=== PATIENT | female | born 1940 | race Caucasian/White ===

== ENCOUNTER 2016-09-02 16:22 | Inpatient (IN) | payer MEDICARE ==
[2016-09-02] MEDS ORDERED: HYDROmorphone 1 MG/ML 1 ML SYRINGE IVP STA (17:23)
[2016-09-02] MEDS ORDERED: SODIUM CHLORIDE 0.9% 500 ML IV STA (17:23)
[2016-09-02 17:32] LABS: Anisocytosis Slight; Basophils % (A) 0 %; CH 33.6; CHCM 33.5; Eosinophils # (A) 0.1 k/uL (0-0.7); Eosinophils % (A) 1 %; HCT 40.8 % (34.0-46.0); HDW 3.53; HGB 13.2 gm/dL (11.4-16.0); Luc # (Auto) 0.26; Luc % (Auto) 3; Lymphocytes # (A) 0.7 k/uL (1.0-4.8); Lymphocytes % (A) 8 %; MCH 32.6 pg (25.0-35.0); MCHC 32.4 g/dL (31.0-37.0); MCV 100.9 fL (80.0-100.0); Macrocytosis Moderate; Mean Platelet Volume 6.9; Monocytes # (A) 0.3 k/uL (0-1.0); Monocytes % (A) 3 %; Neutrophils # (A) 7.4 k/uL (1.3-7.7); Neutrophils % (A) 85 %; Poikilocytosis Slight; RBC 4.04 m/uL (3.80-5.40); RDW 18.8 % (11.5-15.5); WBC 8.7 k/uL (3.8-10.6); WBC (Perox) 9.08
[2016-09-02] MEDS ORDERED: METOPROLOL TARTRATE 50 MG TAB PO STA (17:46)
[2016-09-02 17:48] LABS: Anion Gap 14 mmol/L; Blood Urea Nitrogen 12 mg/dL (7-17); Calcium 9.1 mg/dL (8.4-10.2); Carbon Dioxide 28 mmol/L (22-30); Chloride 95 mmol/L (98-107); Glucose 140 mg/dL (74-99); Non-African American GFR(MDRD) >60 (>60 ml/min/1.73 sqM); Potassium 3.4 mmol/L (3.5-5.1); Sodium 137 mmol/L (137-145)
--- NOTE | 2016-09-02 18:11 | ED ---
General Adult HPI - General Chief complaint: Recheck/Abnormal Lab/Rx Stated complaint: referred by Visiting nurse Time Seen by Provider: 09/02/16 16:47 Source: patient Mode of arrival: wheelchair Limitations: physical limitation - History of Present Illness Initial comments: 76-year-old female with a past medical history of atrial fibrillation, heart failure, COPD, hyperlipidemia, hypertension, osteoarthritis, rheumatoid arthritis, sleep apnea, vascular disorder, taking Coumadin and Lopressor presented for evaluation of left flank and chest pain since Sunday. She states that at that time a rash broke out that goes from her midline back around her left flank into her lower chest. She was seen by her infectious disease specialist Dr. Marquis who prescribes her valacyclovir for shingles and she was sent home. She states she has been taking the valacyclovir without any improvement in her pain and the rash is now started to form vesicles along her chest wall. She states if she lays very still that the pain is minimalized but with any movement or palpation she has intense pain. She denies fevers, chills , worsening shortness of breath, nausea, or vomiting. Her daughter helps take care of her and states that she has also had worsening left lower extremity redness and swelling that the home care nurse states could possibly be cellulitis. After her interview the patient stated that she has somewhat going on that she believes she needs to be admitted to a long-term rehab center or a convalescent home. - Related Data Home Medications Medication Instructions Recorded Confirmed Calcium Carbonate/Vitamin D3 1 tab PO AC-SUPPER 09/07/14 09/02/16 [Calcium 600-Vit D3 400 Tablet] Cholecalciferol [Vitamin D3] 2,000 units PO QAM 09/07/14 09/02/16 Cyanocobalamin [Vitamin B-12] 1,000 mcg PO AC-SUPPER 05/21/15 09/02/16 Methotrexate Sodium [Methotrexate] 20 mg PO TU 09/06/15 09/02/16 predniSONE 5 mg PO QID 09/06/15 09/02/16 Warfarin [Coumadin] 2.5 mg PO TUWETHFR 01/15/16 09/02/16 Warfarin [Coumadin] 5 mg PO SUMOSA 01/15/16 09/02/16 Atorvastatin Calcium [Lipitor] 80 mg PO HS 01/19/16 09/02/16 Lidocaine 5% Patch [Lidoderm 5% 1 patch TOPICAL DAILY 04/27/16 09/02/16 Patch] metFORMIN HCL [Glucophage] 500 mg PO BID 04/27/16 09/02/16 Albuterol Nebulized [Ventolin 2.5 mg INHALATION RT-Q6H PRN 09/02/16 09/02/16 Nebulized] Aspirin 81 mg PO AC-SUPPER 09/02/16 09/02/16 DULoxetine HCL [Cymbalta] 60 mg PO DAILY 09/02/16 09/02/16 Famotidine [Pepcid] 20 mg PO DAILY 09/02/16 09/02/16 HYDROcodone/APAP 10-325MG [[place] 1 tab PO Q4HR PRN 09/02/16 09/02/16 10-325] Melatonin 5 mg PO HS 09/02/16 09/02/16 cefTRIAXone [Rocephin] 2,000 mg IVPB Q24HR 09/02/16 09/02/16 valACYclovir HCL [Valtrex] 1,000 mg PO Q8H 09/02/16 09/02/16 Previous Rx's Medication Instructions Recorded Nitroglycerin Sl Tabs [Nitrostat] 0.4 mg SUBLINGUAL Q5M PRN #0 tab 09/10/15 Metoprolol Tartrate [Lopressor] 50 mg PO BID #60 tab 10/03/15 ALPRAZolam [Xanax] 0.25 mg PO BID PRN #60 tab 05/01/16 Allopurinol [Zyloprim] 300 mg PO DAILY tab 05/01/16 Budesonide [Pulmicort] 0.5 mg INHALATION RT-BID nebu 05/01/16 Furosemide [Lasix] 40 mg PO DAILY #0 05/01/16 Isosorbide Mononitrate ER [Imdur] 15 mg PO DAILY dose 05/01/16 Sennosides/Docusate Sodium 1 tab PO DAILY #30 tab 05/01/16 [Eloisa-Colace Tablet] guaiFENesin [Mucinex] 600 mg PO Q12HR tablet.er 05/01/16 Allergies Allergy/AdvReac Type Severity Reaction Status Date / Time azathioprine [From Imuran] Allergy pancreatiti Verified 09/02/16 16:53 s azathioprine sodium Allergy pancreatiti Verified 09/02/16 16:53 [[facility] s Review of Systems ROS Statement: Those systems with pertinent positive or pertinent negative responses have been documented in the HPI. General: Patient denies fever, chills,nausea, or vomiting. HEENT: No visual changes. No eye pain. No nasal symptoms. No dysphagia.No odynophagia. No ENT pain. Cardiac: No chest pain. No palpitations. PIC line to right arm. Pulmonary; No dyspnea. Denies cough. GI: No abdominal pain. No diarrhea. No constipation. No bowel habit changes. No melena. No hematochezia. : No dysuria.No hematuria. No hesitancy. No urgency. No renal lithiasis history. Musculoskeletal: No musculoskeletal pain. Osteomyelitis to the right foot. Orthopedic: Denies fracture history. Integumentary: Positive rash to left back with radiation around to her left lower chest and a single stripe. There is also increased erythema and warmth to the left ankle. Neurologic: Denies any lateralizing weakness. Denies numbness. Denies tingling. No seizure activity. Denies TIA or CVA. Heme/Onc: Denies anemia. Denies cancer. Denies adenopathy. ROS Other: All systems not noted in ROS Statement are negative. Past Medical History Past Medical History: Atrial Fibrillation, Heart Failure, COPD, Hyperlipidemia, Hypertension, Musculoskeletal Disorder, Osteoarthritis (OA), Rheumatoid Arthritis (RA), Skin Disorder, Sleep Apnea/CPAP/BIPAP, Vascular Disorder Additional Past Medical History / Comment(s): Recent R ankle fracture and just got released from [facility] rehab. Other HX: Newly diagnosed diabetes and torn R rotator cuff diagnosed recently, psoriasis, PVD, past vascular wound lt foot since healed, uti(e coli), sleep apnea uses cpap machine -not sure of settings, migraines, hiatal hernia, fall in jul 2015 has had pain since rt buttock/leg, numbness tingling to bilateral hands and feet. History of Any Multi-Drug Resistant Organisms: None Reported Date of last positivie culture/infection: 09/07/2015 MDRO Source:: stool (pt was treated at that time) Past Surgical History: Appendectomy, Back Surgery, Cholecystectomy, Joint Replacement, Orthopedic Surgery, Tubal Ligation Additional Past Surgical History / Comment(s): bilateral cataracts removed,r t ankle fusion, left hip replacement x 2, left knee arthroscopy, arthritic nodule rt heel, right knee replacment, lt carpal tunnel release, colonoscopy was done more than 5 years ago. Past Anesthesia/Blood Transfusion Reactions: Postoperative Nausea & Vomiting ( PONV) Past Psychological History: Anxiety, Depression Additional Psychological History / Comment(s): Pt recently discharged from [facility] rehab after R ankle fracture. Pt has been more depressed since the dec fall and inabilty to move well and deal with the pain she's having. no suicidal ideations or thoughts of harming.at time she feels like a burden to others. currently pt is living in her own home and her daughteris staying with her temporarily. She is ambulating with a walker. She has a CPAP machine and a commode. She has home care thru [facility]. Her imtiaz gets her to appts. Smoking Status: Former smoker Past Alcohol Use History: None Reported Additional Past Alcohol Use History / Comment(s): smoked x 55 years 1.5 ppd, started in 1952 and quit 2007 Past Drug Use History: None Reported - Past Family History Sister(s) History Unknown: Yes Family Medical History: No Reported History Daughter(s) Family Medical History: No Reported History Son(s) Family Medical History: No Reported History Father Family Medical History: Cancer Mother Family Medical History: Coronary Artery Disease (CAD), Myocardial Infarction ([place] ), Rheumatoid Arthritis (RA) General Exam - General Exam Comments Initial Comments: General: The patient is awake and alert, in no distress, and does not appear acutely ill. Eye: Pupils are equal, round and reactive to light, extra-ocular movements are intact; there is normal conjunctiva bilaterally. No signs of icterus. Ears, nose, mouth and throat: There are moist mucous membranes and no oral lesions. Neck: The neck is supple, there is no tenderness or JVD. Cardiovascular: There is a regular rate and rhythm. No murmur, rub or gallop is appreciated. Respiratory: Lungs are clear to auscultation, respirations are non-labored, breath sounds are equal. No wheezes, stridor, rales, or rhonchi. Gastrointestinal: Soft, non-distended, non-tender abdomen without masses or organomegaly noted. There is no rebound or guarding present. No CVA tenderness. Bowel sounds are unremarkable. Back: There is no tenderness to palpation in the midline. There is no obvious deformity. Musculoskeletal: Normal ROM, There is no pedal edema. There is no calf tenderness or swelling. Sensation intact. Pulses equal bilaterally 2+. Healing osteomyelitis to right lower extremity. Neurological: CN II-XII intact, There are no obvious motor or sensory deficits. Coordination appears grossly intact. Speech is normal. Skin: Skin is warm and dry. Rash consistent with shingles to the left T11 through T12 dermatomes with occasional vesicle formation. Erythema to left ankle and warm to touch. Psychiatric: Cooperative, appropriate mood & affect, normal judgment. Limitations: physical limitation Course Vital Signs 09/02/16 09/02/16 09/02/16 16:25 17:21 18:34 Temperature 97.5 F L 98.2 F 98.0 F Pulse Rate 108 H 120 H 97 Respiratory 20 18 18 Rate Blood Pressure 136/83 157/72 148/72 O2 Sat by Pulse 98 96 96 Oximetry 09/02/16 19:12 Temperature 97.3 F L Pulse Rate 86 Respiratory 16 Rate Blood Pressure 130/57 O2 Sat by Pulse 96 Oximetry EKG Findings - EKG Comments: EKG Findings:: EKG shows atrial fibrillation with rapid ventricular response and a rate of 121 bpm, QRS duration 64, QT/QTC 300/426. Repeat EKG shows atrial fibrillation with a ventricular rate of 96, QRS 72, QT/QTC 354/444 Medical Decision Making - Medical Decision Making 76-year-old female with past medical history noted above presented for evaluation of left back flank and chest wall pain with associated rash that is consistent with shingles. She was evaluated by her infectious disease specialist Dr. Marquis who prescribed her a prescription for valacyclovir. Since then her pain is continued to worsen and the rash is now starting to form vesicles. She further states that she has left leg erythema and warmth to palpation. Patient has a history of rate controlled atrial fibrillation but presents with a rate of 121 bpm. She takes Lopressor in the evening and hasn't taken her dose yet which will be provided. We'll obtain labs, EKG, and provide pain control and start admission process. Patient reevaluated and had improvement in pain. Repeat EKG after her nightly Lopressor showed a rate down to [address] Aceves was updated on the status of the patient and accepted the admission with request to have the patient started on Cefzil and for the left ankle cellulitis, to continue the valacyclovir, and to put docusate on consult. Orders were placed including an add-on PT/INR to evaluate her Coumadin status. Admission order placed in bed request submitted. - Lab Data Result diagrams: 09/02/16 17:10 09/02/16 17:10 Lab Results 09/02/16 09/02/16 Range/Units 17:10 17:10 WBC 8.7 (3.8-10.6) k/uL RBC 4.04 (3.80-5.40) m/uL Hgb 13.2 (11.4-16.0) gm/dL Hct 40.8 (34.0-46.0) % MCV 100.9 H (80.0-100.0) fL MCH 32.6 (25.0-35.0) pg MCHC 32.4 (31.0-37.0) g/dL RDW 18.8 H (11.5-15.5) % Plt Count 256 (150-450) k/uL Neutrophils % 85 % Lymphocytes % 8 % Monocytes % 3 % Eosinophils % 1 % Basophils % 0 % Neutrophils # 7.4 (1.3-7.7) k/uL Lymphocytes # 0.7 L (1.0-4.8) k/uL Monocytes # 0.3 (0-1.0) k/uL Eosinophils # 0.1 (0-0.7) k/uL Basophils # 0.0 (0-0.2) k/uL Poikilocytosis Slight Anisocytosis Slight Macrocytosis Moderate Sodium 137 (137-145) mmol/L Potassium 3.4 L (3.5-5.1) mmol/L Chloride 95 L (98-107) mmol/L Carbon Dioxide 28 (22-30) mmol/L Anion Gap 14 mmol/L BUN 12 (7-17) mg/dL Creatinine 0.59 (0.52-1.04) mg/dL Est GFR (MDRD) Af Amer >60 (>60 ml/min/1.73 sqM) Est GFR (MDRD) Non-Af >60 (>60 ml/min/1.73 sqM) Glucose 140 H (74-99) mg/dL Calcium 9.1 (8.4-10.2) mg/dL Disposition Clinical Impression: Shingles, Lower extremity cellulitis Disposition: ADMITTED IP TO THIS [facility] Referrals: Naresh Arce MD [Primary Care Provider] - 1-2 days Decision to Admit Reason: Admit from EC Decision Date: 09/02/16 Decision Time: 19:14
[2016-09-02] MEDS ORDERED: ONDANSETRON 4 MG/2 ML VIAL IVP PRN (18:47)
[2016-09-02] MEDS ORDERED: ceFAZolin 1,000 MG in DEXTROSE/WATER 1 50ML.BAG IVPB STA (18:47)
[2016-09-02] MEDS ORDERED: NALOXONE 0.4 MG/ML 1 ML VIAL IV PRN (18:47)
[2016-09-02] MEDS: SODIUM CHLORIDE 0.9% 1,000 ML IV SCH (19:08)
[2016-09-02] MEDS: MORPHINE SULFATE 4 MG/ML SYRINGE IV PRN (19:15)
[2016-09-02] MEDS: BUDESONIDE 0.5 MG/2 ML NEBU INHALATION SCH (21:16)
[2016-09-02] MEDS: KETOROLAC 30 MG/ML 1 ML VIAL IVP PRN (21:23)
[2016-09-02] MEDS: metFORMIN 500 MG TAB PO SCH (21:23)
[2016-09-02] MEDS: ATORVASTATIN 80 MG TAB PO SCH (21:24)
[2016-09-02] MEDS: MELATONIN 5 MG TABLET PO SCH (21:24)
[2016-09-02] MEDS: WARFARIN 5 MG TAB PO SCH (21:24)
[2016-09-02] MEDS: ALPRAZolam 0.25 MG TAB PO PRN (21:28)
[2016-09-03] MEDS: MORPHINE SULFATE 4 MG/ML SYRINGE IV PRN ×4 (00:02→16:45)
[2016-09-03 06:22] LABS: Anisocytosis Slight; Basophils # (A) 0.1 k/uL (0-0.2); Basophils % (A) 1 %; CH 33.3; Eosinophils # (A) 0.1 k/uL (0-0.7); Eosinophils % (A) 2 %; HDW 3.52; HGB 11.9 gm/dL (11.4-16.0); Hypochromasia Slight; Luc # (Auto) 0.13; Luc % (Auto) 2; Lymphocytes % (A) 17 %; MCH 32.4 pg (25.0-35.0); MCV 101.3 fL (80.0-100.0); Macrocytosis Moderate; Mean Platelet Volume 7.8; Monocytes # (A) 0.2 k/uL (0-1.0); Monocytes % (A) 4 %; Neutrophils # (A) 4.6 k/uL (1.3-7.7); Neutrophils % (A) 75 %; Poikilocytosis Slight; RBC 3.66 m/uL (3.80-5.40); RDW 19.4 % (11.5-15.5); WBC 6.1 k/uL (3.8-10.6); WBC (Perox) 6.47
[2016-09-03 06:30] LABS: Anion Gap 11 mmol/L; Blood Urea Nitrogen 17 mg/dL (7-17); Calcium 8.6 mg/dL (8.4-10.2); Carbon Dioxide 31 mmol/L (22-30); Chloride 98 mmol/L (98-107); Glucose 90 mg/dL (74-99); Non-African American GFR(MDRD) >60 (>60 ml/min/1.73 sqM); Sodium 140 mmol/L (137-145)
[2016-09-03] MEDS: BUDESONIDE 0.5 MG/2 ML NEBU INHALATION SCH ×2 (07:16→19:44)
[2016-09-03 07:27] LABS: Glucose,Whole Blood 85 mg/dL (75-99)
[2016-09-03] MEDS ORDERED: cefTRIAXone 2,000 MG VIAL IVPB SCH (09:00)
[2016-09-03] MEDS: LIDOCAINE 5% PATCH TOPICAL SCH (09:07)
[2016-09-03] MEDS: cefTRIAXone 2,000 MG in SODIUM CHLORIDE 0.9% 100 ML IVPB SCH (09:07)
[2016-09-03] MEDS: ALLOPURINOL 300 MG TAB PO SCH (09:08)
[2016-09-03] MEDS: FAMOTIDINE 20 MG TAB PO SCH (09:08)
[2016-09-03] MEDS: CHOLECALCIFEROL 1,000 UNIT TAB PO SCH (09:08)
[2016-09-03] MEDS: valACYclovir HCL 1,000 MG TABLET PO SCH ×4 (09:08→23:44)
[2016-09-03] MEDS: DULoxetine HCL 60 MG CAPSULE.DR PO SCH (09:08)
[2016-09-03] MEDS: metFORMIN 500 MG TAB PO SCH ×2 (09:08→16:39)
[2016-09-03] MEDS: ISOSORBIDE MONONITRATE ER 15 MG TAB PO SCH (09:09)
[2016-09-03] MEDS: METOPROLOL TARTRATE 50 MG TAB PO SCH ×2 (09:09→22:00)
[2016-09-03] MEDS: FUROSEMIDE 40 MG TAB PO SCH (09:09)
[2016-09-03] MEDS ORDERED: SENNOSIDES-DOCUSATE SODIUM 1 EACH TAB PO PRN (09:21)
[2016-09-03] MEDS: ALPRAZolam 0.25 MG TAB PO PRN (11:03)
[2016-09-03 11:54] LABS: Glucose,Whole Blood 106 mg/dL (75-99)
[2016-09-03] MEDS: POTASSIUM CHLORIDE ER 20 MEQ TAB.ER PO SCH ×3 (12:39→16:39)
[2016-09-03] MEDS ORDERED: oxyCODONE-APAP 7.5-325MG 1 EACH TAB PO PRN (13:19)
--- NOTE | 2016-09-03 16:20 | P.CONS ---
History of Present Illness - Reason for Consult Consult date: 09/03/16 - Chief Complaint Rash left back and breast - History of Present Illness Pleasant 76 woman presents to Hospital for evaluation of increasing weakness as well as significant rash to the back and left side of her breast. She was seen in the outpatient setting with Dr. Marquis and was thought to have evidence of shingles. She was started on oral Valtrex. The back may be a bit better but continues to have the blistering to the inferior aspect of the pendulous left breast. It is somewhat painful. Doing better with the current pain medications. She did had a low-grade temperature but no high-grade fever chill or rigor. She has a known history of osteomyelitis to her right foot appears to be the fifth metatarsal interceding outpatient intravenous antibiotic therapy with ceftriaxone. Apparently this has been showing some ongoing improvement. She however is feeling in her current home setting and likely will need rehab to complete her course of therapy. Review of Systems 76 woman who is having difficulties with pain fatigue and malaise and rash to the left back radiating to the lower breast area HEENT:Denies headache or acute visual change. Denies sinus or mouth discomforts. Denies neck stiffness or pain. Denies significant oral cavity pain. Denies difficulty on swallowing. Lungs: Chronic shortness of breath without cough or sputum production or hemoptysis Cardiovascular: Denies significant chest pain, chest wall pain, orthopnea, syncope is having some shortness of breath above baseline and does have dyspnea on exertion Gastrointestinal:Denies nausea, vomiting, diarrhea, constipation, hematemesis, melena, hematochezia. No no significant change of bowel habit noticed. Musculoskeletal: Has chronic rheumatoid arthritis and is on multiple medications with chronic joint pain and discomfort. Skin: Severe new rash to the back into the left chest area Neuro: Denies headache or visual change. Is having difficulty with ambulation. She's having some difficulties increasing weakness. Concern to falls. Psychiatric:Denies anxiety or depression. Endocrine:As fatigue and has had weight gain over time Past Medical History Past Medical History: Atrial Fibrillation, Heart Failure, COPD, Diabetes Mellitus, Hyperlipidemia, Hypertension, Musculoskeletal Disorder, Osteoarthritis (OA), Rheumatoid Arthritis (RA), Skin Disorder, Sleep Apnea/CPAP/ BIPAP, Vascular Disorder Additional Past Medical History / Comment(s): Recent R ankle fracture and just got released from [facility] rehab. Other HX: Newly diagnosed diabetes and torn R rotator cuff diagnosed recently, psoriasis, PVD, past vascular wound lt foot since healed, uti(e coli), sleep apnea uses cpap machine -not sure of settings, migraines, hiatal hernia, fall in jul 2015 has had pain since rt buttock/leg, numbness tingling to bilateral hands and feet. History of Any Multi-Drug Resistant Organisms: None Reported Year Discovered:: 09/07/2015 MDRO Source:: stool (pt was treated at that time) Past Surgical History: Appendectomy, Back Surgery, Cholecystectomy, Joint Replacement, Orthopedic Surgery, Tubal Ligation Additional Past Surgical History / Comment(s): bilateral cataracts removed,r t ankle fusion, left hip replacement x 2, left knee arthroscopy, arthritic nodule rt heel, right knee replacment, lt carpal tunnel release, colonoscopy was done more than 5 years ago. Past Anesthesia/Blood Transfusion Reactions: Postoperative Nausea & Vomiting ( PONV) Past Psychological History: Anxiety, Depression Additional Psychological History / Comment(s): Pt recently discharged from [facility] rehab after R ankle fracture. Pt has been more depressed since the jul fall and inabilty to move well and deal with the pain she's having. no suicidal ideations or thoughts of harming.at time she feels like a burden to others. currently pt is living in her own home and her daughteris staying with her temporarily. She is ambulating with a walker. She has a CPAP machine and a commode. She has home care thru [facility]. No animal exposures. No current tobacco use. No international travel. The experience. Daughter's extremely helpful and does help her in the home and transports her to appointments Smoking Status: Never smoker Past Alcohol Use History: None Reported Additional Past Alcohol Use History / Comment(s): smoked x 55 years 1.5 ppd, started in 1952 and quit 2007 Past Drug Use History: None Reported - Past Family History Sister(s) History Unknown: Yes Family Medical History: No Reported History Daughter(s) Family Medical History: No Reported History Son(s) Family Medical History: No Reported History Father Family Medical History: Cancer Mother Family Medical History: Coronary Artery Disease (CAD), Myocardial Infarction (MA ), Rheumatoid Arthritis (RA) Medications and Allergies Home Medications and Allergies Comment(s): Current Medications Acetaminophen (Tylenol Tab) 650 mg PO Q6HR PRN PRN Reason: Mild Pain or Fever > 100.5 Albuterol Sulfate (Ventolin Nebulized) 2.5 mg INHALATION RT-Q6H PRN PRN Reason: Shortness Of Breath Or Wheezing Allopurinol (Zyloprim) 300 mg PO DAILY [facility] Last Admin: 09/03/16 09:08 Dose: 300 mg Alprazolam (Xanax) 0.25 mg PO BID PRN PRN Reason: Anxiety Last Admin: 09/03/16 11:03 Dose: 0.25 mg Aspirin (Aspirin) 81 mg PO AC-SUPPER [facility] Atorvastatin Calcium (Lipitor) 80 mg PO HS [facility] Last Admin: 09/02/16 21:24 Dose: 80 mg Budesonide (Pulmicort) 0.5 mg INHALATION RT-BID [facility] Last Admin: 09/03/16 07:16 Dose: 0.5 mg Calcium Carbonate (Oscal 500+D) 1 each PO AC-SUPPER [facility] Cholecalciferol (Vitamin D3) 2,000 unit PO QAM [facility] Last Admin: 09/03/16 09:08 Dose: 2,000 unit Cyanocobalamin (Vitamin B-12) 1,000 mcg PO AC-SUPPER [facility] Duloxetine HCl (Cymbalta) 60 mg PO DAILY [facility] Last Admin: 09/03/16 09:08 Dose: 60 mg Famotidine (Pepcid) 20 mg PO DAILY [facility] Last Admin: 09/03/16 09:08 Dose: 20 mg Furosemide (Lasix) 40 mg PO DAILY [facility] Last Admin: 09/03/16 09:09 Dose: 40 mg Gabapentin (Neurontin) 100 mg PO TID [facility] Sodium Chloride (Saline 0.9%) 1,000 mls @ 20 mls/hr IV .Q24H [facility] Last Admin: 09/02/16 19:08 Dose: 20 mls/hr Ceftriaxone Sodium 2,000 mg/ (Sodium Chloride) 100 mls @ 100 mls/hr IVPB Q24HR [facility] Last Admin: 09/03/16 09:07 Dose: 100 mls/hr Isosorbide Mononitrate (Imdur) 15 mg PO DAILY [facility] Last Admin: 09/03/16 09:09 Dose: 15 mg Ketorolac Tromethamine (Toradol) 30 mg IVP Q6HR PRN PRN Reason: Moderate Pain Stop: 09/07/16 18:48 Last Admin: 09/02/16 21:23 Dose: 30 mg Lidocaine (Lidoderm) 1 patch TOPICAL DAILY [facility] Last Admin: 09/03/16 09:07 Dose: 1 patch Melatonin (Melatonin) 5 mg PO HS [facility] Last Admin: 09/02/16 21:24 Dose: 5 mg Metformin HCl (Glucophage) 500 mg PO AC-BID [facility] Last Admin: 09/03/16 09:08 Dose: 500 mg Metoprolol Tartrate (Lopressor) 50 mg PO BID [facility] Last Admin: 09/03/16 09:09 Dose: 50 mg Morphine Sulfate (Morphine Sulfate (Inj)) 4 mg IV Q4HR PRN PRN Reason: Severe Pain Last Admin: 09/03/16 11:11 Dose: 4 mg Naloxone HCl (Narcan) 0.2 mg IV Q2M PRN PRN Reason: Opioid Reversal Ondansetron HCl (Zofran) 4 mg IVP Q8HR PRN PRN Reason: Nausea And Vomiting Oxycodone/Acetaminophen (Percocet 7.5-325) 1 each PO Q4HR PRN PRN Reason: Pain Senna/Docusate Sodium (Senokot-S) 1 each PO DAILY [facility] Valacyclovir HCl (Valtrex) 1,000 mg PO Q8HR [facility] Last Admin: 09/03/16 15:55 Dose: 1,000 mg Warfarin Sodium (Coumadin) 5 mg PO [id number]@1800 [facility] Last Admin: 09/02/16 21:24 Dose: 5 mg Warfarin Sodium (Coumadin) 2.5 mg PO [facility] Home Medications Medication Instructions Recorded Confirmed Type Calcium Carbonate/Vitamin D3 1 tab PO AC-SUPPER 09/07/14 09/02/16 History [Calcium 600-Vit D3 400 Tablet] Cholecalciferol [Vitamin D3] 2,000 units PO QAM 09/07/14 09/02/16 History Cyanocobalamin [Vitamin B-12] 1,000 mcg PO AC-SUPPER 05/21/15 09/02/16 History Methotrexate Sodium [Methotrexate] 20 mg PO TU 09/06/15 09/02/16 History predniSONE 5 mg PO QID 09/06/15 09/02/16 History Warfarin [Coumadin] 2.5 mg PO TUWETHFR 01/15/16 09/02/16 History Warfarin [Coumadin] 5 mg PO SUMOSA 01/15/16 09/02/16 History Atorvastatin Calcium [Lipitor] 80 mg PO HS 01/19/16 09/02/16 History Lidocaine 5% Patch [Lidoderm 5% 1 patch TOPICAL DAILY 04/27/16 09/02/16 History Patch] metFORMIN HCL [Glucophage] 500 mg PO BID 04/27/16 09/02/16 History Albuterol Nebulized [Ventolin 2.5 mg INHALATION RT-Q6H PRN 09/02/16 09/02/16 History Nebulized] Aspirin 81 mg PO AC-SUPPER 09/02/16 09/02/16 History DULoxetine HCL [Cymbalta] 60 mg PO DAILY 09/02/16 09/02/16 History Famotidine [Pepcid] 20 mg PO DAILY 09/02/16 09/02/16 History HYDROcodone/APAP 10-325MG [Chualar 1 tab PO Q4HR PRN 09/02/16 09/02/16 History 10-325] Melatonin 5 mg PO HS 09/02/16 09/02/16 History cefTRIAXone [Rocephin] 2,000 mg IVPB Q24HR 09/02/16 09/02/16 History valACYclovir HCL [Valtrex] 1,000 mg PO Q8H 09/02/16 09/02/16 History Allergies Allergy/AdvReac Type Severity Reaction Status Date / Time azathioprine [From Imuran] Allergy pancreatiti Verified 09/02/16 16:53 s azathioprine sodium Allergy pancreatiti Verified 09/02/16 16:53 [From Imuran] s Physical Exam Vitals: Vital Signs Temp Pulse Pulse Resp BP BP Pulse Ox 09/03/16 15:00 97.8 F 96 18 120/45 96 09/03/16 08:00 18 09/03/16 07:28 86 09/03/16 07:16 86 09/03/16 07:00 97.0 F L 86 18 116/58 100 09/02/16 22:36 97.1 F L 90 18 139/69 95 09/02/16 21:25 88 09/02/16 21:17 88 09/02/16 19:12 97.3 F L 86 16 130/57 96 Intake and Output 09/03/16 09/03/1617 06:59 14:59 22:59 Other: Voiding Method Toilet Toilet # Voids 1 1 Pleasant 72 for a woman who has superobesity and significant cushingoid facies HEENT: Anicteric conjunctiva are pink and moist nasal mucosa grossly intact without significant lesions, there is no thrush. Poor dentition Neck: The neck is supple without significant lymphadenopathy or thyromegaly. Lungs: There is symmetrical air entry with crackles in the bilateral bases. Scattered wheezes are heard no bronchial sounds no changes of tactile fremitus or egophony Heart: Irregular with an audible S1 and S2 no S3 positive S4 2/6 systolic murmur that radiates to the left sternal border no click or rub Abdomen: Obese, Positive bowel sounds soft and nontender without palpable masses or organomegaly. There was no guarding or rebound. Extremities: Chimneys evidence of some generalized edema. Is evidence of the marked deformity from her arthritis. Is evidence of very discolored skin she is on both Coumadin as well as prednisone. She is evidence of significant discomfort upon attempting to ambulate. There is evidence of the ulceration which is on the right foot lateral fifth metatarsal area measuring 1.2 x 1.2 x 0.2 at this point in time. No purulence. She does have the purple discoloration to her hands and feet that she relates is chronic and without acute change. No other ulcers are seen. Skin: Evidence of the significant rash is present from the mid aspect of her back on the left side radiates to the inferior aspect of her left breast. On the back there appears to be improvement if there was some vesicles that were there but there is distinct vesicles that are seen especially on the dependent region of the pendulous left breast. Along his lateral border. Missy still seen. It is tender with erythema. Neuro: Awake alert oriented to person place and time. There are no acute new gross focal sensory motor deficits. Results CBC & Chem 7: 09/03/16 06:00 09/03/16 06:00 Labs: Abnormal Lab Results - Last 24 Hours (Table) 09/03/16 09/03/16 09/03/16 Range/Units 06:00 06:00 11:47 RBC 3.66 L (3.80-5.40) m/uL MCV 101.3 H (80.0-100.0) fL RDW 19.4 H (11.5-15.5) % Potassium 3.0 L* (3.5-5.1) mmol/L Carbon Dioxide 31 H (22-30) mmol/L POC Glucose (mg/dL) 106 H (75-99) mg/dL Laboratory Results WBC 6.1 k/uL (3.8-10.6) 09/03/16 06:00 RBC 3.66 m/uL (3.80-5.40) L 09/03/16 06:00 Hgb 11.9 gm/dL (11.4-16.0) 09/03/16 06:00 Hct 37.0 % (34.0-46.0) 09/03/16 06:00 MCV 101.3 fL (80.0-100.0) H 09/03/16 06:00 MCH 32.4 pg (25.0-35.0) 09/03/16 06:00 MCHC 32.0 g/dL (31.0-37.0) 09/03/16 06:00 RDW 19.4 % (11.5-15.5) H 09/03/16 06:00 Plt Count 247 k/uL (150-450) 09/03/16 06:00 Neutrophils % 75 % 09/03/16 06:00 Lymphocytes % 17 % 09/03/16 06:00 Monocytes % 4 % 09/03/16 06:00 Eosinophils % 2 % 09/03/16 06:00 Basophils % 1 % 09/03/16 06:00 Neutrophils # 4.6 k/uL (1.3-7.7) 09/03/16 06:00 Lymphocytes # 1.0 k/uL (1.0-4.8) 09/03/16 06:00 Monocytes # 0.2 k/uL (0-1.0) 09/03/16 06:00 Eosinophils # 0.1 k/uL (0-0.7) 09/03/16 06:00 Basophils # 0.1 k/uL (0-0.2) 09/03/16 06:00 Hypochromasia Slight 09/03/16 06:00 Poikilocytosis Slight 09/03/16 06:00 Anisocytosis Slight 09/03/16 06:00 Macrocytosis Moderate 09/03/16 06:00 PT 19.0 sec (9.0-12.0) H 09/02/16 17:10 INR 2.0 (<1.1) 09/02/16 17:10 APTT 25.0 sec (22.0-30.0) 09/02/16 17:10 Sodium 140 mmol/L (137-145) 09/03/16 06:00 Potassium 3.0 mmol/L (3.5-5.1) L* 09/03/16 06:00 Chloride 98 mmol/L (98-107) 09/03/16 06:00 Carbon Dioxide 31 mmol/L (22-30) H 09/03/16 06:00 Anion Gap 11 mmol/L 09/03/16 06:00 BUN 17 mg/dL (7-17) 09/03/16 06:00 Creatinine 0.68 mg/dL (0.52-1.04) 09/03/16 06:00 Est GFR (MDRD) Af Amer >60 (>60 ml/min/1.73 sqM) 09/03/16 06:00 Est GFR (MDRD) Non-Af >60 (>60 ml/min/1.73 sqM) 09/03/16 06:00 Glucose 90 mg/dL (74-99) 09/03/16 06:00 POC Glucose (mg/dL) 106 mg/dL (75-99) H 09/03/16 11:47 POC Glu Boiler Reliner ID Loren Angel 09/03/16 11:47 Calcium 8.6 mg/dL (8.4-10.2) 09/03/16 06:00 Assessment and Plan (1) Shingles Narrative/Plan: Pleasant 76-year-old female presents to Hospital for evaluation of increasing pain related to the rash on the back and left side of her chest to below the left breast. Is then seen by Dr. Marquis in the outpatient setting and there is evidence of shingles in this area. Is quite painful and she is doing relatively well with initiation of morphine for pain control. Continue Valtrex 1 g every 8 hours as well as her current oral steroid therapy that is without acute change. If there is worsening of the site may need to have further cultures performed although she does not have a known history of MRSA. 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 Some silver dressing will be applied to the ulceration of the foot. Unclear if she has a specialty shoe to help her with her walking. She's having some failure to thrive and difficulties with her overall situation and likely will go well to go to rehab to receive some further therapy to increase her strength and independence in the home setting. We'll check her protein status and make sure that adequate and supplement as needed. Multivitamin is added. Status: Acute (2) Osteomyelitis of right foot Status: Acute (3) Left-sided chest wall pain Status: Acute (4) Generalized weakness Status: Acute (5) Rheumatoid arthritis Status: Acute
[2016-09-03] MEDS: CYANOCOBALAMIN 500 MCG TAB PO SCH (16:39)
[2016-09-03] MEDS: GABAPENTIN 100 MG CAP PO SCH ×2 (16:39→22:00)
[2016-09-03] MEDS: ASPIRIN 81 MG CHEW PO SCH (16:40)
[2016-09-03] MEDS: CALCIUM CARB-VIT D 500MG-200UN 1 EACH TAB PO SCH (16:40)
[2016-09-03] MEDS: WARFARIN 5 MG TAB PO SCH (16:40)
[2016-09-03 17:15] LABS: C Reactive Protein 24.3 mg/L (<10.0)
[2016-09-03 17:21] LABS: Glucose,Whole Blood 93 mg/dL (75-99)
[2016-09-03 19:54] LABS: Glucose,Whole Blood 106 mg/dL (75-99)
--- NOTE | 2016-09-03 20:33 | P.HPIM ---
History of Present Illness H&P Date: 09/03/16 Chief Complaint: Left thoracic pain uncontrolled, left ankle redness, known hx r ankle osteo This is a pleasant 76-year-old lady patient of Dr. Marquis and Dr. Arce. She has underlying history off from at the COPD hyperlipidemia vascular disorder and obstructive sleep apnea neuralgia atrial fibrillation, chronic COPD diabetes mellitus type 2, chronic immunosuppression CHF admitted through the emergency room secondary to left thoracic pain. She was diagnosed recently to have T6 dermatome herpes zoster this past Sunday 3 days prior to admission for which valacyclovir was given by Dr. Marquis. Patient had left flank pain was subsequently seen in the emergency room secondary to the pain. Patient denies any fever however she has some chills. Patient has hydrocodone which doesn't seem to take care of the pain she was seen in emergency room with evaluation to include noticeable left vesicular eruption involving the T6 area, redness in the left leg, known history off chronic venous stasis dermatitis. Known also on the right metatarsal region lateral region from a previous biopsy for osteotomyelitis by Dr. Kim. She is currently on IV Rocephin prior to her admission as recommended by Dr. Marquis. Review of Systems Constitutional: Reports as per HPI, Reports chills, Reports chronic pain, Reports night sweats, Reports weakness, Denies anorexia, Denies chronic headaches, Denies daytime sleepiness, Denies fatigue, Denies fever, Denies lethargy, Denies malaise, Denies poor appetite, Denies sweats, Denies weight gain, Denies weight loss Ears, nose, mouth and throat: Reports as per HPI, Denies ant. neck pain, Denies bleeding gums, Denies dental pain, Denies dysphagia, Denies epistaxis, Denies headache, Denies hoarseness, Denies mouth pain, Denies nasal congestion, Denies nasal discharge, Denies neck fullness/pressure, Denies neck lump, Denies nose pain, Denies odynophagia, Denies post-nasal drip, Denies sinus pain, Denies sinus pressure, Denies swelling in mouth, Denies swelling in throat, Denies sore throat, Denies vertigo, Denies voice changes Cardiovascular: Reports as per HPI, Reports decreased exercise tolerance, Reports leg edema, Reports phlebitis Respiratory: Reports as per HPI, Reports pain on inspiration Gastrointestinal: Reports as per HPI, Denies abdominal pain, Denies belching, Denies bloating, Denies BRBPR, Denies change in bowel habits, Denies coffee ground emesis, Denies constipation, Denies diarrhea, Denies dyspepsia, Denies early satiety, Denies excessive gas, Denies heartburn, Denies hematemesis, Denies hematochezia, Denies indigestion, Denies jaundice, Denies lactose intolerance, Denies loss of appetite, Denies melena, Denies nausea, Denies vomiting Genitourinary: Reports as per HPI, Denies abnormal vaginal bleeding, Denies decreased libido, Denies difficulty conceiving, Denies difficulty voiding, Denies dysmenorrhea, Denies dyspareunia, Denies dysuria, Denies flank pain, Denies genital sores, Denies hematuria, Denies hot flashes, Denies incomplete emptying, Denies kidney stones, Denies menorrhagia, Denies mixed incontinence, Denies nocturia, Denies pelvic pain, Denies post void dribbling, Denies , Denies prolapse symptoms, Denies stress incontinence, Denies urge incontinence , Denies urgency, Denies urinary frequency, Denies vaginal discharge, Denies vaginal dryness, Denies vaginal itching, Denies vaginal odor Menstruation: Reports as per HPI, Denies amenorrhea, Denies amenorrhea on BC, Denies currently menstrual, Denies cycle < 21 days, Denies cycle > 35 days, Denies cycle variable, Denies menses 1-7 days, Denies menses 8 or > days, Denies menses variable, Denies period heavy, Denies period light, Denies period normal, Denies period spotting, Denies post hysterectomy, Denies postmenopausal , Denies premenarcheal Musculoskeletal: Reports as per HPI, Denies arm numbness/tingling, Denies atrophy, Denies fractures, Denies frequent falls, Denies gait dysfunction, Denies hot joints, Denies leg numbness/tingling, Denies limitation of motion, Denies loss of height, Denies low back pain, Denies morning stiffness, Denies muscle cramps, Denies muscle weakness, Denies myalgias, Denies neck pain, Denies neck stiffness, Denies prior amputations, Denies redness of joints, Denies shooting arm pain, Denies shooting leg pain Integumentary: Reports as per HPI, Denies acne, Denies boils, Denies brittle nails, Denies change in hair/nails, Denies color changes, Denies darkening of skin, Denies depigmentation, Denies dryness, Denies foot/leg ulcers, Denies growths, Denies hirsutism, Denies lesions, Denies onychomycosis, Denies pruritus , Denies rash, Denies sores, Denies striae, Denies unusual bruising, Denies wounds Neurological: Reports as per HPI, Denies aphasia, Denies ataxia, Denies balance difficulties, Denies burning pain, Denies change in mentation, Denies change in smell/taste, Denies change in speech, Denies confusion, Denies convulsions, Denies double vision, Denies gait dysfunction, Denies head injury, Denies headaches, Denies hearing difficulties, Denies lack of coordination, Denies loss of vision, Denies memory loss, Denies migraines, Denies motor disturbance, Denies numbness, Denies paralysis, Denies paresthesias, Denies seizures, Denies sensory deficit, Denies spasticity, Denies syncope, Denies tic, Denies tingling , Denies transient paralysis, Denies tremors, Denies vertigo, Denies weakness, Denies visual changes Psychiatric: Reports as per HPI, Reports irritability, Denies anhedonia, Denies anxiety, Denies anxiety attacks, Denies change in appetite, Denies change in libido, Denies change in sleep habits, Denies confusion, Denies depression, Denies difficulty concentrating, Denies disorientation, Denies hallucinations, Denies hopelessness, Denies hypersomnia, Denies insomnia, Denies memory loss, Denies mood swings, Denies paranoia, Denies sadness/tearfulness, Denies sleep disturbances, Denies suicidal ideation Endocrine: Reports as per HPI, Reports high blood sugars, Denies cold intolerance, Denies deepening of the voice, Denies excessive sweating, Denies excessive thirst, Denies fatigue, Denies flushing, Denies heat intolerance, Denies increase in ring/shoe/hat size, Denies low blood sugars, Denies nocturia , Denies palpitations, Denies polydipsia, Denies polyphagia, Denies polyuria, Denies proptosis, Denies thyroid mass, Denies weight change Hematologic/Lymphatic: Reports as per HPI, Denies easy bleeding, Denies easy bruising, Denies lymphadenopathy, Denies lymphedema, Denies thrombophilia Allergic/Immunologic: Reports as per HPI, Reports persistent infections Past Medical History Past Medical History: Atrial Fibrillation, Heart Failure, COPD, Diabetes Mellitus, Hyperlipidemia, Hypertension, Musculoskeletal Disorder, Osteoarthritis (OA), Rheumatoid Arthritis (RA), Skin Disorder, Sleep Apnea/CPAP/ BIPAP, Vascular Disorder Additional Past Medical History / Comment(s): Recent R ankle fracture and just got released from [facility] rehab. Other HX: Newly diagnosed diabetes and torn R rotator cuff diagnosed recently, psoriasis, PVD, past vascular wound lt foot since healed, uti(e coli), sleep apnea uses cpap machine -not sure of settings, migraines, hiatal hernia, fall in jul 2015 has had pain since rt buttock/leg, numbness tingling to bilateral hands and feet. History of Any Multi-Drug Resistant Organisms: None Reported Date of last positivie culture/infection: 09/07/2015 MDRO Source:: stool (pt was treated at that time) Past Surgical History: Appendectomy, Back Surgery, Cholecystectomy, Joint Replacement, Orthopedic Surgery, Tubal Ligation Additional Past Surgical History / Comment(s): bilateral cataracts removed,r t ankle fusion, left hip replacement x 2, left knee arthroscopy, arthritic nodule rt heel, right knee replacment, lt carpal tunnel release, colonoscopy was done more than 5 years ago. Past Anesthesia/Blood Transfusion Reactions: Postoperative Nausea & Vomiting ( PONV) Past Psychological History: Anxiety, Depression Additional Psychological History / Comment(s): Pt recently discharged from [facility] rehab after R ankle fracture. Pt has been more depressed since the jul fall and inabilty to move well and deal with the pain she's having. no suicidal ideations or thoughts of harming.at time she feels like a burden to others. currently pt is living in her own home and her daughteris staying with her temporarily. She is ambulating with a walker. She has a CPAP machine and a commode. She has home care thru [facility]. Her imtiaz gets her to app. Smoking Status: Never smoker Past Alcohol Use History: None Reported Additional Past Alcohol Use History / Comment(s): smoked x 55 years 1.5 ppd, started in 1952 and quit 2007 Past Drug Use History: None Reported - Past Family History Sister(s) History Unknown: Yes Family Medical History: No Reported History Daughter(s) Family Medical History: No Reported History Son(s) Family Medical History: No Reported History Father Family Medical History: Cancer Mother Family Medical History: Coronary Artery Disease (CAD), Myocardial Infarction ([place] ), Rheumatoid Arthritis (RA) Medications and Allergies Home Medications Medication Instructions Recorded Confirmed Type Calcium Carbonate/Vitamin D3 1 tab PO AC-SUPPER 09/07/14 09/02/16 History [Calcium 600-Vit D3 400 Tablet] Cholecalciferol [Vitamin D3] 2,000 units PO QA 09/07/14 09/02/16 History Cyanocobalamin [Vitamin B-12] 1,000 mcg PO AC-SUPPER 05/21/15 09/02/16 History Methotrexate Sodium [Methotrexate] 20 mg PO TU 09/06/15 09/02/16 History predniSONE 5 mg PO QID 09/06/15 09/02/16 History Warfarin [Coumadin] 2.5 mg PO WETHFR 01/15/16 09/02/16 History Warfarin [Coumadin] 5 mg PO [facility] 01/15/16 09/02/16 History Atorvastatin Calcium [Lipitor] 80 mg PO 01/19/16 09/02/16 History Lidocaine 5% Patch [Lidoderm 5% 1 patch TOPICAL DAILY 04/27/16 09/02/16 History Patch] metFORMIN HCL [Glucophage] 500 mg PO BID 04/27/16 09/02/16 History Albuterol Nebulized [Ventolin 2.5 mg INHALATION RT-Q6H PRN 09/02/16 09/02/16 History Nebulized] Aspirin 81 mg PO AC-SUPPER 09/02/16 09/02/16 History DULoxetine HCL [Cymbalta] 60 mg PO DAILY 09/02/16 09/02/16 History Famotidine [Pepcid] 20 mg PO DAILY 09/02/16 09/02/16 History HYDROcodone/APAP 10-325MG [[employer] 1 tab PO Q4HR PRN 09/02/16 09/02/16 History 10-325] Melatonin 5 mg PO HS 09/02/16 09/02/16 History cefTRIAXone [Rocephin] 2,000 mg IVPB Q24HR 09/02/16 09/02/16 History valACYclovir HCL [Valtrex] 1,000 mg PO Q8H 09/02/16 09/02/16 History Allergies Allergy/AdvReac Type Severity Reaction Status Date / Time azathioprine [From Imuran] Allergy pancreatiti Verified 09/02/16 16:53 s azathioprine sodium Allergy pancreatiti Verified 09/02/16 16:53 [From Imuran] s Physical Exam Vitals: Vital Signs Temp Pulse Pulse Resp BP BP Pulse Ox 09/03/16 08:00 18 09/03/16 07:28 86 09/03/16 07:16 86 09/03/16 07:00 97.0 F L 86 18 116/58 100 09/02/16 22:36 97.1 F L 90 18 139/69 95 09/02/16 21:25 88 09/02/16 21:17 88 09/02/16 19:12 97.3 F L 86 16 130/57 96 Intake and Output 09/02/16 09/03/16 09/03/16 22:59 06:59 14:59 Intake Total 200 Balance 200 Intake: IV 200 cefTRIAXone 2,000 mg In 200 Sodium Chloride 0.9% 100 ml @ 100 mls/hr IVPB Q24HR [facility] Rx#:[id number] Other: Voiding Method Toilet Toilet # Voids 1 1 1 - Constitutional General appearance: cooperative, no acute distress - EENT Eyes: anicteric sclerae, EOMI, PERRLA, dentition normal, normal appearance ENT: NA/AT, normal oropharynx - Neck Neck: no lymphadenopathy, normal ROM, no other, no rigidity, no stridor, no thyromegaly - Respiratory Respiratory: bilateral: CTA, negative: diminished, dullness, rales, rhonchi - Cardiovascular Rhythm: regular Heart sounds: normal: S1, S2 Abnormal Heart Sounds: no systolic murmur, no diastolic murmur, no rub, no S3 Gallop, no S4 Gallop, no click, no other - Gastrointestinal General gastrointestinal: normal bowel sounds, soft - Integumentary Integumentary: rash (left t 6 dermatome), ulcer (right lateral metatarsal 2 cm x2 cm x1 cm approx) - Musculoskeletal Musculoskeletal: generalized weakness, strength equal bilaterally Results CBC & Chem 7: 09/03/16 06:00 09/03/16 06:00 Labs: Abnormal Lab Results - Last 24 Hours (Table) 09/03/16 09/03/16 09/03/16 Range/Units 06:00 06:00 11:47 RBC 3.66 L (3.80-5.40) m/uL MCV 101.3 H (80.0-100.0) fL RDW 19.4 H (11.5-15.5) % Potassium 3.0 L* (3.5-5.1) mmol/L Carbon Dioxide 31 H (22-30) mmol/L POC Glucose (mg/dL) 106 H (75-99) mg/dL Procedures APPLICATION LOWER LEG SPLINT (01/15/16) EMERGENCY DEPT VISIT (04/27/16) EMERGENCY DEPT VISIT (01/15/16) EMERGENCY DEPT VISIT (09/04/15) EMERGENCY DEPT VISIT (01/16/15) HYDRATE IV INFUSION ADD-ON (09/04/15) THER/PROPH/DIAG INJ IV PUSH (04/27/16) THER/PROPH/DIAG INJ SC/IM (01/16/15) TX/PRO/DX INJ SAME DRUG MANAGER MANAGED CARE (09/04/15) Laboratory Results WBC 6.1 k/uL (3.8-10.6) 09/03/16 06:00 RBC 3.66 m/uL (3.80-5.40) L 09/03/16 06:00 Hgb 11.9 gm/dL (11.4-16.0) 09/03/16 06:00 Hct 37.0 % (34.0-46.0) 09/03/16 06:00 MCV 101.3 fL (80.0-100.0) H 09/03/16 06:00 MCH 32.4 pg (25.0-35.0) 09/03/16 06:00 MCHC 32.0 g/dL (31.0-37.0) 09/03/16 06:00 RDW 19.4 % (11.5-15.5) H 09/03/16 06:00 Plt Count 247 k/uL (150-450) 09/03/16 06:00 Neutrophils % 75 % 09/03/16 06:00 Lymphocytes % 17 % 09/03/16 06:00 Monocytes % 4 % 09/03/16 06:00 Eosinophils % 2 % 09/03/16 06:00 Basophils % 1 % 09/03/16 06:00 Neutrophils # 4.6 k/uL (1.3-7.7) 09/03/16 06:00 Lymphocytes # 1.0 k/uL (1.0-4.8) 09/03/16 06:00 Monocytes # 0.2 k/uL (0-1.0) 09/03/16 06:00 Eosinophils # 0.1 k/uL (0-0.7) 09/03/16 06:00 Basophils # 0.1 k/uL (0-0.2) 09/03/16 06:00 Hypochromasia Slight 09/03/16 06:00 Poikilocytosis Slight 09/03/16 06:00 Anisocytosis Slight 09/03/16 06:00 Macrocytosis Moderate 09/03/16 06:00 ESR 2 mm/hr (0-20) 09/03/16 06:00 PT 19.0 sec (9.0-12.0) H 09/02/16 17:10 INR 2.0 (<1.1) 09/02/16 17:10 APTT 25.0 sec (22.0-30.0) 09/02/16 17:10 Sodium 140 mmol/L (137-145) 09/03/16 06:00 Potassium 3.0 mmol/L (3.5-5.1) L* 09/03/16 06:00 Chloride 98 mmol/L (98-107) 09/03/16 06:00 Carbon Dioxide 31 mmol/L (22-30) H 09/03/16 06:00 Anion Gap 11 mmol/L 09/03/16 06:00 BUN 17 mg/dL (7-17) 09/03/16 06:00 Creatinine 0.68 mg/dL (0.52-1.04) 09/03/16 06:00 Est GFR (MDRD) Af Amer >60 (>60 ml/min/1.73 sqM) 09/03/16 06:00 Est GFR (MDRD) Non-Af >60 (>60 ml/min/1.73 sqM) 09/03/16 06:00 Glucose 90 mg/dL (74-99) 09/03/16 06:00 POC Glucose (mg/dL) 93 mg/dL (75-99) 09/03/16 17:18 POC Glu [employer] Project Manager ID Farhad Pablo 09/03/16 17:18 Calcium 8.6 mg/dL (8.4-10.2) 09/03/16 06:00 C-Reactive Protein 24.3 mg/L (<10.0) H 09/03/16 06:00 Prealbumin 24 mg/dL (18-36) 09/03/16 06:00 Thrombosis Risk Factor Assmnt - DVT/VTE Prophylaxis DVT/VTE Prophylaxis: Pharmacologic Prophylaxis ordered, Contraindicated - See note - Choose All That Apply Each Factor Represents 1 point: Abnormal pulmonary function (COPD), Obesity ( BMI >25) Each Risk Factor Represents 2 Points: Age 61-74 years Thrombosis Risk Factor Assessment Total Risk Factor Score: 4 Thrombosis Risk Factor Assessment Level: Moderate Risk Assessment and Plan Plan: 1. Left thoracic T5-T6 herpes zoster vesicular eruptions currently on Valtrex uncontrolled pain requiring IV morphine at this time. We are discontinuing her hydrocodone in favor off Percocet to relieve her pain. She has developed fissuring area besides the vesicular eruption in the inframammary region, no cultures were obtained from this area, gabapentin 100 mg 3 times a day was started for pain control. Lidocaine ointment if available to be applied on the herpes zoster area 2. Known history off subacute osteomyelitis over her right fifth metatarsal region receiving outpatient IV Rocephin followed by Dr. Kim and Dr. Marquis currently improving 3. Chronic venous stasis dermatitis bilateral lower extremity, there is no significant worsening of the left ankle as mentioned by the emergency room physician, patient continued to have her IV Rocephin. No diuretics are needed at this time From a typhlitis ongoing chronic kidney suppression using methotrexate which would be held. Should there be any flareup of her RA, this will be replaced by Plaquenil until her wounds would heal 5. Chronic atrial fibrillation on chronic anticoagulation with Coumadin, therapeutic levels will be maintained, metoprolol 50 mg twice a day, continue on Lasix 40 mg daily, 6. CAD currently asymptomatic, on Imdur maintenance 50 mg daily metoprolol 50 mg twice a day, aspirin 81 mg daily Lipitor 80 mg daily 7. COPD on maintenance Pulmicort 8. Hyperlipidemia on Lipitor 80 9. Hyperuricemia without any exacerbation of gout, on Zyloprim 300 mg daily 10. Diabetes mellitus type 2 on metformin 500 mg twice a day hemoglobin A1c will be obtained on NovoLog correctional scale coverage 11. DVT prophylaxis on maintenance Coumadin 12. GI prophylaxis Pepcid 20 13. Impaired balance and increasing debility splinting of thoracic area during ambulation which puts her at risk for further falls, physical therapy and the Initial therapy would be seeing her with the anticipated evaluation for skilled ECF 11. Expected length of stay 3 nights Time with Patient: Greater than 30
[2016-09-03] MEDS: ATORVASTATIN 80 MG TAB PO SCH (22:00)
[2016-09-03] MEDS: MELATONIN 5 MG TABLET PO SCH (22:00)
[2016-09-03] MEDS: SODIUM CHLORIDE 0.9% 1,000 ML IV SCH (22:01)
[2016-09-04] MEDS: MORPHINE SULFATE 4 MG/ML SYRINGE IV PRN ×3 (05:08→16:34)
[2016-09-04 05:38] LABS: Anisocytosis Moderate; Basophils # (A) 0.1 k/uL (0-0.2); Basophils % (A) 1 %; CH 33.5; CHCM 32.7; Eosinophils # (A) 0.2 k/uL (0-0.7); Eosinophils % (A) 2 %; HCT 39.8 % (34.0-46.0); HDW 3.47; HGB 12.4 gm/dL (11.4-16.0); Hypochromasia Slight; Luc # (Auto) 0.23; Luc % (Auto) 3; Lymphocytes # (A) 1.9 k/uL (1.0-4.8); Lymphocytes % (A) 24 %; MCH 32.2 pg (25.0-35.0); MCHC 31.3 g/dL (31.0-37.0); MCV 103.1 fL (80.0-100.0); Macrocytosis Moderate; Mean Platelet Volume 7.9; Monocytes # (A) 0.4 k/uL (0-1.0); Monocytes % (A) 5 %; Neutrophils # (A) 5.3 k/uL (1.3-7.7); Neutrophils % (A) 65 %; Poikilocytosis Slight; RBC 3.85 m/uL (3.80-5.40); WBC 8.1 k/uL (3.8-10.6); WBC (Perox) 8.49
[2016-09-04 05:52] LABS: ALT 35 U/L (9-52); AST 50 U/L (14-36); Alkaline Phosphatase 59 U/L (38-126); Anion Gap 12 mmol/L; Blood Urea Nitrogen 20 mg/dL (7-17); C Reactive Protein 27.2 mg/L (<10.0); Calcium 9.7 mg/dL (8.4-10.2); Carbon Dioxide 28 mmol/L (22-30); Chloride 101 mmol/L (98-107); Glucose 109 mg/dL (74-99); INR 3.4 (<1.1); Non-African American GFR(MDRD) >60 (>60 ml/min/1.73 sqM); Potassium 4.3 mmol/L (3.5-5.1); Prothrombin Time 33.1 sec (9.0-12.0); Sodium 141 mmol/L (137-145); Total Bilirubin 0.6 mg/dL (0.2-1.3); Total Protein 5.6 g/dL (6.3-8.2)
[2016-09-04 06:24] LABS: Erythrocyte Sedimentation Rate 24 mm/hr (0-20)
[2016-09-04] MEDS: ALPRAZolam 0.25 MG TAB PO PRN ×2 (07:23→21:32)
[2016-09-04] MEDS: valACYclovir HCL 1,000 MG TABLET PO SCH ×3 (07:24→23:15)
[2016-09-04] MEDS: metFORMIN 500 MG TAB PO SCH ×2 (07:24→18:39)
[2016-09-04] MEDS: ALLOPURINOL 300 MG TAB PO SCH (07:25)
[2016-09-04] MEDS: CHOLECALCIFEROL 1,000 UNIT TAB PO SCH (07:25)
[2016-09-04] MEDS: FAMOTIDINE 20 MG TAB PO SCH (07:26)
[2016-09-04] MEDS: DULoxetine HCL 60 MG CAPSULE.DR PO SCH (07:26)
[2016-09-04] MEDS: FUROSEMIDE 40 MG TAB PO SCH (07:27)
[2016-09-04] MEDS: GABAPENTIN 100 MG CAP PO SCH ×2 (07:27→16:51)
[2016-09-04] MEDS: LIDOCAINE 5% PATCH TOPICAL SCH (07:28)
[2016-09-04] MEDS: ISOSORBIDE MONONITRATE ER 15 MG TAB PO SCH (07:28)
[2016-09-04] MEDS: METOPROLOL TARTRATE 50 MG TAB PO SCH ×2 (07:29→21:32)
[2016-09-04] MEDS: cefTRIAXone 2,000 MG in SODIUM CHLORIDE 0.9% 100 ML IVPB SCH (07:39)
[2016-09-04 08:03] LABS: Glucose,Whole Blood 101 mg/dL (75-99)
[2016-09-04 08:57] LABS: Hemoglobin A1C 6.7 % (4.2-6.1)
[2016-09-04] MEDS: BUDESONIDE 0.5 MG/2 ML NEBU INHALATION SCH ×2 (11:01→21:00)
[2016-09-04] MEDS: ALBUTEROL NEBULIZED 2.5 MG/3 ML INHALATION PRN (11:02)
[2016-09-04 11:41] LABS: Glucose,Whole Blood 138 mg/dL (75-99)
[2016-09-04] MEDS: SENNOSIDES-DOCUSATE SODIUM 1 EACH TAB PO SCH (11:48)
[2016-09-04] MEDS: MULTIVITAMINS, THERA 1 EACH TAB PO SCH (12:12)
--- NOTE | 2016-09-04 14:26 | P.PN ---
Subjective This is a pleasant 76-year-old lady patient of Dr. Marquis and Dr. Arce. She has underlying history off from at the COPD hyperlipidemia vascular disorder and obstructive sleep apnea neuralgia atrial fibrillation, chronic COPD diabetes mellitus type 2, chronic immunosuppression CHF admitted through the emergency room secondary to left thoracic pain. She was diagnosed recently to have T6 dermatome herpes zoster this past Sunday 3 days prior to admission for which valacyclovir was given by Dr. Marquis. Patient had left flank pain was subsequently seen in the emergency room secondary to the pain. Patient denies any fever however she has some chills. Patient has hydrocodone which doesn't seem to take care of the pain she was seen in emergency room with evaluation to include noticeable left vesicular eruption involving the T6 area, redness in the left leg, known history off chronic venous stasis dermatitis. Known also on the right metatarsal region lateral region from a previous biopsy for osteotomyelitis by Dr. Kim. She is currently on IV Rocephin prior to her admission as recommended by Dr. Marquis. 09/04: Patient has been seen in consultation by Dr. Rojo from infectious disease covering for Dr. Marquis. He has recommended continuing Rocephin, silver dressing for the ulceration of the foot, check protein status and supplement, multivitamin added. Sed rate 24, C-reactive protein 27.2, hemoglobin A1c 6.7 TSH 2.570. Albumin is 3.3. INR 3.4. Chest x-ray is pending a Chin is requesting something for her nasal congestion and Flonase added. She continues to have issues with pain for which Percocet is scheduled plus as needed. Objective - Vital Signs Vital signs: Vital Signs Temp 98.9 F 09/04/16 07:00 Pulse 109 H 09/04/16 07:00 Resp 18 09/04/16 07:00 BP 111/53 09/04/16 07:00 Pulse Ox 90 L 09/04/16 07:00 Intake & Output 09/03/16 09/04/16 09/04/16 18:59 06:59 18:59 Intake Total 900 820 Balance 900 820 Intake: IV 100 cefTRIAXone 2,000 mg In 100 Sodium Chloride 0.9% 100 ml @ 100 mls/hr IVPB Q24HR [facility] Rx#:[id number] Intake, IV Titration 80 Amount Sodium Chloride 0.9% 1, 80 000 ml @ 20 mls/hr IV . Q24H [facility] Rx#:[id number] Oral 800 740 Other: Voiding Method Toilet Toilet # Voids 4 1 - Exam General appearance: cooperative, no acute distress - EENT Eyes: anicteric sclerae, EOMI, PERRLA, dentition normal, normal appearance ENT: NA/AT, normal oropharynx - Neck Neck: no lymphadenopathy, normal ROM, no other, no rigidity, no stridor, no thyromegaly - Respiratory Respiratory: bilateral: CTA, negative: diminished, dullness, rales, rhonchi - Cardiovascular Rhythm: regular Heart sounds: normal: S1, S2 Abnormal Heart Sounds: no systolic murmur, no diastolic murmur, no rub, no S3 Gallop, no S4 Gallop, no click, no other - Gastrointestinal General gastrointestinal: normal bowel sounds, soft - Integumentary Integumentary: rash (left t 6 dermatome), ulcer (right lateral metatarsal 2 cm x2 cm x1 cm approx) - Musculoskeletal Musculoskeletal: generalized weakness, strength equal bilaterally - Labs CBC & Chem 7: 09/04/16 05:15 09/04/16 05:15 Labs: Abnormal Lab Results - Last 24 Hours (Table) 09/03/16 09/03/16 09/03/16 Range/Units 06:00 11:47 19:53 MCV (80.0-100.0) fL RDW (11.5-15.5) % ESR (0-20) mm/hr PT (9.0-12.0) sec BUN (7-17) mg/dL Glucose (74-99) mg/dL POC Glucose (mg/dL) 106 H 106 H (75-99) mg/dL Hemoglobin A1c (4.2-6.1) % AST (14-36) U/L C-Reactive Protein 24.3 H (<10.0) mg/L Total Protein (6.3-8.2) g/dL Albumin (3.5-5.0) g/dL 09/04/16 09/04/16 09/04/16 Range/Units 05:15 05:15 05:15 MCV 103.1 H (80.0-100.0) fL RDW 20.0 H (11.5-15.5) % ESR 24 H (0-20) mm/hr PT 33.1 H (9.0-12.0) sec BUN 20 H (7-17) mg/dL Glucose 109 H (74-99) mg/dL POC Glucose (mg/dL) (75-99) mg/dL Hemoglobin A1c (4.2-6.1) % AST 50 H (14-36) U/L C-Reactive Protein 27.2 H (<10.0) mg/L Total Protein 5.6 L (6.3-8.2) g/dL Albumin 3.3 L (3.5-5.0) g/dL 09/04/16 09/04/16 Range/Units 05:15 07:32 MCV (80.0-100.0) fL RDW (11.5-15.5) % ESR (0-20) mm/hr PT (9.0-12.0) sec BUN (7-17) mg/dL Glucose (74-99) mg/dL POC Glucose (mg/dL) 101 H (75-99) mg/dL Hemoglobin A1c 6.7 H (4.2-6.1) % AST (14-36) U/L C-Reactive Protein (<10.0) mg/L Total Protein (6.3-8.2) g/dL Albumin (3.5-5.0) g/dL Assessment and Plan Plan: 1. Left thoracic T5-T6 herpes zoster vesicular eruptions currently on Valtrex uncontrolled pain requiring IV morphine at this time. We are discontinuing her hydrocodone in favor off Percocet to relieve her pain. She has developed fissuring area besides the vesicular eruption in the inframammary region, no cultures were obtained from this area, gabapentin 100 mg 3 times a day was started for pain control. Lidocaine ointment if available to be applied on the herpes zoster area. Percocet 7.5 mg 3 times daily scheduled and every 3 hours as needed. 2. 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 Kim and Dr. Marquis currently improving 3. Chronic venous stasis dermatitis bilateral lower extremity, there is no significant worsening of the left ankle as mentioned by the emergency room physician, patient continued to have her IV Rocephin. No diuretics are needed at this time 4. Ongoing immunosuppression using methotrexate which would be held. Should there be any flareup of her RA, this will be replaced by Plaquenil until her wounds would heal 5. Chronic atrial fibrillation on chronic anticoagulation with Coumadin, therapeutic levels will be maintained, metoprolol 50 mg twice a day, continue on Lasix 40 mg daily, 6. CAD currently asymptomatic, on Imdur maintenance 50 mg daily metoprolol 50 mg twice a day, aspirin 81 mg daily Lipitor 80 mg daily 7. COPD on maintenance Pulmicort 8. Hyperlipidemia on Lipitor 80 9. Hyperuricemia without any exacerbation of gout, on Zyloprim 300 mg daily 10. Diabetes mellitus type 2 on metformin 500 mg twice a day hemoglobin A1c will be obtained on NovoLog correctional scale coverage 11. DVT prophylaxis on maintenance Coumadin 12. GI prophylaxis Pepcid 20 13. Impaired balance and increasing debility splinting of thoracic area during ambulation which puts her at risk for further falls, physical therapy and the Initial therapy would be seeing her with the anticipated evaluation for skilled ECF Discharge plan: Subacute rehab at [facility] Impression and plan of care have been directed as dictated by the signing physician. Susi Raymundo nurse practitioner acting as scribe for signing physician. Time with Patient: Greater than 30
[2016-09-04] MEDS: FLUTICASONE 50MCG/SPRAY NASAL 16GM EA NOSTRIL SCH (14:39)
[2016-09-04] MEDS: oxyCODONE-APAP 7.5-325MG 1 EACH TAB PO SCH ×2 (14:40→21:32)
[2016-09-04 17:25] LABS: Glucose,Whole Blood 114 mg/dL (75-99)
--- NOTE | 2016-09-04 18:22 | XR ---
EXAMINATION TYPE: XR chest 2V DATE OF EXAM: 09/04/2016 6:14 PM COMPARISON: 04/28/2016 HISTORY: Short of breath TECHNIQUE: Frontal and lateral views of the chest are obtained. FINDINGS: Heart is enlarged. There is no heart failure. Lungs are clear of consolidation. There is n o pleural effusion. There are no hilar masses. There is a right central venous catheter that is not w ell-visualized. This is probably in the superior vena cava. IMPRESSION: Moderate cardiomegaly. No active cardiopulmonary disease. No change.
[2016-09-04] MEDS: CALCIUM CARB-VIT D 500MG-200UN 1 EACH TAB PO SCH (18:39)
[2016-09-04] MEDS: CYANOCOBALAMIN 500 MCG TAB PO SCH (18:39)
[2016-09-04] MEDS: ASPIRIN 81 MG CHEW PO SCH (18:40)
[2016-09-04 20:02] LABS: Glucose,Whole Blood 157 mg/dL (75-99)
[2016-09-04] MEDS: ATORVASTATIN 80 MG TAB PO SCH (21:32)
[2016-09-04] MEDS: MELATONIN 5 MG TABLET PO SCH (21:32)
[2016-09-04] MEDS: PREGABALIN 75 MG CAP PO SCH (21:33)
[2016-09-04] MEDS: SODIUM CHLORIDE 0.9% 1,000 ML IV SCH (21:34)
[2016-09-05] MEDS: ALBUTEROL NEBULIZED 2.5 MG/3 ML INHALATION PRN (06:59)
[2016-09-05] MEDS: BUDESONIDE 0.5 MG/2 ML NEBU INHALATION SCH ×2 (06:59→19:20)
--- NOTE | 2016-09-05 07:12 | PN ---
DATE OF SERVICE: 09/04/2016 REASON FOR FOLLOWUP: 1. Right foot fifth toe osteomyelitis secondary to Proteus and Streptococcus. 2. Left T6 dermatome zoster. INTERVAL HISTORY: The patient is afebrile. She currently got pain in her left lower chest area. The patient denies having any fever. She denies having any chest pain or cough. No abdominal pain. Denies any worsening pain in her right foot area with no drainage from it. REVIEW OF SYSTEMS: Positive for weakness and pain. Rest of the systems negative. Past medical and surgical history reviewed, no change. Medications reviewed. On examination, blood pressure is 134/72 with a pulse of 101, temperature 97.7. She is 90% on room air. General description is an elderly female lying in bed in no distress. RESPIRATORY SYSTEM: Unlabored breathing. Some decreased breath sounds at the bases. HEART: S1, S2, regular rate and rhythm. ABDOMEN: Soft, no tenderness. EXAMINATION OF SKIN: She did have was vesicular rash on the T6 dermatome with some fluid, which is mostly on the left side, but no significant redness. ABDOMEN: Soft, no tenderness. EXTREMITIES: No edema of feet. Right foot lateral border wound at the base of the fifth toe, is clean with no significant redness or drainage. NEUROLOGICAL: The patient is awake, alert, oriented x3. Mood and affect normal. LABS: Hemoglobin is 12.4, white count 8.1 with a BUN of 20, creatinine 0.60. DIAGNOSTIC IMPRESSION AND PLAN: 1. Patient with left T6 dermatome zoster for which the patient will continue on the Valtrex. Will add Lyrica for postherpetic neuralgia. No evidence of any secondary cellulitis. 2. Right fifth toe osteomyelitis with Proteus and Streptococcus where the patient will be continued on the ceftriaxone 2 gram IV piggyback daily. MTDD
[2016-09-05] MEDS: oxyCODONE-APAP 7.5-325MG 1 EACH TAB PO SCH ×3 (07:36→22:35)
[2016-09-05] MEDS: metFORMIN 500 MG TAB PO SCH ×2 (07:38→18:32)
[2016-09-05] MEDS: valACYclovir HCL 1,000 MG TABLET PO SCH ×3 (07:39→23:33)
[2016-09-05] MEDS: ALLOPURINOL 300 MG TAB PO SCH (07:40)
[2016-09-05] MEDS: cefTRIAXone 2,000 MG in SODIUM CHLORIDE 0.9% 100 ML IVPB SCH (07:40)
[2016-09-05] MEDS: CHOLECALCIFEROL 1,000 UNIT TAB PO SCH (07:41)
[2016-09-05] MEDS: DULoxetine HCL 60 MG CAPSULE.DR PO SCH (07:41)
[2016-09-05] MEDS: FUROSEMIDE 40 MG TAB PO SCH (07:42)
[2016-09-05] MEDS: LIDOCAINE 5% PATCH TOPICAL SCH (07:42)
[2016-09-05] MEDS: ISOSORBIDE MONONITRATE ER 15 MG TAB PO SCH (07:42)
[2016-09-05] MEDS: FAMOTIDINE 20 MG TAB PO SCH (07:42)
[2016-09-05] MEDS: FLUTICASONE 50MCG/SPRAY NASAL 16GM EA NOSTRIL SCH ×2 (07:42→22:35)
[2016-09-05] MEDS: METOPROLOL TARTRATE 50 MG TAB PO SCH ×2 (07:43→22:36)
[2016-09-05] MEDS: PREGABALIN 75 MG CAP PO SCH ×2 (07:43→22:35)
[2016-09-05] MEDS: SENNOSIDES-DOCUSATE SODIUM 1 EACH TAB PO SCH (07:46)
[2016-09-05 07:54] LABS: Glucose,Whole Blood 130 mg/dL (75-99)
[2016-09-05] MEDS ORDERED: METHOTREXATE SODIUM 2.5 MG TAB PO SCH (09:00)
[2016-09-05] MEDS: CEFTAROLINE FOSAMIL 600 MG in SODIUM CHLORIDE 0.9% 250 ML IVPB SCH ×2 (11:40→22:36)
[2016-09-05] MEDS: MULTIVITAMINS, THERA 1 EACH TAB PO SCH (11:40)
[2016-09-05 12:05] LABS: Glucose,Whole Blood 116 mg/dL (75-99)
[2016-09-05 12:59] LABS: Anisocytosis Moderate; Aty Lym Flag Slight; CH 33.2; HCT 38.3 % (34.0-46.0); HDW 3.54; Hypochromasia Slight; MCH 32.6 pg (25.0-35.0); MCHC 31.2 g/dL (31.0-37.0); MCV 104.4 fL (80.0-100.0); Macrocytosis Marked; Mean Platelet Volume 7.2; Poikilocytosis Slight; RBC 3.67 m/uL (3.80-5.40); WBC (Perox) 9.56
[2016-09-05 13:03] LABS: INR 2.9 (<1.1); Prothrombin Time 27.8 sec (9.0-12.0)
[2016-09-05 13:13] LABS: ALT 33 U/L (9-52); AST 36 U/L (14-36); Alkaline Phosphatase 53 U/L (38-126); Anion Gap 10 mmol/L; Blood Urea Nitrogen 15 mg/dL (7-17); Calcium 9.4 mg/dL (8.4-10.2); Carbon Dioxide 29 mmol/L (22-30); Chloride 99 mmol/L (98-107); Glucose 111 mg/dL (74-99); Non-African American GFR(MDRD) >60 (>60 ml/min/1.73 sqM); Potassium 3.6 mmol/L (3.5-5.1); Sodium 138 mmol/L (137-145); Total Bilirubin 0.6 mg/dL (0.2-1.3); Total Protein 5.3 g/dL (6.3-8.2)
[2016-09-05 13:48] LABS: Add Differential Manual Differential
[2016-09-05 14:03] LABS: Band Neutrophils % 1.5 %; Manual Review Performed; Metamyelocytes % 1.5 %; Nucleated Red Blood Cells 1 /100 WBC (0-0); Total Cells Counted 200; WBC 9.1 k/uL (3.8-10.6)
[2016-09-05 14:04] LABS: Polychromasia Present
--- NOTE | 2016-09-05 14:50 | P.PN ---
Subjective This is a pleasant 76-year-old lady patient of Dr. Marquis and Dr. Arce. She has underlying history off from at the COPD hyperlipidemia vascular disorder and obstructive sleep apnea neuralgia atrial fibrillation, chronic COPD diabetes mellitus type 2, chronic immunosuppression CHF admitted through the emergency room secondary to left thoracic pain. She was diagnosed recently to have T6 dermatome herpes zoster this past Sunday 3 days prior to admission for which valacyclovir was given by Dr. Marquis. Patient had left flank pain was subsequently seen in the emergency room secondary to the pain. Patient denies any fever however she has some chills. Patient has hydrocodone which doesn't seem to take care of the pain she was seen in emergency room with evaluation to include noticeable left vesicular eruption involving the T6 area, redness in the left leg, known history off chronic venous stasis dermatitis. Known also on the right metatarsal region lateral region from a previous biopsy for osteotomyelitis by Dr. Kim. She is currently on IV Rocephin prior to her admission as recommended by Dr. Marquis. 09/04: Patient has been seen in consultation by Dr. Rojo from infectious disease covering for Dr. Marquis. He has recommended continuing Rocephin, silver dressing for the ulceration of the foot, check protein status and supplement, multivitamin added. Sed rate 24, C-reactive protein 27.2, hemoglobin A1c 6.7 TSH 2.570. Albumin is 3.3. INR 3.4. Chest x-ray is pending a Chin is requesting something for her nasal congestion and Flonase added. She continues to have issues with pain for which Percocet is scheduled plus as needed. 09/05: Patient continues to be very fatigued. She is on CPAP from home. Vesicles are drying up. Dr. Marquis has changed her antibiotics to Ceftaroline. Anticipate possible discharge to [facility] tomorrow. INR is 2.9. Patient will be resumed back on Coumadin home dosing. Objective - Vital Signs Vital signs: Vital Signs Temp 99.1 F 09/05/16 11:59 Pulse 81 09/05/16 11:59 Resp 18 09/05/16 11:59 BP 145/97 09/05/16 11:59 Pulse Ox 92 L 09/04/16 21:20 Intake & Output 09/04/16 09/05/16 09/05/16 18:59 06:59 18:59 Intake Total 600 Balance 600 Intake: Intake, IV Titration 180 Amount Sodium Chloride 0.9% 1, 180 000 ml @ 20 mls/hr IV . Q24H [facility] Rx#:[id number] Oral 420 Other: Voiding Method Toilet Toilet Toilet Bedside Commode Bedside Commode Incontinent # Voids 1 - Exam General appearance: cooperative, no acute distress - EENT Eyes: anicteric sclerae, EOMI, PERRLA, dentition normal, normal appearance ENT: NA/AT, normal oropharynx - Neck Neck: no lymphadenopathy, normal ROM, no other, no rigidity, no stridor, no thyromegaly - Respiratory Respiratory: bilateral: CTA, negative: diminished, dullness, rales, rhonchi - Cardiovascular Rhythm: regular Heart sounds: normal: S1, S2 Abnormal Heart Sounds: no systolic murmur, no diastolic murmur, no rub, no S3 Gallop, no S4 Gallop, no click, no other - Gastrointestinal General gastrointestinal: normal bowel sounds, soft - Integumentary Integumentary: rash (left t 6 dermatome), ulcer (right lateral metatarsal 2 cm x2 cm x1 cm approx) - Musculoskeletal Musculoskeletal: generalized weakness, strength equal bilaterally - Labs CBC & Chem 7: 09/05/16 12:44 09/05/16 12:44 Labs: Abnormal Lab Results - Last 24 Hours (Table) 09/04/16 09/04/16 09/05/16 Range/Units 17:11 20:00 07:51 RBC (3.80-5.40) m/uL MCV (80.0-100.0) fL RDW (11.5-15.5) % Nucleated RBCs (0-0) /100 WBC PT (9.0-12.0) sec Glucose (74-99) mg/dL POC Glucose (mg/dL) 114 H 157 H 130 H (75-99) mg/dL Total Protein (6.3-8.2) g/dL Albumin (3.5-5.0) g/dL 09/05/16 09/05/16 09/05/16 Range/Units 12:03 12:44 12:44 RBC 3.67 L (3.80-5.40) m/uL MCV 104.4 H (80.0-100.0) fL RDW 20.0 H (11.5-15.5) % Nucleated RBCs 1 H (0-0) /100 WBC PT 27.8 H (9.0-12.0) sec Glucose (74-99) mg/dL POC Glucose (mg/dL) 116 H (75-99) mg/dL Total Protein (6.3-8.2) g/dL Albumin (3.5-5.0) g/dL 09/05/16 Range/Units 12:44 RBC (3.80-5.40) m/uL MCV (80.0-100.0) fL RDW (11.5-15.5) % Nucleated RBCs (0-0) /100 WBC PT (9.0-12.0) sec Glucose 111 H (74-99) mg/dL POC Glucose (mg/dL) (75-99) mg/dL Total Protein 5.3 L (6.3-8.2) g/dL Albumin 3.0 L (3.5-5.0) g/dL Assessment and Plan Plan: 1. Left thoracic T5-T6 herpes zoster vesicular eruptions currently on Valtrex uncontrolled pain requiring IV morphine at this time. We are discontinuing her hydrocodone in favor off Percocet to relieve her pain. She has developed fissuring area besides the vesicular eruption in the inframammary region, no cultures were obtained from this area, gabapentin 100 mg 3 times a day was started for pain control. Lidocaine ointment if available to be applied on the herpes zoster area. Percocet 7.5 mg 3 times daily scheduled and every 3 hours as needed. 2. 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 Kim and Dr. Marquis currently improving. On Ceftaroline 3. Chronic venous stasis dermatitis bilateral lower extremity, there is no significant worsening of the left ankle as mentioned by the emergency room physician, patient continued to have her IV Rocephin. No diuretics are needed at this time 4. Ongoing immunosuppression using methotrexate which would be held. Should there be any flareup of her RA, this will be replaced by Plaquenil until her wounds would heal 5. Chronic atrial fibrillation on chronic anticoagulation with Coumadin, therapeutic levels will be maintained, metoprolol 50 mg twice a day, continue on Lasix 40 mg daily, 6. CAD currently asymptomatic, on Imdur maintenance 50 mg daily metoprolol 50 mg twice a day, aspirin 81 mg daily Lipitor 80 mg daily 7. COPD on maintenance Pulmicort 8. Hyperlipidemia on Lipitor 80 9. Hyperuricemia without any exacerbation of gout, on Zyloprim 300 mg daily 10. Diabetes mellitus type 2 on metformin 500 mg twice a day hemoglobin A1c will be obtained on NovoLog correctional scale coverage 11. DVT prophylaxis on maintenance Coumadin 12. GI prophylaxis Pepcid 20 13. Impaired balance and increasing debility splinting of thoracic area during ambulation which puts her at risk for further falls, physical therapy and the Initial therapy would be seeing her with the anticipated evaluation for skilled ECF Discharge plan: Subacute rehab at [facility] tomorrow Impression and plan of care have been directed as dictated by the signing physician. Susi Raymundo nurse practitioner acting as scribe for signing physician. Time with Patient: Greater than 30
[2016-09-05] MEDS: KETOROLAC 30 MG/ML 1 ML VIAL IVP PRN (14:55)
[2016-09-05] MEDS: ASPIRIN 81 MG CHEW PO SCH (14:55)
[2016-09-05 17:52] LABS: Glucose,Whole Blood 117 mg/dL (75-99)
[2016-09-05] MEDS: CYANOCOBALAMIN 500 MCG TAB PO SCH (18:32)
[2016-09-05] MEDS: CALCIUM CARB-VIT D 500MG-200UN 1 EACH TAB PO SCH (18:32)
[2016-09-05] MEDS: WARFARIN 2.5 MG TAB PO SCH (18:33)
--- NOTE | 2016-09-05 20:27 | PN ---
DATE OF SERVICE: 09/05/2016 REASON FOR FOLLOWUP: 1. T6 dermatomal zoster with question of secondary bacterial cellulitis. 2. Right foot wound and osteomyelitis. INTERVAL HISTORY: The patient seems to be slightly lethargic. Daughter did mention that she had more drainage from the wound under the breast area. No nausea or vomiting has been noticed or any diarrhea. On examination, blood pressure 105/65 with a pulse of 91, temperature 98.5. She is 94% on room air. General description is an elderly female lying in bed in no distress. RESPIRATORY SYSTEM: Unlabored breathing. Clear to auscultation. HEART: S1, S2 regular. ABDOMEN: Soft. No tenderness. Right foot lateral wound has tenderness, no obvious drainage. The wound below the breast has slight yellow drainage and some erythema. LABS: Hemoglobin is 12, white count 9.1 with a BUN of 15, creatinine 0.55. Blood culture has been negative. DIAGNOSTIC IMPRESSION AND PLAN: 1. Patient with left T6 dermatomal zoster with a question of secondary bacterial cellulitis. At this time, antibiotic will be adjusted her to Teflaro. Continue with the Valtrex and Lyrica. 2. Right foot lateral wound with osteomyelitis. Will be covered with Teflaro currently.local wound care with Aquacel Silver. MTDD
[2016-09-05 20:40] LABS: Glucose,Whole Blood 135 mg/dL (75-99)
[2016-09-05 21:23] LABS: Glucose,Whole Blood 130 mg/dL (75-99)
[2016-09-05] MEDS: ATORVASTATIN 80 MG TAB PO SCH (22:35)
[2016-09-05] MEDS: MELATONIN 5 MG TABLET PO SCH (22:35)
[2016-09-06] MEDS: SODIUM CHLORIDE 0.9% 1,000 ML IV SCH ×2 (07:32→15:56)
[2016-09-06] MEDS: CEFTAROLINE FOSAMIL 600 MG in SODIUM CHLORIDE 0.9% 250 ML IVPB SCH ×2 (07:58→22:13)
[2016-09-06] MEDS: metFORMIN 500 MG TAB PO SCH ×2 (08:04→17:59)
[2016-09-06] MEDS: valACYclovir HCL 1,000 MG TABLET PO SCH ×3 (08:04→21:38)
[2016-09-06] MEDS: ALLOPURINOL 300 MG TAB PO SCH (08:05)
[2016-09-06] MEDS: CYANOCOBALAMIN 500 MCG TAB PO SCH (08:05)
[2016-09-06] MEDS: DULoxetine HCL 60 MG CAPSULE.DR PO SCH (08:05)
[2016-09-06] MEDS: CHOLECALCIFEROL 1,000 UNIT TAB PO SCH (08:05)
[2016-09-06] MEDS: FAMOTIDINE 20 MG TAB PO SCH (08:06)
[2016-09-06] MEDS: LIDOCAINE 5% PATCH TOPICAL SCH (08:06)
[2016-09-06] MEDS: ISOSORBIDE MONONITRATE ER 15 MG TAB PO SCH (08:06)
[2016-09-06] MEDS: FLUTICASONE 50MCG/SPRAY NASAL 16GM EA NOSTRIL SCH ×2 (08:06→21:37)
[2016-09-06] MEDS: FUROSEMIDE 40 MG TAB PO SCH (08:06)
[2016-09-06] MEDS: CALCIUM CARB-VIT D 500MG-200UN 1 EACH TAB PO SCH (08:07)
[2016-09-06] MEDS: PREGABALIN 75 MG CAP PO SCH ×2 (08:07→21:38)
[2016-09-06] MEDS: METOPROLOL TARTRATE 50 MG TAB PO SCH ×2 (08:07→21:38)
[2016-09-06] MEDS: MULTIVITAMINS, THERA 1 EACH TAB PO SCH (08:07)
[2016-09-06] MEDS: SENNOSIDES-DOCUSATE SODIUM 1 EACH TAB PO SCH (08:16)
[2016-09-06] MEDS: oxyCODONE-APAP 7.5-325MG 1 EACH TAB PO SCH (08:16)
[2016-09-06 08:28] LABS: Glucose,Whole Blood 112 mg/dL (75-99)
[2016-09-06] MEDS ORDERED: HYDROmorphone 1 MG/ML 1 ML SYRINGE IVP STA (10:27)
[2016-09-06 12:07] LABS: Glucose,Whole Blood 108 mg/dL (75-99)
[2016-09-06] MEDS: BUDESONIDE 0.5 MG/2 ML NEBU INHALATION SCH ×2 (13:27→18:54)
--- NOTE | 2016-09-06 14:22 | P.PN ---
Subjective This is a pleasant 76-year-old lady patient of Dr. Marquis and Dr. Arce. She has underlying history off from at the COPD hyperlipidemia vascular disorder and obstructive sleep apnea neuralgia atrial fibrillation, chronic COPD diabetes mellitus type 2, chronic immunosuppression CHF admitted through the emergency room secondary to left thoracic pain. She was diagnosed recently to have T6 dermatome herpes zoster this past Sunday 3 days prior to admission for which valacyclovir was given by Dr. Marquis. Patient had left flank pain was subsequently seen in the emergency room secondary to the pain. Patient denies any fever however she has some chills. Patient has hydrocodone which doesn't seem to take care of the pain she was seen in emergency room with evaluation to include noticeable left vesicular eruption involving the T6 area, redness in the left leg, known history off chronic venous stasis dermatitis. Known also on the right metatarsal region lateral region from a previous biopsy for osteotomyelitis by Dr. Kim. She is currently on IV Rocephin prior to her admission as recommended by Dr. Marquis. 09/04: Patient has been seen in consultation by Dr. Rojo from infectious disease covering for Dr. Marquis. He has recommended continuing Rocephin, silver dressing for the ulceration of the foot, check protein status and supplement, multivitamin added. Sed rate 24, C-reactive protein 27.2, hemoglobin A1c 6.7 TSH 2.570. Albumin is 3.3. INR 3.4. Chest x-ray is pending a Chin is requesting something for her nasal congestion and Flonase added. She continues to have issues with pain for which Percocet is scheduled plus as needed. 09/05: Patient continues to be very fatigued. She is on CPAP from home. Vesicles are drying up. Dr. Marquis has changed her antibiotics to Ceftaroline. Anticipate possible discharge to [facility] tomorrow. INR is 2.9. Patient will be resumed back on Coumadin home dosing. 09/06: Pain control continues to be an issue the patient is more groggy today. Percocet changed to fentanyl patch. Anticipate possible discharge to [facility] tomorrow. Objective - Vital Signs Vital signs: Vital Signs Temp 97.4 F L 09/05/16 20:00 Pulse 99 09/05/16 21:02 Resp 16 09/06/16 08:00 BP 99/60 09/05/16 21:02 Pulse Ox 94 L 09/05/16 15:00 Intake & Output 09/05/16 09/06/16 09/06/16 18:59 06:59 18:59 Intake Total 250 Balance 250 Intake: Intake, IV Titration 250 Amount Ceftaroline Fosamil 600 250 mg In Sodium Chloride 0.9 % 250 ml @ 250 mls/hr IVPB Q12HR [facility] Rx#: [id number] Other: Voiding Method Toilet Toilet Bedside Commode Bedside Commode Incontinent Incontinent # Voids 1 1 - Exam General appearance: cooperative, no acute distress - EENT Eyes: anicteric sclerae, EOMI, PERRLA, dentition normal, normal appearance ENT: NA/AT, normal oropharynx - Neck Neck: no lymphadenopathy, normal ROM, no other, no rigidity, no stridor, no thyromegaly - Respiratory Respiratory: bilateral: CTA, negative: diminished, dullness, rales, rhonchi - Cardiovascular Rhythm: regular Heart sounds: normal: S1, S2 Abnormal Heart Sounds: no systolic murmur, no diastolic murmur, no rub, no S3 Gallop, no S4 Gallop, no click, no other - Gastrointestinal General gastrointestinal: normal bowel sounds, soft - Integumentary Integumentary: rash (left t 6 dermatome), ulcer (right lateral metatarsal 2 cm x2 cm x1 cm approx) - Musculoskeletal Musculoskeletal: generalized weakness, strength equal bilaterally - Labs CBC & Chem 7: 09/05/16 12:44 09/05/16 12:44 Labs: Abnormal Lab Results - Last 24 Hours (Table) 09/05/16 09/05/16 09/05/16 Range/Units 12:03 12:44 12:44 RBC 3.67 L (3.80-5.40) m/uL MCV 104.4 H (80.0-100.0) fL RDW 20.0 H (11.5-15.5) % Nucleated RBCs 1 H (0-0) /100 WBC PT 27.8 H (9.0-12.0) sec Glucose (74-99) mg/dL POC Glucose (mg/dL) 116 H (75-99) mg/dL Total Protein (6.3-8.2) g/dL Albumin (3.5-5.0) g/dL 09/05/16 09/05/16 09/05/16 Range/Units 12:44 17:23 20:38 RBC (3.80-5.40) m/uL MCV (80.0-100.0) fL RDW (11.5-15.5) % Nucleated RBCs (0-0) /100 WBC PT (9.0-12.0) sec Glucose 111 H (74-99) mg/dL POC Glucose (mg/dL) 117 H 135 H (75-99) mg/dL Total Protein 5.3 L (6.3-8.2) g/dL Albumin 3.0 L (3.5-5.0) g/dL 09/05/16 09/06/16 Range/Units 21:22 08:04 RBC (3.80-5.40) m/uL MCV (80.0-100.0) fL RDW (11.5-15.5) % Nucleated RBCs (0-0) /100 WBC PT (9.0-12.0) sec Glucose (74-99) mg/dL POC Glucose (mg/dL) 130 H 112 H (75-99) mg/dL Total Protein (6.3-8.2) g/dL Albumin (3.5-5.0) g/dL Assessment and Plan Plan: 1. Left thoracic T5-T6 herpes zoster vesicular eruptions with possible secondary bacterial infection currently on Valtrex uncontrolled pain. No patch with Percocet as needed for pain control. Ceftaroline, Valtrex, Lyrica. 2. 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 Kim and Dr. Marquis currently improving. On Ceftaroline 3. Chronic venous stasis dermatitis bilateral lower extremity, there is no significant worsening of the left ankle as mentioned by the emergency room physician, patient continued to have her IV Rocephin. No diuretics are needed at this time 4. Ongoing immunosuppression using methotrexate which would be held. Should there be any flareup of her RA, this will be replaced by Plaquenil until her wounds would heal 5. Chronic atrial fibrillation on chronic anticoagulation with Coumadin, therapeutic levels will be maintained, metoprolol 50 mg twice a day, continue on Lasix 40 mg daily, 6. CAD currently asymptomatic, on Imdur maintenance 50 mg daily metoprolol 50 mg twice a day, aspirin 81 mg daily Lipitor 80 mg daily 7. COPD on maintenance Pulmicort 8. Hyperlipidemia on Lipitor 80 9. Hyperuricemia without any exacerbation of gout, on Zyloprim 300 mg daily 10. Diabetes mellitus type 2 on metformin 500 mg twice a day hemoglobin A1c will be obtained on NovoLog correctional scale coverage 11. DVT prophylaxis on maintenance Coumadin 12. GI prophylaxis Pepcid 20 13. Impaired balance and increasing debility splinting of thoracic area during ambulation which puts her at risk for further falls, physical therapy and the Initial therapy would be seeing her with the anticipated evaluation for skilled ECF Discharge plan: Subacute rehab at [facility] tomorrow Impression and plan of care have been directed as dictated by the signing physician. Susi Raymundo nurse practitioner acting as scribe for signing physician. Time with Patient: Greater than 30
[2016-09-06] MEDS: NYSTATIN 100,000 UNIT/GM POWD 15 GM TOPICAL SCH ×3 (15:49→23:51)
[2016-09-06 16:14] LABS: Anisocytosis Slight; Aty Lym Flag Slight; CH 32.9; CHCM 30.8; HCT 38.1 % (34.0-46.0); HDW 3.48; HGB 11.7 gm/dL (11.4-16.0); Hypochromasia Marked; MCH 33.1 pg (25.0-35.0); MCHC 30.8 g/dL (31.0-37.0); MCV 107.6 fL (80.0-100.0); Macrocytosis Marked; Mean Platelet Volume 7.5; Poikilocytosis Slight; RBC 3.54 m/uL (3.80-5.40); RDW 19.7 % (11.5-15.5); WBC (Perox) 13.11
[2016-09-06 16:38] LABS: Add Differential Manual Differential
[2016-09-06 16:40] LABS: Nucleated Red Blood Cells 1 /100 WBC (0-0); Polychromasia Present; Total Cells Counted 100; WBC 12.2 k/uL (3.8-10.6)
[2016-09-06 16:52] LABS: INR 3.4 (<1.1); Prothrombin Time 32.9 sec (9.0-12.0)
[2016-09-06 17:28] LABS: Glucose,Whole Blood 147 mg/dL (75-99)
[2016-09-06] MEDS: ASPIRIN 81 MG CHEW PO SCH (17:59)
[2016-09-06] MEDS: WARFARIN 2.5 MG TAB PO SCH (17:59)
[2016-09-06] MEDS ORDERED: SODIUM CHLORIDE 0.9% 500 ML IV ONE (18:29)
[2016-09-06] MEDS: ALBUTEROL NEBULIZED 2.5 MG/3 ML INHALATION PRN (18:54)
--- NOTE | 2016-09-06 20:41 | PN ---
DATE OF SERVICE: 09/06/2016 REASON FOR FOLLOWUP: 1. Left T6 dermatomal zoster with a question of secondary cellulitis. 2. Right foot osteomyelitis. INTERVAL HISTORY: The patient is afebrile. However, she remains lethargic. She did receive a dose of Dilaudid by the RN. No nausea or vomiting has been noticed or any diarrhea. She is complaining of some pain in the left side of the chest in the distribution of the rash. On examination, blood pressure is 118/54 with a pulse of 115, temperature 97. She is 93% on room air. General description is an elderly female lying in bed in no distress. RESPIRATORY SYSTEM: Unlabored breathing with decreased breath sounds at the bases. HEART: S1, S2. Regular rate and rhythm. ABDOMEN: Soft. No tenderness. Examination of the left lower chest wall, especially below the breast, shows she does have some maceration of the wound. Overall redness is slightly decreased. LABS: No new labs have been obtained today. Blood culture has been negative. DIAGNOSTIC IMPRESSION AND PLAN: 1. Patient with left T6 dermatome zoster with a question of secondary cellulitis; some improvement in the redness with the addition of Teflaro. That will be continued. Will apply nystatin powder. Continue the Valtrex and the Lyrica for the post-herpetic neuralgia. 2. Right foot osteomyelitis at the base of the fifth toe, currently covered with Teflaro. Local wound care with Aquacel Silver.
[2016-09-06] MEDS: ATORVASTATIN 80 MG TAB PO SCH (21:38)
[2016-09-06] MEDS: MELATONIN 5 MG TABLET PO SCH (21:39)
[2016-09-06 22:29] LABS: Glucose,Whole Blood 111 mg/dL (75-99)
[2016-09-07 06:06] LABS: Anisocytosis Slight; Aty Lym Flag Slight; CH 33.5; CHCM 33.1; HDW 3.61; HGB 11.7 gm/dL (11.4-16.0); Hypochromasia Slight; MCH 33.9 pg (25.0-35.0); MCHC 33.3 g/dL (31.0-37.0); Macrocytosis Moderate; Poikilocytosis Slight; RBC 3.44 m/uL (3.80-5.40); WBC (Perox) 12.54
[2016-09-07 06:15] LABS: INR 3.5 (<1.1); MCV 101.8 fL (80.0-100.0); Prothrombin Time 34.2 sec (9.0-12.0)
[2016-09-07 06:22] LABS: Glucose,Whole Blood 92 mg/dL (75-99)
[2016-09-07 06:35] LABS: Add Differential Manual Differential
[2016-09-07 06:43] LABS: Manual Review Performed; Nucleated Red Blood Cells 2 /100 WBC (0-0); Total Cells Counted 200; WBC 12.5 k/uL (3.8-10.6)
[2016-09-07 06:45] LABS: Polychromasia Present
[2016-09-07] MEDS: BUDESONIDE 0.5 MG/2 ML NEBU INHALATION SCH ×2 (08:21→19:26)
[2016-09-07] MEDS: ALBUTEROL NEBULIZED 2.5 MG/3 ML INHALATION PRN ×2 (08:22→19:26)
[2016-09-07 08:46] LABS: Anion Gap 10 mmol/L; Blood Urea Nitrogen 24 mg/dL (7-17); Calcium 9.6 mg/dL (8.4-10.2); Carbon Dioxide 25 mmol/L (22-30); Chloride 102 mmol/L (98-107); Glucose 96 mg/dL (74-99); Non-African American GFR(MDRD) >60 (>60 ml/min/1.73 sqM); Potassium 3.5 mmol/L (3.5-5.1); Sodium 137 mmol/L (137-145)
[2016-09-07] MEDS: metFORMIN 500 MG TAB PO SCH ×2 (08:56→16:55)
[2016-09-07] MEDS: ISOSORBIDE MONONITRATE ER 15 MG TAB PO SCH (08:56)
[2016-09-07] MEDS: DULoxetine HCL 60 MG CAPSULE.DR PO SCH (08:56)
[2016-09-07] MEDS: FAMOTIDINE 20 MG TAB PO SCH (08:56)
[2016-09-07] MEDS: METOPROLOL TARTRATE 50 MG TAB PO SCH ×2 (08:56→22:04)
[2016-09-07] MEDS: PREGABALIN 75 MG CAP PO SCH ×2 (08:56→22:04)
[2016-09-07] MEDS: FUROSEMIDE 40 MG TAB PO SCH (08:56)
[2016-09-07] MEDS: ALLOPURINOL 300 MG TAB PO SCH (08:57)
[2016-09-07] MEDS: LIDOCAINE 5% PATCH TOPICAL SCH (08:57)
[2016-09-07] MEDS: CHOLECALCIFEROL 1,000 UNIT TAB PO SCH (08:57)
[2016-09-07] MEDS: valACYclovir HCL 1,000 MG TABLET PO SCH ×3 (08:57→22:04)
[2016-09-07] MEDS: FLUTICASONE 50MCG/SPRAY NASAL 16GM EA NOSTRIL SCH ×2 (09:00→22:06)
[2016-09-07] MEDS: CEFTAROLINE FOSAMIL 600 MG in SODIUM CHLORIDE 0.9% 250 ML IVPB SCH ×2 (09:01→22:03)
[2016-09-07] MEDS: SENNOSIDES-DOCUSATE SODIUM 1 EACH TAB PO SCH (09:01)
[2016-09-07 11:50] LABS: Glucose,Whole Blood 106 mg/dL (75-99)
[2016-09-07 11:56] LABS: Appearance,Urine Clear (Clear); Bilirubin,Urine Negative (Negative); Glucose,Urine (UA) Negative (Negative); Ketones,Urine Trace (Negative); Leukocyte Esterase,Urine Negative (Negative); Nitrite,Urine Negative (Negative); PH, Urine 5.5 (5.0-8.0); Protein,Urine Trace (Negative); Specific Gravity,Urine 1.014 (1.001-1.035); UA Billing (MACRO vs. MICRO) CHEM; Urobilinogen,Urine <2.0 mg/dL (<2.0)
[2016-09-07] MEDS: NYSTATIN 100,000 UNIT/GM POWD 15 GM TOPICAL SCH ×3 (12:25→22:15)
--- NOTE | 2016-09-07 14:34 | P.PN ---
Subjective This is a pleasant 76-year-old lady patient of Dr. Marquis and Dr. Arce. She has underlying history off from at the COPD hyperlipidemia vascular disorder and obstructive sleep apnea neuralgia atrial fibrillation, chronic COPD diabetes mellitus type 2, chronic immunosuppression CHF admitted through the emergency room secondary to left thoracic pain. She was diagnosed recently to have T6 dermatome herpes zoster this past Sunday 3 days prior to admission for which valacyclovir was given by Dr. Marquis. Patient had left flank pain was subsequently seen in the emergency room secondary to the pain. Patient denies any fever however she has some chills. Patient has hydrocodone which doesn't seem to take care of the pain she was seen in emergency room with evaluation to include noticeable left vesicular eruption involving the T6 area, redness in the left leg, known history off chronic venous stasis dermatitis. Known also on the right metatarsal region lateral region from a previous biopsy for osteotomyelitis by Dr. Kim. She is currently on IV Rocephin prior to her admission as recommended by Dr. Marquis. 09/04: Patient has been seen in consultation by Dr. Rojo from infectious disease covering for Dr. Marquis. He has recommended continuing Rocephin, silver dressing for the ulceration of the foot, check protein status and supplement, multivitamin added. Sed rate 24, C-reactive protein 27.2, hemoglobin A1c 6.7 TSH 2.570. Albumin is 3.3. INR 3.4. Chest x-ray is pending a Chin is requesting something for her nasal congestion and Flonase added. She continues to have issues with pain for which Percocet is scheduled plus as needed. 09/05: Patient continues to be very fatigued. She is on CPAP from home. Vesicles are drying up. Dr. Marquis has changed her antibiotics to Ceftaroline. Anticipate possible discharge to [facility] tomorrow. INR is 2.9. Patient will be resumed back on Coumadin home dosing. 09/06: Pain control continues to be an issue the patient is more groggy today. Percocet changed to fentanyl patch. Anticipate possible discharge to [facility] tomorrow. 09/07: Patient became hypotensive with temperature of 100.4 last evening had lactic acid 3.5 and patient was transferred to [facility] care and placed on CPAP. She received fluid bolus of 500 mL. She was also tachycardic and pulse ox running 91-95%. Blood culture obtained. Urine and urine culture ordered. White count is 12, INR 3.5. Repeat lactic acid is 1.5. Patient is not ready for discharge today. Fentanyl patch was removed last evening. Patient does not seem to complain and pain while resting. Objective - Vital Signs Vital signs: Vital Signs Temp 99.0 F 09/07/16 03:30 Pulse 106 H 09/07/16 03:30 Resp 18 09/07/16 03:30 BP 104/72 09/07/16 03:30 Pulse Ox 95 09/07/16 03:30 Intake & Output 09/06/16 09/07/16 09/07/16 18:59 06:59 18:59 Intake Total 1030 Balance 1030 Weight 117 kg Intake: Intake, IV Titration 430 Amount Ceftaroline Fosamil 600 250 mg In Sodium Chloride 0.9 % 250 ml @ 250 mls/hr IVPB Q12HR LUIS Rx#: [id number] Sodium Chloride 0.9% 1, 180 000 ml @ 20 mls/hr IV . Q24H [facility]IS Rx#:[id number] Oral 600 Other: Voiding Method Toilet Bedside Commode Incontinent # Voids 2 1 - Exam General appearance: cooperative, no acute distress - EENT Eyes: anicteric sclerae, EOMI, PERRLA, dentition normal, normal appearance ENT: NA/AT, normal oropharynx - Neck Neck: no lymphadenopathy, normal ROM, no other, no rigidity, no stridor, no thyromegaly - Respiratory Respiratory: bilateral: CTA, negative: diminished, dullness, rales, rhonchi - Cardiovascular Rhythm: regular Heart sounds: normal: S1, S2 Abnormal Heart Sounds: no systolic murmur, no diastolic murmur, no rub, no S3 Gallop, no S4 Gallop, no click, no other - Gastrointestinal General gastrointestinal: normal bowel sounds, soft - Integumentary Integumentary: rash (left t 6 dermatome), ulcer (right lateral metatarsal 2 cm x2 cm x1 cm approx) - Musculoskeletal Musculoskeletal: generalized weakness, strength equal bilaterally - Labs CBC & Chem 7: 09/07/16 05:55 09/07/16 06:51 Labs: Abnormal Lab Results - Last 24 Hours (Table) 09/06/16 09/06/16 09/06/16 Range/Units 08:04 11:51 15:40 WBC 12.2 H (3.8-10.6) k/uL RBC 3.54 L (3.80-5.40) m/uL MCV 107.6 H (80.0-100.0) fL MCHC 30.8 L (31.0-37.0) g/dL RDW 19.7 H (11.5-15.5) % Neutrophils # (Manual) 8.2 H (1.3-7.7) k/uL Nucleated RBCs 1 H (0-0) /100 WBC PT (9.0-12.0) sec POC Glucose (mg/dL) 112 H 108 H (75-99) mg/dL Plasma Lactic Acid Liam (0.7-2.0) mmol/L 09/06/16 09/06/16 09/06/16 Range/Units 16:25 17:09 17:40 WBC (3.8-10.6) k/uL RBC (3.80-5.40) m/uL MCV (80.0-100.0) fL MCHC (31.0-37.0) g/dL RDW (11.5-15.5) % Neutrophils # (Manual) (1.3-7.7) k/uL Nucleated RBCs (0-0) /100 WBC PT 32.9 H (9.0-12.0) sec POC Glucose (mg/dL) 147 H (75-99) mg/dL Plasma Lactic Acid Liam 3.5 H* (0.7-2.0) mmol/L 09/06/16 09/07/16 09/07/16 Range/Units 22:18 05:55 05:55 WBC 12.5 H (3.8-10.6) k/uL RBC 3.44 L (3.80-5.40) m/uL MCV 101.8 H D (80.0-100.0) fL MCHC (31.0-37.0) g/dL RDW 20.0 H (11.5-15.5) % Neutrophils # (Manual) (1.3-7.7) k/uL Nucleated RBCs 2 H (0-0) /100 WBC PT 34.2 H (9.0-12.0) sec POC Glucose (mg/dL) 111 H (75-99) mg/dL Plasma Lactic Acid Liam (0.7-2.0) mmol/L Assessment and Plan Plan: 1. Left thoracic T5-T6 herpes zoster vesicular eruptions with possible secondary bacterial infection currently on Valtrex uncontrolled pain. No patch with Percocet as needed for pain control. Ceftaroline, Valtrex, Lyrica. 2. Sepsis with fever, tachycardia and elevated lactic acid and coagulopathy. Patient transferred to selective care unit. Dr. Marquis is on consult. Monitor I &O. Coumadin placed on hold. Fentanyl patch was removed. 3. 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 Kim and Dr. Marquis currently improving. On Ceftaroline 4. Chronic venous stasis dermatitis bilateral lower extremity, there is no significant worsening of the left ankle as mentioned by the emergency room physician, patient continued to have her IV Rocephin. No diuretics are needed at this time 5. Ongoing immunosuppression using methotrexate which would be held. Should there be any flareup of her RA, this will be replaced by Plaquenil until her wounds would heal 6. Chronic atrial fibrillation on chronic anticoagulation with Coumadin, therapeutic levels will be maintained, metoprolol 50 mg twice a day, continue on Lasix 40 mg daily, 7. CAD currently asymptomatic, on Imdur maintenance 50 mg daily metoprolol 50 mg twice a day, aspirin 81 mg daily Lipitor 80 mg daily 8. COPD on maintenance Pulmicort 9. Hyperlipidemia on Lipitor 80 10. Hyperuricemia without any exacerbation of gout, on Zyloprim 300 mg daily 11. Diabetes mellitus type 2 on metformin 500 mg twice a day hemoglobin A1c will be obtained on [facility] correctional scale coverage 12. DVT prophylaxis on maintenance Coumadin 13. GI prophylaxis Pepcid 20 14. Impaired balance and increasing debility splinting of thoracic area during ambulation which puts her at risk for further falls, physical therapy and the Initial therapy would be seeing her with the anticipated evaluation for skilled ECF Discharge plan: Subacute rehab at [facility] Impression and plan of care have been directed as dictated by the signing physician. Susi Raymundo nurse practitioner acting as scribe for signing physician. Time with Patient: Greater than 30
[2016-09-07] MEDS: MULTIVITAMINS, THERA 1 EACH TAB PO SCH (16:55)
[2016-09-07] MEDS: ASPIRIN 81 MG CHEW PO SCH (16:55)
[2016-09-07] MEDS: CALCIUM CARB-VIT D 500MG-200UN 1 EACH TAB PO SCH (16:55)
[2016-09-07] MEDS: CYANOCOBALAMIN 500 MCG TAB PO SCH (16:55)
[2016-09-07 16:56] LABS: Glucose,Whole Blood 91 mg/dL (75-99)
--- NOTE | 2016-09-07 19:41 | PN ---
DATE OF SERVICE: 09/07/2016 REASON FOR FOLLOW-UP: 1. Left T6 dermatome zoster with question of secondary cellulitis. 2. Right foot fifth toe base of wound with osteomyelitis. INTERVAL HISTORY: The patient is afebrile. She seemed to be slightly more awake and alert today, breathing comfortably. Pain to the left chest wall is slightly improved. No drainage. Denies any abdominal pain and no diarrhea. On examination, blood pressure is 102/51 with pulse of 91, temperature is 97.6, T-max 100.4. She is 93% on room air. General description is an elderly female lying in bed in no distress. RESPIRATORY SYSTEM: Unlabored breathing. Clear to auscultation. HEART: S1, S2 regular rate and rhythm. ABDOMEN: Soft. No tenderness. Right foot wound is currently dressed. No obvious drainage. The wound below the breast area blisters with no slough tissue. Surrounding redness has improved. LABS: Hemoglobin 11.7, white count 12.5, BUN of 24, creatinine 0.92. UA has been negative. Blood cultures negative. DIAGNOSTIC IMPRESSION AND PLAN: 1. Patient with left T6 dermatomal zoster with secondary cellulitis. At this time will change the local wound care to the Aquacel Silver. Continue the patient on Teflaro, Valtrex and Lyrica for postherpetic neuralgia. 2. Patient with right foot osteomyelitis at the base of the fifth metatarsal head. She will continue with her Teflaro. Continue supportive care. [facility] [place]
[2016-09-07 20:36] LABS: Glucose,Whole Blood 86 mg/dL (75-99)
[2016-09-07] MEDS: ATORVASTATIN 80 MG TAB PO SCH (22:04)
[2016-09-07] MEDS: MELATONIN 5 MG TABLET PO SCH (22:04)
[2016-09-07] MEDS: SODIUM CHLORIDE 0.9% 1,000 ML IV SCH (22:05)
[2016-09-08 06:06] LABS: Anisocytosis Slight; Basophils # (A) 0.1 k/uL (0-0.2); Basophils % (A) 1 %; CH 33.3; CHCM 32.8; Eosinophils # (A) 0.2 k/uL (0-0.7); Eosinophils % (A) 2 %; HCT 35.4 % (34.0-46.0); HDW 3.63; HGB 11.3 gm/dL (11.4-16.0); Hypochromasia Slight; Luc # (Auto) 0.41; Luc % (Auto) 4; Lymphocytes # (A) 2.5 k/uL (1.0-4.8); Lymphocytes % (A) 26 %; MCH 32.5 pg (25.0-35.0); MCHC 31.8 g/dL (31.0-37.0); MCV 102.5 fL (80.0-100.0); Macrocytosis Moderate; Monocytes # (A) 0.5 k/uL (0-1.0); Monocytes % (A) 5 %; Neutrophils # (A) 5.9 k/uL (1.3-7.7); Neutrophils % (A) 62 %; Poikilocytosis Slight; RBC 3.46 m/uL (3.80-5.40); RDW 19.8 % (11.5-15.5); WBC 9.6 k/uL (3.8-10.6); WBC (Perox) 10.24
[2016-09-08 06:14] LABS: INR 3.2 (<1.1); Prothrombin Time 31.3 sec (9.0-12.0)
[2016-09-08 06:15] LABS: Anion Gap 11 mmol/L; Blood Urea Nitrogen 20 mg/dL (7-17); Calcium 9.5 mg/dL (8.4-10.2); Carbon Dioxide 24 mmol/L (22-30); Chloride 101 mmol/L (98-107); Glucose 90 mg/dL (74-99); Non-African American GFR(MDRD) >60 (>60 ml/min/1.73 sqM); Potassium 3.3 mmol/L (3.5-5.1); Sodium 136 mmol/L (137-145)
[2016-09-08 06:15] LABS: Glucose,Whole Blood 96 mg/dL (75-99)
[2016-09-08] MEDS: metFORMIN 500 MG TAB PO SCH ×2 (07:16→21:40)
[2016-09-08] MEDS ORDERED: POTASSIUM CHLORIDE ER 20 MEQ TAB.ER PO STA (09:28)
[2016-09-08] MEDS: BUDESONIDE 0.5 MG/2 ML NEBU INHALATION SCH ×2 (09:38→21:05)
[2016-09-08] MEDS: SENNOSIDES-DOCUSATE SODIUM 1 EACH TAB PO SCH (09:38)
[2016-09-08] MEDS: valACYclovir HCL 1,000 MG TABLET PO SCH ×2 (09:39→09:46)
[2016-09-08] MEDS: LIDOCAINE 5% PATCH TOPICAL SCH (09:39)
[2016-09-08] MEDS: METOPROLOL TARTRATE 50 MG TAB PO SCH ×2 (09:43→21:42)
[2016-09-08] MEDS: CHOLECALCIFEROL 1,000 UNIT TAB PO SCH (09:44)
[2016-09-08] MEDS: ISOSORBIDE MONONITRATE ER 15 MG TAB PO SCH (09:44)
[2016-09-08] MEDS: FUROSEMIDE 40 MG TAB PO SCH (09:44)
[2016-09-08] MEDS: FLUTICASONE 50MCG/SPRAY NASAL 16GM EA NOSTRIL SCH ×2 (09:44→21:41)
[2016-09-08] MEDS: NYSTATIN 100,000 UNIT/GM POWD 15 GM TOPICAL SCH ×2 (09:44→15:28)
[2016-09-08] MEDS: PREGABALIN 75 MG CAP PO SCH ×2 (09:45→21:42)
[2016-09-08] MEDS: MULTIVITAMINS, THERA 1 EACH TAB PO SCH (09:45)
[2016-09-08] MEDS: DULoxetine HCL 60 MG CAPSULE.DR PO SCH (09:45)
[2016-09-08] MEDS: CALCIUM CARB-VIT D 500MG-200UN 1 EACH TAB PO SCH (09:45)
[2016-09-08] MEDS: ASPIRIN 81 MG CHEW PO SCH (09:45)
[2016-09-08] MEDS: FAMOTIDINE 20 MG TAB PO SCH (09:46)
[2016-09-08] MEDS: ALLOPURINOL 300 MG TAB PO SCH (09:46)
[2016-09-08] MEDS: CYANOCOBALAMIN 500 MCG TAB PO SCH (09:47)
[2016-09-08] MEDS: CEFTAROLINE FOSAMIL 600 MG in SODIUM CHLORIDE 0.9% 250 ML IVPB SCH ×2 (09:50→21:49)
[2016-09-08 12:07] LABS: Glucose,Whole Blood 82 mg/dL (75-99)
--- NOTE | 2016-09-08 14:25 | XR ---
EXAMINATION TYPE: XR chest 2V DATE OF EXAM: 09/08/2016 2:03 PM COMPARISON: 09/04/2016 HISTORY: Shortness of breath TECHNIQUE: Frontal and lateral views of the chest are obtained. FINDINGS: Scattered senescent parenchymal changes noted. Hyperinflation compatible with COPD. Persistent right lower lobe density which may reflect atelectasis and/or infiltrate. Heart size is stable. Mediastinal structures are stable and grossly unremarkable. No evidence for hilar prominence. Degenerative changes dorsal spine. IMPRESSION: 1. Persistent right lower lobe density which may reflect atelectasis and/or infiltrate.
--- NOTE | 2016-09-08 14:49 | P.PN ---
Subjective This is a pleasant 76-year-old lady patient of Dr. Marquis and Dr. Arce. She has underlying history off from at the COPD hyperlipidemia vascular disorder and obstructive sleep apnea neuralgia atrial fibrillation, chronic COPD diabetes mellitus type 2, chronic immunosuppression CHF admitted through the emergency room secondary to left thoracic pain. She was diagnosed recently to have T6 dermatome herpes zoster this past Sunday 3 days prior to admission for which valacyclovir was given by Dr. Marquis. Patient had left flank pain was subsequently seen in the emergency room secondary to the pain. Patient denies any fever however she has some chills. Patient has hydrocodone which doesn't seem to take care of the pain she was seen in emergency room with evaluation to include noticeable left vesicular eruption involving the T6 area, redness in the left leg, known history off chronic venous stasis dermatitis. Known also on the right metatarsal region lateral region from a previous biopsy for osteotomyelitis by Dr. Kim. She is currently on IV Rocephin prior to her admission as recommended by Dr. Marquis. 09/04: Patient has been seen in consultation by Dr. Rojo from infectious disease covering for Dr. Marquis. He has recommended continuing Rocephin, silver dressing for the ulceration of the foot, check protein status and supplement, multivitamin added. Sed rate 24, C-reactive protein 27.2, hemoglobin A1c 6.7 TSH 2.570. Albumin is 3.3. INR 3.4. Chest x-ray is pending a Chin is requesting something for her nasal congestion and Flonase added. She continues to have issues with pain for which Percocet is scheduled plus as needed. 09/05: Patient continues to be very fatigued. She is on CPAP from home. Vesicles are drying up. Dr. Marquis has changed her antibiotics to Ceftaroline. Anticipate possible discharge to [facility] tomorrow. INR is 2.9. Patient will be resumed back on Coumadin home dosing. 09/06: Pain control continues to be an issue the patient is more groggy today. Percocet changed to fentanyl patch. Anticipate possible discharge to [facility] tomorrow. 09/07: Patient became hypotensive with temperature of 100.4 last evening had lactic acid 3.5 and patient was transferred to [facility] care and placed on CPAP. She received fluid bolus of 500 mL. She was also tachycardic and pulse ox running 91-95%. Blood culture obtained. Urine and urine culture ordered. White count is 12, INR 3.5. Repeat lactic acid is 1.5. Patient is not ready for discharge today. Fentanyl patch was removed last evening. Patient does not seem to complain and pain while resting. 09/08: De La Paz catheter was placed yesterday his family was concerned that she had no urine output. Urine output has been 40 mL for the past 12 hours. Temperature max 100.0. Dr. Marquis has recommended continuing Ceftaroline. WBC is 9.6. Potassium 3.3 will be replaced. INR is 3.2. Coumadin remains on hold. Repeat chest x-ray shows persistent right lower lobe density which may reflect atelectasis or infiltrate. Objective - Vital Signs Vital signs: Vital Signs Temp 98.4 F 09/08/16 03:50 Pulse 96 09/08/16 03:50 Resp 18 09/08/16 03:50 BP 97/47 09/08/16 03:50 Pulse Ox 92 L 09/08/16 03:50 Intake & Output 09/07/16 09/08/16 09/08/16 18:59 06:59 18:59 Intake Total 650 100 Output Total 450 Balance 200 100 Weight 116.5 kg Intake: IV 100 cefTRIAXone 2,000 mg In 100 Sodium Chloride 0.9% 100 ml @ 100 mls/hr IVPB Q24HR [facility] Rx#:[id number] Intake, IV Titration 410 Amount Ceftaroline Fosamil 600 250 mg In Sodium Chloride 0.9 % 250 ml @ 250 mls/hr IVPB Q12HR [facility] Rx#: [id number] Sodium Chloride 0.9% 1, 160 000 ml @ 20 mls/hr IV . Q24H [facility] Rx#:[id number] Oral 240 Output: Urine 450 Other: Voiding Method Indwelling Catheter Indwelling Catheter # Bowel Movements 0 - Exam General appearance: cooperative, no acute distress - EENT Eyes: anicteric sclerae, EOMI, PERRLA, dentition normal, normal appearance ENT: NA/AT, normal oropharynx - Neck Neck: no lymphadenopathy, normal ROM, no other, no rigidity, no stridor, no thyromegaly - Respiratory Respiratory: bilateral: CTA, negative: diminished, dullness, rales, rhonchi - Cardiovascular Rhythm: regular Heart sounds: normal: S1, S2 Abnormal Heart Sounds: no systolic murmur, no diastolic murmur, no rub, no S3 Gallop, no S4 Gallop, no click, no other - Gastrointestinal General gastrointestinal: normal bowel sounds, soft - Integumentary Integumentary: rash (left t 6 dermatome), ulcer (right lateral metatarsal 2 cm x2 cm x1 cm approx) - Musculoskeletal Musculoskeletal: generalized weakness, strength equal bilaterally - Labs CBC & Chem 7: 09/08/16 05:36 09/08/16 05:36 Labs: Abnormal Lab Results - Last 24 Hours (Table) 09/07/16 09/07/16 09/08/16 Range/Units 11:06 11:34 05:36 RBC (3.80-5.40) m/uL Hgb (11.4-16.0) gm/dL MCV (80.0-100.0) fL RDW (11.5-15.5) % PT 31.3 H (9.0-12.0) sec Sodium (137-145) mmol/L Potassium (3.5-5.1) mmol/L BUN (7-17) mg/dL POC Glucose (mg/dL) 106 H (75-99) mg/dL Urine Protein Trace H (Negative) Urine Ketones Trace H (Negative) 09/08/16 09/08/16 Range/Units 05:36 05:36 RBC 3.46 L (3.80-5.40) m/uL Hgb 11.3 L (11.4-16.0) gm/dL MCV 102.5 H (80.0-100.0) fL RDW 19.8 H (11.5-15.5) % PT (9.0-12.0) sec Sodium 136 L (137-145) mmol/L Potassium 3.3 L (3.5-5.1) mmol/L BUN 20 H (7-17) mg/dL POC Glucose (mg/dL) (75-99) mg/dL Urine Protein (Negative) Urine Ketones (Negative) Microbiology - Last 24 Hours (Table) 09/06/16 19:15 Blood Culture - Preliminary Blood No Growth after 24 hours 09/07/16 11:06 Urine Culture - Preliminary Urine,Catheterized Assessment and Plan Plan: 1. Left thoracic T5-T6 herpes zoster vesicular eruptions with possible secondary bacterial infection currently on Valtrex uncontrolled pain. No patch with Percocet as needed for pain control. Ceftaroline, Valtrex, Lyrica. 2. Sepsis with fever, tachycardia and elevated lactic acid and coagulopathy possible right lower lobe pneumonia or atelectasis. Patient transferred to selective care unit. Dr. Marquis is on consult. Monitor I&O. Coumadin placed on hold. Fentanyl patch was removed. 3. 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 Kim and Dr. Marquis currently improving. On Ceftaroline 4. Chronic venous stasis dermatitis bilateral lower extremity, there is no significant worsening of the left ankle as mentioned by the emergency room physician, patient continued to have her IV Rocephin. No diuretics are needed at this time 5. Ongoing immunosuppression using methotrexate which would be held. Should there be any flareup of her RA, this will be replaced by Plaquenil until her wounds would heal 6. Chronic atrial fibrillation on chronic anticoagulation with Coumadin, therapeutic levels will be maintained, metoprolol 50 mg twice a day, continue on Lasix 40 mg daily, 7. CAD currently asymptomatic, on Imdur maintenance 50 mg daily metoprolol 50 mg twice a day, aspirin 81 mg daily Lipitor 80 mg daily 8. COPD on maintenance Pulmicort 9. Hyperlipidemia on Lipitor 80 10. Hyperuricemia without any exacerbation of gout, on Zyloprim 300 mg daily 11. Diabetes mellitus type 2 on metformin 500 mg twice a day hemoglobin A1c will be obtained on [employer] correctional scale coverage 12. DVT prophylaxis on maintenance Coumadin 13. GI prophylaxis Pepcid 20 14. Impaired balance and increasing debility splinting of thoracic area during ambulation which puts her at risk for further falls, physical therapy and the Initial therapy would be seeing her with the anticipated evaluation for skilled ECF Discharge plan: Subacute rehab at [facility] Impression and plan of care have been directed as dictated by the signing physician. Susi Raymundo nurse practitioner acting as scribe for signing physician. Time with Patient: Greater than 30
[2016-09-08] MEDS: ACETAMINOPHEN TAB 325 MG TAB PO PRN (15:45)
[2016-09-08 16:52] LABS: Glucose,Whole Blood 92 mg/dL (75-99)
[2016-09-08] MEDS: SODIUM CHLORIDE 0.9% 1,000 ML IV SCH (17:10)
[2016-09-08] MEDS: ALBUTEROL NEBULIZED 2.5 MG/3 ML INHALATION PRN (21:05)
[2016-09-08 21:40] LABS: Glucose,Whole Blood 94 mg/dL (75-99)
[2016-09-08] MEDS: NYSTATIN 100,000 UNIT/ML SUSP 500,000 UNIT/5 ML CUP PO SCH (21:40)
[2016-09-08] MEDS: ATORVASTATIN 80 MG TAB PO SCH (21:41)
[2016-09-08] MEDS: MELATONIN 5 MG TABLET PO SCH (21:41)
[2016-09-09] MEDS: NYSTATIN 100,000 UNIT/GM POWD 15 GM TOPICAL SCH ×4 (00:19→21:27)
[2016-09-09] MEDS: NYSTATIN 100,000 UNIT/ML SUSP 500,000 UNIT/5 ML CUP PO SCH ×5 (00:20→21:26)
[2016-09-09 05:55] LABS: Anisocytosis Slight; CH 33.1; CHCM 32.1; HCT 37.6 % (34.0-46.0); HDW 3.61; HGB 11.9 gm/dL (11.4-16.0); Hypochromasia Slight; MCH 32.9 pg (25.0-35.0); MCHC 31.7 g/dL (31.0-37.0); MCV 103.8 fL (80.0-100.0); Macrocytosis Marked; Mean Platelet Volume 7.4; Poikilocytosis Slight; RBC 3.62 m/uL (3.80-5.40); RDW 19.7 % (11.5-15.5); WBC 10.8 k/uL (3.8-10.6)
[2016-09-09 06:05] LABS: INR 3.2 (<1.1); Prothrombin Time 30.6 sec (9.0-12.0)
[2016-09-09 06:09] LABS: Anion Gap 10 mmol/L; Blood Urea Nitrogen 17 mg/dL (7-17); Calcium 9.5 mg/dL (8.4-10.2); Carbon Dioxide 25 mmol/L (22-30); Chloride 102 mmol/L (98-107); Glucose 93 mg/dL (74-99); Non-African American GFR(MDRD) >60 (>60 ml/min/1.73 sqM); Potassium 3.7 mmol/L (3.5-5.1); Sodium 137 mmol/L (137-145)
[2016-09-09] MEDS: metFORMIN 500 MG TAB PO SCH ×2 (06:31→17:32)
[2016-09-09 06:44] LABS: Glucose,Whole Blood 87 mg/dL (75-99)
--- NOTE | 2016-09-09 07:09 | PN ---
DATE OF SERVICE: 09/08/2016 REASON FOR FOLLOW-UP: 1. Left T6 dermatome zoster with secondary cellulitis. 2. Right osteomyelitis. INTERVAL HISTORY: The patient did have a low-grade fever this morning of 100; however, the patient is more awake and alert. The patient denies having any headache. The patient denies having any chest pain, shortness of breath. Occasional cough. The left lower chest pain, the site of the rash, overall pain has improved. Patient denies any abdominal pain and no diarrhea. On examination, blood pressure 152/63 with a pulse of 94, temperature 98.8, T-max of 100. She is 92% on room air. General description is an elderly female lying in bed in no distress. RESPIRATORY SYSTEM: Unlabored breathing. Some decrease breath sounds at the base. No wheeze. HEART: S1, S2. Regular rate and rhythm. ABDOMEN: Soft, no tenderness. EXTREMITIES: No edema feet. Right foot wound is dressed. No obvious drainage. The left lower chest wound overall wound is dried out. LABS: Hemoglobin 11.1, white count 9.6 with a BUN of 20, creatinine 0.60. Urine done yesterday is negative. Blood cultures from the th have been negative. The patient did have a chest x-ray with a right lower lobe density, which may reflect atelectasis or infiltrate. DIAGNOSTIC IMPRESSION AND PLAN: 1. Patient presented to the hospital predominantly with a rash to the left lower chest area with worsening. The patient was diagnosed as an outpatient with herpes zoster with a question of possible secondary bacterial cellulitis. The patient seems to show clinical improvement in the same. She will continue with the Teflaro. She has received 7 days of Valtrex. That will be discontinued. That sometimes is associated with some mental status changes, which seems to be an issue in this patient at this point. Clinically doubt significant pneumonia. The patient has no significant respiratory symptoms. More likely atelectasis and incentive spirometry will be encouraged. 2. Patient with right foot osteomyelitis. Currently being covered with Teflaro. Local wound care with Aquacel Silver. MTDD
[2016-09-09] MEDS: BUDESONIDE 0.5 MG/2 ML NEBU INHALATION SCH ×2 (08:49→20:25)
[2016-09-09] MEDS: FLUTICASONE 50MCG/SPRAY NASAL 16GM EA NOSTRIL SCH ×2 (10:15→21:25)
[2016-09-09] MEDS: METOPROLOL TARTRATE 50 MG TAB PO SCH ×2 (10:16→21:28)
[2016-09-09] MEDS: ASPIRIN 81 MG CHEW PO SCH (10:17)
[2016-09-09] MEDS: CALCIUM CARB-VIT D 500MG-200UN 1 EACH TAB PO SCH (10:17)
[2016-09-09] MEDS: PREGABALIN 75 MG CAP PO SCH ×2 (10:17→21:27)
[2016-09-09] MEDS: MULTIVITAMINS, THERA 1 EACH TAB PO SCH (10:17)
[2016-09-09] MEDS: CYANOCOBALAMIN 500 MCG TAB PO SCH (10:18)
[2016-09-09] MEDS: ISOSORBIDE MONONITRATE ER 15 MG TAB PO SCH (10:18)
[2016-09-09] MEDS: CHOLECALCIFEROL 1,000 UNIT TAB PO SCH (10:18)
[2016-09-09] MEDS: DULoxetine HCL 60 MG CAPSULE.DR PO SCH (10:19)
[2016-09-09] MEDS: FAMOTIDINE 20 MG TAB PO SCH (10:19)
[2016-09-09] MEDS: ALLOPURINOL 300 MG TAB PO SCH (10:19)
[2016-09-09] MEDS: FUROSEMIDE 40 MG TAB PO SCH (10:20)
[2016-09-09] MEDS: LIDOCAINE 5% PATCH TOPICAL SCH (10:20)
[2016-09-09] MEDS: SENNOSIDES-DOCUSATE SODIUM 1 EACH TAB PO SCH (10:22)
[2016-09-09 11:52] LABS: Glucose,Whole Blood 102 mg/dL (75-99)
[2016-09-09] MEDS: CEFTAROLINE FOSAMIL 600 MG in SODIUM CHLORIDE 0.9% 250 ML IVPB SCH ×2 (11:56→21:25)
[2016-09-09] MEDS: ACETAMINOPHEN TAB 325 MG TAB PO PRN (14:18)
[2016-09-09 16:59] LABS: Glucose,Whole Blood 105 mg/dL (75-99)
[2016-09-09] MEDS: SODIUM CHLORIDE 0.9% 1,000 ML IV SCH (17:30)
--- NOTE | 2016-09-09 20:56 | PN ---
DATE OF SERVICE: 09/09/2016 Reason for follow-up: Left T6 Dermatome zoster with secondary cellulitis and right foot ulcer. INTERVAL HISTORY: The patient is afebrile. He is getting more awake, alert. He is breathing comfortably. Denies having chest pain. No abdominal pain. No diarrhea. On examination, blood pressure is 111/67, pulse of 94, temperature 99.3. She is 96% on room air. General description is an elderly female lying in bed in no distress. RESPIRATORY SYSTEM: Unlabored breathing, with decreased breath sounds at the base. HEART: S1, S2. Regular rate and rhythm. ABDOMEN: Soft, no tenderness. Left below the breast area the wound with surrounding tenderness with some slough tissue and right foot wound is currently dressed up. No obvious drainage. LABS: Hemoglobin is 11.9, white count 10.8 with a BUN of 17, creatinine 0.60. Stool for C. difficile has been negative. Blood culture negative. DIAGNOSTIC IMPRESSION AND PLAN: 1. Patient admitted to the hospital with left T6 Dermatome zoster with a question of secondary bacterial cellulitis. The patient seemed to slowly clinically improving. She has finished her anti viral therapy. Valtrex has been discontinued. Currently on Lyrica that can be cut back especially in the patient had a problem with mentation as for local wound care, switched over to the Santyl followed by moist dressing. 2. Right wound at the base of the fifth metatarsal head with underlying osteomyelitis. Continue Aquacel Silver and is being covered with Teflaro. MTDD
[2016-09-09] MEDS: ATORVASTATIN 80 MG TAB PO SCH (21:27)
[2016-09-09] MEDS: MELATONIN 5 MG TABLET PO SCH (21:27)
[2016-09-09 21:47] LABS: Glucose,Whole Blood 143 mg/dL (75-99)
[2016-09-10 06:50] LABS: INR 3.1 (<1.1); Prothrombin Time 30.2 sec (9.0-12.0)
[2016-09-10 06:51] LABS: Anisocytosis Slight; CHCM 32.3; HCT 36.1 % (34.0-46.0); HDW 3.66; HGB 11.5 gm/dL (11.4-16.0); Hypochromasia Slight; MCH 32.7 pg (25.0-35.0); MCHC 31.8 g/dL (31.0-37.0); MCV 102.7 fL (80.0-100.0); Macrocytosis Moderate; Poikilocytosis Slight; RBC 3.52 m/uL (3.80-5.40); RDW 19.8 % (11.5-15.5); WBC (Perox) 9.82
[2016-09-10 06:55] LABS: Anion Gap 10 mmol/L; Blood Urea Nitrogen 18 mg/dL (7-17); Calcium 9.2 mg/dL (8.4-10.2); Carbon Dioxide 25 mmol/L (22-30); Chloride 103 mmol/L (98-107); Glucose 97 mg/dL (74-99); Non-African American GFR(MDRD) >60 (>60 ml/min/1.73 sqM); Potassium 3.8 mmol/L (3.5-5.1); Sodium 138 mmol/L (137-145)
[2016-09-10 07:09] LABS: Add Differential Manual Differential
[2016-09-10 07:13] LABS: Nucleated Red Blood Cells 1 /100 WBC (0-0); Total Cells Counted 100
[2016-09-10 07:14] LABS: Manual Review Performed; Polychromasia Present; WBC 10.1 k/uL (3.8-10.6)
[2016-09-10 08:32] LABS: Glucose,Whole Blood 106 mg/dL (75-99)
[2016-09-10] MEDS: CEFTAROLINE FOSAMIL 600 MG in SODIUM CHLORIDE 0.9% 250 ML IVPB SCH ×2 (08:51→20:50)
[2016-09-10] MEDS: PREGABALIN 75 MG CAP PO SCH ×2 (08:52→21:51)
[2016-09-10] MEDS: ALLOPURINOL 300 MG TAB PO SCH (08:52)
[2016-09-10] MEDS: METOPROLOL TARTRATE 50 MG TAB PO SCH ×2 (08:52→21:51)
[2016-09-10] MEDS: FUROSEMIDE 40 MG TAB PO SCH (08:52)
[2016-09-10] MEDS: NYSTATIN 100,000 UNIT/ML SUSP 500,000 UNIT/5 ML CUP PO SCH ×4 (08:52→21:55)
[2016-09-10] MEDS: metFORMIN 500 MG TAB PO SCH ×2 (08:52→17:32)
[2016-09-10] MEDS: LIDOCAINE 5% PATCH TOPICAL SCH (08:52)
[2016-09-10] MEDS: FAMOTIDINE 20 MG TAB PO SCH (08:52)
[2016-09-10] MEDS: CHOLECALCIFEROL 1,000 UNIT TAB PO SCH (08:53)
[2016-09-10] MEDS: DULoxetine HCL 60 MG CAPSULE.DR PO SCH (08:54)
[2016-09-10] MEDS: SENNOSIDES-DOCUSATE SODIUM 1 EACH TAB PO SCH (08:54)
[2016-09-10] MEDS: FLUTICASONE 50MCG/SPRAY NASAL 16GM EA NOSTRIL SCH ×2 (08:54→21:51)
[2016-09-10] MEDS: ISOSORBIDE MONONITRATE ER 15 MG TAB PO SCH (08:55)
[2016-09-10] MEDS: MULTIVITAMINS, THERA 1 EACH TAB PO SCH (08:55)
[2016-09-10] MEDS: NYSTATIN 100,000 UNIT/GM POWD 15 GM TOPICAL SCH ×3 (08:55→21:55)
[2016-09-10] MEDS: BUDESONIDE 0.5 MG/2 ML NEBU INHALATION SCH ×2 (09:31→19:08)
[2016-09-10] MEDS: oxyCODONE-APAP 7.5-325MG 1 EACH TAB PO PRN ×2 (10:47→16:10)
[2016-09-10 12:27] LABS: Glucose,Whole Blood 113 mg/dL (75-99)
[2016-09-10] MEDS: COLLAGENASE 250 UNIT/GM OINTMENT 30 GM TUBE TOPICAL SCH (16:10)
[2016-09-10 17:15] LABS: Glucose,Whole Blood 123 mg/dL (75-99)
[2016-09-10] MEDS: CALCIUM CARB-VIT D 500MG-200UN 1 EACH TAB PO SCH (17:32)
[2016-09-10] MEDS: CYANOCOBALAMIN 500 MCG TAB PO SCH (17:32)
[2016-09-10] MEDS: ASPIRIN 81 MG CHEW PO SCH (17:32)
[2016-09-10] MEDS: SODIUM CHLORIDE 0.9% 1,000 ML IV SCH (17:33)
[2016-09-10] MEDS: ALBUTEROL NEBULIZED 2.5 MG/3 ML INHALATION PRN (19:08)
[2016-09-10 20:20] LABS: Glucose,Whole Blood 126 mg/dL (75-99)
[2016-09-10] MEDS: MELATONIN 5 MG TABLET PO SCH (21:50)
[2016-09-10] MEDS: ATORVASTATIN 80 MG TAB PO SCH (21:50)
--- NOTE | 2016-09-10 22:28 | PN ---
INTERVAL HISTORY: Patient continues to be hemodynamically stable. Currently is awake, oriented following commands. Daughter at the bedside indicated that her mother is much better than prior days. No major events reported by nursing staff. Patient is denying any chest pain, shortness of breath, nausea, vomiting, abdominal pain, dizziness, ( ) or blurry vision. Tolerating her diet without difficulty. PHYSICAL EXAMINATION: VITAL SIGNS: Temperature 97.4, Oxygen saturation between 92 and 96, respiratory rate 17 to 20, blood pressure 105/80 and saturation is 94% on room air. LUNGS: Diminished bilaterally. CARDIAC : Heart S1, S2. ABDOMEN: Soft, nontender. Positive bowel sounds in all 4 quadrants. LOWER EXTREMITIES: Stable from prior examination. PSYCHIATRY: Alert and oriented times three. NEURO: No focal deficits. Imaging and Labs: CBC revealed stability with normal findings. PT and INR were therapeutic at 3.1. Chem-7 revealed stable findings, between 105 and 143. Blood cultures are still pending, negative. ASSESSMENT AND PLAN: 1. Osteomyelitis of the right foot fifth metatarsal head. 2. Herpes zoster on admission, complete a course of Acyclovir. 3. Recent systemic inflammatory response syndrome criteria which has resolved completely at this point. 4. Chronic venous stasis dermatitis bilateral lower extremity. 5. Rheumatoid arthritis with immunosuppression state. 6. Chronic atrial fibrillation. 7. Coronary artery disease. 8. Chronic obstructive pulmonary disease. 9. Hyperlipidemia. 10. Diabetes type 2. PLAN: 1. I would like to continue with current antibiotics. 2. I would like to continue with wound care. 3. I would like to have PT, OT evaluate the patient and follow up with their recommendation regarding discharge planning. The patient's family requested rehab facility after hospitalization. 4. I would like her to follow-up with infectious disease recommendation regarding ( ) antibiotics. 5. I would like to discontinue De La Paz catheter and do voiding trials and bladder scan every 6 hours with straight cath if indicated. Discussed with the nursing staff. 6. Discharge planning based on clinical progress.
[2016-09-11] MEDS: MORPHINE SULFATE 4 MG/ML SYRINGE IV PRN (04:43)
[2016-09-11 06:35] LABS: INR 2.8 (<1.1)
[2016-09-11 06:42] LABS: Anion Gap 12 mmol/L; Blood Urea Nitrogen 20 mg/dL (7-17); Calcium 8.8 mg/dL (8.4-10.2); Carbon Dioxide 23 mmol/L (22-30); Chloride 104 mmol/L (98-107); Glucose 105 mg/dL (74-99); Non-African American GFR(MDRD) >60 (>60 ml/min/1.73 sqM); Potassium 3.9 mmol/L (3.5-5.1); Sodium 139 mmol/L (137-145)
[2016-09-11 07:30] LABS: Anisocytosis Slight; CH 32.8; CHCM 31.6; HCT 38.3 % (34.0-46.0); HDW 3.54; Hypochromasia Moderate; MCH 32.6 pg (25.0-35.0); MCHC 31.2 g/dL (31.0-37.0); MCV 104.6 fL (80.0-100.0); Macrocytosis Marked; Mean Platelet Volume 7.8; Poikilocytosis Slight; RBC 3.66 m/uL (3.80-5.40); RDW 19.4 % (11.5-15.5); WBC (Perox) 13.28
[2016-09-11] MEDS: ALBUTEROL NEBULIZED 2.5 MG/3 ML INHALATION PRN ×2 (07:56→19:18)
[2016-09-11] MEDS: BUDESONIDE 0.5 MG/2 ML NEBU INHALATION SCH ×2 (07:56→19:18)
[2016-09-11] MEDS: DULoxetine HCL 60 MG CAPSULE.DR PO SCH ×2 (08:14→13:43)
[2016-09-11] MEDS: PREGABALIN 75 MG CAP PO SCH ×3 (08:14→21:56)
[2016-09-11] MEDS: LIDOCAINE 5% PATCH TOPICAL SCH (08:14)
[2016-09-11] MEDS: METOPROLOL TARTRATE 50 MG TAB PO SCH ×3 (08:15→21:35)
[2016-09-11] MEDS: NYSTATIN 100,000 UNIT/ML SUSP 500,000 UNIT/5 ML CUP PO SCH ×4 (08:15→21:57)
[2016-09-11] MEDS: ISOSORBIDE MONONITRATE ER 15 MG TAB PO SCH ×2 (08:15→08:57)
[2016-09-11] MEDS: metFORMIN 500 MG TAB PO SCH ×3 (08:16→18:44)
[2016-09-11] MEDS: ALLOPURINOL 300 MG TAB PO SCH ×2 (08:16→13:43)
[2016-09-11] MEDS: FUROSEMIDE 40 MG TAB PO SCH ×2 (08:17→08:57)
[2016-09-11] MEDS: FAMOTIDINE 20 MG TAB PO SCH ×2 (08:17→13:43)
[2016-09-11] MEDS: FLUTICASONE 50MCG/SPRAY NASAL 16GM EA NOSTRIL SCH ×2 (08:18→21:57)
[2016-09-11] MEDS ORDERED: ACETAMINOPHEN IV (For NPO) 1,000 MG in EMPTY BAG 1 BAG IVPB PRN (08:31)
[2016-09-11 08:44] LABS: Glucose,Whole Blood 113 mg/dL (75-99)
[2016-09-11 10:36] LABS: Add Differential Manual Differential
[2016-09-11] MEDS: SENNOSIDES-DOCUSATE SODIUM 1 EACH TAB PO SCH (10:41)
[2016-09-11] MEDS: CHOLECALCIFEROL 1,000 UNIT TAB PO SCH (10:41)
[2016-09-11 10:42] LABS: Band Neutrophils % 0.5 %; Nucleated Red Blood Cells 1 /100 WBC (0-0); Total Cells Counted 200
[2016-09-11 10:43] LABS: Polychromasia Present
[2016-09-11] MEDS ORDERED: HYDROCORTISONE SUCCINATE 100 MG/2 ML VIAL IV SCH (10:45)
--- NOTE | 2016-09-11 10:45 | XR ---
EXAMINATION TYPE: XR chest 1V portable DATE OF EXAM: 09/11/2016 10:39 AM COMPARISON: 09/08/2016 INDICATION: Fever and weakness TECHNIQUE: Single frontal view of the chest is obtained. FINDINGS: The heart size is enlarged. The pulmonary vasculature is normal. There is silhouetting of the left diaphragm. A left pleural effusion and/or left lower lobe infiltrat e is present. IMPRESSION: 1. Left lower lobe infiltrate and/or left pleural effusion. Follow-up is recommended.
[2016-09-11] MEDS ORDERED: IV VANCOMYCIN PER PHARMACY 1 EACH MISC MISCELLANE PRN (11:25)
[2016-09-11] MEDS ORDERED: VANCOMYCIN 1,750 MG in SODIUM CHLORIDE 0.9% 250 ML IVPB ONE (12:00)
--- NOTE | 2016-09-11 12:09 | PN ---
DATE OF SERVICE: 09/10/2016 Reason for followup is: 1. Left T6 dermatome zoster with secondary cellulitis. 2. Right foot osteomyelitis. INTERVAL HISTORY: The patient is afebrile. She is getting more awake and alert, breathing comfortably. Denies significant chest pain. No significant pain in the left lower chest area. No abdominal pain or any diarrhea. On examination, blood pressure is 133/56 with a pulse of 95, temperature of 97.9, she is 92% on room air. General description is an elderly female, up in the bed in no distress. RESPIRATORY SYSTEM: Unlabored breathing. Clear to auscultation. HEART: S1, S2 regular rate and rhythm. ABDOMEN: Soft, no tenderness. EXTREMITIES: No edema of the feet. Examination of left breast, below the breast fold showing some slough tissue, the surrounding redness has improved. LABS: Hemoglobin is 11.5, white count of 10.1 with a BUN of 18, creatinine 0.60. Blood culture is negative, urine is negative. DIAGNOSTIC IMPRESSION AND PLAN: Patient with left T6 dermatome zoster with secondary cellulitis. Wound now showing slough tissue, local wound care adjusted to the Santyl. Antibiotics in the Teflaro that should also cover the right foot osteomyelitis. She should be able to go to rehab tomorrow from an Infectious Disease standpoint with patient followup. Continue with supportive care. Discharge antibiotics will be switched to Rocephin 2 gm daily to continue for another 4 weeks along with the Santyl for the chest wall wound. Continue supportive care. [facility]
[2016-09-11] MEDS: NYSTATIN 100,000 UNIT/GM POWD 15 GM TOPICAL SCH ×2 (12:42→19:12)
[2016-09-11] MEDS: COLLAGENASE 250 UNIT/GM OINTMENT 30 GM TUBE TOPICAL SCH (12:42)
[2016-09-11] MEDS: CEFTAROLINE FOSAMIL 600 MG in SODIUM CHLORIDE 0.9% 250 ML IVPB SCH (12:54)
[2016-09-11 13:43] LABS: ABG Base Excess -5.1 mmol/L; ABG HCO3 19 mmol/L (21-25); ABG PCO2 34 mmHg (35-45); ABG PH 7.37 (7.35-7.45); ABG PO2 98 mmHg (83-108); ABG TCO2 20 mmol/L (19-24)
[2016-09-11] MEDS ORDERED: NOREPINEPHRINE 16 MG in SODIUM CHLORIDE 0.9% 250 ML IV SCH (13:45)
--- NOTE | 2016-09-11 13:57 | P.CNPUL ---
History of Present Illness Consult date: 09/11/16 Reason for consult: other Chief complaint: Hypotension, sonorous respirations, tachycardia, sepsis History of present illness: This is a 76-year-old female that we are asked to see acutely for mental status changes hypotension tachycardia and fever. The patient was ready in the in process of being transferred to the ICU. She apparently was on prednisone chronically and apparently was not really resumed when she came to the hospital also Dr. Morelos was our earlier thought that she might have adrenal insufficiency. The plan is to check her to [facility]. Anyway she is a 76-year-old female who has a history of COPD hyperlipidemia sleep apnea syndrome atrial fibrillation diabetes and heart failure. She apparently developed shingles and apparently was admitted secondary to pain. She also some fever and chills and they're concerned about possible infection. I anyway the patient had been admitted way back on September 02. We had not seen her prior to seeing her today. When I went to go see her on the floor, she was lethargic and somnolent. His sonorous respirations. The patient had hypotension with a systolic blood pressure only 80 she was quite tachycardic at 150. Look like atrial fibrillation. She is also febrile. Anyway the patient was in good be transferred up to the floor. She received 100 mg of hydrocortisone. I'll follow up in the ICU, was able to get a blood gas. She'll do very mild metabolic acidosis. In addition, her heart rate was about 1:30 and her blood pressure was better at 112. We are giving her some IV fluids. Still somewhat lethargic. Review of Systems ROS unobtainable: due to mental status Past Medical History Past Medical History: Atrial Fibrillation, Heart Failure, COPD, Diabetes Mellitus, Hyperlipidemia, Hypertension, Musculoskeletal Disorder, Osteoarthritis (OA), Rheumatoid Arthritis (RA), Skin Disorder, Sleep Apnea/CPAP/ BIPAP, Vascular Disorder Additional Past Medical History / Comment(s): Recent R ankle fracture and just got released from [facility] rehab. Other HX: Newly diagnosed diabetes and torn R rotator cuff diagnosed recently, psoriasis, PVD, past vascular wound lt foot since healed, uti(e coli), sleep apnea uses cpap machine -not sure of settings, migraines, hiatal hernia, fall in jul 2015 has had pain since rt buttock/leg, numbness tingling to bilateral hands and feet. History of Any Multi-Drug Resistant Organisms: None Reported Date of last positivie culture/infection: None MDRO Source:: None Past Surgical History: Appendectomy, Back Surgery, Cholecystectomy, Joint Replacement, Orthopedic Surgery, Tubal Ligation Additional Past Surgical History / Comment(s): bilateral cataracts removed,r t ankle fusion, left hip replacement x 2, left knee arthroscopy, arthritic nodule rt heel, right knee replacment, lt carpal tunnel release, colonoscopy was done more than 5 years ago. Past Anesthesia/Blood Transfusion Reactions: Postoperative Nausea & Vomiting ( PONV) Past Psychological History: Anxiety, Depression Additional Psychological History / Comment(s): Pt recently discharged from [facility] rehab after R ankle fracture. Pt has been more depressed since the dec fall and inabilty to move well and deal with the pain she's having. no suicidal ideations or thoughts of harming.at time she feels like a burden to others. currently pt is living in her own home and her daughteris staying with her temporarily. She is ambulating with a walker. She has a CPAP machine and a commode. She has home care thru [facility]. Her imtiaz gets her to app. Smoking Status: Never smoker Past Alcohol Use History: None Reported Additional Past Alcohol Use History / Comment(s): smoked x 55 years 1.5 ppd, started in 1952 and quit 2007 Past Drug Use History: None Reported - Past Family History Sister(s) History Unknown: Yes Family Medical History: No Reported History Daughter(s) Family Medical History: No Reported History Son(s) Family Medical History: No Reported History Father Family Medical History: Cancer Mother Family Medical History: Coronary Artery Disease (CAD), Myocardial Infarction (RI ), Rheumatoid Arthritis (RA) Medications and Allergies Home Medications Medication Instructions Recorded Confirmed Type Calcium Carbonate/Vitamin D3 1 tab PO AC-SUPPER 09/07/14 09/02/16 History [Calcium 600-Vit D3 400 Tablet] Cholecalciferol [Vitamin D3] 2,000 units PO QAM 09/07/14 09/02/16 History Cyanocobalamin [Vitamin B-12] 1,000 mcg PO AC-SUPPER 05/21/15 09/02/16 History Methotrexate Sodium [Methotrexate] 20 mg PO TU 09/06/15 09/02/16 History predniSONE 5 mg PO QID 09/06/15 09/02/16 History Warfarin [Coumadin] 2.5 mg PO TUWETHFR 01/15/16 09/02/16 History Warfarin [Coumadin] 5 mg PO SUMOSA 01/15/16 09/02/16 History Atorvastatin Calcium [Lipitor] 80 mg PO HS 01/19/16 09/02/16 History Lidocaine 5% Patch [Lidoderm 5% 1 patch TOPICAL DAILY 04/27/16 09/02/16 History Patch] metFORMIN HCL [Glucophage] 500 mg PO BID 04/27/16 09/02/16 History Albuterol Nebulized [Ventolin 2.5 mg INHALATION RT-Q6H PRN 09/02/16 09/02/16 History Nebulized] Aspirin 81 mg PO AC-SUPPER 09/02/16 09/02/16 History DULoxetine HCL [Cymbalta] 60 mg PO DAILY 09/02/16 09/02/16 History Famotidine [Pepcid] 20 mg PO DAILY 09/02/16 09/02/16 History HYDROcodone/APAP 10-325MG [[place] 1 tab PO Q4HR PRN 09/02/16 09/02/16 History 10-325] Melatonin 5 mg PO HS 09/02/16 09/02/16 History cefTRIAXone [Rocephin] 2,000 mg IVPB Q24HR 09/02/16 09/02/16 History Allergies Allergy/AdvReac Type Severity Reaction Status Date / Time azathioprine [From Imuran] Allergy pancreatiti Verified 09/02/16 16:53 s azathioprine sodium Allergy pancreatiti Verified 09/02/16 16:53 [From Imuran] s Physical Exam Osteopathic Statement: *. No significant issues noted on an osteopathic structural exam other than those noted in the History and Physical/Consult. Vitals: Vital Signs Temp Pulse Pulse Resp BP Pulse Ox 09/11/16 12:41 139 H 82/54 09/11/16 11:19 99.1 F 136 H 85/36 09/11/16 10:34 99.9 F H 18 99/58 96 09/11/16 10:00 101 F H 09/11/16 09:35 103 F H 09/11/16 08:12 149 H 09/11/16 08:00 101.6 F H 144 H 20 88/55 92 L 09/11/16 07:56 145 H 09/10/16 20:15 98.7 F 105 H 16 101/68 92 L 09/10/16 19:38 95 09/10/16 19:11 95 09/10/16 14:52 97.9 F 102 H 20 103/56 92 L Intake and Output 09/10/16 09/11/16 09/11/16 22:59 06:59 14:59 Output Total 200 650 Balance -200 -650 Output: Urine 200 650 Uretheral ([place]) 200 400 The patient not very alert. She doesn't really arouse. She has sonorous respirations. HEENT examination reveals gates face. Skin is flushed. Doesn't open her eyes. She just moaning. Neck supple. Full range of motion. Cardiovascular examination reveals tachycardia. His regular periods but 140 bpm. Lungs reveal some coarse rhonchi. Breath sounds diminished. Doesn't really take deep breaths. Abdomen is obese. Extremities are intact. There is some edema. Results - Laboratory Findings CBC and BMP: 09/11/16 06:00 09/11/16 06:00 PT/INR, D-dimer PT 27.0 sec (9.0-12.0) H 09/11/16 06:00 INR 2.8 (<1.1) 09/11/16 06:00 Abnormal lab findings: Abnormal Labs 09/03/16 09/03/16 09/03/16 06:00 06:00 06:00 WBC RBC 3.66 L Hgb MCV 101.3 H MCHC RDW 19.4 H Neutrophils # (Manual) Nucleated RBCs ESR PT Sodium Potassium 3.0 L* Carbon Dioxide 31 H BUN Glucose POC Glucose (mg/dL) Hemoglobin A1c Plasma Lactic Acid Liam AST C-Reactive Protein 24.3 H Total Protein Albumin Urine Protein Urine Ketones 09/03/16 09/03/16 09/04/16 11:47 19:53 05:15 WBC RBC Hgb MCV 103.1 H MCHC RDW 20.0 H Neutrophils # (Manual) Nucleated RBCs ESR 24 H PT Sodium Potassium Carbon Dioxide BUN Glucose POC Glucose (mg/dL) 106 H 106 H Hemoglobin A1c Plasma Lactic Acid Liam AST C-Reactive Protein Total Protein Albumin Urine Protein Urine Ketones 09/04/16 09/04/16 09/04/16 05:15 05:15 05:15 WBC RBC Hgb MCV MCHC RDW Neutrophils # (Manual) Nucleated RBCs ESR PT 33.1 H Sodium Potassium Carbon Dioxide BUN 20 H Glucose 109 H POC Glucose (mg/dL) Hemoglobin A1c 6.7 H Plasma Lactic Acid Liam AST 50 H C-Reactive Protein 27.2 H Total Protein 5.6 L Albumin 3.3 L Urine Protein Urine Ketones 09/04/16 09/04/16 09/04/16 07:32 11:28 17:11 WBC RBC Hgb MCV MCHC RDW Neutrophils # (Manual) Nucleated RBCs ESR PT Sodium Potassium Carbon Dioxide BUN Glucose POC Glucose (mg/dL) 101 H 138 H 114 H Hemoglobin A1c Plasma Lactic Acid Liam AST C-Reactive Protein Total Protein Albumin Urine Protein Urine Ketones 09/04/16 09/05/16 09/05/16 20:00 07:51 12:03 WBC RBC Hgb MCV MCHC RDW Neutrophils # (Manual) Nucleated RBCs ESR PT Sodium Potassium Carbon Dioxide BUN Glucose POC Glucose (mg/dL) 157 H 130 H 116 H Hemoglobin A1c Plasma Lactic Acid Liam AST C-Reactive Protein Total Protein Albumin Urine Protein Urine Ketones 09/05/16 09/05/16 09/05/16 12:44 12:44 12:44 WBC RBC 3.67 L Hgb MCV 104.4 H MCHC RDW 20.0 H Neutrophils # (Manual) Nucleated RBCs 1 H ESR PT 27.8 H Sodium Potassium Carbon Dioxide BUN Glucose 111 H POC Glucose (mg/dL) Hemoglobin A1c Plasma Lactic Acid Liam AST C-Reactive Protein Total Protein 5.3 L Albumin 3.0 L Urine Protein Urine Ketones 09/05/16 09/05/16 09/05/16 17:23 20:38 21:22 WBC RBC Hgb MCV MCHC RDW Neutrophils # (Manual) Nucleated RBCs ESR PT Sodium Potassium Carbon Dioxide BUN Glucose POC Glucose (mg/dL) 117 H 135 H 130 H Hemoglobin A1c Plasma Lactic Acid Liam AST C-Reactive Protein Total Protein Albumin Urine Protein Urine Ketones 09/06/16 09/06/16 09/06/16 08:04 11:51 15:40 WBC 12.2 H RBC 3.54 L Hgb MCV 107.6 H MCHC 30.8 L RDW 19.7 H Neutrophils # (Manual) 8.2 H Nucleated RBCs 1 H ESR PT Sodium Potassium Carbon Dioxide BUN Glucose POC Glucose (mg/dL) 112 H 108 H Hemoglobin A1c Plasma Lactic Acid Liam AST C-Reactive Protein Total Protein Albumin Urine Protein Urine Ketones 09/06/16 09/06/16 09/06/16 16:25 17:09 17:40 WBC RBC Hgb MCV MCHC RDW Neutrophils # (Manual) Nucleated RBCs ESR PT 32.9 H Sodium Potassium Carbon Dioxide BUN Glucose POC Glucose (mg/dL) 147 H Hemoglobin A1c Plasma Lactic Acid Liam 3.5 H* AST C-Reactive Protein Total Protein Albumin Urine Protein Urine Ketones 09/06/16 09/07/16 09/07/16 22:18 05:55 05:55 WBC 12.5 H RBC 3.44 L Hgb MCV 101.8 H D MCHC RDW 20.0 H Neutrophils # (Manual) Nucleated RBCs 2 H ESR PT 34.2 H Sodium Potassium Carbon Dioxide BUN Glucose POC Glucose (mg/dL) 111 H Hemoglobin A1c Plasma Lactic Acid Liam AST C-Reactive Protein Total Protein Albumin Urine Protein Urine Ketones 09/07/16 09/07/16 09/07/16 06:51 11:06 11:34 WBC RBC Hgb MCV MCHC RDW Neutrophils # (Manual) Nucleated RBCs ESR PT Sodium Potassium Carbon Dioxide BUN 24 H Glucose POC Glucose (mg/dL) 106 H Hemoglobin A1c Plasma Lactic Acid Liam AST C-Reactive Protein Total Protein Albumin Urine Protein Trace H Urine Ketones Trace H 09/08/16 09/08/16 09/08/16 05:36 05:36 05:36 WBC RBC 3.46 L Hgb 11.3 L MCV 102.5 H MCHC RDW 19.8 H Neutrophils # (Manual) Nucleated RBCs ESR PT 31.3 H Sodium 136 L Potassium 3.3 L Carbon Dioxide BUN 20 H Glucose POC Glucose (mg/dL) Hemoglobin A1c Plasma Lactic Acid Liam AST C-Reactive Protein Total Protein Albumin Urine Protein Urine Ketones 09/09/16 09/09/16 09/09/16 05:17 05:17 11:32 WBC 10.8 H RBC 3.62 L Hgb MCV 103.8 H MCHC RDW 19.7 H Neutrophils # (Manual) Nucleated RBCs ESR PT 30.6 H Sodium Potassium Carbon Dioxide BUN Glucose POC Glucose (mg/dL) 102 H Hemoglobin A1c Plasma Lactic Acid Liam AST C-Reactive Protein Total Protein Albumin Urine Protein Urine Ketones 09/09/16 09/09/16 09/10/16 16:46 21:45 06:15 WBC RBC Hgb MCV MCHC RDW Neutrophils # (Manual) Nucleated RBCs ESR PT 30.2 H Sodium Potassium Carbon Dioxide BUN Glucose POC Glucose (mg/dL) 105 H 143 H Hemoglobin A1c Plasma Lactic Acid Liam AST C-Reactive Protein Total Protein Albumin Urine Protein Urine Ketones 09/10/16 09/10/16 09/10/16 06:15 06:15 08:23 WBC RBC 3.52 L Hgb MCV 102.7 H MCHC RDW 19.8 H Neutrophils # (Manual) Nucleated RBCs 1 H ESR PT Sodium Potassium Carbon Dioxide BUN 18 H Glucose POC Glucose (mg/dL) 106 H Hemoglobin A1c Plasma Lactic Acid Liam AST C-Reactive Protein Total Protein Albumin Urine Protein Urine Ketones 09/10/16 09/10/16 09/10/16 12:24 17:11 20:15 WBC RBC Hgb MCV MCHC RDW Neutrophils # (Manual) Nucleated RBCs ESR PT Sodium Potassium Carbon Dioxide BUN Glucose POC Glucose (mg/dL) 113 H 123 H 126 H Hemoglobin A1c Plasma Lactic Acid Liam AST C-Reactive Protein Total Protein Albumin Urine Protein Urine Ketones 09/11/16 09/11/16 09/11/16 06:00 06:00 06:00 WBC 13.0 H RBC 3.66 L Hgb MCV 104.6 H MCHC RDW 19.4 H Neutrophils # (Manual) 11.0 H Nucleated RBCs 1 H ESR PT 27.0 H Sodium Potassium Carbon Dioxide BUN 20 H Glucose 105 H POC Glucose (mg/dL) Hemoglobin A1c Plasma Lactic Acid Liam AST C-Reactive Protein Total Protein Albumin Urine Protein Urine Ketones 09/11/16 09/11/16 09/11/16 08:23 08:44 12:17 WBC RBC Hgb MCV MCHC RDW Neutrophils # (Manual) Nucleated RBCs ESR PT Sodium Potassium Carbon Dioxide BUN Glucose POC Glucose (mg/dL) 113 H Hemoglobin A1c Plasma Lactic Acid Liam 2.8 H* 3.6 H* AST C-Reactive Protein Total Protein Albumin Urine Protein Urine Ketones - Diagnostic Findings Chest x-ray: image reviewed Assessment and Plan (1) Adrenal insufficiency Status: Acute (2) Shingles Status: Acute (3) Rheumatoid arthritis Status: Acute (4) Atrial fibrillation Status: Acute (5) Sepsis Status: Acute Plan: Plan The patient gets hydrocortisone 100 mg IV push. We started drip at 15 mg an hour. We'll give the patient additional IV fluids. The blood gas was reasonable. The patient is now my opinion stable for transfer. Patient be transferred out to the ICU [facility]. Time with Patient: Greater than 30
[2016-09-11] MEDS: SODIUM CHLORIDE 0.9% 1,000 ML IV SCH ×3 (14:30→19:57)
[2016-09-11] MEDS: SODIUM CHLORIDE 0.9% 250 ML with HYDROCORTISONE SUCCINATE 250 MG IV SCH ×2 (14:39)
[2016-09-11] MEDS: MULTIVITAMINS, THERA 1 EACH TAB PO SCH (14:42)
[2016-09-11] MEDS: PIPERACILLIN-TAZOBACTAM 3.375 GM in DEXTROSE/WATER 1 50ML.BAG IVPB SCH ×2 (15:06→19:56)
--- NOTE | 2016-09-11 15:49 | P.PN ---
Subjective This is a pleasant 76-year-old lady patient of Dr. Marquis and Dr. Arce. She has underlying history off from at the COPD hyperlipidemia vascular disorder and obstructive sleep apnea neuralgia atrial fibrillation, chronic COPD diabetes mellitus type 2, chronic immunosuppression CHF admitted through the emergency room secondary to left thoracic pain. She was diagnosed recently to have T6 dermatome herpes zoster this past Sunday 3 days prior to admission for which valacyclovir was given by Dr. Marquis. Patient had left flank pain was subsequently seen in the emergency room secondary to the pain. Patient denies any fever however she has some chills. Patient has hydrocodone which doesn't seem to take care of the pain she was seen in emergency room with evaluation to include noticeable left vesicular eruption involving the T6 area, redness in the left leg, known history off chronic venous stasis dermatitis. Known also on the right metatarsal region lateral region from a previous biopsy for osteotomyelitis by Dr. Kim. She is currently on IV Rocephin prior to her admission as recommended by Dr. Marquis. 09/04: Patient has been seen in consultation by Dr. Rojo from infectious disease covering for Dr. Marquis. He has recommended continuing Rocephin, silver dressing for the ulceration of the foot, check protein status and supplement, multivitamin added. Sed rate 24, C-reactive protein 27.2, hemoglobin A1c 6.7 TSH 2.570. Albumin is 3.3. INR 3.4. Chest x-ray is pending a Chin is requesting something for her nasal congestion and Flonase added. She continues to have issues with pain for which Percocet is scheduled plus as needed. 09/05: Patient continues to be very fatigued. She is on CPAP from home. Vesicles are drying up. Dr. Marquis has changed her antibiotics to Ceftaroline. Anticipate possible discharge to [facility] tomorrow. INR is 2.9. Patient will be resumed back on Coumadin home dosing. 09/06: Pain control continues to be an issue the patient is more groggy today. Percocet changed to fentanyl patch. Anticipate possible discharge to [facility] tomorrow. 09/07: Patient became hypotensive with temperature of 100.4 last evening had lactic acid 3.5 and patient was transferred to [facility] and placed on CPAP. She received fluid bolus of 500 mL. She was also tachycardic and pulse ox running 91-95%. Blood culture obtained. Urine and urine culture ordered. White count is 12, INR 3.5. Repeat lactic acid is 1.5. Patient is not ready for discharge today. Fentanyl patch was removed last evening. Patient does not seem to complain and pain while resting. 09/08: De La Paz catheter was placed yesterday his family was concerned that she had no urine output. Urine output has been 40 mL for the past 12 hours. Temperature max 100.0. Dr. Marquis has recommended continuing Ceftaroline. WBC is 9.6. Potassium 3.3 will be replaced. INR is 3.2. Coumadin remains on hold. Repeat chest x-ray shows persistent right lower lobe density which may reflect atelectasis or infiltrate. 09/11: Patient's blood pressure was low and tachycardic with fever this morning. Noted the patient has not been resumed on her chronic prednisone and Solu- Cortef has been ordered. Patient transferred to ICU. Patient's family is contemplating transferring the patient to other facility but at this time, patient remains in intensive care unit as she seems to be improving. She has been seen by Dr. Burnham. She is status post IV Tylenol, IV fluid bolus with improvement. IV hydrocortisone drip started. IV antibiotics changed to Zosyn and vancomycin by Dr. Marquis. Objective - Vital Signs Vital signs: Vital Signs Temp 98.9 F 09/11/16 13:42 Pulse 120 H 09/11/16 15:33 Resp 22 09/11/16 15:00 BP 102/74 09/11/16 15:00 Pulse Ox 96 09/11/16 15:32 Intake & Output 09/10/16 09/11/16 09/11/16 18:59 06:59 18:59 Intake Total 490 1262.5 Output Total 900 650 35 Balance -410 -650 1227.5 Intake: Intake, IV Titration 1262.5 Amount Piperacillin-Tazobactam 3 12.5 .375 gm In Dextrose/Water 1 50ml.bag @ 12.5 mls/hr IVPB Q8H [facility] Rx#: [id number] Sodium Chloride 0.9% 1, 1000 000 ml @ 999 mls/hr IV . Q1H1M [facility] Rx#:[id number] Vancomycin 1,750 mg In 250 Sodium Chloride 0.9% 250 ml @ 125 mls/hr IVPB Q16H [facility] Rx#:[id number] Oral 490 Output: Urine 900 650 35 Uretheral (De La Paz) 600 400 - Exam General appearance: cooperative, no acute distress, lethargic - EENT Eyes: anicteric sclerae, EOMI, PERRLA, dentition normal, normal appearance ENT: NA/AT, normal oropharynx - Neck Neck: no lymphadenopathy, normal ROM, no other, no rigidity, no stridor, no thyromegaly - Respiratory Respiratory: bilateral: CTA, negative: diminished, dullness, rales, rhonchi - Cardiovascular Rhythm: regular Heart sounds: normal: S1, S2 Abnormal Heart Sounds: no systolic murmur, no diastolic murmur, no rub, no S3 Gallop, no S4 Gallop, no click, no other - Gastrointestinal General gastrointestinal: normal bowel sounds, soft - Integumentary Integumentary: rash (left t 6 dermatome), ulcer (right lateral metatarsal 2 cm x2 cm x1 cm approx) - Musculoskeletal Musculoskeletal: generalized weakness, strength equal bilaterally - Labs CBC & Chem 7: 09/11/16 06:00 09/11/16 06:00 Labs: Abnormal Lab Results - Last 24 Hours (Table) 09/10/16 09/10/16 09/11/16 Range/Units 17:11 20:15 06:00 WBC 13.0 H (3.8-10.6) k/uL RBC 3.66 L (3.80-5.40) m/uL MCV 104.6 H (80.0-100.0) fL RDW 19.4 H (11.5-15.5) % Neutrophils # (Manual) 11.0 H (1.3-7.7) k/uL Nucleated RBCs 1 H (0-0) /100 WBC PT (9.0-12.0) sec ABG pCO2 (35-45) mmHg ABG HCO3 (21-25) mmol/L ABG O2 Saturation (94-97) % BUN (7-17) mg/dL Glucose (74-99) mg/dL POC Glucose (mg/dL) 123 H 126 H (75-99) mg/dL Plasma Lactic Acid Liam (0.7-2.0) mmol/L 09/11/16 09/11/16 09/11/16 Range/Units 06:00 06:00 08:23 WBC (3.8-10.6) k/uL RBC (3.80-5.40) m/uL MCV (80.0-100.0) fL RDW (11.5-15.5) % Neutrophils # (Manual) (1.3-7.7) k/uL Nucleated RBCs (0-0) /100 WBC PT 27.0 H (9.0-12.0) sec ABG pCO2 (35-45) mmHg ABG HCO3 (21-25) mmol/L ABG O2 Saturation (94-97) % BUN 20 H (7-17) mg/dL Glucose 105 H (74-99) mg/dL POC Glucose (mg/dL) 113 H (75-99) mg/dL Plasma Lactic Acid Liam (0.7-2.0) mmol/L 09/11/16 09/11/16 09/11/16 Range/Units 08:44 12:17 13:30 WBC (3.8-10.6) k/uL RBC (3.80-5.40) m/uL MCV (80.0-100.0) fL RDW (11.5-15.5) % Neutrophils # (Manual) (1.3-7.7) k/uL Nucleated RBCs (0-0) /100 WBC PT (9.0-12.0) sec ABG pCO2 34 L (35-45) mmHg ABG HCO3 19 L (21-25) mmol/L ABG O2 Saturation 98.0 H (94-97) % BUN (7-17) mg/dL Glucose (74-99) mg/dL POC Glucose (mg/dL) (75-99) mg/dL Plasma Lactic Acid Liam 2.8 H* 3.6 H* (0.7-2.0) mmol/L Microbiology - Last 24 Hours (Table) 09/06/16 19:15 Blood Culture - Preliminary Blood No Growth after 96 hours Assessment and Plan Plan: 1. Left thoracic T5-T6 herpes zoster vesicular eruptions with possible secondary bacterial infection currently on Valtrex uncontrolled pain. No patch with Percocet as needed for pain control. Ceftaroline, Valtrex, Lyrica. 2. Sepsis with fever, tachycardia and elevated lactic acid and coagulopathy possible right lower lobe pneumonia or atelectasis. Patient transferred to selective care unit. Dr. Marquis is on consult. Monitor I&O. Coumadin placed on hold. Fentanyl patch was removed. 3. 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 Kim and Dr. Marquis currently improving. On Ceftaroline 4. Adrenal insufficiency. Patient is status post IV hydrocortisone 100 mg followed by IV piggyback. Patient transferred to the intensive care unit. Consult with Dr. Burnham is appreciated. Patient is status post IV fluid boluses as well. Not currently on vasopressors. 5. Chronic venous stasis dermatitis bilateral lower extremity, there is no significant worsening of the left ankle as mentioned by the emergency room physician, patient continued to have her IV Rocephin. No diuretics are needed at this time 6. Ongoing immunosuppression using methotrexate which would be held. Should there be any flareup of her RA, this will be replaced by Plaquenil until her wounds would heal 7. Chronic atrial fibrillation on chronic anticoagulation with Coumadin, therapeutic levels will be maintained, metoprolol 50 mg twice a day, continue on Lasix 40 mg daily, 8. CAD currently asymptomatic, on Imdur maintenance 50 mg daily metoprolol 50 mg twice a day, aspirin 81 mg daily Lipitor 80 mg daily 9. COPD on maintenance Pulmicort 10. Hyperlipidemia on Lipitor 80 11. Hyperuricemia without any exacerbation of gout, on Zyloprim 300 mg daily 12. Diabetes mellitus type 2 on metformin 500 mg twice a day hemoglobin A1c will be obtained on NovoLog correctional scale coverage 13. DVT prophylaxis on maintenance Coumadin 14. GI prophylaxis Pepcid 20 15. Impaired balance and increasing debility splinting of thoracic area during ambulation which puts her at risk for further falls, physical therapy and the Initial therapy would be seeing her with the anticipated evaluation for skilled ECF Discharge plan: Subacute rehab at [facility] Impression and plan of care have been directed as dictated by the signing physician. Susi Raymundo nurse practitioner acting as scribe for signing physician. Time with Patient: Greater than 30
[2016-09-11 16:33] LABS: Phosphorous 3.8 mg/dL (2.5-4.5)
[2016-09-11 17:06] LABS: Appearance,Urine Turbid (Clear); Bilirubin,Urine Negative (Negative); Glucose,Urine (UA) Negative (Negative); Ketones,Urine Negative (Negative); Leukocyte Esterase,Urine Moderate (Negative); Mucus,Urine Occasional /hpf; Nitrite,Urine Negative (Negative); Particle Count 21753; Protein,Urine 1+ (Negative); RBC,Urine >182 /hpf (0-5); Squamous Epithelial Cell,Urine 6 /hpf (0-4); UA Billing (MACRO vs. MICRO) MICRO; Urobilinogen,Urine <2.0 mg/dL (<2.0); WBC,Urine 71 /hpf (0-5)
[2016-09-11] MEDS ORDERED: Magnesium Replacement Protocol 1 EACH MISC MISCELLANE PRN (17:09)
[2016-09-11] MEDS: MAGNESIUM SULFATE-D5W PMX 1 GM in DEXTROSE/WATER 1 100ML.BAG IVPB SCH ×3 (17:35→20:00)
[2016-09-11] MEDS: CYANOCOBALAMIN 500 MCG TAB PO SCH (18:44)
[2016-09-11] MEDS: ASPIRIN 81 MG CHEW PO SCH (18:44)
[2016-09-11] MEDS: CALCIUM CARB-VIT D 500MG-200UN 1 EACH TAB PO SCH (18:44)
[2016-09-11 18:51] LABS: Glucose,Whole Blood 150 mg/dL (75-99)
[2016-09-11 21:21] LABS: Glucose,Whole Blood 200 mg/dL (75-99)
[2016-09-11] MEDS: MELATONIN 5 MG TABLET PO SCH (21:29)
[2016-09-11] MEDS: ATORVASTATIN 80 MG TAB PO SCH (21:56)
[2016-09-11] MEDS: INSULIN LISPRO (humaLOG) 300 UNIT/3 ML VIAL SQ SCH (22:00)
[2016-09-12] MEDS ORDERED: VANCOMYCIN 1,750 MG in SODIUM CHLORIDE 0.9% 250 ML IVPB SCH ×2
[2016-09-12] MEDS: NYSTATIN 100,000 UNIT/GM POWD 15 GM TOPICAL SCH ×4 (00:26→21:52)
[2016-09-12] MEDS: INSULIN LISPRO (humaLOG) 300 UNIT/3 ML VIAL SQ SCH ×6 (00:44→21:53)
[2016-09-12 00:45] LABS: Glucose,Whole Blood 175 mg/dL (75-99)
[2016-09-12] MEDS: PIPERACILLIN-TAZOBACTAM 3.375 GM in DEXTROSE/WATER 1 50ML.BAG IVPB SCH ×3 (04:54→21:56)
[2016-09-12 04:55] LABS: Glucose,Whole Blood 173 mg/dL (75-99)
[2016-09-12 05:01] LABS: Anisocytosis Slight; Basophils # (A) 0.1 k/uL (0-0.2); Basophils % (A) 0 %; CH 32.7; CHCM 31.4; Eosinophils # (A) 0.1 k/uL (0-0.7); Eosinophils % (A) 0 %; HDW 3.55; HGB 11.7 gm/dL (11.4-16.0); Hypochromasia Moderate; Luc # (Auto) 0.18; Luc % (Auto) 1; Lymphocytes # (A) 1.1 k/uL (1.0-4.8); Lymphocytes % (A) 7 %; MCH 32.2 pg (25.0-35.0); MCHC 30.7 g/dL (31.0-37.0); Macrocytosis Marked; Mean Platelet Volume 7.9; Monocytes # (A) 0.7 k/uL (0-1.0); Monocytes % (A) 4 %; Neutrophils # (A) 14.6 k/uL (1.3-7.7); Neutrophils % (A) 87 %; Poikilocytosis Slight; RBC 3.62 m/uL (3.80-5.40); RDW 19.6 % (11.5-15.5); WBC 16.8 k/uL (3.8-10.6); WBC (Perox) 16.51
[2016-09-12 05:18] LABS: Calcium 7.6 mg/dL (8.4-10.2); Magnesium 1.8 mg/dL (1.6-2.3); Phosphorous 3.8 mg/dL (2.5-4.5); Potassium 4.3 mmol/L (3.5-5.1)
[2016-09-12] MEDS ORDERED: Magnesium Replacement Protocol 1 EACH MISC MISCELLANE PRN (05:27)
[2016-09-12 05:39] LABS: Manual Review Performed; Polychromasia Present
[2016-09-12] MEDS: MAGNESIUM SULFATE-D5W PMX 1 GM in DEXTROSE/WATER 1 100ML.BAG IVPB SCH ×2 (06:01→09:19)
[2016-09-12] MEDS: SODIUM CHLORIDE 0.9% 250 ML with HYDROCORTISONE SUCCINATE 250 MG IV SCH ×4 (06:42→10:56)
[2016-09-12] MEDS: ALBUTEROL NEBULIZED 2.5 MG/3 ML INHALATION PRN (07:28)
[2016-09-12] MEDS: BUDESONIDE 0.5 MG/2 ML NEBU INHALATION SCH (07:28)
[2016-09-12 08:01] LABS: Glucose,Whole Blood 138 mg/dL (75-99)
[2016-09-12] MEDS ORDERED: FUROSEMIDE 10 MG/ML 2 ML VIAL IV ONE (08:30)
--- NOTE | 2016-09-12 08:32 | P.PN ---
Subjective Progress note dated 09/12/2016 This is a 76-year-old female that we saw yesterday in consultation. He was transferred from the fifth floor up to the ICU. 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 The patient was previously on corticosteroids and apparently they were not resumed when the patient was admitted to the hospital. Anyway the patient came up with mental status changes tachycardia and hypotension. She responded very nicely to IV hydrocortisone. I currently have on her drip at 12 mg an hour. He was at 15 but I just trended down. She is currently awake and alert. Her daughters in the room with her. She's getting O2 at 3 L. She getting appointment 9 IV. His can be turned up to 75 mL an hour. We'll give her Lasix 20 mg IV push. She's about 4 L ahead yesterday and fluids. Other than that she's awake and alert doing much better. Feeling better. We will order a swallow evaluation before we switch her to oral medications. Objective - Vital Signs Vital signs: Vital Signs Temp 98.3 F 09/12/16 04:00 Pulse 117 H 09/12/16 07:49 Resp 22 09/12/16 07:00 BP 93/65 09/12/16 07:00 Pulse Ox 94 L 09/12/16 07:00 Intake & Output 09/11/16 09/12/16 09/12/16 18:59 06:59 18:59 Intake Total 2510.0 1675.8 147.8 Output Total 80 226 23 Balance 2430.0 1449.8 124.8 Weight 122.4 kg Intake: IV 675.8 147.8 Magnesium Sulfate-D5w Pmx 200 100 1 gm In Dextrose/Water 1 100ml.bag @ 100 mls/hr IVPB Q1H [facility] Rx#: [id number] Piperacillin-Tazobactam 3 87.5 12.5 .375 gm In Dextrose/Water 1 50ml.bag @ 12.5 mls/hr IVPB Q8H [facility] Rx#: [id number] Sodium Chloride 0.9% 1, 220 20 000 ml @ 20 mls/hr IV . Q24H [facility] Rx#:[id number] Sodium Chloride 0.9% 250 168.3 15.3 ml @ 15 MG/HR 15.3 mls/hr IV .[id number] [facility] with Hydrocortisone Succinate 250 mg Rx#:[id number] Intake, IV Titration 2510.0 1000 Amount Magnesium Sulfate-D5w Pmx 200 1 gm In Dextrose/Water 1 100ml.bag @ 100 mls/hr IVPB Q1H [facility] Rx#: [id number] Piperacillin-Tazobactam 3 25.0 .375 gm In Dextrose/Water 1 50ml.bag @ 12.5 mls/hr IVPB Q8H [facility] Rx#: [id number] Sodium Chloride 0.9% 1, 20 000 ml @ 20 mls/hr IV . Q24H [facility] Rx#:[id number] Sodium Chloride 0.9% 1, 2000 1000 000 ml @ 999 mls/hr IV . Q1H1M [facility] Rx#:[id number] Sodium Chloride 0.9% 250 15 ml @ 15 MG/HR 15.3 mls/hr IV .[id number] [facility] with Hydrocortisone Succinate 250 mg Rx#:[id number] Vancomycin 1,750 mg In 250 Sodium Chloride 0.9% 250 ml @ 125 mls/hr IVPB Q16H [facility] Rx#:[id number] Output: Urine 80 223 23 Stool 3 Other: Voiding Method Indwelling Catheter Indwelling Catheter # Voids 1 - Exam No acute distress, oriented 3. HEENT examination is grossly unremarkable. Some dried saliva in the mouth. She 's had a gates face. Her skin is flushed. Neck supple. Full range of motion. No adenopathy. Cardiovascular examination reveals regular rhythm rate. She is mildly tachycardic at 10 3 bpm. Is mostly regular. Lungs are mostly clear. A few scattered mild wheezes. Breath sounds equal. Abdomen is obese. Bowel sounds are heard. Extremities reveal reveal some mild edema. - Labs CBC & Chem 7: 09/12/16 04:45 09/12/16 04:45 Labs: Abnormal Lab Results - Last 24 Hours (Table) 09/11/16 09/11/16 09/11/16 Range/Units 06:00 06:00 08:23 WBC 13.0 H (3.8-10.6) k/uL RBC 3.66 L (3.80-5.40) m/uL MCV 104.6 H (80.0-100.0) fL MCHC (31.0-37.0) g/dL RDW 19.4 H (11.5-15.5) % Plt Count (150-450) k/uL Neutrophils # (1.3-7.7) k/uL Neutrophils # (Manual) 11.0 H (1.3-7.7) k/uL Nucleated RBCs 1 H (0-0) /100 WBC ABG pCO2 (35-45) mmHg ABG HCO3 (21-25) mmol/L ABG O2 Saturation (94-97) % Carbon Dioxide (22-30) mmol/L BUN (7-17) mg/dL Creatinine (0.52-1.04) mg/dL Glucose (74-99) mg/dL POC Glucose (mg/dL) 113 H (75-99) mg/dL Plasma Lactic Acid Liam (0.7-2.0) mmol/L Calcium (8.4-10.2) mg/dL Magnesium 1.0 L* (1.6-2.3) mg/dL Urine Appearance (Clear) Urine Protein (Negative) Urine Blood (Negative) Ur Leukocyte Esterase (Negative) Urine RBC (0-5) /hpf Urine WBC (0-5) /hpf Ur Squamous Epith Cells (0-4) /hpf Hyaline Casts (0-2) /lpf Urine Mucus (None) /hpf 09/11/16 09/11/16 09/11/16 Range/Units 08:44 12:17 13:30 WBC (3.8-10.6) k/uL RBC (3.80-5.40) m/uL MCV (80.0-100.0) fL MCHC (31.0-37.0) g/dL RDW (11.5-15.5) % Plt Count (150-450) k/uL Neutrophils # (1.3-7.7) k/uL Neutrophils # (Manual) (1.3-7.7) k/uL Nucleated RBCs (0-0) /100 WBC ABG pCO2 34 L (35-45) mmHg ABG HCO3 19 L (21-25) mmol/L ABG O2 Saturation 98.0 H (94-97) % Carbon Dioxide (22-30) mmol/L BUN (7-17) mg/dL Creatinine (0.52-1.04) mg/dL Glucose (74-99) mg/dL POC Glucose (mg/dL) (75-99) mg/dL Plasma Lactic Acid Liam 2.8 H* 3.6 H* (0.7-2.0) mmol/L Calcium (8.4-10.2) mg/dL Magnesium (1.6-2.3) mg/dL Urine Appearance (Clear) Urine Protein (Negative) Urine Blood (Negative) Ur Leukocyte Esterase (Negative) Urine RBC (0-5) /hpf Urine WBC (0-5) /hpf Ur Squamous Epith Cells (0-4) /hpf Hyaline Casts (0-2) /lpf Urine Mucus (None) /hpf 09/11/16 09/11/16 09/11/16 Range/Units 16:50 18:48 19:35 WBC (3.8-10.6) k/uL RBC (3.80-5.40) m/uL MCV (80.0-100.0) fL MCHC (31.0-37.0) g/dL RDW (11.5-15.5) % Plt Count (150-450) k/uL Neutrophils # (1.3-7.7) k/uL Neutrophils # (Manual) (1.3-7.7) k/uL Nucleated RBCs (0-0) /100 WBC ABG pCO2 (35-45) mmHg ABG HCO3 (21-25) mmol/L ABG O2 Saturation (94-97) % Carbon Dioxide (22-30) mmol/L BUN (7-17) mg/dL Creatinine (0.52-1.04) mg/dL Glucose (74-99) mg/dL POC Glucose (mg/dL) 150 H (75-99) mg/dL Plasma Lactic Acid Liam 2.6 H* (0.7-2.0) mmol/L Calcium (8.4-10.2) mg/dL Magnesium (1.6-2.3) mg/dL Urine Appearance Turbid H (Clear) Urine Protein 1+ H (Negative) Urine Blood Large H (Negative) Ur Leukocyte Esterase Moderate H (Negative) Urine RBC >182 H (0-5) /hpf Urine WBC 71 H (0-5) /hpf Ur Squamous Epith Cells 6 H (0-4) /hpf Hyaline Casts 40 H (0-2) /lpf Urine Mucus Occasional H (None) /hpf 09/11/16 09/12/16 09/12/16 Range/Units 21:19 00:42 04:45 WBC 16.8 H (3.8-10.6) k/uL RBC 3.62 L (3.80-5.40) m/uL MCV 105.0 H (80.0-100.0) fL MCHC 30.7 L (31.0-37.0) g/dL RDW 19.6 H (11.5-15.5) % Plt Count 454 H (150-450) k/uL Neutrophils # 14.6 H (1.3-7.7) k/uL Neutrophils # (Manual) (1.3-7.7) k/uL Nucleated RBCs (0-0) /100 WBC ABG pCO2 (35-45) mmHg ABG HCO3 (21-25) mmol/L ABG O2 Saturation (94-97) % Carbon Dioxide (22-30) mmol/L BUN (7-17) mg/dL Creatinine (0.52-1.04) mg/dL Glucose (74-99) mg/dL POC Glucose (mg/dL) 200 H 175 H (75-99) mg/dL Plasma Lactic Acid Liam (0.7-2.0) mmol/L Calcium (8.4-10.2) mg/dL Magnesium (1.6-2.3) mg/dL Urine Appearance (Clear) Urine Protein (Negative) Urine Blood (Negative) Ur Leukocyte Esterase (Negative) Urine RBC (0-5) /hpf Urine WBC (0-5) /hpf Ur Squamous Epith Cells (0-4) /hpf Hyaline Casts (0-2) /lpf Urine Mucus (None) /hpf 09/12/16 09/12/16 09/12/16 Range/Units 04:45 04:45 04:52 WBC (3.8-10.6) k/uL RBC (3.80-5.40) m/uL MCV (80.0-100.0) fL MCHC (31.0-37.0) g/dL RDW (11.5-15.5) % Plt Count (150-450) k/uL Neutrophils # (1.3-7.7) k/uL Neutrophils # (Manual) (1.3-7.7) k/uL Nucleated RBCs (0-0) /100 WBC ABG pCO2 (35-45) mmHg ABG HCO3 (21-25) mmol/L ABG O2 Saturation (94-97) % Carbon Dioxide 21 L (22-30) mmol/L BUN 29 H (7-17) mg/dL Creatinine 1.21 H (0.52-1.04) mg/dL Glucose 150 H (74-99) mg/dL POC Glucose (mg/dL) 173 H (75-99) mg/dL Plasma Lactic Acid Liam 2.3 H* (0.7-2.0) mmol/L Calcium 7.6 L (8.4-10.2) mg/dL Magnesium (1.6-2.3) mg/dL Urine Appearance (Clear) Urine Protein (Negative) Urine Blood (Negative) Ur Leukocyte Esterase (Negative) Urine RBC (0-5) /hpf Urine WBC (0-5) /hpf Ur Squamous Epith Cells (0-4) /hpf Hyaline Casts (0-2) /lpf Urine Mucus (None) /hpf 09/12/16 Range/Units 07:38 WBC (3.8-10.6) k/uL RBC (3.80-5.40) m/uL MCV (80.0-100.0) fL MCHC (31.0-37.0) g/dL RDW (11.5-15.5) % Plt Count (150-450) k/uL Neutrophils # (1.3-7.7) k/uL Neutrophils # (Manual) (1.3-7.7) k/uL Nucleated RBCs (0-0) /100 WBC ABG pCO2 (35-45) mmHg ABG HCO3 (21-25) mmol/L ABG O2 Saturation (94-97) % Carbon Dioxide (22-30) mmol/L BUN (7-17) mg/dL Creatinine (0.52-1.04) mg/dL Glucose (74-99) mg/dL POC Glucose (mg/dL) 138 H (75-99) mg/dL Plasma Lactic Acid Liam (0.7-2.0) mmol/L Calcium (8.4-10.2) mg/dL Magnesium (1.6-2.3) mg/dL Urine Appearance (Clear) Urine Protein (Negative) Urine Blood (Negative) Ur Leukocyte Esterase (Negative) Urine RBC (0-5) /hpf Urine WBC (0-5) /hpf Ur Squamous Epith Cells (0-4) /hpf Hyaline Casts (0-2) /lpf Urine Mucus (None) /hpf Microbiology - Last 24 Hours (Table) 09/11/16 16:50 Urine Culture - Preliminary Urine,Catheterized 09/06/16 19:15 Blood Culture - Preliminary Blood No Growth after 120 hours Assessment and Plan (1) Adrenal insufficiency Status: Acute (2) Shingles Status: Acute (3) Rheumatoid arthritis Status: Acute (4) Atrial fibrillation Status: Acute (5) Sepsis Status: Acute Plan: Plan The patient gets hydrocortisone 100 mg IV push. We started drip at 15 mg an hour. We'll give the patient additional IV fluids. The blood gas was reasonable. The patient is now my opinion stable for transfer. Patient be transferred out to the ICU [facility]. Plan dated 09/12/2016 The patient's doing much better. Reviewed and drop her hydrocortisone drip 15- 12 mg an hour. We'll get a swallow evaluation. Her IV will be turned 75 mL an hour because of poor urine output. Given 20 of Lasix IV push. We'll keep her here in the ICU. Head of bed elevated. Moving his swallow evaluation. Additional recommendations suggestions are forthcoming. Medications are reviewed. Time with Patient: Less than 30
[2016-09-12] MEDS: SODIUM CHLORIDE 0.9% 1,000 ML IV SCH ×5 (09:00→21:58)
[2016-09-12] MEDS: FAMOTIDINE 20 MG TAB PO SCH (09:17)
[2016-09-12] MEDS: CHOLECALCIFEROL 1,000 UNIT TAB PO SCH (09:17)
[2016-09-12] MEDS: ALLOPURINOL 300 MG TAB PO SCH (09:17)
[2016-09-12] MEDS: metFORMIN 500 MG TAB PO SCH ×2 (09:18→17:37)
[2016-09-12] MEDS: METOPROLOL TARTRATE 50 MG TAB PO SCH ×2 (09:18→23:09)
[2016-09-12] MEDS: FUROSEMIDE 40 MG TAB PO SCH (09:18)
[2016-09-12] MEDS: DULoxetine HCL 60 MG CAPSULE.DR PO SCH (09:18)
[2016-09-12] MEDS: FLUTICASONE 50MCG/SPRAY NASAL 16GM EA NOSTRIL SCH ×2 (09:18→21:53)
[2016-09-12] MEDS: LIDOCAINE 5% PATCH TOPICAL SCH (09:18)
[2016-09-12] MEDS: PREGABALIN 75 MG CAP PO SCH ×2 (09:18→21:53)
[2016-09-12] MEDS: ISOSORBIDE MONONITRATE ER 15 MG TAB PO SCH (09:25)
[2016-09-12] MEDS: NYSTATIN 100,000 UNIT/ML SUSP 500,000 UNIT/5 ML CUP PO SCH ×4 (09:26→21:53)
[2016-09-12] MEDS: SENNOSIDES-DOCUSATE SODIUM 1 EACH TAB PO SCH (09:58)
--- NOTE | 2016-09-12 10:10 | PN ---
DATE OF SERVICE: 09/11/2016 REASON FOR FOLLOWUP: 1. Left T6 dermatome zoster with secondary cellulitis. 2. Right foot osteomyelitis. 3. New fever and sepsis. INTERVAL HISTORY: The patient this morning did spike a fever of 101.6 degrees Fahrenheit. The patient was also noticed to be tachycardiac. Slight decreased level of responsiveness and elevated lactic acid. The patient did received fluid bolus. Repeat culture has been ordered including a chest x-ray. She did have De La Paz catheter that was discontinued yesterday. The patient was not a good historian. Though did respond to her name. Denies any chest pain or nausea. No diarrhea has been noticed. REVIEW OF SYSTEMS: Positive as been mentioned above. PAST MEDICAL SURGICAL HISTORY: Reviewed, no change. MEDICATION: Reviewed. On examination, blood pressure is 104/61 with a pulse of 113, temperature 99. T-max is 103. She is 97% on 4 L nasal cannula. General description is an elderly female lying in bed in no distress. HEENT examination pallor. Oral mucous membrane dry. LUNGS: Unlabored breathing with decreased breath sounds at the bases. HEART: S1, S2 regular rate and rhythm. ABDOMEN: Soft, no tenderness. EXTREMITIES: No edema of the feet. SKIN EXAMINATION: Right foot wound is dressed, no obvious drainage. Examination of the chest wall wound with some slough tissue. Surrounding redness has improved. LABS: Hemoglobin 12 and white count 13,000. BUN of 20, creatinine 0.7. Electrolyte count has been normal. Urine is positive. Chest x-ray revealed left lower lobe infiltrate. DIAGNOSTIC IMPRESSION AND PLAN: 1. Patient with sepsis, change in her clinical condition now with a fever, elevated white count with evidence of left lower lobe infiltrate and significantly positive UA and question of possible nosocomial pneumonia versus a catheter-associated urinary tract infection. At this time, blood culture has been requested as well as urine cultures. Antibiotics will be adjusted to vancomycin and Zosyn. Adjust antibiotic further depending on the culture report. 2. Patient with left T6 dermatome zoster with secondary cellulitis and right foot osteomyelitis. Continue local wound care Santyl and Aquacel Silver to the foot and is being covered with antibiotic patient is on. MTDD
[2016-09-12] MEDS: COLLAGENASE 250 UNIT/GM OINTMENT 30 GM TUBE TOPICAL SCH (10:24)
[2016-09-12] MEDS ORDERED: FLUDROCORTISONE 0.1 MG TAB PO SCH (11:00)
[2016-09-12] MEDS: FLUDROCORTISONE 0.1 MG TAB PO SCH ×2 (11:24→21:53)
[2016-09-12 12:35] LABS: Glucose,Whole Blood 190 mg/dL (75-99)
[2016-09-12] MEDS: MULTIVITAMINS, THERA 1 EACH TAB PO SCH (13:26)
--- NOTE | 2016-09-12 15:35 | P.PN ---
Subjective This is a pleasant 76-year-old lady patient of Dr. Marquis and Dr. Arce. She has underlying history off from at the COPD hyperlipidemia vascular disorder and obstructive sleep apnea neuralgia atrial fibrillation, chronic COPD diabetes mellitus type 2, chronic immunosuppression CHF admitted through the emergency room secondary to left thoracic pain. She was diagnosed recently to have T6 dermatome herpes zoster this past Sunday 3 days prior to admission for which valacyclovir was given by Dr. Marquis. Patient had left flank pain was subsequently seen in the emergency room secondary to the pain. Patient denies any fever however she has some chills. Patient has hydrocodone which doesn't seem to take care of the pain she was seen in emergency room with evaluation to include noticeable left vesicular eruption involving the T6 area, redness in the left leg, known history off chronic venous stasis dermatitis. Known also on the right metatarsal region lateral region from a previous biopsy for osteotomyelitis by Dr. Kim. She is currently on IV Rocephin prior to her admission as recommended by Dr. Marquis. 09/04: Patient has been seen in consultation by Dr. Rojo from infectious disease covering for Dr. Marquis. He has recommended continuing Rocephin, silver dressing for the ulceration of the foot, check protein status and supplement, multivitamin added. Sed rate 24, C-reactive protein 27.2, hemoglobin A1c 6.7 TSH 2.570. Albumin is 3.3. INR 3.4. Chest x-ray is pending a Chin is requesting something for her nasal congestion and Flonase added. She continues to have issues with pain for which Percocet is scheduled plus as needed. 09/05: Patient continues to be very fatigued. She is on CPAP from home. Vesicles are drying up. Dr. Marquis has changed her antibiotics to Ceftaroline. Anticipate possible discharge to [facility] tomorrow. INR is 2.9. Patient will be resumed back on Coumadin home dosing. 09/06: Pain control continues to be an issue the patient is more groggy today. Percocet changed to fentanyl patch. Anticipate possible discharge to [facility] tomorrow. 09/07: Patient became hypotensive with temperature of 100.4 last evening had lactic acid 3.5 and patient was transferred to [facility] care and placed on CPAP. She received fluid bolus of 500 mL. She was also tachycardic and pulse ox running 91-95%. Blood culture obtained. Urine and urine culture ordered. White count is 12, INR 3.5. Repeat lactic acid is 1.5. Patient is not ready for discharge today. Fentanyl patch was removed last evening. Patient does not seem to complain and pain while resting. 09/08: De La Paz catheter was placed yesterday his family was concerned that she had no urine output. Urine output has been 40 mL for the past 12 hours. Temperature max 100.0. Dr. Marquis has recommended continuing Ceftaroline. WBC is 9.6. Potassium 3.3 will be replaced. INR is 3.2. Coumadin remains on hold. Repeat chest x-ray shows persistent right lower lobe density which may reflect atelectasis or infiltrate. 09/11: Patient's blood pressure was low and tachycardic with fever this morning. Noted the patient has not been resumed on her chronic prednisone and Solu- Cortef has been ordered. Patient transferred to ICU. Patient's family is contemplating transferring the patient to other facility but at this time, patient remains in intensive care unit as she seems to be improving. She has been seen by Dr. Burnham. She is status post IV Tylenol, IV fluid bolus with improvement. IV hydrocortisone drip started. IV antibiotics changed to Zosyn and vancomycin by Dr. Marquis. 09/12: Patient is much more awake and alert today. She remains in the intensive care unit. Hydrocortisone drip and IV Lasix ordered. Family continue to contemplate [facility] but at this point have decided to keep the patient and Meggan Martino per patient's wishes. Objective - Vital Signs Vital signs: Vital Signs Temp 98.9 F 09/12/16 08:00 Pulse 118 H 09/12/16 09:00 Resp 20 09/12/16 09:00 BP 106/66 09/12/16 09:00 Pulse Ox 96 09/12/16 09:00 Intake & Output 09/11/16 09/12/16 09/12/16 18:59 06:59 18:59 Intake Total 2510.0 1675.8 325.1 Output Total 80 226 69 Balance 2430.0 1449.8 256.1 Weight 122.4 kg 122.4 kg Intake: IV 675.8 325.1 Magnesium Sulfate-D5w Pmx 200 100 1 gm In Dextrose/Water 1 100ml.bag @ 100 mls/hr IVPB Q1H [facility] Rx#: [id number] Piperacillin-Tazobactam 3 87.5 12.5 .375 gm In Dextrose/Water 1 50ml.bag @ 12.5 mls/hr IVPB Q8H [facility] Rx#: [id number] Sodium Chloride 0.9% 1, 220 170 000 ml @ 20 mls/hr IV . Q24H [facility] Rx#:[id number] Sodium Chloride 0.9% 250 168.3 42.6 ml @ 12 MG/HR 12.24 mls/ hr IV .[id number] LUIS with Hydrocortisone Succinate 250 mg Rx#:[id number] Intake, IV Titration 2510.0 1000 Amount Magnesium Sulfate-D5w Pmx 200 1 gm In Dextrose/Water 1 100ml.bag @ 100 mls/hr IVPB Q1H [facility] Rx#: [id number] Piperacillin-Tazobactam 3 25.0 .375 gm In Dextrose/Water 1 50ml.bag @ 12.5 mls/hr IVPB Q8H [facility] Rx#: [id number] Sodium Chloride 0.9% 1, 20 000 ml @ 20 mls/hr IV . Q24H [facility] Rx#:[id number] Sodium Chloride 0.9% 1, 2000 1000 000 ml @ 999 mls/hr IV . Q1H1M [facility] Rx#:[id number] Sodium Chloride 0.9% 250 15 ml @ 12 MG/HR 12.24 mls/ hr IV .[id number] LUIS with Hydrocortisone Succinate 250 mg Rx#:[id number] Vancomycin 1,750 mg In 250 Sodium Chloride 0.9% 250 ml @ 125 mls/hr IVPB Q16H [facility] Rx#:[id number] Output: Urine 80 223 68 Stool 3 1 Other: Voiding Method Indwelling Catheter Indwelling Catheter Indwelling Catheter # Voids 1 1 - Exam General appearance: cooperative, no acute distress, lethargic - EENT Eyes: anicteric sclerae, EOMI, PERRLA, dentition normal, normal appearance ENT: NA/AT, normal oropharynx - Neck Neck: no lymphadenopathy, normal ROM, no other, no rigidity, no stridor, no thyromegaly - Respiratory Respiratory: bilateral: CTA, negative: diminished, dullness, rales, rhonchi - Cardiovascular Rhythm: regular Heart sounds: normal: S1, S2 Abnormal Heart Sounds: no systolic murmur, no diastolic murmur, no rub, no S3 Gallop, no S4 Gallop, no click, no other - Gastrointestinal General gastrointestinal: normal bowel sounds, soft - Integumentary Integumentary: rash (left t 6 dermatome), ulcer (right lateral metatarsal 2 cm x2 cm x1 cm approx) - Musculoskeletal Musculoskeletal: generalized weakness, strength equal bilaterally - Labs CBC & Chem 7: 09/12/16 04:45 09/12/16 04:45 Labs: Abnormal Lab Results - Last 24 Hours (Table) 09/11/16 09/11/16 09/11/16 Range/Units 06:00 06:00 12:17 WBC 13.0 H (3.8-10.6) k/uL RBC 3.66 L (3.80-5.40) m/uL MCV 104.6 H (80.0-100.0) fL MCHC (31.0-37.0) g/dL RDW 19.4 H (11.5-15.5) % Plt Count (150-450) k/uL Neutrophils # (1.3-7.7) k/uL Neutrophils # (Manual) 11.0 H (1.3-7.7) k/uL Nucleated RBCs 1 H (0-0) /100 WBC ABG pCO2 (35-45) mmHg ABG HCO3 (21-25) mmol/L ABG O2 Saturation (94-97) % Carbon Dioxide (22-30) mmol/L BUN (7-17) mg/dL Creatinine (0.52-1.04) mg/dL Glucose (74-99) mg/dL POC Glucose (mg/dL) (75-99) mg/dL Plasma Lactic Acid Liam 3.6 H* (0.7-2.0) mmol/L Calcium (8.4-10.2) mg/dL Magnesium 1.0 L* (1.6-2.3) mg/dL Urine Appearance (Clear) Urine Protein (Negative) Urine Blood (Negative) Ur Leukocyte Esterase (Negative) Urine RBC (0-5) /hpf Urine WBC (0-5) /hpf Ur Squamous Epith Cells (0-4) /hpf Hyaline Casts (0-2) /lpf Urine Mucus (None) /hpf 09/11/16 09/11/16 09/11/16 Range/Units 13:30 16:50 18:48 WBC (3.8-10.6) k/uL RBC (3.80-5.40) m/uL MCV (80.0-100.0) fL MCHC (31.0-37.0) g/dL RDW (11.5-15.5) % Plt Count (150-450) k/uL Neutrophils # (1.3-7.7) k/uL Neutrophils # (Manual) (1.3-7.7) k/uL Nucleated RBCs (0-0) /100 WBC ABG pCO2 34 L (35-45) mmHg ABG HCO3 19 L (21-25) mmol/L ABG O2 Saturation 98.0 H (94-97) % Carbon Dioxide (22-30) mmol/L BUN (7-17) mg/dL Creatinine (0.52-1.04) mg/dL Glucose (74-99) mg/dL POC Glucose (mg/dL) 150 H (75-99) mg/dL Plasma Lactic Acid Liam (0.7-2.0) mmol/L Calcium (8.4-10.2) mg/dL Magnesium (1.6-2.3) mg/dL Urine Appearance Turbid H (Clear) Urine Protein 1+ H (Negative) Urine Blood Large H (Negative) Ur Leukocyte Esterase Moderate H (Negative) Urine RBC >182 H (0-5) /hpf Urine WBC 71 H (0-5) /hpf Ur Squamous Epith Cells 6 H (0-4) /hpf Hyaline Casts 40 H (0-2) /lpf Urine Mucus Occasional H (None) /hpf 09/11/16 09/11/16 09/12/16 Range/Units 19:35 21:19 00:42 WBC (3.8-10.6) k/uL RBC (3.80-5.40) m/uL MCV (80.0-100.0) fL MCHC (31.0-37.0) g/dL RDW (11.5-15.5) % Plt Count (150-450) k/uL Neutrophils # (1.3-7.7) k/uL Neutrophils # (Manual) (1.3-7.7) k/uL Nucleated RBCs (0-0) /100 WBC ABG pCO2 (35-45) mmHg ABG HCO3 (21-25) mmol/L ABG O2 Saturation (94-97) % Carbon Dioxide (22-30) mmol/L BUN (7-17) mg/dL Creatinine (0.52-1.04) mg/dL Glucose (74-99) mg/dL POC Glucose (mg/dL) 200 H 175 H (75-99) mg/dL Plasma Lactic Acid Liam 2.6 H* (0.7-2.0) mmol/L Calcium (8.4-10.2) mg/dL Magnesium (1.6-2.3) mg/dL Urine Appearance (Clear) Urine Protein (Negative) Urine Blood (Negative) Ur Leukocyte Esterase (Negative) Urine RBC (0-5) /hpf Urine WBC (0-5) /hpf Ur Squamous Epith Cells (0-4) /hpf Hyaline Casts (0-2) /lpf Urine Mucus (None) /hpf 09/12/16 09/12/16 09/12/16 Range/Units 04:45 04:45 04:45 WBC 16.8 H (3.8-10.6) k/uL RBC 3.62 L (3.80-5.40) m/uL MCV 105.0 H (80.0-100.0) fL MCHC 30.7 L (31.0-37.0) g/dL RDW 19.6 H (11.5-15.5) % Plt Count 454 H (150-450) k/uL Neutrophils # 14.6 H (1.3-7.7) k/uL Neutrophils # (Manual) (1.3-7.7) k/uL Nucleated RBCs (0-0) /100 WBC ABG pCO2 (35-45) mmHg ABG HCO3 (21-25) mmol/L ABG O2 Saturation (94-97) % Carbon Dioxide 21 L (22-30) mmol/L BUN 29 H (7-17) mg/dL Creatinine 1.21 H (0.52-1.04) mg/dL Glucose 150 H (74-99) mg/dL POC Glucose (mg/dL) (75-99) mg/dL Plasma Lactic Acid Liam 2.3 H* (0.7-2.0) mmol/L Calcium 7.6 L (8.4-10.2) mg/dL Magnesium (1.6-2.3) mg/dL Urine Appearance (Clear) Urine Protein (Negative) Urine Blood (Negative) Ur Leukocyte Esterase (Negative) Urine RBC (0-5) /hpf Urine WBC (0-5) /hpf Ur Squamous Epith Cells (0-4) /hpf Hyaline Casts (0-2) /lpf Urine Mucus (None) /hpf 09/12/16 09/12/16 Range/Units 04:52 07:38 WBC (3.8-10.6) k/uL RBC (3.80-5.40) m/uL MCV (80.0-100.0) fL MCHC (31.0-37.0) g/dL RDW (11.5-15.5) % Plt Count (150-450) k/uL Neutrophils # (1.3-7.7) k/uL Neutrophils # (Manual) (1.3-7.7) k/uL Nucleated RBCs (0-0) /100 WBC ABG pCO2 (35-45) mmHg ABG HCO3 (21-25) mmol/L ABG O2 Saturation (94-97) % Carbon Dioxide (22-30) mmol/L BUN (7-17) mg/dL Creatinine (0.52-1.04) mg/dL Glucose (74-99) mg/dL POC Glucose (mg/dL) 173 H 138 H (75-99) mg/dL Plasma Lactic Acid Liam (0.7-2.0) mmol/L Calcium (8.4-10.2) mg/dL Magnesium (1.6-2.3) mg/dL Urine Appearance (Clear) Urine Protein (Negative) Urine Blood (Negative) Ur Leukocyte Esterase (Negative) Urine RBC (0-5) /hpf Urine WBC (0-5) /hpf Ur Squamous Epith Cells (0-4) /hpf Hyaline Casts (0-2) /lpf Urine Mucus (None) /hpf Microbiology - Last 24 Hours (Table) 09/11/16 16:50 Urine Culture - Preliminary Urine,Catheterized 09/06/16 19:15 Blood Culture - Preliminary Blood No Growth after 120 hours Assessment and Plan Plan: 1. Left thoracic T5-T6 herpes zoster vesicular eruptions with possible secondary bacterial infection currently on Valtrex uncontrolled pain. No patch with Percocet as needed for pain control. Ceftaroline, Valtrex, Lyrica. 2. Sepsis with fever, tachycardia and elevated lactic acid and coagulopathy possible lower lobe pneumonia or atelectasis. Patient transferred to selective care unit. Dr. Marquis is on consult. Monitor I&O. Coumadin placed on hold. Fentanyl patch was removed. 3. 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 Kim and Dr. Marquis currently improving. On Ceftaroline 4. Adrenal insufficiency. Patient is status post IV hydrocortisone 100 mg followed by IV piggyback. Patient transferred to the intensive care unit. Consult with Dr. Burnham is appreciated. Patient is status post IV fluid boluses as well. Not currently on vasopressors. 5. Chronic venous stasis dermatitis bilateral lower extremity, there is no significant worsening of the left ankle as mentioned by the emergency room physician, patient continued to have her IV Rocephin. No diuretics are needed at this time 6. Ongoing immunosuppression using methotrexate which would be held. Should there be any flareup of her RA, this will be replaced by Plaquenil until her wounds would heal 7. Chronic atrial fibrillation on chronic anticoagulation with Coumadin, therapeutic levels will be maintained, metoprolol 50 mg twice a day, continue on Lasix 40 mg daily, 8. CAD currently asymptomatic, on Imdur maintenance 50 mg daily metoprolol 50 mg twice a day, aspirin 81 mg daily Lipitor 80 mg daily 9. COPD on maintenance Pulmicort 10. Hyperlipidemia on Lipitor 80 11. Hyperuricemia without any exacerbation of gout, on Zyloprim 300 mg daily 12. Diabetes mellitus type 2 on metformin 500 mg twice a day hemoglobin A1c will be [facility] 13. DVT prophylaxis on maintenance Coumadin 14. GI prophylaxis Pepcid 20 15. Impaired balance and increasing debility splinting of thoracic area during ambulation which puts her at risk for further falls, physical therapy and the Initial therapy would be seeing her with the anticipated evaluation for skilled ECF Discharge plan: Subacute rehab at [facility] Impression and plan of care have been directed as dictated by the signing physician. Susi Raymundo nurse practitioner acting as scribe for signing physician. Time with Patient: Greater than 30
[2016-09-12 16:47] LABS: Glucose,Whole Blood 153 mg/dL (75-99)
[2016-09-12] MEDS: CALCIUM CARB-VIT D 500MG-200UN 1 EACH TAB PO SCH (17:36)
[2016-09-12] MEDS: ASPIRIN 81 MG CHEW PO SCH (17:37)
[2016-09-12] MEDS: CYANOCOBALAMIN 500 MCG TAB PO SCH (17:37)
[2016-09-12 21:42] LABS: Glucose,Whole Blood 137 mg/dL (75-99)
[2016-09-12] MEDS: ATORVASTATIN 80 MG TAB PO SCH (21:53)
[2016-09-12] MEDS: MELATONIN 5 MG TABLET PO SCH (21:53)
[2016-09-13 05:09] LABS: Calcium 7.7 mg/dL (8.4-10.2); Magnesium 2.2 mg/dL (1.6-2.3); Phosphorous 3.1 mg/dL (2.5-4.5); Potassium 4.3 mmol/L (3.5-5.1)
[2016-09-13] MEDS: PIPERACILLIN-TAZOBACTAM 3.375 GM in DEXTROSE/WATER 1 50ML.BAG IVPB SCH ×3 (05:13→20:02)
[2016-09-13] MEDS: VANCOMYCIN 2,000 MG in SODIUM CHLORIDE 0.9% 500 ML IVPB SCH (05:20)
[2016-09-13 06:20] LABS: Anisocytosis Slight; Basophils % (A) 0 %; CH 32.5; CHCM 30.9; Eosinophils % (A) 0 %; HDW 3.47; HGB 10.9 gm/dL (11.4-16.0); Hypochromasia Moderate; Luc # (Auto) 0.13; Luc % (Auto) 1; Lymphocytes # (A) 1.1 k/uL (1.0-4.8); Lymphocytes % (A) 7 %; MCH 32.2 pg (25.0-35.0); MCHC 30.4 g/dL (31.0-37.0); MCV 105.8 fL (80.0-100.0); Macrocytosis Marked; Mean Platelet Volume 8.2; Monocytes # (A) 0.8 k/uL (0-1.0); Monocytes % (A) 5 %; Neutrophils # (A) 13.8 k/uL (1.3-7.7); Neutrophils % (A) 87 %; Poikilocytosis Slight; RDW 19.4 % (11.5-15.5); WBC (Perox) 16.25
--- NOTE | 2016-09-13 07:26 | XR ---
EXAMINATION TYPE: XR chest 1V portable DATE OF EXAM: 09/13/2016 6:55 AM HISTORY: Shortness of breath. COMPARISON: 09/11/2016 TECHNIQUE: Single view of the chest is submitted. FINDINGS: Right-sided PICC line is appropriately placed. Demonstrated are scattered senescent parenchymal change. Patchy basilar opacities right greater than left and small right-sided effusion. The heart is enlarged with mild pulmonary venous congestion. No evidence for overt failure. Hilar and mediastinal structures are within normal limits. Degenerative changes are seen of the dorsal spine. IMPRESSION: 1. Increasing basilar infiltrates and small right-sided effusion.
--- NOTE | 2016-09-13 07:50 | PN ---
DATE OF SERVICE: 09/12/2016 Reason for followup is: 1. Left T6 dermatome zoster with cellulitis. 2. Right foot osteomyelitis. 3. Possible left lower lobe pneumonia. INTERVAL HISTORY: The patient overall feels better and has improved. She is afebrile. She was more awake, alert. When examined this morning, she continued to have a cough, bringing up some bloody sputum but no hemoptysis. Left lower chest pain has improved. No abdominal pain or any diarrhea. On examination, blood pressure is 97/56 with a pulse of 105, temperature 98. She is 96% on 3 L nasal cannula. General description is an elderly female, lying in bed in no distress. RESPIRATORY SYSTEM: Unlabored breathing. Some coarse breath sounds at the base. No wheeze. HEART: S1, S2 regular rate and rhythm. ABDOMEN: Soft, no tenderness. EXTREMITIES: No edema of the feet. Examination of the left lower chest below the breast area warm with some slough tissue, the surrounding area has improved. LABS: Hemoglobin is 11.7, white count 16.8 with a BUN of 29, creatinine is 1.21, lactic acid is 2.3. Repeat urine is positive. Cultures currently pending. DIAGNOSTIC IMPRESSION AND PLAN: 1. Patient with left T6 dermatome zoster for which the patient has finished her therapy. However, the wound continue with the Santyl. 2. Right foot osteomyelitis is currently covered with antibiotics of vanco and Zosyn. 3. Patient with a new fever and sepsis was more likely left lower lobe pneumonia. Patient did respond to Zosyn and vanco. Sputum will be requested so we can order antibiotics. Her daughter was present at beside. Their questions were answered. JOSE LUIS
[2016-09-13 08:02] LABS: Glucose,Whole Blood 126 mg/dL (75-99)
[2016-09-13] MEDS: DULoxetine HCL 60 MG CAPSULE.DR PO SCH (08:21)
[2016-09-13] MEDS: ALLOPURINOL 300 MG TAB PO SCH (08:21)
[2016-09-13] MEDS: metFORMIN 500 MG TAB PO SCH ×2 (08:21→17:29)
[2016-09-13] MEDS: METOPROLOL TARTRATE 50 MG TAB PO SCH ×2 (08:22→20:03)
[2016-09-13] MEDS: PREGABALIN 75 MG CAP PO SCH ×2 (08:22→20:03)
[2016-09-13] MEDS: ISOSORBIDE MONONITRATE ER 15 MG TAB PO SCH (08:22)
[2016-09-13] MEDS: FAMOTIDINE 20 MG TAB PO SCH (08:22)
[2016-09-13] MEDS: CHOLECALCIFEROL 1,000 UNIT TAB PO SCH (08:22)
[2016-09-13] MEDS: FLUDROCORTISONE 0.1 MG TAB PO SCH ×2 (08:22→08:39)
[2016-09-13 08:23] LABS: Crenated RBC Present; Manual Review Performed; Polychromasia Present
[2016-09-13] MEDS: INSULIN LISPRO (humaLOG) 300 UNIT/3 ML VIAL SQ SCH ×4 (08:28→21:30)
[2016-09-13] MEDS ORDERED: FUROSEMIDE 10 MG/ML 4 ML VIAL IV STA (08:40)
[2016-09-13] MEDS: HYDROCORTISONE 20 MG TAB PO SCH (09:26)
[2016-09-13] MEDS: FLUTICASONE 50MCG/SPRAY NASAL 16GM EA NOSTRIL SCH ×2 (09:27→20:03)
[2016-09-13] MEDS: NYSTATIN 100,000 UNIT/ML SUSP 500,000 UNIT/5 ML CUP PO SCH ×4 (09:28→21:31)
[2016-09-13] MEDS: COLLAGENASE 250 UNIT/GM OINTMENT 30 GM TUBE TOPICAL SCH (09:28)
--- NOTE | 2016-09-13 10:08 | P.PN ---
Subjective Progress note dated 09/12/2016 This is a 76-year-old female that we saw yesterday in consultation. He was transferred from the fifth floor up to the ICU. 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 The patient was previously on corticosteroids and apparently they were not resumed when the patient was admitted to the hospital. Anyway the patient came up with mental status changes tachycardia and hypotension. She responded very nicely to IV hydrocortisone. I currently have on her drip at 12 mg an hour. He was at 15 but I just trended down. She is currently awake and alert. Her daughters in the room with her. She's getting O2 at 3 L. She getting appointment 9 IV. His can be turned up to 75 mL an hour. We'll give her Lasix 20 mg IV push. She's about 4 L ahead yesterday and fluids. Other than that she's awake and alert doing much better. Feeling better. We will order a swallow evaluation before we switch her to oral medications. Progress note dated 09/13/2016 This 76-year-old female who was suspected to have secondary adrenal insufficiency, is doing much better. Still not completely back to baseline. Has lots of edema and anasarca. Chest x-rays consistent with some fluid overload. The patient is on IV hydrocortisone 12 mg an hour. That's continue until after her first dose of oral Cortef. She'll be placed on Cortef 20 mg every morning 10 g every afternoon. An hour after her morning dose, the IV hydrocortisone can be discontinued. She is on O2 at 3 L. 7.9 at 75 which I asked the nurses to turn on the KVO. She also will get her Lasix dose is morning IV 40 mg. Other than that things are doing pretty well. Her mental status is still not back to baseline. I did have a talk with the family today. He understands is going on. Objective - Vital Signs Vital signs: Vital Signs Temp 97.6 F 09/13/16 04:00 Pulse 108 H 09/13/16 07:00 Resp 22 09/13/16 07:00 BP 100/68 09/13/16 07:00 Pulse Ox 94 L 09/13/16 08:33 Intake & Output 09/12/16 09/13/16 09/13/16 18:59 06:59 18:59 Intake Total 1158.1 1486.5 539.5 Output Total 358 405 155 Balance 800.1 1081.5 384.5 Weight 122.4 kg 124.2 kg Intake: IV 1158.1 1119.5 206.5 Magnesium Sulfate-D5w Pmx 100 1 gm In Dextrose/Water 1 100ml.bag @ 100 mls/hr IVPB Q1H [facility] Rx#: [id number] Piperacillin-Tazobactam 3 62.5 87.5 12.5 .375 gm In Dextrose/Water 1 50ml.bag @ 12.5 mls/hr IVPB Q8H [facility] Rx#: [id number] Sodium Chloride 0.9% 1, 845 900 170 000 ml @ 20 mls/hr IV . Q24H [facility] Rx#:[id number] Sodium Chloride 0.9% 250 150.6 132 24 ml @ 12 MG/HR 12.24 mls/ hr IV .[id number] LUIS with Hydrocortisone Succinate 250 mg Rx#:[id number] Intake, IV Titration 167 333 Amount Vancomycin 1,750 mg In 167 167 Sodium Chloride 0.9% 250 ml @ 125 mls/hr IVPB Q16H [facility] Rx#:[id number] Vancomycin 2,000 mg In 166 Sodium Chloride 0.9% 500 ml @ 166.667 mls/hr IVPB Q24HR@0600 [facility] Rx#: [id number] Oral 200 0 Output: Urine 358 405 155 Other: Voiding Method Indwelling Catheter Indwelling Catheter Indwelling Catheter # Voids 1 # Bowel Movements 0 - Exam No acute distress, oriented 3. HEENT examination is grossly unremarkable. Some dried saliva in the mouth. She 's had a gates face. Her skin is flushed. Neck supple. Full range of motion. No adenopathy. Cardiovascular examination reveals regular rhythm rate. She is mildly tachycardic at 10 3 bpm. Is mostly regular. Lungs are mostly clear. A few scattered mild wheezes. Breath sounds equal. Abdomen is obese. Bowel sounds are heard. Extremities reveal reveal some mild edema. - Labs CBC & Chem 7: 09/13/16 04:45 09/13/16 04:45 Labs: Abnormal Lab Results - Last 24 Hours (Table) 09/12/16 09/12/16 09/12/16 Range/Units 12:31 16:44 21:38 WBC (3.8-10.6) k/uL RBC (3.80-5.40) m/uL Hgb (11.4-16.0) gm/dL MCV (80.0-100.0) fL MCHC (31.0-37.0) g/dL RDW (11.5-15.5) % Plt Count (150-450) k/uL Neutrophils # (1.3-7.7) k/uL Chloride (98-107) mmol/L Carbon Dioxide (22-30) mmol/L BUN (7-17) mg/dL Creatinine (0.52-1.04) mg/dL Glucose (74-99) mg/dL POC Glucose (mg/dL) 190 H 153 H 137 H (75-99) mg/dL Calcium (8.4-10.2) mg/dL 09/13/16 09/13/16 09/13/16 Range/Units 04:45 04:45 07:58 WBC 16.0 H (3.8-10.6) k/uL RBC 3.40 L (3.80-5.40) m/uL Hgb 10.9 L (11.4-16.0) gm/dL MCV 105.8 H (80.0-100.0) fL MCHC 30.4 L (31.0-37.0) g/dL RDW 19.4 H (11.5-15.5) % Plt Count 451 H (150-450) k/uL Neutrophils # 13.8 H (1.3-7.7) k/uL Chloride 108 H (98-107) mmol/L Carbon Dioxide 21 L (22-30) mmol/L BUN 35 H (7-17) mg/dL Creatinine 1.10 H (0.52-1.04) mg/dL Glucose 131 H (74-99) mg/dL POC Glucose (mg/dL) 126 H (75-99) mg/dL Calcium 7.7 L (8.4-10.2) mg/dL Microbiology - Last 24 Hours (Table) 09/06/16 19:15 Blood Culture - Final Blood No Growth after 144 hours 09/11/16 16:50 Urine Culture - Final Urine,Catheterized 09/11/16 11:09 Blood Culture - Preliminary Blood No Growth after 24 hours 09/11/16 10:37 Blood Culture - Preliminary Blood No Growth after 24 hours Assessment and Plan (1) Adrenal insufficiency Status: Acute (2) Shingles Status: Acute (3) Rheumatoid arthritis Status: Acute (4) Atrial fibrillation Status: Acute (5) Sepsis Status: Acute Plan: Plan The patient gets hydrocortisone 100 mg IV push. We started drip at 15 mg an hour. We'll give the patient additional IV fluids. The blood gas was reasonable. The patient is now my opinion stable for transfer. Patient be transferred out to the ICU [facility]. Plan dated 09/12/2016 The patient's doing much better. Reviewed and drop her hydrocortisone drip 15- 12 mg an hour. We'll get a swallow evaluation. Her IV will be turned 75 mL an hour because of poor urine output. Given 20 of Lasix IV push. We'll keep her here in the ICU. Head of bed elevated. Moving his swallow evaluation. Additional recommendations suggestions are forthcoming. Medications are reviewed. Ex Plan dated 09/13/2016 The patient is doing better. We'll stop her IV hydrocortisone in favor of oral Cortef 20 mg every morning 10 mg every afternoon. I think the mineralocorticoid is the wrong thing to give her at this time. We will only serve to increase her and worsen her edema. Anyway I'm going to give her IV Lasix today. We are going to keep her head unit for 1 more day. We'll return her IV fluids down to KVO. Labs and x-rays in the morning. Chest x-rays evaluated. Time with Patient: Less than 30
[2016-09-13] MEDS: LIDOCAINE 5% PATCH TOPICAL SCH (10:12)
[2016-09-13] MEDS: SENNOSIDES-DOCUSATE SODIUM 1 EACH TAB PO SCH (10:13)
[2016-09-13] MEDS: NYSTATIN 100,000 UNIT/GM POWD 15 GM TOPICAL SCH ×3 (10:13→21:31)
[2016-09-13] MEDS: ALBUTEROL NEBULIZED 2.5 MG/3 ML INHALATION PRN (10:14)
[2016-09-13 12:32] LABS: INR 2.3 (<1.1); Prothrombin Time 22.5 sec (9.0-12.0)
[2016-09-13 12:36] LABS: Glucose,Whole Blood 142 mg/dL (75-99)
--- NOTE | 2016-09-13 12:40 | CDI ---
Meggan Marinette [address] [place] [address] Documentation Clarification Form Date: 09/13/2016 12:05:00 PM From: Figueroa Chávez RN, BSN, CDI Admit Date: 09/02/2016 6:48:00 PM Patient Name: Jessica Llanes Visit Number: [id number] Susi Raymundo NP/ Dr. Sheila Reyes: Sepsis with fever, tachycardia and elevated lactic acid- possible lower lobe PNA or atelectasis" is documented in your note on 09/12/16. It is also documented in the ID consultants noted dated 09/12/16. History/Risk Factors: 76 yo female with a history of COPD presents with c/o left flank and CP. Prior to admission patient was being treated with Acyclovir for shingles. She had no improvement of her pain outpatient. On 09/07: patient became hypotensive with temp of 100.4 and was transferred to [facility] care and place on CPAP, she was tachycardic with SPo2 of 91-95% Clinical Indicators: WBC/Left shift: WBC: 12.5 (09/07) X-ray: (09/08) persistent RLLL density which may reflect atelectasis and/or infiltrate, (09/13) increasing basilar infiltrates and small right sided effusion Lung/Breathing assessment: diminshed, w/rales and rhonchi from PN dated Treatment: Antibiotics: Vanco and Zosyn (with improvement of symptoms) O2: 2L->CPAP Breathing Tx: albuterol Sputum Culture: pending In order to capture the severity of condition, please clarify if the condition signifies and you are treating for: Bacterial Pneumonia, specify causal organism (if known) Gram Negative Pneumonia Due to Strep Due to Staph Other bacteria (specify) Aspiration Pneumonia, identify if: Due to solids or liquids Healthcare Acquired Pneumonia/Pneumonia, unspecified Unable to determine Please document in your progress notes and discharge summary in order to capture severity of illness and risk of mortality. Include clinical findings that support your diagnosis. FYI: Press F11 to launch patient chart. Place X here if this finding has no clinical significance, is not applicable or if you are not able to provide any additional documentation. I am not specifying as gram negative purposefully as Dr. uBrnham does not make any mention of pneumonia and I am doubting that there is any pneumonia as well. MTDD
[2016-09-13] MEDS: MULTIVITAMINS, THERA 1 EACH TAB PO SCH (13:05)
--- NOTE | 2016-09-13 14:39 | P.PN ---
Subjective This is a pleasant 76-year-old lady patient of Dr. Marquis and Dr. Arce. She has underlying history off from at the COPD hyperlipidemia vascular disorder and obstructive sleep apnea neuralgia atrial fibrillation, chronic COPD diabetes mellitus type 2, chronic immunosuppression CHF admitted through the emergency room secondary to left thoracic pain. She was diagnosed recently to have T6 dermatome herpes zoster this past Sunday 3 days prior to admission for which valacyclovir was given by Dr. Marquis. Patient had left flank pain was subsequently seen in the emergency room secondary to the pain. Patient denies any fever however she has some chills. Patient has hydrocodone which doesn't seem to take care of the pain she was seen in emergency room with evaluation to include noticeable left vesicular eruption involving the T6 area, redness in the left leg, known history off chronic venous stasis dermatitis. Known also on the right metatarsal region lateral region from a previous biopsy for osteotomyelitis by Dr. Kim. She is currently on IV Rocephin prior to her admission as recommended by Dr. Marquis. 09/04: Patient has been seen in consultation by Dr. Rojo from infectious disease covering for Dr. Marquis. He has recommended continuing Rocephin, silver dressing for the ulceration of the foot, check protein status and supplement, multivitamin added. Sed rate 24, C-reactive protein 27.2, hemoglobin A1c 6.7 TSH 2.570. Albumin is 3.3. INR 3.4. Chest x-ray is pending a Chin is requesting something for her nasal congestion and Flonase added. She continues to have issues with pain for which Percocet is scheduled plus as needed. 09/05: Patient continues to be very fatigued. She is on CPAP from home. Vesicles are drying up. Dr. Marquis has changed her antibiotics to Ceftaroline. Anticipate possible discharge to [facility] tomorrow. INR is 2.9. Patient will be resumed back on Coumadin home dosing. 09/06: Pain control continues to be an issue the patient is more groggy today. Percocet changed to fentanyl patch. Anticipate possible discharge to [facility] tomorrow. 09/07: Patient became hypotensive with temperature of 100.4 last evening had lactic acid 3.5 and patient was transferred to [facility] care and placed on CPAP. She received fluid bolus of 500 mL. She was also tachycardic and pulse ox running 91-95%. Blood culture obtained. Urine and urine culture ordered. White count is 12, INR 3.5. Repeat lactic acid is 1.5. Patient is not ready for discharge today. Fentanyl patch was removed last evening. Patient does not seem to complain and pain while resting. 09/08: [place] catheter was placed yesterday his family was concerned that she had no urine output. Urine output has been 40 mL for the past 12 hours. Temperature max 100.0. Dr. Marquis has recommended continuing Ceftaroline. WBC is 9.6. Potassium 3.3 will be replaced. INR is 3.2. Coumadin remains on hold. Repeat chest x-ray shows persistent right lower lobe density which may reflect atelectasis or infiltrate. 09/11: Patient's blood pressure was low and tachycardic with fever this morning. Noted the patient has not been resumed on her chronic prednisone and Solu- Cortef has been ordered. Patient transferred to ICU. Patient's family is contemplating transferring the patient to other facility but at this time, patient remains in intensive care unit as she seems to be improving. She has been seen by Dr. Burnham. She is status post IV Tylenol, IV fluid bolus with improvement. IV hydrocortisone drip started. IV antibiotics changed to Zosyn and vancomycin by Dr. Marquis. 09/12: Patient is much more awake and alert today. She remains in the intensive care unit. Hydrocortisone drip and IV Lasix ordered. Family continue to contemplate [facility] but at this point have decided to keep the patient and Meggan Martino per patient's wishes. 09/13: Patient is continued on IV cortisone and to switch over to oral. Repeat chest x-ray shows increasing basilar infiltrates and small right-sided effusion. Patient to stay in ICU for another day. Repeat urine culture from September 11 is finalized with no growth. All blood cultures have been negative. Objective - Vital Signs Vital signs: Vital Signs Temp 98.2 F 09/13/16 08:00 Pulse 96 09/13/16 10:16 Resp 21 09/13/16 10:00 BP 110/76 09/13/16 10:00 Pulse Ox 93 L 09/13/16 10:00 Intake & Output 09/12/16 09/13/16 09/13/16 18:59 06:59 18:59 Intake Total 1158.1 1486.5 559.5 Output Total 358 405 355 Balance 800.1 1081.5 204.5 Weight 122.4 kg 124.2 kg Intake: IV 1158.1 1119.5 226.5 Magnesium Sulfate-D5w Pmx 100 1 gm In Dextrose/Water 1 100ml.bag @ 100 mls/hr IVPB Q1H [facility] Rx#: [id number] Piperacillin-Tazobactam 3 62.5 87.5 12.5 .375 gm In Dextrose/Water 1 50ml.bag @ 12.5 mls/hr IVPB Q8H [facility] Rx#: [id number] Sodium Chloride 0.9% 1, 845 900 190 000 ml @ 20 mls/hr IV . Q24H [facility] Rx#:[id number] Sodium Chloride 0.9% 250 150.6 132 24 ml @ 12 MG/HR 12.24 mls/ hr IV .[id number] [facility] with Hydrocortisone Succinate 250 mg Rx#:[id number] Intake, IV Titration 167 333 Amount Vancomycin 1,750 mg In 167 167 Sodium Chloride 0.9% 250 ml @ 125 mls/hr IVPB Q16H [facility] Rx#:[id number] Vancomycin 2,000 mg In 166 Sodium Chloride 0.9% 500 ml @ 166.667 mls/hr IVPB Q24HR@0600 [facility] Rx#: [id number] Oral 200 0 Output: Urine 358 405 355 Other: Voiding Method Indwelling Catheter Indwelling Catheter Indwelling Catheter # Voids 1 # Bowel Movements 0 - Exam General appearance: cooperative, no acute distress, - EENT Eyes: anicteric sclerae, EOMI, PERRLA, dentition normal, normal appearance ENT: NA/AT, normal oropharynx - Neck Neck: no lymphadenopathy, normal ROM, no other, no rigidity, no stridor, no thyromegaly - Respiratory Respiratory: bilateral: CTA, negative: diminished, dullness, rales, rhonchi - Cardiovascular Rhythm: regular Heart sounds: normal: S1, S2 Abnormal Heart Sounds: no systolic murmur, no diastolic murmur, no rub, no S3 Gallop, no S4 Gallop, no click, no other - Gastrointestinal General gastrointestinal: normal bowel sounds, soft - Integumentary Integumentary: rash (left t 6 dermatome), ulcer (right lateral metatarsal 2 cm x2 cm x1 cm approx) - Musculoskeletal Musculoskeletal: generalized weakness, strength equal bilaterally - Labs CBC & Chem 7: 09/13/16 04:45 09/13/16 04:45 Labs: Abnormal Lab Results - Last 24 Hours (Table) 09/12/16 09/12/16 09/12/16 Range/Units 12:31 16:44 21:38 WBC (3.8-10.6) k/uL RBC (3.80-5.40) m/uL Hgb (11.4-16.0) gm/dL MCV (80.0-100.0) fL MCHC (31.0-37.0) g/dL RDW (11.5-15.5) % Plt Count (150-450) k/uL Neutrophils # (1.3-7.7) k/uL Chloride (98-107) mmol/L Carbon Dioxide (22-30) mmol/L BUN (7-17) mg/dL Creatinine (0.52-1.04) mg/dL Glucose (74-99) mg/dL POC Glucose (mg/dL) 190 H 153 H 137 H (75-99) mg/dL Calcium (8.4-10.2) mg/dL 09/13/16 09/13/16 09/13/16 Range/Units 04:45 04:45 07:58 WBC 16.0 H (3.8-10.6) k/uL RBC 3.40 L (3.80-5.40) m/uL Hgb 10.9 L (11.4-16.0) gm/dL MCV 105.8 H (80.0-100.0) fL MCHC 30.4 L (31.0-37.0) g/dL RDW 19.4 H (11.5-15.5) % Plt Count 451 H (150-450) k/uL Neutrophils # 13.8 H (1.3-7.7) k/uL Chloride 108 H (98-107) mmol/L Carbon Dioxide 21 L (22-30) mmol/L BUN 35 H (7-17) mg/dL Creatinine 1.10 H (0.52-1.04) mg/dL Glucose 131 H (74-99) mg/dL POC Glucose (mg/dL) 126 H (75-99) mg/dL Calcium 7.7 L (8.4-10.2) mg/dL Microbiology - Last 24 Hours (Table) 09/06/16 19:15 Blood Culture - Final Blood No Growth after 144 hours 09/11/16 16:50 Urine Culture - Final Urine,Catheterized 09/11/16 11:09 Blood Culture - Preliminary Blood No Growth after 24 hours 09/11/16 10:37 Blood Culture - Preliminary Blood No Growth after 24 hours Assessment and Plan Plan: 1. Left thoracic T5-T6 herpes zoster vesicular eruptions with possible secondary bacterial infection currently on Valtrex uncontrolled pain. No patch with Percocet as needed for pain control. Zosyn, vancomycin. 2. Sepsis with fever, tachycardia and elevated lactic acid and coagulopathy possible lower lobe pneumonia or atelectasis. Dr. Marquis is on consult. Monitor I&O. Coumadin placed on hold. Fentanyl patch was removed. 3. 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 Kim and Dr. Marquis currently improving. On Zosyn and vancomycin 4. Adrenal insufficiency. Patient is status post IV hydrocortisone to be changed today to oral. Patient transferred to the intensive care unit. Consult with Dr. Burnham is appreciated. Patient is status post IV fluid boluses as well. Not currently on vasopressors. 5. Chronic venous stasis dermatitis bilateral lower extremity, there is no significant worsening of the left ankle as mentioned by the emergency room physician, patient continued to have her IV Rocephin. No diuretics are needed at this time 6. Ongoing immunosuppression using methotrexate which would be held. Should there be any flareup of her RA, this will be replaced by Plaquenil until her wounds would heal 7. Chronic atrial fibrillation on chronic anticoagulation with Coumadin, therapeutic levels will be maintained, metoprolol 50 mg twice a day, continue on Lasix 40 mg daily, 8. CAD currently asymptomatic, on Imdur maintenance 50 mg daily metoprolol 50 mg twice a day, aspirin 81 mg daily Lipitor 80 mg daily 9. COPD on maintenance Pulmicort 10. Hyperlipidemia on Lipitor 80 11. Hyperuricemia without any exacerbation of gout, on Zyloprim 300 mg daily 12. Diabetes mellitus type 2 on metformin 500 mg twice a day hemoglobin A[facility]c [facility] 13. DVT prophylaxis on maintenance Coumadin 14. GI prophylaxis Pepcid 20 15. Impaired balance and increasing debility splinting of thoracic area during ambulation which puts her at risk for further falls, physical therapy and the Initial therapy would be seeing her with the anticipated evaluation for skilled ECF Discharge plan: Subacute rehab at [facility] Impression and plan of care have been directed as dictated by the signing physician. Susi Raymundo nurse practitioner acting as scribe for signing physician. Time with Patient: Greater than 30
--- NOTE | 2016-09-13 15:13 | PN ---
DATE OF SERVICE: 09/13/2016 Reason for followup is: 1. Left T6 dermatome zoster. 2. Right foot osteomyelitis. 3. Possible pneumonia. INTERVAL HISTORY: The patient is afebrile. She is slightly lethargic. Patient is getting diuresed. Hemodynamically stable, not on any pressor support. FiO2 is only requiring 3 L of nasal cannula. She was slightly sleepy. No nausea, vomiting or any diarrhea has been noticed by nursing staff. On examination, blood pressure is 126/86 with a pulse of 103, temperature 98.1. She is 97% on 3 L nasal cannula. General description is an elderly female, lying in bed in no distress. RESPIRATORY SYSTEM: Unlabored breathing. Some coarse crackles at the base. No wheeze. HEART: S1, S2, regular rate and rhythm. ABDOMEN: Soft, no tenderness. The left lower chest wall wound with some soft tissue surrounding redness has improved. LABS: Hemoglobin is 10.9, white count 16,000 with a BUN of 35, creatinine 1.10. Cultures so far negative. DIAGNOSTIC IMPRESSION AND PLAN: 1. Patient with T6 dermatome zoster, now with the wound is well topped off with a blister. Will recommend Santyl followed by moist dressing. 2. Right foot osteomyelitis. Continue local care with Aquacel Silver, currently on vanco and Zosyn. 3. Patient with possible left lower lobe pneumonia. She is currently covered with vanco and Zosyn and will be continued. Waiting for the sputum culture to finalize. Family present at beside. Their questions were answered.
[2016-09-13 17:27] LABS: Glucose,Whole Blood 149 mg/dL (75-99)
[2016-09-13] MEDS: CYANOCOBALAMIN 500 MCG TAB PO SCH (17:28)
[2016-09-13] MEDS: ASPIRIN 81 MG CHEW PO SCH (17:29)
[2016-09-13] MEDS: CALCIUM CARB-VIT D 500MG-200UN 1 EACH TAB PO SCH (17:29)
[2016-09-13] MEDS ORDERED: FLUDROCORTISONE 0.1 MG TAB PO PRN (18:56)
[2016-09-13] MEDS: WARFARIN 2.5 MG TAB PO SCH (19:38)
[2016-09-13] MEDS: ATORVASTATIN 80 MG TAB PO SCH (20:03)
[2016-09-13] MEDS: HYDROCORTISONE 10 MG TAB PO SCH (20:03)
[2016-09-13] MEDS: MELATONIN 5 MG TABLET PO SCH (20:04)
[2016-09-13 21:07] LABS: Glucose,Whole Blood 117 mg/dL (75-99)
[2016-09-14] MEDS: SODIUM CHLORIDE 0.9% 1,000 ML IV SCH ×2 (00:05→20:13)
[2016-09-14] MEDS: ALBUTEROL NEBULIZED 2.5 MG/3 ML INHALATION PRN (04:59)
[2016-09-14 05:51] LABS: Anisocytosis Slight; CH 32.5; CHCM 31.7; HCT 34.8 % (34.0-46.0); HDW 3.76; HGB 10.8 gm/dL (11.4-16.0); Hypochromasia Moderate; MCH 32.1 pg (25.0-35.0); MCV 103.5 fL (80.0-100.0); Macrocytosis Moderate; Mean Platelet Volume 7.2; Poikilocytosis Slight; RBC 3.36 m/uL (3.80-5.40); RDW 19.2 % (11.5-15.5); WBC 9.2 k/uL (3.8-10.6); WBC (Perox) 9.66
[2016-09-14 05:55] LABS: INR 2.4 (<1.1); Prothrombin Time 23.4 sec (9.0-12.0)
[2016-09-14 06:06] LABS: Add Differential Manual Differential
[2016-09-14 06:10] LABS: Nucleated Red Blood Cells 0 /100 WBC (0-0)
[2016-09-14 06:11] LABS: Total Cells Counted 200
[2016-09-14 06:13] LABS: Ovalocytes Present; Polychromasia Present
[2016-09-14 06:14] LABS: Manual Review Performed
[2016-09-14 06:33] LABS: Anion Gap 9 mmol/L; Blood Urea Nitrogen 29 mg/dL (7-17); Calcium 7.5 mg/dL (8.4-10.2); Carbon Dioxide 23 mmol/L (22-30); Chloride 109 mmol/L (98-107); Glucose 101 mg/dL (74-99); Magnesium 1.9 mg/dL (1.6-2.3); Non-African American GFR(MDRD) >60 (>60 ml/min/1.73 sqM); Phosphorous 2.2 mg/dL (2.5-4.5); Potassium 3.4 mmol/L (3.5-5.1); Sodium 141 mmol/L (137-145)
[2016-09-14] MEDS ORDERED: Potassium Replacement Protocol 1 EACH MISC MISCELLANE PRN (06:47)
[2016-09-14] MEDS ORDERED: Phosphorus Replacement Protoco 1 EACH MISC MISCELLANE PRN (06:48)
[2016-09-14] MEDS: PIPERACILLIN-TAZOBACTAM 3.375 GM in DEXTROSE/WATER 1 50ML.BAG IVPB SCH ×3 (07:00→20:13)
[2016-09-14] MEDS: VANCOMYCIN 2,000 MG in SODIUM CHLORIDE 0.9% 500 ML IVPB SCH (07:02)
[2016-09-14 07:59] LABS: Glucose,Whole Blood 90 mg/dL (75-99)
[2016-09-14] MEDS ORDERED: SODIUM PHOSPHATE 10 MMOL in SODIUM CHLORIDE 0.9% 250 ML IVPB ONE (08:00)
[2016-09-14] MEDS: POTASSIUM CHLORIDE ER 20 MEQ TAB.ER PO SCH ×2 (08:41→10:07)
[2016-09-14] MEDS: LIDOCAINE 5% PATCH TOPICAL SCH (08:41)
[2016-09-14] MEDS: FAMOTIDINE 20 MG TAB PO SCH (08:42)
[2016-09-14] MEDS: NYSTATIN 100,000 UNIT/ML SUSP 500,000 UNIT/5 ML CUP PO SCH ×4 (08:42→22:24)
[2016-09-14] MEDS: MULTIVITAMINS, THERA 1 EACH TAB PO SCH (08:42)
[2016-09-14] MEDS: METOPROLOL TARTRATE 50 MG TAB PO SCH ×2 (08:42→20:14)
[2016-09-14] MEDS: CHOLECALCIFEROL 1,000 UNIT TAB PO SCH (08:43)
[2016-09-14] MEDS: DULoxetine HCL 60 MG CAPSULE.DR PO SCH (08:43)
[2016-09-14] MEDS: ISOSORBIDE MONONITRATE ER 15 MG TAB PO SCH (08:43)
[2016-09-14] MEDS: metFORMIN 500 MG TAB PO SCH ×2 (08:43→17:35)
[2016-09-14] MEDS: ALLOPURINOL 300 MG TAB PO SCH (08:43)
[2016-09-14] MEDS: COLLAGENASE 250 UNIT/GM OINTMENT 30 GM TUBE TOPICAL SCH (08:44)
[2016-09-14] MEDS: INSULIN LISPRO (humaLOG) 300 UNIT/3 ML VIAL SQ SCH ×4 (08:44→22:23)
[2016-09-14] MEDS: FLUTICASONE 50MCG/SPRAY NASAL 16GM EA NOSTRIL SCH ×2 (08:44→20:13)
[2016-09-14] MEDS: PREGABALIN 75 MG CAP PO SCH ×2 (08:45→20:14)
[2016-09-14] MEDS: HYDROCORTISONE 20 MG TAB PO SCH (08:45)
[2016-09-14] MEDS: NYSTATIN 100,000 UNIT/GM POWD 15 GM TOPICAL SCH ×3 (08:45→22:24)
[2016-09-14] MEDS: SENNOSIDES-DOCUSATE SODIUM 1 EACH TAB PO SCH (08:46)
--- NOTE | 2016-09-14 10:28 | P.PN ---
Subjective Principal diagnosis: Secondary adrenal insufficiency This is a very pleasant 76-year-old female patient who was admitted here to the intensive care unit a couple of days ago after developing hypotension and altered mental status. She was found to be in the secondary adrenal insufficiency as the patient was steroid dependent in the outpatient setting. She was initially seen and evaluated by Dr. Burnham who placed the patient on IV hydrocortisone drip which has subsequently been discontinued. She is now on Cortef 20 mg in the a.m. and 10 mg in the PM. She is seen again today 2016 in follow-up. She is awake and alert in no acute distress. She denies any shortness of breath, cough or congestion. She's been hemodynamically stable. She is maintaining good O2 saturations in the upper 90s on 2 L/m per nasal cannula. Objective - Vital Signs Vital signs: Vital Signs Temp 97.6 F 09/14/16 00:00 Pulse 102 H 09/14/16 08:00 Resp 29 H 09/14/16 08:00 BP 123/63 09/14/16 08:00 Pulse Ox 99 09/14/16 08:00 Intake & Output 09/13/16 09/14/16 09/14/16 18:59 06:59 18:59 Intake Total 689.5 210.0 12.5 Output Total 1185 510 45 Balance -495.5 -300.0 -32.5 Weight 124.2 kg Intake: IV 356.5 210.0 12.5 Piperacillin-Tazobactam 3 62.5 50.0 12.5 .375 gm In Dextrose/Water 1 50ml.bag @ 12.5 mls/hr IVPB Q8H [facility] Rx#: [id number] Sodium Chloride 0.9% 1, 270 160 000 ml @ 20 mls/hr IV . Q24H [facility] Rx#:[id number] Sodium Chloride 0.9% 250 24 ml @ 12 MG/HR 12.24 mls/ hr IV .[id number] [facility] with Hydrocortisone Succinate 250 mg Rx#:[id number] Intake, IV Titration 333 Amount Vancomycin 1,750 mg In 167 Sodium Chloride 0.9% 250 ml @ 125 mls/hr IVPB Q16H [facility] Rx#:[id number] Vancomycin 2,000 mg In 166 Sodium Chloride 0.9% 500 ml @ 166.667 mls/hr IVPB Q24HR@0600 [facility] Rx#: [id number] Oral 0 Output: Urine 1185 510 45 Other: Voiding Method Indwelling Catheter Indwelling Catheter # Bowel Movements 1 - Exam GENERAL EXAM: Morbidly obese. Alert, comfortable in no apparent distress. HEAD: Normocephalic. EYES: Normal reaction of pupils, equal size. NOSE: Clear with pink turbinates. THROAT: There is crowding of the posterior pharynx. No erythema or exudates. NECK: Short. No masses, no JVD. CHEST: No chest wall deformity. LUNGS: Equal air entry with no crackles, wheeze, rhonchi or dullness. CVS: S1 and S2 normal with no audible murmur, regular rhythm. ABDOMEN: Soft, normal bowel sounds, no guarding or rigidity. SKIN: Multiple lesions being treated. Extremities: There is 1-2+ lower extremity peripheral edema. Changes of chronic venous stasis. Peripheral pulses are intact. - Labs CBC & Chem 7: 09/14/16 05:30 09/14/16 05:30 Labs: Abnormal Lab Results - Last 24 Hours (Table) 09/13/16 09/13/16 09/13/16 Range/Units 12:10 12:23 17:24 RBC (3.80-5.40) m/uL Hgb (11.4-16.0) gm/dL MCV (80.0-100.0) fL RDW (11.5-15.5) % PT 22.5 H (9.0-12.0) sec Potassium (3.5-5.1) mmol/L Chloride (98-107) mmol/L BUN (7-17) mg/dL Glucose (74-99) mg/dL POC Glucose (mg/dL) 142 H 149 H (75-99) mg/dL Calcium (8.4-10.2) mg/dL Phosphorus (2.5-4.5) mg/dL 09/13/16 09/14/16 09/14/16 Range/Units 21:05 05:30 05:30 RBC 3.36 L (3.80-5.40) m/uL Hgb 10.8 L (11.4-16.0) gm/dL MCV 103.5 H (80.0-100.0) fL RDW 19.2 H (11.5-15.5) % PT (9.0-12.0) sec Potassium 3.4 L (3.5-5.1) mmol/L Chloride 109 H (98-107) mmol/L BUN 29 H (7-17) mg/dL Glucose 101 H (74-99) mg/dL POC Glucose (mg/dL) 117 H (75-99) mg/dL Calcium 7.5 L (8.4-10.2) mg/dL Phosphorus 2.2 L (2.5-4.5) mg/dL 09/14/16 Range/Units 05:30 RBC (3.80-5.40) m/uL Hgb (11.4-16.0) gm/dL MCV (80.0-100.0) fL RDW (11.5-15.5) % PT 23.4 H (9.0-12.0) sec Potassium (3.5-5.1) mmol/L Chloride (98-107) mmol/L BUN (7-17) mg/dL Glucose (74-99) mg/dL POC Glucose (mg/dL) (75-99) mg/dL Calcium (8.4-10.2) mg/dL Phosphorus (2.5-4.5) mg/dL Microbiology - Last 24 Hours (Table) 09/13/16 10:00 Gram Stain - Preliminary Sputum 09/11/16 16:50 Urine Culture - Final Urine,Catheterized Yeast species 09/11/16 11:09 Blood Culture - Preliminary Blood No Growth after 48 hours 09/11/16 10:37 Blood Culture - Preliminary Blood No Growth after 48 hours Assessment and Plan Plan: Impression: #1 acute secondary adrenal insufficiency, recovered. Currently on Cortef 20 mg in the a.m. 10 mg in the PM. #2 Acute shingles. #3 Rheumatoid arthritis. #4 Atrial fibrillation, anticoagulated with warfarin, therapeutic. Plan: The patient was seen and evaluated by Dr. Burnham. She is stable from the pulmonary and critical care standpoint and can be transferred out of the intensive care unit to the selective care unit today. We'll continue with her current medications including the Cortef. She remains on antibiotics in the form of vancomycin and Zosyn. We'll increase her activity as tolerated. We'll continue to follow make further recommendations based on her clinical status per
--- NOTE | 2016-09-14 11:57 | P.PN ---
Subjective This is a pleasant 76-year-old lady patient of Dr. Marquis and Dr. Arce. She has underlying history off from at the COPD hyperlipidemia vascular disorder and obstructive sleep apnea neuralgia atrial fibrillation, chronic COPD diabetes mellitus type 2, chronic immunosuppression CHF admitted through the emergency room secondary to left thoracic pain. She was diagnosed recently to have T6 dermatome herpes zoster this past Sunday 3 days prior to admission for which valacyclovir was given by Dr. Marquis. Patient had left flank pain was subsequently seen in the emergency room secondary to the pain. Patient denies any fever however she has some chills. Patient has hydrocodone which doesn't seem to take care of the pain she was seen in emergency room with evaluation to include noticeable left vesicular eruption involving the T6 area, redness in the left leg, known history off chronic venous stasis dermatitis. Known also on the right metatarsal region lateral region from a previous biopsy for osteotomyelitis by Dr. Kim. She is currently on IV Rocephin prior to her admission as recommended by Dr. Marquis. 09/04: Patient has been seen in consultation by Dr. Rojo from infectious disease covering for Dr. Marquis. He has recommended continuing Rocephin, silver dressing for the ulceration of the foot, check protein status and supplement, multivitamin added. Sed rate 24, C-reactive protein 27.2, hemoglobin A1c 6.7 TSH 2.570. Albumin is 3.3. INR 3.4. Chest x-ray is pending a Chin is requesting something for her nasal congestion and Flonase added. She continues to have issues with pain for which Percocet is scheduled plus as needed. 09/05: Patient continues to be very fatigued. She is on CPAP from home. Vesicles are drying up. Dr. Marquis has changed her antibiotics to Ceftaroline. Anticipate possible discharge to [facility] tomorrow. INR is 2.9. Patient will be resumed back on Coumadin home dosing. 09/06: Pain control continues to be an issue the patient is more groggy today. Percocet changed to fentanyl patch. Anticipate possible discharge to [facility] tomorrow. 09/07: Patient became hypotensive with temperature of 100.4 last evening had lactic acid 3.5 and patient was transferred to [facility] care and placed on CPAP. She received fluid bolus of 500 mL. She was also tachycardic and pulse ox running 91-95%. Blood culture obtained. Urine and urine culture ordered. White count is 12, INR 3.5. Repeat lactic acid is 1.5. Patient is not ready for discharge today. Fentanyl patch was removed last evening. Patient does not seem to complain and pain while resting. 09/08: [place] P[place] catheter was placed yesterday his family was concerned that she had no urine output. Urine output has been 40 mL for the past 12 hours. Temperature max 100.0. Dr. Marquis has recommended continuing Ceftaroline. WBC is 9.6. Potassium 3.3 will be replaced. INR is 3.2. Coumadin remains on hold. Repeat chest x-ray shows persistent right lower lobe density which may reflect atelectasis or infiltrate. 09/11: Patient's blood pressure was low and tachycardic with fever this morning. Noted the patient has not been resumed on her chronic prednisone and Solu- Cortef has been ordered. Patient transferred to ICU. Patient's family is contemplating transferring the patient to other facility but at this time, patient remains in intensive care unit as she seems to be improving. She has been seen by Dr. Burnham. She is status post IV Tylenol, IV fluid bolus with improvement. IV hydrocortisone drip started. IV antibiotics changed to Zosyn and vancomycin by Dr. Marquis. 09/12: Patient is much more awake and alert today. She remains in the intensive care unit. Hydrocortisone drip and IV Lasix ordered. Family continue to contemplate [facility] but at this point have decided to keep the patient and Meggan Martino per patient's wishes. 09/13: Patient is continued on IV cortisone and to switch over to oral. Repeat chest x-ray shows increasing basilar infiltrates and small right-sided effusion. Patient to stay in ICU for another day. Repeat urine culture from September 11 is finalized with no growth. All blood cultures have been negative. 09/14:Patient states she is feeling much better today. SHe still has some shortness of breath. Shingles pain is better. Patient will be transferred to [facility]. INR 2.4. Patient was resumed back on coumadin last night. Objective - Vital Signs Vital signs: Vital Signs Temp 97.6 F 09/14/16 00:00 Pulse 102 H 09/14/16 08:00 Resp 29 H 09/14/16 08:00 BP 123/63 09/14/16 08:00 Pulse Ox 99 09/14/16 08:00 Intake & Output 09/13/16 09/14/16 09/14/16 18:59 06:59 18:59 Intake Total 689.5 210.0 12.5 Output Total 1185 510 45 Balance -495.5 -300.0 -32.5 Weight 124.2 kg Intake: IV 356.5 210.0 12.5 Piperacillin-Tazobactam 3 62.5 50.0 12.5 .375 gm In Dextrose/Water 1 50ml.bag @ 12.5 mls/hr IVPB Q8H [facility] Rx#: [id number] Sodium Chloride 0.9% 1, 270 160 000 ml @ 20 mls/hr IV . Q24H [facility] Rx#:[id number] Sodium Chloride 0.9% 250 24 ml @ 12 MG/HR 12.24 mls/ hr IV .[id number] [facility] with Hydrocortisone Succinate 250 mg Rx#:[id number] Intake, IV Titration 333 Amount Vancomycin 1,750 mg In 167 Sodium Chloride 0.9% 250 ml @ 125 mls/hr IVPB Q16H [facility] Rx#:[id number] Vancomycin 2,000 mg In 166 Sodium Chloride 0.9% 500 ml @ 166.667 mls/hr IVPB Q24HR@0600 [facility] Rx#: [id number] Oral 0 Output: Urine 1185 510 45 Other: Voiding Method Indwelling Catheter Indwelling Catheter # Bowel Movements 1 - Exam General appearance: cooperative, no acute distress, - EENT Eyes: anicteric sclerae, EOMI, PERRLA, dentition normal, normal appearance ENT: NA/AT, normal oropharynx - Neck Neck: no lymphadenopathy, normal ROM, no other, no rigidity, no stridor, no thyromegaly - Respiratory Respiratory: bilateral: CTA, negative: diminished, dullness, rales, rhonchi - Cardiovascular Rhythm: regular Heart sounds: normal: S1, S2 Abnormal Heart Sounds: no systolic murmur, no diastolic murmur, no rub, no S3 Gallop, no S4 Gallop, no click, no other - Gastrointestinal General gastrointestinal: normal bowel sounds, soft - Integumentary Integumentary: rash (left t 6 dermatome), ulcer (right lateral metatarsal 2 cm x2 cm x1 cm approx) - Musculoskeletal Musculoskeletal: generalized weakness, strength equal bilaterally - Labs CBC & Chem 7: 09/14/16 05:30 09/14/16 05:30 Labs: Abnormal Lab Results - Last 24 Hours (Table) 09/13/16 09/13/16 09/13/16 Range/Units 12:10 12:23 17:24 RBC (3.80-5.40) m/uL Hgb (11.4-16.0) gm/dL MCV (80.0-100.0) fL RDW (11.5-15.5) % PT 22.5 H (9.0-12.0) sec Potassium (3.5-5.1) mmol/L Chloride (98-107) mmol/L BUN (7-17) mg/dL Glucose (74-99) mg/dL POC Glucose (mg/dL) 142 H 149 H (75-99) mg/dL Calcium (8.4-10.2) mg/dL Phosphorus (2.5-4.5) mg/dL 09/13/16 09/14/16 09/14/16 Range/Units 21:05 05:30 05:30 RBC 3.36 L (3.80-5.40) m/uL Hgb 10.8 L (11.4-16.0) gm/dL MCV 103.5 H (80.0-100.0) fL RDW 19.2 H (11.5-15.5) % PT (9.0-12.0) sec Potassium 3.4 L (3.5-5.1) mmol/L Chloride 109 H (98-107) mmol/L BUN 29 H (7-17) mg/dL Glucose 101 H (74-99) mg/dL POC Glucose (mg/dL) 117 H (75-99) mg/dL Calcium 7.5 L (8.4-10.2) mg/dL Phosphorus 2.2 L (2.5-4.5) mg/dL 09/14/16 Range/Units 05:30 RBC (3.80-5.40) m/uL Hgb (11.4-16.0) gm/dL MCV (80.0-100.0) fL RDW (11.5-15.5) % PT 23.4 H (9.0-12.0) sec Potassium (3.5-5.1) mmol/L Chloride (98-107) mmol/L BUN (7-17) mg/dL Glucose (74-99) mg/dL POC Glucose (mg/dL) (75-99) mg/dL Calcium (8.4-10.2) mg/dL Phosphorus (2.5-4.5) mg/dL Microbiology - Last 24 Hours (Table) 09/13/16 10:00 Gram Stain - Preliminary Sputum 09/11/16 16:50 Urine Culture - Final Urine,Catheterized Yeast species 09/11/16 11:09 Blood Culture - Preliminary Blood No Growth after 48 hours 09/11/16 10:37 Blood Culture - Preliminary Blood No Growth after 48 hours Assessment and Plan Plan: 1. Left thoracic T5-T6 herpes zoster vesicular eruptions with possible secondary bacterial infection currently on Valtrex uncontrolled pain. No patch with Percocet as needed for pain control. Zosyn, vancomycin. 2. Sepsis with fever, tachycardia and elevated lactic acid and coagulopathy possible lower lobe pneumonia or atelectasis. Dr. Marquis is on consult. Monitor I&O. Coumadin placed on hold. Fentanyl patch was removed. 3. 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 Kim and Dr. Marquis currently improving. On Zosyn and vancomycin 4. Adrenal insufficiency. Patient is status post IV hydrocortisone to be changed today to oral. Patient transferred to the intensive care unit. Consult with Dr. Burnham is appreciated. Patient is status post IV fluid boluses as well. Not currently on vasopressors. 5. Chronic venous stasis dermatitis bilateral lower extremity, there is no significant worsening of the left ankle as mentioned by the emergency room physician, patient continued to have her IV Rocephin. No diuretics are needed at this time 6. Ongoing immunosuppression using methotrexate which would be held. Should there be any flareup of her RA, this will be replaced by Plaquenil until her wounds would heal 7. Chronic atrial fibrillation on chronic anticoagulation with Coumadin, therapeutic levels will be maintained, metoprolol 50 mg twice a day, Coumadin resumed. 8. CAD currently asymptomatic, on Imdur maintenance 50 mg daily metoprolol 50 mg twice a day, aspirin 81 mg daily Lipitor 80 mg daily 9. COPD on maintenance Pulmicort 10. Hyperlipidemia on Lipitor 80 11. Hyperuricemia without any exacerbation of gout, on Zyloprim 300 mg daily 12. Diabetes mellitus type 2 on metformin 500 mg twice a day hemoglobin A1c will be obtained on NovoLog correctional scale coverage 13. DVT prophylaxis on maintenance Coumadin 14. GI prophylaxis Pepcid 20 15. Impaired balance and increasing debility splinting of thoracic area during ambulation which puts her at risk for further falls, physical therapy and the Initial therapy would be seeing her with the anticipated evaluation for skilled ECF Discharge plan: Subacute rehab at [facility] Impression and plan of care have been directed as dictated by the signing physician. Susi Raymundo nurse practitioner acting as scribe for signing physician. Time with Patient: Greater than 30
[2016-09-14 12:16] LABS: Glucose,Whole Blood 115 mg/dL (75-99)
[2016-09-14] MEDS: oxyCODONE-APAP 7.5-325MG 1 EACH TAB PO PRN ×3 (13:01→23:50)
--- NOTE | 2016-09-14 15:24 | XR ---
EXAMINATION TYPE: XR chest 1V portable DATE OF EXAM: 09/14/2016 3:18 PM HISTORY: Shortness of breath. COMPARISON: 09/13/16 TECHNIQUE: Single view of the chest is submitted. FINDINGS: Demonstrated are scattered senescent parenchymal change. There is persistent right lower lobe infiltrate PICC line is appropriately placed. The heart is stable. Hilar and mediastinal structures are within normal limits. Degenerative changes are seen of the dorsal spine. IMPRESSION: 1. There is persistent right lower lobe infiltrate PICC line is appropriately placed.
--- NOTE | 2016-09-14 16:31 | PN ---
DATE OF SERVICE: 09/14/2016 REASON FOR FOLLOW-UP: 1. Left T6 dermatome zoster. 2. Right foot osteomyelitis. 3. Possible pneumonia. INTERVAL HISTORY: The patient is afebrile. She is more awake, alert. She is breathing comfortably, hemodynamically stable without any pressure support. She complained of some chronic sputum per the R.N. No nausea, vomiting or any diarrhea. On examination, blood pressure is 123/63 with a pulse of 96, temperature 98.2%. She is 94% on 2 liters nasal cannula. General description is an elderly female lying in bed in no distress. RESPIRATORY SYSTEM: Unlabored breathing. Coarse breath sounds. No wheeze. HEART: S1, S2. Regular rate and rhythm. ABDOMEN: Soft. No tenderness. The left lower chest wall wound has been dressed by the R.N. and did mention there was some slough tissue but no drainage. LABS: Hemoglobin is 10.8, white count 9.2 with BUN of 29, creatinine 0.80. Blood culture has been negative. Urine showing yeast. Sputum cultures currently pending. DIAGNOSTIC IMPRESSION AND PLAN: 1. Patient with left T6 dermatome zoster, adequately treated now with wound and ruptured blister, to continue with Santyl and moist dressing. 2. Right foot osteomyelitis. Patient currently covered with Zosyn and vancomycin. 3. The patient with possible left lower lobe pneumonia. Continue with the Zosyn and Vanco at this point. We will await for the sputum culture to be finalized to narrow down antibiotics. Continue supportive care. MTDD
[2016-09-14 17:09] LABS: Glucose,Whole Blood 128 mg/dL (75-99)
[2016-09-14] MEDS: CALCIUM CARB-VIT D 500MG-200UN 1 EACH TAB PO SCH (17:34)
[2016-09-14] MEDS: ASPIRIN 81 MG CHEW PO SCH (17:34)
[2016-09-14] MEDS: CYANOCOBALAMIN 500 MCG TAB PO SCH (17:34)
[2016-09-14] MEDS: MELATONIN 5 MG TABLET PO SCH (20:14)
[2016-09-14] MEDS: HYDROCORTISONE 10 MG TAB PO SCH (20:14)
[2016-09-14] MEDS: ATORVASTATIN 80 MG TAB PO SCH (20:14)
[2016-09-14 20:20] LABS: Glucose,Whole Blood 107 mg/dL (75-99)
[2016-09-14] MEDS ORDERED: VANCOMYCIN TROUGH DUE 1 EACH MISC MISCELLANE ONE (23:30)
[2016-09-15] MEDS ORDERED: VANCOMYCIN 2,000 MG in SODIUM CHLORIDE 0.9% 500 ML IVPB SCH ×2
[2016-09-15] MEDS: oxyCODONE-APAP 7.5-325MG 1 EACH TAB PO PRN ×2 (04:22→17:30)
[2016-09-15] MEDS: PIPERACILLIN-TAZOBACTAM 3.375 GM in DEXTROSE/WATER 1 50ML.BAG IVPB SCH ×3 (04:23→22:32)
[2016-09-15 05:55] LABS: Anion Gap 10 mmol/L; Blood Urea Nitrogen 21 mg/dL (7-17); Calcium 7.8 mg/dL (8.4-10.2); Carbon Dioxide 23 mmol/L (22-30); Chloride 110 mmol/L (98-107); Glucose 90 mg/dL (74-99); Magnesium 1.7 mg/dL (1.6-2.3); Non-African American GFR(MDRD) >60 (>60 ml/min/1.73 sqM); Phosphorous 2.4 mg/dL (2.5-4.5); Sodium 143 mmol/L (137-145)
[2016-09-15 06:08] LABS: Prothrombin Time 19.5 sec (9.0-12.0)
[2016-09-15 07:47] LABS: Glucose,Whole Blood 83 mg/dL (75-99)
[2016-09-15 08:05] LABS: Anisocytosis Slight; CH 32.3; CHCM 30.8; HCT 36.4 % (34.0-46.0); HDW 3.65; HGB 10.9 gm/dL (11.4-16.0); Hypochromasia Marked; MCH 31.6 pg (25.0-35.0); MCHC 29.9 g/dL (31.0-37.0); MCV 105.7 fL (80.0-100.0); Macrocytosis Marked; Mean Platelet Volume 9.4; Poikilocytosis Slight; RBC 3.44 m/uL (3.80-5.40); RDW 19.5 % (11.5-15.5); WBC (Perox) 6.72
[2016-09-15] MEDS: INSULIN LISPRO (humaLOG) 300 UNIT/3 ML VIAL SQ SCH ×4 (08:53→21:41)
[2016-09-15] MEDS: LIDOCAINE 5% PATCH TOPICAL SCH (08:54)
[2016-09-15] MEDS: HYDROCORTISONE 20 MG TAB PO SCH (08:55)
[2016-09-15] MEDS: ISOSORBIDE MONONITRATE ER 15 MG TAB PO SCH (08:55)
[2016-09-15] MEDS: CHOLECALCIFEROL 1,000 UNIT TAB PO SCH (08:56)
[2016-09-15] MEDS: metFORMIN 500 MG TAB PO SCH ×2 (08:56→17:29)
[2016-09-15] MEDS: ALLOPURINOL 300 MG TAB PO SCH (08:56)
[2016-09-15] MEDS: COLLAGENASE 250 UNIT/GM OINTMENT 30 GM TUBE TOPICAL SCH (08:56)
[2016-09-15] MEDS: METOPROLOL TARTRATE 50 MG TAB PO SCH ×2 (08:57→21:41)
[2016-09-15] MEDS: NYSTATIN 100,000 UNIT/ML SUSP 500,000 UNIT/5 ML CUP PO SCH ×4 (08:57→20:45)
[2016-09-15] MEDS: FLUTICASONE 50MCG/SPRAY NASAL 16GM EA NOSTRIL SCH ×2 (08:57→20:45)
[2016-09-15] MEDS: FAMOTIDINE 20 MG TAB PO SCH (08:57)
[2016-09-15] MEDS: PREGABALIN 75 MG CAP PO SCH ×2 (08:57→20:45)
[2016-09-15] MEDS: DULoxetine HCL 60 MG CAPSULE.DR PO SCH (08:57)
[2016-09-15] MEDS: MULTIVITAMINS, THERA 1 EACH TAB PO SCH (08:58)
[2016-09-15] MEDS: SENNOSIDES-DOCUSATE SODIUM 1 EACH TAB PO SCH (08:58)
[2016-09-15] MEDS: NYSTATIN 100,000 UNIT/GM POWD 15 GM TOPICAL SCH ×3 (08:58→20:45)
[2016-09-15 09:53] VITALS: BMI 48.1
[2016-09-15 09:56] LABS: Add Differential Manual Differential
[2016-09-15 10:04] LABS: Metamyelocytes % 0.5 %; Nucleated Red Blood Cells 1 /100 WBC (0-0); Total Cells Counted 200
[2016-09-15 10:05] LABS: WBC 7.4 k/uL (3.8-10.6)
--- NOTE | 2016-09-15 10:19 | P.PN ---
Subjective Principal diagnosis: Secondary adrenal insufficiency This is a very pleasant 76-year-old female patient who was admitted here to the intensive care unit a couple of days ago after developing hypotension and altered mental status. She was found to be in the secondary adrenal insufficiency as the patient was steroid dependent in the outpatient setting. She was initially seen and evaluated by Dr. Burnham who placed the patient on IV hydrocortisone drip which has subsequently been discontinued. She is now on Cortef 20 mg in the a.m. and 10 mg in the PM. She is seen again today 09/15/2016 in follow-up. She is a selective overflow patient now. She is awake and alert in no acute distress. She denies any shortness of breath, cough or congestion. She's been hemodynamically stable. She is maintaining good O2 saturations in the upper 90s on 2 L/m per nasal cannula. Her blood cultures have been negative. Sputum culture is pending. She remains on vancomycin and Zosyn. She has dermatome zoster, right foot osteomyelitis and persistent right lower lobe infiltrate. Objective - Vital Signs Vital signs: Vital Signs Temp 98.6 F 09/15/16 08:00 Pulse 111 H 09/15/16 08:00 Resp 14 09/15/16 08:00 BP 100/59 09/15/16 08:00 Pulse Ox 95 09/15/16 08:00 Intake & Output 09/14/16 09/15/16 09/15/16 18:59 06:59 18:59 Intake Total 180.0 60 40 Output Total 355 650 200 Balance -175.0 -590 -160 Weight 127.2 kg 127.2 kg Intake: IV 180.0 60 40 Piperacillin-Tazobactam 3 100.0 .375 gm In Dextrose/Water 1 50ml.bag @ 12.5 mls/hr IVPB Q8H [facility] Rx#: [id number] Sodium Chloride 0.9% 1, 80 60 40 000 ml @ 20 mls/hr IV . Q24H [facility] Rx#:[id number] Output: Urine 355 650 200 Other: Voiding Method Indwelling Catheter Indwelling Catheter # Voids 1 - Exam GENERAL EXAM: Morbidly obese. Alert, comfortable in no apparent distress. HEAD: Normocephalic. EYES: Normal reaction of pupils, equal size. NOSE: Clear with pink turbinates. THROAT: There is crowding of the posterior pharynx. No erythema or exudates. NECK: Short. No masses, no JVD. CHEST: No chest wall deformity. LUNGS: Equal air entry with no crackles, wheeze, rhonchi or dullness. CVS: S1 and S2 normal with no audible murmur, regular rhythm. ABDOMEN: Soft, normal bowel sounds, no guarding or rigidity. SKIN: Multiple lesions being treated. Extremities: There is 1-2+ lower extremity peripheral edema. Changes of chronic venous stasis. Peripheral pulses are intact. - Labs CBC & Chem 7: 09/15/16 05:00 09/15/16 05:00 Labs: Abnormal Lab Results - Last 24 Hours (Table) 09/14/16 09/14/16 09/14/16 Range/Units 12:14 17:05 20:18 RBC (3.80-5.40) m/uL Hgb (11.4-16.0) gm/dL MCV (80.0-100.0) fL MCHC (31.0-37.0) g/dL RDW (11.5-15.5) % PT (9.0-12.0) sec Chloride (98-107) mmol/L BUN (7-17) mg/dL POC Glucose (mg/dL) 115 H 128 H 107 H (75-99) mg/dL Calcium (8.4-10.2) mg/dL Phosphorus (2.5-4.5) mg/dL 09/15/16 09/15/16 09/15/16 Range/Units 05:00 05:00 05:00 RBC 3.44 L (3.80-5.40) m/uL Hgb 10.9 L (11.4-16.0) gm/dL MCV 105.7 H (80.0-100.0) fL MCHC 29.9 L (31.0-37.0) g/dL RDW 19.5 H (11.5-15.5) % PT 19.5 H (9.0-12.0) sec Chloride 110 H (98-107) mmol/L BUN 21 H (7-17) mg/dL POC Glucose (mg/dL) (75-99) mg/dL Calcium 7.8 L (8.4-10.2) mg/dL Phosphorus 2.4 L (2.5-4.5) mg/dL Microbiology - Last 24 Hours (Table) 09/11/16 16:50 Urine Culture - Final Urine,Catheterized Yeast species 09/11/16 11:09 Blood Culture - Preliminary Blood No Growth after 72 hours 09/11/16 10:37 Blood Culture - Preliminary Blood No Growth after 72 hours Assessment and Plan Plan: Impression: #1 Acute secondary adrenal insufficiency, recovered. Currently on Cortef 20 mg in the a.m. 10 mg in the PM. #2 Acute shingles. #3 Rheumatoid arthritis. #4 Atrial fibrillation, anticoagulated with warfarin, therapeutic. #5 Right foot osteomyelitis. #6 Right lower lobe pneumonia. Plan: The patient was seen and evaluated by Dr. Burnham. She is stable from the pulmonary standpoint and can be transferred out of the intensive care unit to the medical unit today. We'll continue with her current medications including the Cortef. She remains on antibiotics in the form of vancomycin and Zosyn. We 'll increase her activity as tolerated. We'll continue to follow and make further recommendations based on her clinical status.
[2016-09-15 10:23] LABS: Crenated RBC Present; Polychromasia Present
[2016-09-15 12:32] LABS: Glucose,Whole Blood 100 mg/dL (75-99)
--- NOTE | 2016-09-15 14:42 | P.PN ---
Subjective This is a pleasant 76-year-old lady patient of Dr. Marquis and Dr. Arce. She has underlying history off from at the COPD hyperlipidemia vascular disorder and obstructive sleep apnea neuralgia atrial fibrillation, chronic COPD diabetes mellitus type 2, chronic immunosuppression CHF admitted through the emergency room secondary to left thoracic pain. She was diagnosed recently to have T6 dermatome herpes zoster this past Sunday 3 days prior to admission for which valacyclovir was given by Dr. Marquis. Patient had left flank pain was subsequently seen in the emergency room secondary to the pain. Patient denies any fever however she has some chills. Patient has hydrocodone which doesn't seem to take care of the pain she was seen in emergency room with evaluation to include noticeable left vesicular eruption involving the T6 area, redness in the left leg, known history off chronic venous stasis dermatitis. Known also on the right metatarsal region lateral region from a previous biopsy for osteotomyelitis by Dr. Kim. She is currently on IV Rocephin prior to her admission as recommended by Dr. Marquis. 09/04: Patient has been seen in consultation by Dr. Rojo from infectious disease covering for Dr. Marquis. He has recommended continuing Rocephin, silver dressing for the ulceration of the foot, check protein status and supplement, multivitamin added. Sed rate 24, C-reactive protein 27.2, hemoglobin A1c 6.7 TSH 2.570. Albumin is 3.3. INR 3.4. Chest x-ray is pending a Chin is requesting something for her nasal congestion and Flonase added. She continues to have issues with pain for which Percocet is scheduled plus as needed. 09/05: Patient continues to be very fatigued. She is on CPAP from home. Vesicles are drying up. Dr. Marquis has changed her antibiotics to Ceftaroline. Anticipate possible discharge to [facility] tomorrow. INR is 2.9. Patient will be resumed back on Coumadin home dosing. 09/06: Pain control continues to be an issue the patient is more groggy today. Percocet changed to fentanyl patch. Anticipate possible discharge to [facility] tomorrow. 09/07: Patient became hypotensive with temperature of 100.4 last evening had lactic acid 3.5 and patient was transferred to [facility] care and placed on CPAP. She received fluid bolus of 500 mL. She was also tachycardic and pulse ox running 91-95%. Blood culture obtained. Urine and urine culture ordered. White count is 12, INR 3.5. Repeat lactic acid is 1.5. Patient is not ready for discharge today. Fentanyl patch was removed last evening. Patient does not seem to complain and pain while resting. 09/08: De La Paz catheter was placed yesterday his family was concerned that she had no urine output. Urine output has been 40 mL for the past 12 hours. Temperature max 100.0. Dr. Marquis has recommended continuing Ceftaroline. WBC is 9.6. Potassium 3.3 will be replaced. INR is 3.2. Coumadin remains on hold. Repeat chest x-ray shows persistent right lower lobe density which may reflect atelectasis or infiltrate. 09/11: Patient's blood pressure was low and tachycardic with fever this morning. Noted the patient has not been resumed on her chronic prednisone and Solu- Cortef has been ordered. Patient transferred to ICU. Patient's family is contemplating transferring the patient to other facility but at this time, patient remains in intensive care unit as she seems to be improving. She has been seen by Dr. Burnham. She is status post IV Tylenol, IV fluid bolus with improvement. IV hydrocortisone drip started. IV antibiotics changed to Zosyn and vancomycin by Dr. Marquis. 09/12: Patient is much more awake and alert today. She remains in the intensive care unit. Hydrocortisone drip and IV Lasix ordered. Family continue to contemplate [facility] but at this point have decided to keep the patient and Meggan Martino per patient's wishes. 09/13: Patient is continued on IV cortisone and to switch over to oral. Repeat chest x-ray shows increasing basilar infiltrates and small right-sided effusion. Patient to stay in ICU for another day. Repeat urine culture from September 11 is finalized with no growth. All blood cultures have been negative. 09/14:Patient states she is feeling much better today. SHe still has some shortness of breath. Shingles pain is better. Patient will be [facility]. INR 2.4. Patient was resumed back on coumadin last night. 09/15: Patient remains in the intensive care unit waiting [facility]. Dr. Burnham has downgraded her to [facility]. She is awake and alert and denies any shortness of breath or cough. She has remained hemodynamically stable. PT to start working with the patient with anticipation she'll be ready for discharge to [facility] of next week. Objective - Vital Signs Vital signs: Vital Signs Temp 98.6 F 09/15/16 08:00 Pulse 111 H 09/15/16 08:00 Resp 14 09/15/16 08:00 BP 100/59 09/15/16 08:00 Pulse Ox 95 09/15/16 08:00 Intake & Output 09/14/16 09/15/16 09/15/16 18:59 06:59 18:59 Intake Total 180.0 60 40 Output Total 355 650 200 Balance -175.0 -590 -160 Weight 127.2 kg 127.2 kg Intake: IV 180.0 60 40 Piperacillin-Tazobactam 3 100.0 .375 gm In Dextrose/Water 1 50ml.bag @ 12.5 mls/hr IVPB Q8H LUIS Rx#: [id number] Sodium Chloride 0.9% 1, 80 60 40 000 ml @ 20 mls/hr IV . Q24H LUIS Rx#:[id number] Output: Urine 355 650 200 Other: Voiding Method Indwelling Catheter Indwelling Catheter Indwelling Catheter # Voids 1 - Exam General appearance: cooperative, no acute distress, - EENT Eyes: anicteric sclerae, EOMI, PERRLA, dentition normal, normal appearance ENT: NA/AT, normal oropharynx - Neck Neck: no lymphadenopathy, normal ROM, no other, no rigidity, no stridor, no thyromegaly - Respiratory Respiratory: bilateral: CTA, negative: diminished, dullness, rales, rhonchi - Cardiovascular Rhythm: regular Heart sounds: normal: S1, S2 Abnormal Heart Sounds: no systolic murmur, no diastolic murmur, no rub, no S3 Gallop, no S4 Gallop, no click, no other - Gastrointestinal General gastrointestinal: normal bowel sounds, soft - Integumentary Integumentary: rash (left t 6 dermatome), ulcer (right lateral metatarsal 2 cm x2 cm x1 cm approx) - Musculoskeletal Musculoskeletal: generalized weakness, strength equal bilaterally - Labs CBC & Chem 7: 09/15/16 05:00 09/15/16 05:00 Labs: Abnormal Lab Results - Last 24 Hours (Table) 09/14/16 09/14/16 09/14/16 Range/Units 12:14 17:05 20:18 RBC (3.80-5.40) m/uL Hgb (11.4-16.0) gm/dL MCV (80.0-100.0) fL MCHC (31.0-37.0) g/dL RDW (11.5-15.5) % Nucleated RBCs (0-0) /100 WBC PT (9.0-12.0) sec Chloride (98-107) mmol/L BUN (7-17) mg/dL POC Glucose (mg/dL) 115 H 128 H 107 H (75-99) mg/dL Calcium (8.4-10.2) mg/dL Phosphorus (2.5-4.5) mg/dL 09/15/16 09/15/16 09/15/16 Range/Units 05:00 05:00 05:00 RBC 3.44 L (3.80-5.40) m/uL Hgb 10.9 L (11.4-16.0) gm/dL MCV 105.7 H (80.0-100.0) fL MCHC 29.9 L (31.0-37.0) g/dL RDW 19.5 H (11.5-15.5) % Nucleated RBCs 1 H (0-0) /100 WBC PT 19.5 H (9.0-12.0) sec Chloride 110 H (98-107) mmol/L BUN 21 H (7-17) mg/dL POC Glucose (mg/dL) (75-99) mg/dL Calcium 7.8 L (8.4-10.2) mg/dL Phosphorus 2.4 L (2.5-4.5) mg/dL Microbiology - Last 24 Hours (Table) 09/13/16 10:00 Gram Stain - Final Sputum Sputum Culture - Final 09/11/16 16:50 Urine Culture - Final Urine,Catheterized Yeast species 09/11/16 11:09 Blood Culture - Preliminary Blood No Growth after 72 hours 09/11/16 10:37 Blood Culture - Preliminary Blood No Growth after 72 hours Assessment and Plan Plan: 1. Left thoracic T5-T6 herpes zoster vesicular eruptions with possible secondary bacterial infection currently on Valtrex uncontrolled pain. No patch with Percocet as needed for pain control. Zosyn, vancomycin. 2. Sepsis with fever, tachycardia and elevated lactic acid and coagulopathy possible lower lobe pneumonia or atelectasis, possible gram-negative pneumonia. Dr. Marquis is on consult. Monitor I&O. Coumadin resumed. 3. 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 Kim and Dr. Marquis currently improving. On Zosyn and vancomycin 4. Adrenal insufficiency. Patient is status post IV hydrocortisone to be changed today to oral. Patient transferred to the intensive care unit. Consult with Dr. Burnham is appreciated. Patient is status post IV fluid boluses as well. Not currently on vasopressors. 5. Chronic venous stasis dermatitis bilateral lower extremity, there is no significant worsening of the left ankle as mentioned by the emergency room physician, patient continued to have her IV Rocephin. No diuretics are needed at this time 6. Ongoing immunosuppression using methotrexate which would be held. Should there be any flareup of her RA, this will be replaced by Plaquenil until her wounds would heal 7. Chronic atrial fibrillation on chronic anticoagulation with Coumadin, therapeutic levels will be maintained, metoprolol 50 mg twice a day, Coumadin resumed. 8. CAD currently asymptomatic, on Imdur maintenance 50 mg daily metoprolol 50 mg twice a day, aspirin 81 mg daily Lipitor 80 mg daily 9. COPD on maintenance Pulmicort 10. Hyperlipidemia on Lipitor 80 11. Hyperuricemia without any exacerbation of gout, on Zyloprim 300 mg daily 12. Diabetes mellitus type 2 on metformin 500 mg twice a day hemoglobin A1c will be obtained on [facility] correctional scale coverage 13. DVT prophylaxis on maintenance Coumadin 14. GI prophylaxis Pepcid 20 15. Impaired balance and increasing debility splinting of thoracic area during ambulation which puts her at risk for further falls, physical therapy and the Initial therapy would be seeing her with the anticipated evaluation for skilled ECF Discharge plan: Subacute rehab at [facility] Impression and plan of care have been directed as dictated by the signing physician. Susi Raymundo nurse practitioner acting as scribe for signing physician. Time with Patient: Greater than 30
[2016-09-15] MEDS: WARFARIN 2.5 MG TAB PO SCH ×3 (15:56→18:16)
[2016-09-15] MEDS: SODIUM CHLORIDE 0.9% 250 ML with HYDROCORTISONE SUCCINATE 250 MG IV SCH ×2 (16:04)
[2016-09-15] MEDS: ASPIRIN 81 MG CHEW PO SCH (17:31)
[2016-09-15] MEDS: CALCIUM CARB-VIT D 500MG-200UN 1 EACH TAB PO SCH (17:31)
[2016-09-15 17:37] LABS: Glucose,Whole Blood 101 mg/dL (75-99)
--- NOTE | 2016-09-15 18:01 | PN ---
DATE OF SERVICE: 09/15/2016 REASON FOR FOLLOW-UP: 1. Left T6 dermatome zoster with wound under the breast. 2. Right foot osteomyelitis. 3. Possible pneumonia. INTERVAL HISTORY: The patient is afebrile. She has been transferred out of unit. She is currently breathing comfortably. She did have a cough productive of sputum. Denies any chest pain. No abdominal pain or any diarrhea. On examination, blood pressure is 106/74 with a pulse of 97, temperature 98.9. She is 100% on 2-L nasal cannula. General description is an elderly female, lying in bed in no distress. RESPIRATORY SYSTEM: Unlabored breathing. Some decreased breath sounds at the bases. No wheeze. Examination of the left lower chest wall wound with less slough tissue. No surrounding erythema. ABDOMEN: Soft. No tenderness. EXTREMITIES: No edema feet. The right lateral foot wound is dried out, and no surrounding redness. LABS: Hemoglobin is 10.9, white count 7.4 with a BUN of 21, creatinine 0.70. DIAGNOSTIC IMPRESSION AND PLAN: 1. Patient with left lower chest wall wound from ruptured blister with the patient's recent herpes zoster. Continue local wound care with Santyl. 2. Right foot osteomyelitis wound has dried out. Keep the area dry and continue with the current antibiotic. Will be switched to Rocephin at the time of discharge. 3. Patient with possible left lower lobe pneumonia. Sputum is negative for any resistant pathogen. Currently Vanco and Zosyn will be continued over the weekend. Continue supportive care. Family present at beside. Their questions were answered.
[2016-09-15] MEDS: VANCOMYCIN 1,500 MG in SODIUM CHLORIDE 0.9% 250 ML IVPB SCH (18:17)
[2016-09-15 20:36] LABS: Glucose,Whole Blood 100 mg/dL (75-99)
[2016-09-15] MEDS: ATORVASTATIN 80 MG TAB PO SCH (20:44)
[2016-09-15] MEDS: HYDROCORTISONE 10 MG TAB PO SCH (20:45)
[2016-09-15] MEDS: MELATONIN 5 MG TABLET PO SCH (20:45)
[2016-09-15] MEDS: SODIUM CHLORIDE 0.9% 1,000 ML IV SCH (21:42)
[2016-09-16] MEDS: oxyCODONE-APAP 7.5-325MG 1 EACH TAB PO PRN ×2 (01:32→08:50)
[2016-09-16] MEDS: PIPERACILLIN-TAZOBACTAM 3.375 GM in DEXTROSE/WATER 1 50ML.BAG IVPB SCH ×3 (04:48→23:29)
[2016-09-16 07:44] LABS: Glucose,Whole Blood 89 mg/dL (75-99)
[2016-09-16] MEDS: ALBUTEROL NEBULIZED 2.5 MG/3 ML INHALATION PRN ×2 (08:12→19:45)
[2016-09-16] MEDS: INSULIN LISPRO (humaLOG) 300 UNIT/3 ML VIAL SQ SCH ×4 (08:45→20:30)
[2016-09-16] MEDS: PREGABALIN 75 MG CAP PO SCH ×2 (08:53→20:19)
[2016-09-16] MEDS: NYSTATIN 100,000 UNIT/ML SUSP 500,000 UNIT/5 ML CUP PO SCH ×4 (08:53→20:20)
[2016-09-16] MEDS: metFORMIN 500 MG TAB PO SCH ×2 (08:53→16:36)
[2016-09-16] MEDS: CHOLECALCIFEROL 1,000 UNIT TAB PO SCH (08:54)
[2016-09-16] MEDS: ALLOPURINOL 300 MG TAB PO SCH (08:54)
[2016-09-16] MEDS: DULoxetine HCL 60 MG CAPSULE.DR PO SCH (08:54)
[2016-09-16] MEDS: METOPROLOL TARTRATE 25 MG TAB PO SCH ×2 (08:58→20:19)
[2016-09-16] MEDS: NYSTATIN 100,000 UNIT/GM POWD 15 GM TOPICAL SCH ×3 (08:59→20:20)
[2016-09-16] MEDS: COLLAGENASE 250 UNIT/GM OINTMENT 30 GM TUBE TOPICAL SCH (08:59)
--- NOTE | 2016-09-16 09:08 | P.PN ---
Subjective This is a pleasant 76-year-old lady patient of Dr. Marquis and Dr. Arce. She has underlying history off from at the COPD hyperlipidemia vascular disorder and obstructive sleep apnea neuralgia atrial fibrillation, chronic COPD diabetes mellitus type 2, chronic immunosuppression CHF admitted through the emergency room secondary to left thoracic pain. She was diagnosed recently to have T6 dermatome herpes zoster this past Sunday 3 days prior to admission for which valacyclovir was given by Dr. Marquis. Patient had left flank pain was subsequently seen in the emergency room secondary to the pain. Patient denies any fever however she has some chills. Patient has hydrocodone which doesn't seem to take care of the pain she was seen in emergency room with evaluation to include noticeable left vesicular eruption involving the T6 area, redness in the left leg, known history off chronic venous stasis dermatitis. Known also on the right metatarsal region lateral region from a previous biopsy for osteotomyelitis by Dr. Kim. She is currently on IV Rocephin prior to her admission as recommended by Dr. Marquis. 09/04: Patient has been seen in consultation by Dr. Rojo from infectious disease covering for Dr. Marquis. He has recommended continuing Rocephin, silver dressing for the ulceration of the foot, check protein status and supplement, multivitamin added. Sed rate 24, C-reactive protein 27.2, hemoglobin A1c 6.7 TSH 2.570. Albumin is 3.3. INR 3.4. Chest x-ray is pending a Chin is requesting something for her nasal congestion and Flonase added. She continues to have issues with pain for which Percocet is scheduled plus as needed. 09/05: Patient continues to be very fatigued. She is on CPAP from home. Vesicles are drying up. Dr. Marquis has changed her antibiotics to Ceftaroline. Anticipate possible discharge to [facility] tomorrow. INR is 2.9. Patient will be resumed back on Coumadin home dosing. 09/06: Pain control continues to be an issue the patient is more groggy today. Percocet changed to fentanyl patch. Anticipate possible discharge to [facility] tomorrow. 09/07: Patient became hypotensive with temperature of 100.4 last evening had lactic acid 3.5 and patient was transferred to [facility] care and placed on CPAP. She received fluid bolus of 500 mL. She was also tachycardic and pulse ox running 91-95%. Blood culture obtained. Urine and urine culture ordered. White count is 12, INR 3.5. Repeat lactic acid is 1.5. Patient is not ready for discharge today. Fentanyl patch was removed last evening. Patient does not seem to complain and pain while resting. 09/08: De La Paz catheter was placed yesterday his family was concerned that she had no urine output. Urine output has been 40 mL for the past 12 hours. Temperature max 100.0. Dr. Marquis has recommended continuing Ceftaroline. WBC is 9.6. Potassium 3.3 will be replaced. INR is 3.2. Coumadin remains on hold. Repeat chest x-ray shows persistent right lower lobe density which may reflect atelectasis or infiltrate. 09/11: Patient's blood pressure was low and tachycardic with fever this morning. Noted the patient has not been resumed on her chronic prednisone and Solu- Cortef has been ordered. Patient transferred to ICU. Patient's family is contemplating transferring the patient to other facility but at this time, patient remains in intensive care unit as she seems to be improving. She has been seen by Dr. Burnham. She is status post IV Tylenol, IV fluid bolus with improvement. IV hydrocortisone drip started. IV antibiotics changed to Zosyn and vancomycin by Dr. Marquis. 09/12: Patient is much more awake and alert today. She remains in the intensive care unit. Hydrocortisone drip and IV Lasix ordered. Family continue to contemplate [facility] but at this point have decided to keep the patient and Megagn Martino per patient's wishes. 09/13: Patient is continued on IV cortisone and to switch over to oral. Repeat chest x-ray shows increasing basilar infiltrates and small right-sided effusion. Patient to stay in ICU for another day. Repeat urine culture from September 11 is finalized with no growth. All blood cultures have been negative. 09/14:Patient states she is feeling much better today. SHe still has some shortness of breath. Shingles pain is better. Patient will [facility]. INR 2.4. Patient was resumed back on coumadin last night. 09/15: Patient remains in the intensive care unit waiting for [facility] bed. Dr. Burnham has downgraded her to [facility]. She is awake and alert and denies any shortness of breath or cough. She has remained hemodynamically stable. PT to start working with the patient with anticipation she'll be ready for discharge to [facility] of next week. 09/16: Patient is now on the [facility] floor. Her heart rate was elevated this morning for which metoprolol was increased to 75 mg twice daily. Patient denies any new complaints. She continues to feel improvement in her overall status. She does need help with meals. She was able to work with physical therapy yesterday and was sitting at the edge of the bed for 5 minutes. Objective - Vital Signs Vital signs: Vital Signs Temp 97 F L 09/15/16 22:30 Pulse 108 H 09/15/16 22:30 Resp 20 09/15/16 22:30 BP 108/70 09/15/16 22:30 Pulse Ox 96 09/15/16 22:30 Intake & Output 09/15/16 09/16/16 09/16/16 18:59 06:59 18:59 Intake Total 60 160 Output Total 401 1400 Balance -341 -1240 Weight 127.2 kg Intake: IV 60 160 Sodium Chloride 0.9% 1, 60 160 000 ml @ 20 mls/hr IV . Q24H LUIS Rx#:[id number] Oral 0 Output: Urine 400 1400 Stool 1 Other: Voiding Method Indwelling Catheter # Voids 1 - Exam General appearance: cooperative, no acute distress, - EENT Eyes: anicteric sclerae, EOMI, PERRLA, dentition normal, normal appearance ENT: NA/AT, normal oropharynx - Neck Neck: no lymphadenopathy, normal ROM, no other, no rigidity, no stridor, no thyromegaly - Respiratory Respiratory: bilateral: CTA, negative: diminished, dullness, rales, rhonchi - Cardiovascular Rhythm: regular Heart sounds: normal: S1, S2 Abnormal Heart Sounds: no systolic murmur, no diastolic murmur, no rub, no S3 Gallop, no S4 Gallop, no click, no other - Gastrointestinal General gastrointestinal: normal bowel sounds, soft - Integumentary Integumentary: rash (left t 6 dermatome), ulcer (right lateral metatarsal 2 cm x2 cm x1 cm approx) - Musculoskeletal Musculoskeletal: generalized weakness, strength equal bilaterally - Labs CBC & Chem 7: 09/15/16 05:00 09/15/16 05:00 Labs: Abnormal Lab Results - Last 24 Hours (Table) 09/15/16 09/15/16 09/15/16 Range/Units 05:00 12:30 17:35 RBC 3.44 L (3.80-5.40) m/uL Hgb 10.9 L (11.4-16.0) gm/dL MCV 105.7 H (80.0-100.0) fL MCHC 29.9 L (31.0-37.0) g/dL RDW 19.5 H (11.5-15.5) % Nucleated RBCs 1 H (0-0) /100 WBC POC Glucose (mg/dL) 100 H 101 H (75-99) mg/dL 09/15/16 Range/Units 20:34 RBC (3.80-5.40) m/uL Hgb (11.4-16.0) gm/dL MCV (80.0-100.0) fL MCHC (31.0-37.0) g/dL RDW (11.5-15.5) % Nucleated RBCs (0-0) /100 WBC POC Glucose (mg/dL) 100 H (75-99) mg/dL Microbiology - Last 24 Hours (Table) 09/11/16 11:09 Blood Culture - Preliminary Blood No Growth after 96 hours 09/11/16 10:37 Blood Culture - Preliminary Blood No Growth after 96 hours 09/13/16 10:00 Gram Stain - Final Sputum Sputum Culture - Final Assessment and Plan Plan: 1. Left thoracic T5-T6 herpes zoster vesicular eruptions with possible secondary bacterial infection currently on Valtrex uncontrolled pain. No patch with Percocet as needed for pain control. Zosyn, vancomycin. 2. Sepsis with fever, tachycardia and elevated lactic acid and coagulopathy possible lower lobe pneumonia or atelectasis, possible gram-negative pneumonia. Dr. Marquis is on consult. Monitor I&O. Coumadin resumed. 3. 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 Kim and Dr. Marquis currently improving. On Zosyn and vancomycin 4. Adrenal insufficiency. Patient is status post IV hydrocortisone to be changed today to oral. Patient transferred to the intensive care unit. Consult with Dr. Burnham is appreciated. Patient is status post IV fluid boluses as well. Not currently on vasopressors. 5. Chronic venous stasis dermatitis bilateral lower extremity, there is no significant worsening of the left ankle as mentioned by the emergency room physician, patient continued to have her IV Rocephin. No diuretics are needed at this time 6. Ongoing immunosuppression using methotrexate which would be held. Should there be any flareup of her RA, this will be replaced by Plaquenil until her wounds would heal 7. Chronic atrial fibrillation on chronic anticoagulation with Coumadin, therapeutic levels will be maintained, metoprolol 50 mg twice a day, Coumadin resumed. 8. CAD currently asymptomatic, on Imdur maintenance 50 mg daily metoprolol 50 mg twice a day, aspirin 81 mg daily Lipitor 80 mg daily 9. COPD on maintenance Pulmicort 10. Hyperlipidemia on Lipitor 80 11. Hyperuricemia without any exacerbation of gout, on Zyloprim 300 mg daily 12. Diabetes mellitus type 2 on metformin 500 mg twice a day hemoglobin A1c will be obtained on [employer] correctional scale coverage 13. DVT prophylaxis on maintenance Coumadin 14. GI prophylaxis Pepcid 20 15. Impaired balance and increasing debility splinting of thoracic area during ambulation which puts her at risk for further falls, physical therapy and the Initial therapy would be seeing her with the anticipated evaluation for skilled ECF Discharge plan: Subacute rehab at [facility] Impression and plan of care have been directed as dictated by the signing physician. Susi Raymundo nurse practitioner acting as scribe for signing physician. Time with Patient: Greater than 30
[2016-09-16] MEDS: FAMOTIDINE 20 MG TAB PO SCH (10:22)
[2016-09-16] MEDS: FLUTICASONE 50MCG/SPRAY NASAL 16GM EA NOSTRIL SCH ×2 (10:22→20:19)
[2016-09-16] MEDS: LIDOCAINE 5% PATCH TOPICAL SCH (10:23)
[2016-09-16] MEDS: ISOSORBIDE MONONITRATE ER 15 MG TAB PO SCH (10:23)
[2016-09-16] MEDS: SENNOSIDES-DOCUSATE SODIUM 1 EACH TAB PO SCH (10:36)
[2016-09-16 11:40] LABS: Glucose,Whole Blood 90 mg/dL (75-99)
[2016-09-16] MEDS: MULTIVITAMINS, THERA 1 EACH TAB PO SCH (12:58)
[2016-09-16] MEDS: HYDROCORTISONE 20 MG TAB PO SCH (12:58)
[2016-09-16] MEDS: VANCOMYCIN 1,500 MG in SODIUM CHLORIDE 0.9% 250 ML IVPB SCH (13:06)
[2016-09-16] MEDS: CYANOCOBALAMIN 500 MCG TAB PO SCH (16:36)
[2016-09-16] MEDS: ASPIRIN 81 MG CHEW PO SCH (16:36)
[2016-09-16 16:37] LABS: Glucose,Whole Blood 105 mg/dL (75-99)
[2016-09-16] MEDS: WARFARIN 5 MG TAB PO SCH (16:38)
[2016-09-16] MEDS: CALCIUM CARB-VIT D 500MG-200UN 1 EACH TAB PO SCH (16:38)
[2016-09-16] MEDS: ATORVASTATIN 80 MG TAB PO SCH (20:19)
[2016-09-16] MEDS: HYDROCORTISONE 10 MG TAB PO SCH (20:19)
[2016-09-16] MEDS: MELATONIN 5 MG TABLET PO SCH (20:20)
[2016-09-16] MEDS: SODIUM CHLORIDE 0.9% 1,000 ML IV SCH (20:21)
[2016-09-16 20:27] LABS: INR 2.1 (<1.1); Prothrombin Time 20.2 sec (9.0-12.0)
[2016-09-16 20:29] LABS: Anion Gap 9 mmol/L; Blood Urea Nitrogen 15 mg/dL (7-17); Calcium 8.6 mg/dL (8.4-10.2); Carbon Dioxide 25 mmol/L (22-30); Chloride 109 mmol/L (98-107); Glucose 117 mg/dL (74-99); Magnesium 1.4 mg/dL (1.6-2.3); Non-African American GFR(MDRD) >60 (>60 ml/min/1.73 sqM); Phosphorous 3.3 mg/dL (2.5-4.5); Potassium 4.3 mmol/L (3.5-5.1); Sodium 143 mmol/L (137-145)
[2016-09-16 20:37] LABS: Anisocytosis Slight; CH 32.1; CHCM 30.7; HCT 35.2 % (34.0-46.0); HDW 3.76; HGB 10.5 gm/dL (11.4-16.0); Hypochromasia Marked; MCH 31.6 pg (25.0-35.0); MCV 105.4 fL (80.0-100.0); Macrocytosis Marked; Mean Platelet Volume 7.2; Poikilocytosis Slight; RBC 3.33 m/uL (3.80-5.40); RDW 19.5 % (11.5-15.5); WBC (Perox) 10.11
[2016-09-16 20:41] LABS: Glucose,Whole Blood 113 mg/dL (75-99)
[2016-09-16 21:01] LABS: Add Differential Manual Differential
[2016-09-16 21:05] LABS: Metamyelocytes % 0.5 %; Nucleated Red Blood Cells 2 /100 WBC (0-0); Total Cells Counted 200
[2016-09-16 21:06] LABS: Manual Review Performed; Ovalocytes Present; Polychromasia Present; WBC 10.1 k/uL (3.8-10.6)
[2016-09-17] MEDS: VANCOMYCIN 1,500 MG in SODIUM CHLORIDE 0.9% 250 ML IVPB SCH ×3 (03:08→09:51)
[2016-09-17] MEDS: PIPERACILLIN-TAZOBACTAM 3.375 GM in DEXTROSE/WATER 1 50ML.BAG IVPB SCH ×3 (05:17→20:20)
[2016-09-17] MEDS: oxyCODONE-APAP 7.5-325MG 1 EACH TAB PO PRN ×3 (05:43→19:55)
[2016-09-17 07:39] LABS: Glucose,Whole Blood 89 mg/dL (75-99)
[2016-09-17] MEDS: INSULIN LISPRO (humaLOG) 300 UNIT/3 ML VIAL SQ SCH ×4 (07:42→20:21)
[2016-09-17 07:44] LABS: Anisocytosis Slight; CH 32.4; CHCM 30.8; HCT 35.6 % (34.0-46.0); HDW 3.75; HGB 10.8 gm/dL (11.4-16.0); Hypochromasia Marked; MCH 32.2 pg (25.0-35.0); MCHC 30.4 g/dL (31.0-37.0); MCV 105.8 fL (80.0-100.0); Macrocytosis Marked; Mean Platelet Volume 7.2; Poikilocytosis Slight; RBC 3.36 m/uL (3.80-5.40); RDW 19.8 % (11.5-15.5); WBC (Perox) 10.04
[2016-09-17] MEDS: NYSTATIN 100,000 UNIT/ML SUSP 500,000 UNIT/5 ML CUP PO SCH ×4 (07:45→20:22)
[2016-09-17] MEDS: FLUTICASONE 50MCG/SPRAY NASAL 16GM EA NOSTRIL SCH ×2 (07:45→20:21)
[2016-09-17] MEDS: CHOLECALCIFEROL 1,000 UNIT TAB PO SCH (07:46)
[2016-09-17] MEDS: METOPROLOL TARTRATE 25 MG TAB PO SCH ×2 (07:46→20:22)
[2016-09-17] MEDS: ISOSORBIDE MONONITRATE ER 15 MG TAB PO SCH (07:46)
[2016-09-17] MEDS: HYDROCORTISONE 20 MG TAB PO SCH (07:46)
[2016-09-17] MEDS: PREGABALIN 75 MG CAP PO SCH ×2 (07:46→20:22)
[2016-09-17] MEDS: DULoxetine HCL 60 MG CAPSULE.DR PO SCH (07:47)
[2016-09-17] MEDS: metFORMIN 500 MG TAB PO SCH ×2 (07:47→17:06)
[2016-09-17] MEDS: ALLOPURINOL 300 MG TAB PO SCH (07:48)
[2016-09-17] MEDS: LIDOCAINE 5% PATCH TOPICAL SCH (07:48)
[2016-09-17] MEDS: FAMOTIDINE 20 MG TAB PO SCH (07:48)
[2016-09-17] MEDS: COLLAGENASE 250 UNIT/GM OINTMENT 30 GM TUBE TOPICAL SCH (07:49)
[2016-09-17] MEDS: SENNOSIDES-DOCUSATE SODIUM 1 EACH TAB PO SCH (07:49)
[2016-09-17] MEDS: NYSTATIN 100,000 UNIT/GM POWD 15 GM TOPICAL SCH ×3 (07:49→20:23)
[2016-09-17 08:00] LABS: INR 2.5 (<1.1)
[2016-09-17 08:02] LABS: Anion Gap 7 mmol/L; Blood Urea Nitrogen 14 mg/dL (7-17); Calcium 8.7 mg/dL (8.4-10.2); Carbon Dioxide 26 mmol/L (22-30); Chloride 110 mmol/L (98-107); Glucose 88 mg/dL (74-99); Non-African American GFR(MDRD) >60 (>60 ml/min/1.73 sqM); Potassium 4.1 mmol/L (3.5-5.1); Sodium 143 mmol/L (137-145)
[2016-09-17] MEDS: ALBUTEROL NEBULIZED 2.5 MG/3 ML INHALATION PRN (09:16)
[2016-09-17 10:34] LABS: Add Differential Manual Differential
[2016-09-17 10:37] LABS: Nucleated Red Blood Cells 1 /100 WBC (0-0); Total Cells Counted 200; WBC 9.8 k/uL (3.8-10.6)
[2016-09-17 12:26] LABS: Glucose,Whole Blood 101 mg/dL (75-99)
[2016-09-17] MEDS ORDERED: FUROSEMIDE 10 MG/ML 4 ML VIAL IV STA (12:32)
[2016-09-17] MEDS: MULTIVITAMINS, THERA 1 EACH TAB PO SCH (13:08)
[2016-09-17] MEDS ORDERED: ALPRAZolam 0.25 MG TAB PO PRN (16:14)
[2016-09-17 16:59] LABS: Glucose,Whole Blood 117 mg/dL (75-99)
[2016-09-17] MEDS: ASPIRIN 81 MG CHEW PO SCH (17:05)
[2016-09-17] MEDS: CALCIUM CARB-VIT D 500MG-200UN 1 EACH TAB PO SCH (17:06)
[2016-09-17] MEDS: CYANOCOBALAMIN 500 MCG TAB PO SCH (17:06)
[2016-09-17] MEDS: WARFARIN 5 MG TAB PO SCH (17:07)
[2016-09-17] MEDS: ATORVASTATIN 80 MG TAB PO SCH (20:21)
[2016-09-17] MEDS: HYDROCORTISONE 10 MG TAB PO SCH (20:21)
[2016-09-17] MEDS: MELATONIN 5 MG TABLET PO SCH (20:22)
[2016-09-17 20:37] LABS: Glucose,Whole Blood 132 mg/dL (75-99)
--- NOTE | 2016-09-17 23:39 | P.PN ---
Subjective Principal diagnosis: Sepsis, left thoracic T5-T6 herpes zoster vesicular eruption and secondary infection, adrenal crisis, immunosuppressive status, A. fib, COPD, type 2 diabetes This is a pleasant 76-year-old lady patient of Dr. Marquis and Dr. Arce. She has underlying history off from at the COPD hyperlipidemia vascular disorder and obstructive sleep apnea neuralgia atrial fibrillation, chronic COPD diabetes mellitus type 2, chronic immunosuppression CHF admitted through the emergency room secondary to left thoracic pain. She was diagnosed recently to have T6 dermatome herpes zoster this past Sunday 3 days prior to admission for which valacyclovir was given by Dr. Marquis. Patient had left flank pain was subsequently seen in the emergency room secondary to the pain. Patient denies any fever however she has some chills. Patient has hydrocodone which doesn't seem to take care of the pain she was seen in emergency room with evaluation to include noticeable left vesicular eruption involving the T6 area, redness in the left leg, known history off chronic venous stasis dermatitis. Known also on the right metatarsal region lateral region from a previous biopsy for osteotomyelitis by Dr. Kim. She is currently on IV Rocephin prior to her admission as recommended by Dr. Marquis. 09/04: Patient has been seen in consultation by Dr. Rojo from infectious disease covering for Dr. Marquis. He has recommended continuing Rocephin, silver dressing for the ulceration of the foot, check protein status and supplement, multivitamin added. Sed rate 24, C-reactive protein 27.2, hemoglobin A1c 6.7 TSH 2.570. Albumin is 3.3. INR 3.4. Chest x-ray is pending a Chin is requesting something for her nasal congestion and Flonase added. She continues to have issues with pain for which Percocet is scheduled plus as needed. 09/05: Patient continues to be very fatigued. She is on CPAP from home. Vesicles are drying up. Dr. Marquis has changed her antibiotics to Ceftaroline. Anticipate possible discharge to [facility] tomorrow. INR is 2.9. Patient will be resumed back on Coumadin home dosing. 09/06: Pain control continues to be an issue the patient is more groggy today. Percocet changed to fentanyl patch. Anticipate possible discharge to [facility] tomorrow. 09/07: Patient became hypotensive with temperature of 100.4 last evening had lactic acid 3.5 and patient [facility] and placed on CPAP. She received fluid bolus of 500 mL. She was also tachycardic and pulse ox running 91-95%. Blood culture obtained. Urine and urine culture ordered. White count is 12, INR 3.5. Repeat lactic acid is 1.5. Patient is not ready for discharge today. Fentanyl patch was removed last evening. Patient does not seem to complain and pain while resting. 09/08: De La Paz catheter was placed yesterday his family was concerned that she had no urine output. Urine output has been 40 mL for the past 12 hours. Temperature max 100.0. Dr. Marquis has recommended continuing Ceftaroline. WBC is 9.6. Potassium 3.3 will be replaced. INR is 3.2. Coumadin remains on hold. Repeat chest x-ray shows persistent right lower lobe density which may reflect atelectasis or infiltrate. 09/11: Patient's blood pressure was low and tachycardic with fever this morning. Noted the patient has not been resumed on her chronic prednisone and Solu- Cortef has been ordered. Patient transferred to ICU. Patient's family is contemplating transferring the patient to other facility but at this time, patient remains in intensive care unit as she seems to be improving. She has been seen by Dr. Burnham. She is status post IV Tylenol, IV fluid bolus with improvement. IV hydrocortisone drip started. IV antibiotics changed to Zosyn and vancomycin by Dr. Marquis. 09/12: Patient is much more awake and alert today. She remains in the intensive care unit. Hydrocortisone drip and IV Lasix ordered. Family continue to contemplate [facility] but at this point have decided to keep the patient and Meggan Martino per patient's wishes. 09/13: Patient is continued on IV cortisone and to switch over to oral. Repeat chest x-ray shows increasing basilar infiltrates and small right-sided effusion. Patient to stay in ICU for another day. Repeat urine culture from September 11 is finalized with no growth. All blood cultures have been negative. 09/14:Patient states she is feeling much better today. SHe still has some shortness of breath. Shingles pain is better. [facility]. INR 2.4. Patient was resumed back on coumadin last night. 09/15: Patient remains in the intensive care unit waiting for [facility] bed. Dr. Burnham has downgraded her to [facility]. She is awake and alert and denies any shortness of breath or cough. She has remained hemodynamically stable. PT to start working with the patient with anticipation she'll be ready for discharge to [facility] of next week. 09/16: Patient is now on the [facility] floor. Her heart rate was elevated this morning for which metoprolol was increased to 75 mg twice daily. Patient denies any new complaints. She continues to feel improvement in her overall status. She does need help with meals. She was able to work with physical therapy yesterday and was sitting at the edge of the bed for 5 minutes. Objective - Vital Signs Vital signs: Vital Signs Temp 99.7 F H 09/17/16 07:48 Pulse 102 H 09/17/16 09:26 Resp 19 09/17/16 07:48 BP 116/51 09/17/16 07:48 Pulse Ox 94 L 09/17/16 07:48 Intake & Output 09/16/16 09/17/16 09/17/16 18:59 06:59 18:59 Intake Total 240 Output Total 329 200 Balance -89 -200 Intake: Oral 240 Output: Urine 325 200 Uretheral (De La Paz) 325 200 Stool 4 Other: Voiding Method Indwelling Catheter Indwelling Catheter - Constitutional Constitutional Comment(s): Has Lencho syndrome looking General appearance: Present: cooperative, disheveled, morbidly obese, no acute distress. Absent: average body habitus, mild distress, obese, severe distress, thin - EENT Eyes: Present: abnormal pupil. Absent: anicteric sclerae, disc margins sharp, edentulous, EOMI, PERRLA, fundus normal, photophobia, dentition normal, poor dentition, ptosis, scleral icterus, normal appearance ENT: Present: hard of hearing, normal oropharynx. Absent: hearing grossly normal, NA/AT, other, pharyngeal erythema, thrush, tonsillar exudates, tonsillar swelling Ears: bilateral: normal - Neck Neck: Present: normal ROM Carotids: bilateral: upstroke normal, upstroke delayed, upstroke diminished Thyroid: bilateral: normal size - Respiratory Details: Chest wall still retain large area of vesicular shingle from the back to the front affecting the lower part of the breasts in the left side with secondary skin infection on it as well. Respiratory: bilateral: CTA, diminished, dullness - Cardiovascular Rhythm: irregularly irregular Heart sounds: normal: S1, S2 Abnormal Heart Sounds: Present: systolic murmur, S3 Gallop - Gastrointestinal General gastrointestinal: Present: distended, normal bowel sounds, soft. Absent : absent bowel sounds, decreased bowel sounds, hepatomegaly, hyperactive bowel sounds, organomegaly, rigid, scaphoid, splenomegaly, tenderness, umbilical hernia, ventral hernia - Integumentary Integumentary: Present: cellulitis, jaundiced, pale, rash, ulcer - Neurologic Neurologic: Present: CNII-XII intact - Musculoskeletal Musculoskeletal: Present: generalized weakness, strength equal bilaterally - Psychiatric Psychiatric: Present: A&O x's 3. Absent: appropriate affect, intact judgment & insight - Labs CBC & Chem 7: 09/17/16 07:20 09/17/16 07:20 Labs: Abnormal Lab Results - Last 24 Hours (Table) 09/16/16 09/16/16 09/16/16 Range/Units 16:35 20:07 20:07 RBC 3.33 L (3.80-5.40) m/uL Hgb 10.5 L (11.4-16.0) gm/dL MCV 105.4 H (80.0-100.0) fL MCHC 30.0 L (31.0-37.0) g/dL RDW 19.5 H (11.5-15.5) % Plt Count 486 H (150-450) k/uL Neutrophils # (Manual) 7.8 H (1.3-7.7) k/uL Nucleated RBCs 2 H (0-0) /100 WBC PT (9.0-12.0) sec Chloride 109 H (98-107) mmol/L Glucose 117 H (74-99) mg/dL POC Glucose (mg/dL) 105 H (75-99) mg/dL Magnesium 1.4 L (1.6-2.3) mg/dL 09/16/16 09/16/16 09/17/16 Range/Units 20:07 20:28 07:20 RBC (3.80-5.40) m/uL Hgb (11.4-16.0) gm/dL MCV (80.0-100.0) fL MCHC (31.0-37.0) g/dL RDW (11.5-15.5) % Plt Count (150-450) k/uL Neutrophils # (Manual) (1.3-7.7) k/uL Nucleated RBCs (0-0) /100 WBC PT 20.2 H 24.0 H (9.0-12.0) sec Chloride (98-107) mmol/L Glucose (74-99) mg/dL POC Glucose (mg/dL) 113 H (75-99) mg/dL Magnesium (1.6-2.3) mg/dL 09/17/16 09/17/16 09/17/16 Range/Units 07:20 07:20 07:20 RBC 3.36 L (3.80-5.40) m/uL Hgb 10.8 L (11.4-16.0) gm/dL MCV 105.8 H (80.0-100.0) fL MCHC 30.4 L (31.0-37.0) g/dL RDW 19.8 H (11.5-15.5) % Plt Count 502 H (150-450) k/uL Neutrophils # (Manual) (1.3-7.7) k/uL Nucleated RBCs 1 H (0-0) /100 WBC PT (9.0-12.0) sec Chloride 110 H (98-107) mmol/L Glucose (74-99) mg/dL POC Glucose (mg/dL) (75-99) mg/dL Magnesium 1.5 L (1.6-2.3) mg/dL 09/17/16 Range/Units 12:14 RBC (3.80-5.40) m/uL Hgb (11.4-16.0) gm/dL MCV (80.0-100.0) fL MCHC (31.0-37.0) g/dL RDW (11.5-15.5) % Plt Count (150-450) k/uL Neutrophils # (Manual) (1.3-7.7) k/uL Nucleated RBCs (0-0) /100 WBC PT (9.0-12.0) sec Chloride (98-107) mmol/L Glucose (74-99) mg/dL POC Glucose (mg/dL) 101 H (75-99) mg/dL Magnesium (1.6-2.3) mg/dL Microbiology - Last 24 Hours (Table) 09/11/16 11:09 Blood Culture - Final Blood No Growth after 144 hours 09/11/16 10:37 Blood Culture - Final Blood No Growth after 144 hours Assessment and Plan Plan: 1. Left thoracic T5-T6 herpes zoster vesicular eruptions with possible secondary bacterial infection currently on Valtrex uncontrolled pain. No patch with Percocet as needed for pain control. Zosyn, vancomycin. 2. Sepsis with fever, tachycardia and elevated lactic acid and coagulopathy possible lower lobe pneumonia or atelectasis, possible gram-negative pneumonia. Dr. Marquis is on consult. Monitor I&O. Coumadin resumed. 3. 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 Kim and Dr. Marquis currently improving. On Zosyn and vancomycin 4. Adrenal insufficiency. Patient is status post IV hydrocortisone to be changed today to oral. Patient transferred to the intensive care unit. Consult with Dr. Burnham is appreciated. Patient is status post IV fluid boluses as well. Not currently on vasopressors. 5. Chronic venous stasis dermatitis bilateral lower extremity, there is no significant worsening of the left ankle as mentioned by the emergency room physician, patient continued to have her IV Rocephin. No diuretics are needed at this time 6. Ongoing immunosuppression using methotrexate which would be held. Should there be any flareup of her RA, this will be replaced by Plaquenil until her wounds would heal 7. Chronic atrial fibrillation on chronic anticoagulation with Coumadin, therapeutic levels will be maintained, metoprolol 50 mg twice a day, Coumadin resumed. 8. CAD currently asymptomatic, on Imdur maintenance 50 mg daily metoprolol 50 mg twice a day, aspirin 81 mg daily Lipitor 80 mg daily 9. COPD on maintenance Pulmicort 10. Hyperlipidemia on Lipitor 80 11. Hyperuricemia without any exacerbation of gout, on Zyloprim 300 mg daily 12. Diabetes mellitus type 2 on metformin 500 mg twice a day hemoglobin A1c will be obtained on NovoLog correctional scale coverage 13. DVT prophylaxis on maintenance Coumadin 14. GI prophylaxis Pepcid 20 15. Impaired balance and increasing debility splinting of thoracic area during ambulation which puts her at risk for further falls, physical therapy and the Initial therapy would be seeing her with the anticipated evaluation for skilled ECF 16 family conference a meeting: Long discussion with the 2 daughter and grandson today about was gone on to the patient her improvement in the course of care of the course of management change in medication. Do wish to have her go to [facility] when she is ready. In longer in the family are trying to transfer patient's care to Dr. Velez who will be asked to see if he will admit her to [facility] when she is ready to go. Some fluid overload today patient will be giving 20 mg of furosemide IV 1 then 40 mg orally daily.
[2016-09-18] MEDS: VANCOMYCIN 1,500 MG in SODIUM CHLORIDE 0.9% 250 ML IVPB SCH ×2 (01:03→17:38)
[2016-09-18] MEDS: SODIUM CHLORIDE 0.9% 1,000 ML IV SCH ×2 (01:03→20:42)
[2016-09-18] MEDS: ALBUTEROL NEBULIZED 2.5 MG/3 ML INHALATION PRN (02:01)
[2016-09-18] MEDS ORDERED: FUROSEMIDE 10 MG/ML 4 ML VIAL IV STA (03:32)
[2016-09-18] MEDS: PIPERACILLIN-TAZOBACTAM 3.375 GM in DEXTROSE/WATER 1 50ML.BAG IVPB SCH ×3 (03:47→20:55)
[2016-09-18 07:45] LABS: Glucose,Whole Blood 80 mg/dL (75-99)
[2016-09-18] MEDS: oxyCODONE-APAP 7.5-325MG 1 EACH TAB PO PRN ×2 (08:33→20:26)
[2016-09-18] MEDS: FAMOTIDINE 20 MG TAB PO SCH (08:37)
[2016-09-18] MEDS: INSULIN LISPRO (humaLOG) 300 UNIT/3 ML VIAL SQ SCH ×4 (08:37→21:13)
[2016-09-18] MEDS: METOPROLOL TARTRATE 25 MG TAB PO SCH ×2 (08:37→20:33)
[2016-09-18] MEDS: MULTIVITAMINS, THERA 1 EACH TAB PO SCH (08:37)
[2016-09-18] MEDS: ALLOPURINOL 300 MG TAB PO SCH (08:37)
[2016-09-18] MEDS: DULoxetine HCL 60 MG CAPSULE.DR PO SCH (08:37)
[2016-09-18] MEDS: ISOSORBIDE MONONITRATE ER 15 MG TAB PO SCH (08:37)
[2016-09-18] MEDS: LIDOCAINE 5% PATCH TOPICAL SCH (08:38)
[2016-09-18] MEDS: PREGABALIN 75 MG CAP PO SCH (08:38)
[2016-09-18] MEDS: CHOLECALCIFEROL 1,000 UNIT TAB PO SCH (08:40)
[2016-09-18] MEDS: metFORMIN 500 MG TAB PO SCH ×2 (08:40→17:39)
[2016-09-18] MEDS: SENNOSIDES-DOCUSATE SODIUM 1 EACH TAB PO SCH (08:41)
[2016-09-18] MEDS: HYDROCORTISONE 20 MG TAB PO SCH (08:41)
[2016-09-18] MEDS: FLUTICASONE 50MCG/SPRAY NASAL 16GM EA NOSTRIL SCH ×2 (08:41→20:30)
[2016-09-18] MEDS: NYSTATIN 100,000 UNIT/ML SUSP 500,000 UNIT/5 ML CUP PO SCH ×4 (08:42→20:58)
[2016-09-18] MEDS: NYSTATIN 100,000 UNIT/GM POWD 15 GM TOPICAL SCH ×3 (08:45→20:59)
[2016-09-18] MEDS ORDERED: FUROSEMIDE 40 MG TAB PO SCH (09:00)
[2016-09-18 11:41] LABS: Glucose,Whole Blood 95 mg/dL (75-99)
--- NOTE | 2016-09-18 11:47 | XR ---
EXAMINATION TYPE: XR chest 2V DATE OF EXAM: 09/18/2016 9:19 AM COMPARISON: 09/14/2016 HISTORY: 76 year-old female shortness of breath TECHNIQUE: AP and lateral views FINDINGS: Heart remains mild to moderately enlarged. Diffuse interstitial prominence and hyperinflation. There is continued left basilar opacity, likely pleural effusion. Large patient body habitus and portable t echnique limits the evaluation. IMPRESSION: 1. Limited portable exam. Correlate for CHF with a pulmonary vascular congestion. 2. Small left pleural effusion with prominent adjacent atelectasis and/or infiltrate, increased from prior.
[2016-09-18] MEDS: COLLAGENASE 250 UNIT/GM OINTMENT 30 GM TUBE TOPICAL SCH (12:45)
[2016-09-18] MEDS: FUROSEMIDE 10 MG/ML 4 ML VIAL IV SCH ×2 (13:19→20:59)
[2016-09-18] MEDS: POTASSIUM CHLORIDE ER 20 MEQ TAB.ER PO SCH ×2 (13:20→20:59)
[2016-09-18 15:13] LABS: ALT 35 U/L (9-52); AST 36 U/L (14-36); Alkaline Phosphatase 76 U/L (38-126); Anion Gap 10 mmol/L; Blood Urea Nitrogen 13 mg/dL (7-17); Calcium 9.3 mg/dL (8.4-10.2); Carbon Dioxide 30 mmol/L (22-30); Chloride 103 mmol/L (98-107); Glucose 126 mg/dL (74-99); INR 3.2 (<1.1); Non-African American GFR(MDRD) >60 (>60 ml/min/1.73 sqM); Potassium 3.6 mmol/L (3.5-5.1); Prothrombin Time 31.2 sec (9.0-12.0); Sodium 143 mmol/L (137-145); Total Bilirubin 0.4 mg/dL (0.2-1.3); Total Protein 5.4 g/dL (6.3-8.2)
[2016-09-18 15:17] LABS: Anisocytosis Slight; Basophils # (A) 0.1 k/uL (0-0.2); Basophils % (A) 1 %; CH 32.6; CHCM 31.2; Eosinophils # (A) 0.2 k/uL (0-0.7); Eosinophils % (A) 2 %; HCT 39.5 % (34.0-46.0); HDW 3.76; HGB 11.9 gm/dL (11.4-16.0); Hypochromasia Moderate; Luc # (Auto) 0.24; Luc % (Auto) 2; Lymphocytes # (A) 1.3 k/uL (1.0-4.8); Lymphocytes % (A) 10 %; MCH 31.6 pg (25.0-35.0); MCHC 30.1 g/dL (31.0-37.0); Macrocytosis Marked; Mean Platelet Volume 7.4; Monocytes # (A) 0.4 k/uL (0-1.0); Monocytes % (A) 3 %; Neutrophils # (A) 11.2 k/uL (1.3-7.7); Neutrophils % (A) 83 %; Poikilocytosis Slight; RBC 3.77 m/uL (3.80-5.40); RDW 19.6 % (11.5-15.5); WBC 13.4 k/uL (3.8-10.6)
[2016-09-18 15:43] LABS: Polychromasia Present
--- NOTE | 2016-09-18 16:18 | P.PN ---
Subjective This is a pleasant 76-year-old lady patient of Dr. Marquis and Dr. Arce. She has underlying history off from at the COPD hyperlipidemia vascular disorder and obstructive sleep apnea neuralgia atrial fibrillation, chronic COPD diabetes mellitus type 2, chronic immunosuppression CHF admitted through the emergency room secondary to left thoracic pain. She was diagnosed recently to have T6 dermatome herpes zoster this past Sunday 3 days prior to admission for which valacyclovir was given by Dr. Marquis. Patient had left flank pain was subsequently seen in the emergency room secondary to the pain. Patient denies any fever however she has some chills. Patient has hydrocodone which doesn't seem to take care of the pain she was seen in emergency room with evaluation to include noticeable left vesicular eruption involving the T6 area, redness in the left leg, known history off chronic venous stasis dermatitis. Known also on the right metatarsal region lateral region from a previous biopsy for osteotomyelitis by Dr. Kim. She is currently on IV Rocephin prior to her admission as recommended by Dr. Marquis. 09/04: Patient has been seen in consultation by Dr. Rojo from infectious disease covering for Dr. Marquis. He has recommended continuing Rocephin, silver dressing for the ulceration of the foot, check protein status and supplement, multivitamin added. Sed rate 24, C-reactive protein 27.2, hemoglobin A1c 6.7 TSH 2.570. Albumin is 3.3. INR 3.4. Chest x-ray is pending a Chin is requesting something for her nasal congestion and Flonase added. She continues to have issues with pain for which Percocet is scheduled plus as needed. 09/05: Patient continues to be very fatigued. She is on CPAP from home. Vesicles are drying up. Dr. Marquis has changed her antibiotics to Ceftaroline. Anticipate possible discharge to [facility] tomorrow. INR is 2.9. Patient will be resumed back on Coumadin home dosing. 09/06: Pain control continues to be an issue the patient is more groggy today. Percocet changed to fentanyl patch. Antic[facility]. 09/07: Patient became hypotensive with temperature of 100.4 last evening had lactic acid 3.5 and patient was transferred to [facility] care and placed on CPAP. She received fluid bolus of 500 mL. She was also tachycardic and pulse ox running 91-95%. Blood culture obtained. Urine and urine culture ordered. White count is 12, INR 3.5. Repeat lactic acid is 1.5. Patient is not ready for discharge today. Fentanyl patch was removed last evening. Patient does not seem to complain and pain while resting. 09/08: De La Paz catheter was placed yesterday his family was concerned that she had no urine output. Urine output has been 40 mL for the past 12 hours. Temperature max 100.0. Dr. Marquis has recommended continuing Ceftaroline. WBC is 9.6. Potassium 3.3 will be replaced. INR is 3.2. Coumadin remains on hold. Repeat chest x-ray shows persistent right lower lobe density which may reflect atelectasis or infiltrate. 09/11: Patient's blood pressure was low and tachycardic with fever this morning. Noted the patient has not been resumed on her chronic prednisone and Solu- Cortef has been ordered. Patient transferred to ICU. Patient's family is contemplating transferring the patient to other facility but at this time, patient remains in intensive care unit as she seems to be improving. She has been seen by Dr. Burnham. She is status post IV Tylenol, IV fluid bolus with improvement. IV hydrocortisone drip started. IV antibiotics changed to Zosyn and vancomycin by Dr. Marquis. 09/12: Patient is much more awake and alert today. She remains in the intensive care unit. Hydrocortisone drip and IV Lasix ordered. Family continue to contemplate [facility] but at this point have decided to keep the patient and Meggan Martino per patient's wishes. 09/13: Patient is continued on IV cortisone and to switch over to oral. Repeat chest x-ray shows increasing basilar infiltrates and small right-sided effusion. Patient to stay in ICU for another day. Repeat urine culture from September 11 is finalized with no growth. All blood cultures have been negative. 09/14:Patient states she is feeling much better today. SHe still has some shortness of breath. Shingles pain is better. Patient will [facility]. INR 2.4. Patient was resumed back on coumadin last night. 09/15: Patient remains in the intensive care unit [facility] Dr. Burnham has downgraded her to [facility]. She is awake and alert and denies any shortness of breath or cough. She has remained hemodynamically stable. PT to start working with the patient with anticipation she'll be ready for discharge to [facility] middle of next week. 09/16: Patient is now on the [facility] floor. Her heart rate was elevated this morning for which metoprolol was increased to 75 mg twice daily. Patient denies any new complaints. She continues to feel improvement in her overall status. She does need help with meals. She was able to work with physical therapy yesterday and was sitting at the edge of the bed for 5 minutes. 09/18: Patient is stating that she wants to be discharged from the hospital. Her plan is for [facility]. She is known to have a small wound to the right leg for which nursing is to put a dressing on. Repeat chest x-ray shows CHF. Patient was given additional dose of Lasix during the content development manager and repeat dosing will be given at this time followed by Lasix 40 mg twice daily IV. Anticipate possible discharge in the next 24-48 hours. De La Paz catheter does remain in place. Objective - Vital Signs Vital signs: Vital Signs Temp 98.9 F 09/18/16 08:19 Pulse 111 H 09/18/16 08:19 Resp 19 09/18/16 08:19 BP 131/77 09/18/16 08:19 Pulse Ox 93 L 09/18/16 08:19 Intake & Output 09/17/16 09/18/16 09/18/16 18:59 06:59 18:59 Output Total 1604 2000 Balance -1604 -2000 Weight 127.2 kg Output: Urine 1600 2000 Uretheral (De La Paz) 200 Stool 4 Other: Voiding Method Indwelling Catheter Indwelling Catheter - Exam General appearance: cooperative, no acute distress, - EENT Eyes: anicteric sclerae, EOMI, PERRLA, dentition normal, normal appearance ENT: NA/AT, normal oropharynx - Neck Neck: no lymphadenopathy, normal ROM, no other, no rigidity, no stridor, no thyromegaly - Respiratory Respiratory: bilateral: CTA, negative: diminished, dullness, rales, rhonchi - Cardiovascular Rhythm: regular Heart sounds: normal: S1, S2 Abnormal Heart Sounds: no systolic murmur, no diastolic murmur, no rub, no S3 Gallop, no S4 Gallop, no click, no other - Gastrointestinal General gastrointestinal: normal bowel sounds, soft - Integumentary Integumentary: rash (left t 6 dermatome), ulcer (right lateral metatarsal 2 cm x2 cm x1 cm approx) - Musculoskeletal Musculoskeletal: generalized weakness, strength equal bilaterally - Labs CBC & Chem 7: 09/18/16 14:50 09/18/16 14:50 Labs: Abnormal Lab Results - Last 24 Hours (Table) 09/17/16 09/17/16 09/17/16 Range/Units 07:20 12:14 16:50 POC Glucose (mg/dL) 101 H 117 H (75-99) mg/dL Magnesium 1.5 L (1.6-2.3) mg/dL 09/17/16 Range/Units 20:15 POC Glucose (mg/dL) 132 H (75-99) mg/dL Magnesium (1.6-2.3) mg/dL Microbiology - Last 24 Hours (Table) 09/11/16 11:09 Blood Culture - Final Blood No Growth after 144 hours 09/11/16 10:37 Blood Culture - Final Blood No Growth after 144 hours Assessment and Plan Plan: 1. Left thoracic T5-T6 herpes zoster vesicular eruptions with possible secondary bacterial infection currently on Valtrex uncontrolled pain. No patch with Percocet as needed for pain control. Zosyn, vancomycin. 2. Sepsis with fever, tachycardia and elevated lactic acid and coagulopathy possible lower lobe pneumonia or atelectasis, possible gram-negative pneumonia. Dr. Marquis is on consult. Monitor I&O. Coumadin resumed. 3. 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 Kim and Dr. Marquis currently improving. On Zosyn and vancomycin 4. Adrenal insufficiency. Patient is status post IV hydrocortisone to be changed today to oral. Patient transferred to the intensive care unit. Consult with Dr. Burnham is appreciated. Patient is status post IV fluid boluses as well. Not currently on vasopressors. 5. Chronic venous stasis dermatitis bilateral lower extremity, there is no significant worsening of the left ankle as mentioned by the emergency room physician, patient continued to have her IV Rocephin. No diuretics are needed at this time 6. Ongoing immunosuppression using methotrexate which would be held. Should there be any flareup of her RA, this will be replaced by Plaquenil until her wounds would heal 7. Chronic atrial fibrillation on chronic anticoagulation with Coumadin, therapeutic levels will be maintained, metoprolol 50 mg twice a day, Coumadin resumed. 8. CAD currently asymptomatic, on Imdur maintenance 50 mg daily metoprolol 50 mg twice a day, aspirin 81 mg daily Lipitor 80 mg daily 9. COPD on maintenance Pulmicort 10. Hyperlipidemia on Lipitor 80 11. Hyperuricemia without any exacerbation of gout, on Zyloprim 300 mg daily 12. Diabetes mellitus type 2 on metformin 500 mg twice a day hemoglobin A1c will be obtained on [facility] coverage 13. DVT prophylaxis on maintenance Coumadin 14. GI prophylaxis Pepcid 20 15. Impaired balance and increasing debility splinting of thoracic area during ambulation which puts her at risk for further falls, physical therapy and the Initial therapy would be seeing her with the anticipated evaluation for skilled ECF Discharge plan: Subacute rehab at [facility] Impression and plan of care have been directed as dictated by the signing physician. Susi Raymundo nurse practitioner acting as scribe for signing physician. Time with Patient: Greater than 30
[2016-09-18 17:31] LABS: Glucose,Whole Blood 124 mg/dL (75-99)
[2016-09-18] MEDS: CALCIUM CARB-VIT D 500MG-200UN 1 EACH TAB PO SCH (17:38)
[2016-09-18] MEDS: CYANOCOBALAMIN 500 MCG TAB PO SCH (17:38)
[2016-09-18] MEDS: ASPIRIN 81 MG CHEW PO SCH (17:38)
[2016-09-18] MEDS: WARFARIN 2.5 MG TAB PO SCH (17:40)
[2016-09-18] MEDS: MELATONIN 5 MG TABLET PO SCH (20:33)
[2016-09-18] MEDS: HYDROCORTISONE 10 MG TAB PO SCH (20:34)
[2016-09-18] MEDS: ATORVASTATIN 80 MG TAB PO SCH (20:34)
[2016-09-18 21:32] LABS: Glucose,Whole Blood 100 mg/dL (75-99)
--- NOTE | 2016-09-18 22:17 | PN ---
DATE OF SERVICE: 09/18/2016 REASON FOR FOLLOWUP: 1. Left chest wall wound. 2. Right foot osteomyelitis. 3. Pneumonia. INTERVAL HISTORY: The patient is afebrile. She has been breathing comfortably; however, she remains sleepy per her daughter who was present at the bedside; not waking up. No nausea or vomiting has been noticed or any diarrhea. On examination, blood pressure is 131/77 with a pulse of 92, temperature 98.9. She is 93% on 2 L nasal cannula. General description is an elderly female lying in bed in no distress. RESPIRATORY SYSTEM: Unlabored breathing with decreased breath sounds at the base. No wheeze. HEART: S1, S2. Regular rate and rhythm. ABDOMEN: Soft. No tenderness. Left chest wall wound is significantly improved. No slough tissue. Right foot lateral border wound is improving. LABS: Hemoglobin is 11.9, white count 13.4 with a BUN of 13, creatinine 0.70. Urine with yeast species. DIAGNOSTIC IMPRESSION AND PLAN: 1. Patient with a fever and sepsis with a question of pneumonia; however, sputum has been negative for any resistant pathogen. Patient has been maintained on broad-spectrum antibiotics in the form of vancomycin and Zosyn. That will be continued. Need to cover for resistant pathogens. 2. Patient with left chest wall wound. Overall slough tissue has resolved. Will switch local wound care to the Aquacel Silver. 3. Right foot osteomyelitis, currently covered with the vancomycin and Zosyn patient is already on. Local wound care with Aquacel Silver. 4. The patient continues to have problems with mental status changes. Could be more likely medication effect. Lyrica will be discontinued. Pain medication needs to be discontinued as well. Will continue to monitor closely. Daughter was present at beside. All her questions and concerns were answered. [facility]PITALYefri
[2016-09-19] MEDS: PIPERACILLIN-TAZOBACTAM 3.375 GM in DEXTROSE/WATER 1 50ML.BAG IVPB SCH ×3 (05:58→22:55)
[2016-09-19 07:29] LABS: Glucose,Whole Blood 76 mg/dL (75-99)
[2016-09-19] MEDS ORDERED: VANCOMYCIN TROUGH DUE 1 EACH MISC MISCELLANE ONE (08:00)
[2016-09-19] MEDS: INSULIN LISPRO (humaLOG) 300 UNIT/3 ML VIAL SQ SCH ×4 (08:50→23:07)
[2016-09-19 08:51] LABS: INR 3.3 (<1.1); Prothrombin Time 31.6 sec (9.0-12.0)
[2016-09-19] MEDS: ISOSORBIDE MONONITRATE ER 15 MG TAB PO SCH (08:52)
[2016-09-19] MEDS: LIDOCAINE 5% PATCH TOPICAL SCH (08:53)
[2016-09-19] MEDS: NYSTATIN 100,000 UNIT/ML SUSP 500,000 UNIT/5 ML CUP PO SCH ×4 (08:54→22:54)
[2016-09-19] MEDS: METOPROLOL TARTRATE 25 MG TAB PO SCH ×2 (08:54→22:54)
[2016-09-19] MEDS: POTASSIUM CHLORIDE ER 20 MEQ TAB.ER PO SCH ×2 (08:55→22:54)
[2016-09-19] MEDS: HYDROCORTISONE 20 MG TAB PO SCH (08:56)
[2016-09-19] MEDS: ALLOPURINOL 300 MG TAB PO SCH (08:56)
[2016-09-19] MEDS: CHOLECALCIFEROL 1,000 UNIT TAB PO SCH (08:56)
[2016-09-19] MEDS: COLLAGENASE 250 UNIT/GM OINTMENT 30 GM TUBE TOPICAL SCH (08:57)
[2016-09-19] MEDS: metFORMIN 500 MG TAB PO SCH ×2 (08:57→18:07)
[2016-09-19] MEDS: FAMOTIDINE 20 MG TAB PO SCH (08:57)
[2016-09-19] MEDS: DULoxetine HCL 60 MG CAPSULE.DR PO SCH (08:58)
[2016-09-19] MEDS: FLUTICASONE 50MCG/SPRAY NASAL 16GM EA NOSTRIL SCH ×2 (08:58→22:54)
[2016-09-19] MEDS: FUROSEMIDE 10 MG/ML 4 ML VIAL IV SCH ×2 (08:58→22:54)
[2016-09-19 09:07] LABS: Anion Gap 10 mmol/L; Blood Urea Nitrogen 11 mg/dL (7-17); Calcium 8.4 mg/dL (8.4-10.2); Carbon Dioxide 34 mmol/L (22-30); Chloride 99 mmol/L (98-107); Glucose 76 mg/dL (74-99); Non-African American GFR(MDRD) >60 (>60 ml/min/1.73 sqM); Potassium 3.2 mmol/L (3.5-5.1); Sodium 143 mmol/L (137-145)
[2016-09-19 09:08] LABS: Anisocytosis Slight; Basophils # (A) 0.1 k/uL (0-0.2); Basophils % (A) 1 %; CH 32.6; CHCM 31.2; Eosinophils # (A) 0.3 k/uL (0-0.7); Eosinophils % (A) 3 %; HCT 36.9 % (34.0-46.0); HGB 11.3 gm/dL (11.4-16.0); Hypochromasia Moderate; Luc # (Auto) 0.32; Luc % (Auto) 3; Lymphocytes # (A) 1.6 k/uL (1.0-4.8); Lymphocytes % (A) 14 %; MCHC 30.5 g/dL (31.0-37.0); Macrocytosis Marked; Mean Platelet Volume 7.4; Monocytes # (A) 0.5 k/uL (0-1.0); Monocytes % (A) 4 %; Neutrophils # (A) 8.5 k/uL (1.3-7.7); Neutrophils % (A) 76 %; Poikilocytosis Slight; RBC 3.51 m/uL (3.80-5.40); RDW 19.7 % (11.5-15.5); WBC 11.3 k/uL (3.8-10.6); WBC (Perox) 11.42
[2016-09-19] MEDS: oxyCODONE-APAP 7.5-325MG 1 EACH TAB PO PRN ×3 (09:10→23:17)
[2016-09-19] MEDS: NYSTATIN 100,000 UNIT/GM POWD 15 GM TOPICAL SCH ×3 (09:15→23:08)
[2016-09-19] MEDS: SENNOSIDES-DOCUSATE SODIUM 1 EACH TAB PO SCH (09:16)
[2016-09-19] MEDS: VANCOMYCIN 1,500 MG in SODIUM CHLORIDE 0.9% 250 ML IVPB SCH (09:16)
[2016-09-19] MEDS: WARFARIN 2.5 MG TAB PO SCH (09:18)
[2016-09-19 10:54] LABS: Manual Review Performed; Polychromasia Present
[2016-09-19] MEDS: ALBUTEROL NEBULIZED 2.5 MG/3 ML INHALATION PRN ×2 (11:20→16:12)
[2016-09-19 12:31] LABS: Glucose,Whole Blood 89 mg/dL (75-99)
[2016-09-19] MEDS: POTASSIUM CHLORIDE 20 MEQ, LIDOCAINE 2% INJ 20 MG in SODIUM CHLORIDE 0.9% 100 ML IVPB SCH ×2 (12:50→20:46)
[2016-09-19] MEDS: FLUCONAZOLE 100 MG TAB PO SCH (12:51)
[2016-09-19] MEDS: MULTIVITAMINS, THERA 1 EACH TAB PO SCH (12:52)
--- NOTE | 2016-09-19 13:49 | PN ---
DATE OF SERVICE: 09/19/2016 Reason for followup is: 1. Patient with a new fever and pneumonia. 2. Right foot osteomyelitis. 3. Left chest wall wound. INTERVAL HISTORY: The patient did have a little fever last night of 100.6 for which I did order the blood culture. At this point, he did have fever of 100.2. Also patient also noted to be slightly hypoxic with O2 saturation at 88%. Patient continues to have a congested cough. The patient denies having any chest pain. No abdominal pain. No diarrhea. She is more awake, alert, compared to yesterday after discontinuation of her Lyrica. On examination, blood pressure 129/58 with a pulse of 106, temperature 100.2, she is 94% on 2 L nasal cannula. General description is an elderly female, lying in bed in no distress. RESPIRATORY SYSTEM: Unlabored breathing. Some coarse breath sounds at the base. No wheeze. HEART: S1, S2, regular rate and rhythm. ABDOMEN: Soft, no tenderness. Right lateral found wound with overall swelling and redness has improved from granulation tissue. Left chest wall wound with some bleeding, but no slough tissue. LABS: Hemoglobin 11.3, white count of 11.3 with a BUN of 11, creatinine 0.71. vanco trough elevated to 21.2. DIAGNOSTIC IMPRESSION AND PLAN: 1. Patient with a new fever and did have a congested cough. However, x-ray done yesterday was more of a CHF pattern. We will try to obtain another sputum culture as initial one was yeast, more likely a colonizer. The patient been advised intensive spirometry and continue the patient the Zosyn and evaluated trough and sometimes the high-dose vanco could cause fever. Will discontinue that to make sure there is no evidence of any drug fever. 2. Patient right foot ulcer currently covered with Zosyn. Local wound care with Aquacel Silver. 3. Question of catheter-associated urinary tract infection, urine culture with yeast. Will get another urine culture and add Diflucan empirically. 4. Left chest wall wound Aquacel silver dressing. Discontinue the Santyl. Plan of care discussed in detail with the daughter as well as with the attending physician. JOSE LUIS
[2016-09-19 14:08] LABS: Appearance,Urine Turbid (Clear); Bilirubin,Urine Negative (Negative); Glucose,Urine (UA) Negative (Negative); Hyphae Yeast, Urine Few /hpf; Ketones,Urine Negative (Negative); Leukocyte Esterase,Urine Large (Negative); Mucus,Urine Occasional /hpf; Nitrite,Urine Negative (Negative); Particle Count 21096; Protein,Urine Trace (Negative); RBC,Urine 72 /hpf (0-5); Specific Gravity,Urine 1.014 (1.001-1.035); UA Billing (MACRO vs. MICRO) MICRO; Urobilinogen,Urine <2.0 mg/dL (<2.0); WBC,Urine >182 /hpf (0-5)
--- NOTE | 2016-09-19 14:26 | P.PN ---
Subjective This is a pleasant 76-year-old lady patient of Dr. Marquis and Dr. Arce. She has underlying history off from at the COPD hyperlipidemia vascular disorder and obstructive sleep apnea neuralgia atrial fibrillation, chronic COPD diabetes mellitus type 2, chronic immunosuppression CHF admitted through the emergency room secondary to left thoracic pain. She was diagnosed recently to have T6 dermatome herpes zoster this past Sunday 3 days prior to admission for which valacyclovir was given by Dr. Marquis. Patient had left flank pain was subsequently seen in the emergency room secondary to the pain. Patient denies any fever however she has some chills. Patient has hydrocodone which doesn't seem to take care of the pain she was seen in emergency room with evaluation to include noticeable left vesicular eruption involving the T6 area, redness in the left leg, known history off chronic venous stasis dermatitis. Known also on the right metatarsal region lateral region from a previous biopsy for osteotomyelitis by Dr. Kim. She is currently on IV Rocephin prior to her admission as recommended by Dr. Marquis. 09/04: Patient has been seen in consultation by Dr. Rojo from infectious disease covering for Dr. Marquis. He has recommended continuing Rocephin, silver dressing for the ulceration of the foot, check protein status and supplement, multivitamin added. Sed rate 24, C-reactive protein 27.2, hemoglobin A1c 6.7 TSH 2.570. Albumin is 3.3. INR 3.4. Chest x-ray is pending a Chin is requesting something for her nasal congestion and Flonase added. She continues to have issues with pain for which Percocet is scheduled plus as needed. 09/05: Patient continues to be very fatigued. She is on CPAP from home. Vesicles are drying up. Dr. Marquis has changed her antibiotics to Ceftaroline. Anticipate possible discharge to [facility] tomorrow. INR is 2.9. Patient will be resumed back on Coumadin home dosing. 09/06: Pain control continues to be an issue the patient is more groggy today. Percocet changed to fentanyl patch. Anticipate possible discharge to [facility] tomorrow. 09/07: Patient became hypotensive with temperature of 100.4 last evening had lactic acid 3.5 and patient was transferred to [facility] and placed on CPAP. She received fluid bolus of 500 mL. She was also tachycardic and pulse ox running 91-95%. Blood culture obtained. Urine and urine culture ordered. White count is 12, INR 3.5. Repeat lactic acid is 1.5. Patient is not ready for discharge today. Fentanyl patch was removed last evening. Patient does not seem to complain and pain while resting. 09/08: De La Paz catheter was placed yesterday his family was concerned that she had no urine output. Urine output has been 40 mL for the past 12 hours. Temperature max 100.0. Dr. Marquis has recommended continuing Ceftaroline. WBC is 9.6. Potassium 3.3 will be replaced. INR is 3.2. Coumadin remains on hold. Repeat chest x-ray shows persistent right lower lobe density which may reflect atelectasis or infiltrate. 09/11: Patient's blood pressure was low and tachycardic with fever this morning. Noted the patient has not been resumed on her chronic prednisone and Solu- Cortef has been ordered. Patient transferred to ICU. Patient's family is contemplating transferring the patient to other facility but at this time, patient remains in intensive care unit as she seems to be improving. She has been seen by Dr. Burnham. She is status post IV Tylenol, IV fluid bolus with improvement. IV hydrocortisone drip started. IV antibiotics changed to Zosyn and vancomycin by Dr. Marquis. 09/12: Patient is much more awake and alert today. She remains in the intensive care unit. Hydrocortisone drip and IV Lasix ordered. Family continue to contemplate [facility] but at this point have decided to keep the patient and Meggan Martino per patient's wishes. 09/13: Patient is continued on IV cortisone and to switch over to oral. Repeat chest x-ray shows increasing basilar infiltrates and small right-sided effusion. Patient to stay in ICU for another day. Repeat urine culture from September 11 is finalized with no growth. All blood cultures have been negative. 09/14:Patient states she is feeling much better today. SHe still has some shortness of breath. Shingles pain is better. Patient will be [facility]. INR 2.4. Patient was resumed back on coumadin last night. 09/15: Patient remains in the intensive care unit waiting [facility] bed. Dr. Burnham has downgraded her to [facility]. She is awake and alert and denies any shortness of breath or cough. She has remained hemodynamically stable. PT to start working with the patient with anticipation she'll be ready for discharge to [facility] middle of next week. 09/16: [facility] Her heart rate was elevated this morning for which metoprolol was increased to 75 mg twice daily. Patient denies any new complaints. She continues to feel improvement in her overall status. She does need help with meals. She was able to work with physical therapy yesterday and was sitting at the edge of the bed for 5 minutes. 09/18: Patient is stating that she wants to be discharged from the hospital. Her plan is for [facility]. She is known to have a small wound to the right leg for which nursing is to put a dressing on. Repeat chest x-ray shows CHF. 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 Anticipate possible discharge in the next 24-48 hours. De La Paz catheter does remain in place. 09/19: is complaining of extreme tiredness and back pain. Family is upset and feels that she sat up in a chair to long yesterday. Lungs are little improved today. De La Paz is clear with good output. Herpes zoster rash is improving. Temperature max 100.6.urine culture showing yeast and Dr. Marquis has started Diflucan. Vancomycin discontinued. Potassium will be replaced. INR is at 3.3. Objective - Vital Signs Vital signs: Vital Signs Temp 100.2 F H 09/19/16 07:49 Pulse 106 H 09/19/16 07:49 Resp 23 09/19/16 07:49 BP 129/58 09/19/16 07:49 Pulse Ox 94 L 09/19/16 07:49 Intake & Output 09/18/16 09/19/16 09/19/16 18:59 06:59 18:59 Intake Total 200 Output Total 5804 2250 Balance -5803 Weight 127.2 kg Intake: Oral 200 Output: Urine 5800 2250 Uretheral (De La Paz) 2800 Stool 4 Other: Voiding Method Indwelling Catheter Indwelling Catheter # Voids 1 # Bowel Movements 1 - Exam General appearance: cooperative, no acute distress, - EENT Eyes: anicteric sclerae, EOMI, PERRLA, dentition normal, normal appearance ENT: NA/AT, normal oropharynx - Neck Neck: no lymphadenopathy, normal ROM, no other, no rigidity, no stridor, no thyromegaly - Respiratory Respiratory: bilateral: CTA, negative: diminished, dullness, rales, rhonchi - Cardiovascular Rhythm: regular Heart sounds: normal: S1, S2 Abnormal Heart Sounds: no systolic murmur, no diastolic murmur, no rub, no S3 Gallop, no S4 Gallop, no click, no other - Gastrointestinal General gastrointestinal: normal bowel sounds, soft - Integumentary Integumentary: rash (left t 6 dermatome), ulcer (right lateral metatarsal 2 cm x2 cm x1 cm approx) - Musculoskeletal Musculoskeletal: generalized weakness, strength equal bilaterally - Labs CBC & Chem 7: 09/19/16 08:00 09/19/16 07:59 Labs: Abnormal Lab Results - Last 24 Hours (Table) 09/18/16 09/18/16 09/18/16 Range/Units 14:50 14:50 14:50 WBC 13.4 H (3.8-10.6) k/uL RBC 3.77 L (3.80-5.40) m/uL Hgb (11.4-16.0) gm/dL MCV 105.0 H (80.0-100.0) fL MCHC 30.1 L (31.0-37.0) g/dL RDW 19.6 H (11.5-15.5) % Plt Count 523 H (150-450) k/uL Neutrophils # 11.2 H (1.3-7.7) k/uL PT 31.2 H (9.0-12.0) sec Potassium (3.5-5.1) mmol/L Carbon Dioxide (22-30) mmol/L Glucose 126 H (74-99) mg/dL POC Glucose (mg/dL) (75-99) mg/dL Total Protein 5.4 L (6.3-8.2) g/dL Albumin 2.7 L (3.5-5.0) g/dL 09/18/16 09/18/16 09/19/16 Range/Units 17:12 21:12 07:59 WBC (3.8-10.6) k/uL RBC (3.80-5.40) m/uL Hgb (11.4-16.0) gm/dL MCV (80.0-100.0) fL MCHC (31.0-37.0) g/dL RDW (11.5-15.5) % Plt Count (150-450) k/uL Neutrophils # (1.3-7.7) k/uL PT 31.6 H (9.0-12.0) sec Potassium (3.5-5.1) mmol/L Carbon Dioxide (22-30) mmol/L Glucose (74-99) mg/dL POC Glucose (mg/dL) 124 H 100 H (75-99) mg/dL Total Protein (6.3-8.2) g/dL Albumin (3.5-5.0) g/dL 09/19/16 09/19/16 Range/Units 07:59 08:00 WBC 11.3 H (3.8-10.6) k/uL RBC 3.51 L (3.80-5.40) m/uL Hgb 11.3 L (11.4-16.0) gm/dL MCV 105.0 H (80.0-100.0) fL MCHC 30.5 L (31.0-37.0) g/dL RDW 19.7 H (11.5-15.5) % Plt Count 479 H (150-450) k/uL Neutrophils # (1.3-7.7) k/uL PT (9.0-12.0) sec Potassium 3.2 L (3.5-5.1) mmol/L Carbon Dioxide 34 H (22-30) mmol/L Glucose (74-99) mg/dL POC Glucose (mg/dL) (75-99) mg/dL Total Protein (6.3-8.2) g/dL Albumin (3.5-5.0) g/dL Assessment and Plan Plan: 1. Left thoracic T5-T6 herpes zoster vesicular eruptions with possible secondary bacterial infection currently on Valtrex uncontrolled pain. No patch with Percocet as needed for pain control. Zosyn, vancomycin. 2. Sepsis with fever, tachycardia and elevated lactic acid and coagulopathy possible lower lobe pneumonia or atelectasis, possible gram-negative pneumonia. Dr. Marquis is on consult. Monitor I&O. Coumadin resumed. 3. 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 Kim and Dr. Marquis currently improving. On Zosyn and vancomycin 4. Adrenal insufficiency. Patient is status post IV hydrocortisone to be changed today to oral. Patient transferred to the intensive care unit. Consult with Dr. Burnham is appreciated. Patient is status post IV fluid boluses as well. Not currently on vasopressors. 5. Chronic venous stasis dermatitis bilateral lower extremity, there is no significant worsening of the left ankle as mentioned by the emergency room physician, patient continued to have her IV Rocephin. No diuretics are needed at this time 6. Ongoing immunosuppression using methotrexate which would be held. Should there be any flareup of her RA, this will be replaced by Plaquenil until her wounds would heal 7. Chronic atrial fibrillation on chronic anticoagulation with Coumadin, therapeutic levels will be maintained, metoprolol 50 mg twice a day, Coumadin resumed. 8. CAD currently asymptomatic, on Imdur maintenance 50 mg daily metoprolol 50 mg twice a day, aspirin 81 mg daily Lipitor 80 mg daily 9. COPD on maintenance Pulmicort 10. Hyperlipidemia on Lipitor 80 11. Hyperuricemia without any exacerbation of gout, on Zyloprim 300 mg daily 12. Diabetes mellitus type 2 on metformin 500 mg twice a day hemoglobin A1c will be obtained on NovoLog correctional scale coverage 13. DVT prophylaxis on maintenance Coumadin 14. GI prophylaxis Pepcid 20 15. Impaired balance and increasing debility splinting of thoracic area during ambulation which puts her at risk for further falls, physical therapy and the Initial therapy would be seeing her with the anticipated evaluation for skilled ECF Discharge plan: Subacute rehab at [facility] Impression and plan of care have been directed as dictated by the signing physician. Susi Raymundo nurse practitioner acting as scribe for signing physician. Time with Patient: Greater than 30
[2016-09-19 17:27] LABS: Glucose,Whole Blood 122 mg/dL (75-99)
[2016-09-19] MEDS: ASPIRIN 81 MG CHEW PO SCH (18:06)
[2016-09-19] MEDS: CYANOCOBALAMIN 500 MCG TAB PO SCH (18:06)
[2016-09-19] MEDS: CALCIUM CARB-VIT D 500MG-200UN 1 EACH TAB PO SCH (18:06)
[2016-09-19 21:11] LABS: Glucose,Whole Blood 116 mg/dL (75-99)
[2016-09-19] MEDS: MELATONIN 5 MG TABLET PO SCH (22:54)
[2016-09-19] MEDS: ATORVASTATIN 80 MG TAB PO SCH (22:54)
[2016-09-19] MEDS: HYDROCORTISONE 10 MG TAB PO SCH (22:54)
[2016-09-20] MEDS: POTASSIUM CHLORIDE 20 MEQ, LIDOCAINE 2% INJ 20 MG in SODIUM CHLORIDE 0.9% 100 ML IVPB SCH (03:33)
[2016-09-20] MEDS ORDERED: VANCOMYCIN 1,500 MG in SODIUM CHLORIDE 0.9% 250 ML IVPB SCH (04:00)
[2016-09-20] MEDS: PIPERACILLIN-TAZOBACTAM 3.375 GM in DEXTROSE/WATER 1 50ML.BAG IVPB SCH ×3 (05:49→23:18)
[2016-09-20 06:41] LABS: Anisocytosis Slight; Basophils # (A) 0.1 k/uL (0-0.2); Basophils % (A) 1 %; CH 32.3; CHCM 30.9; Eosinophils # (A) 0.4 k/uL (0-0.7); Eosinophils % (A) 4 %; HCT 36.1 % (34.0-46.0); HDW 3.62; Hypochromasia Marked; Luc # (Auto) 0.36; Luc % (Auto) 3; Lymphocytes % (A) 20 %; MCH 32.1 pg (25.0-35.0); MCHC 30.5 g/dL (31.0-37.0); MCV 105.3 fL (80.0-100.0); Macrocytosis Marked; Mean Platelet Volume 7.2; Monocytes # (A) 0.4 k/uL (0-1.0); Monocytes % (A) 4 %; Neutrophils # (A) 7.1 k/uL (1.3-7.7); Neutrophils % (A) 69 %; Poikilocytosis Slight; RBC 3.43 m/uL (3.80-5.40); RDW 19.4 % (11.5-15.5); WBC 10.3 k/uL (3.8-10.6); WBC (Perox) 11.03
[2016-09-20 06:50] LABS: Anion Gap 6 mmol/L; Blood Urea Nitrogen 13 mg/dL (7-17); Calcium 8.6 mg/dL (8.4-10.2); Carbon Dioxide 37 mmol/L (22-30); Chloride 99 mmol/L (98-107); Glucose 94 mg/dL (74-99); Non-African American GFR(MDRD) >60 (>60 ml/min/1.73 sqM); Potassium 3.8 mmol/L (3.5-5.1); Sodium 142 mmol/L (137-145)
[2016-09-20] MEDS: oxyCODONE-APAP 7.5-325MG 1 EACH TAB PO PRN ×3 (07:54→23:26)
[2016-09-20] MEDS: NYSTATIN 100,000 UNIT/ML SUSP 500,000 UNIT/5 ML CUP PO SCH ×4 (08:01→23:15)
[2016-09-20] MEDS: HYDROCORTISONE 20 MG TAB PO SCH (08:01)
[2016-09-20] MEDS: SODIUM CHLORIDE 0.9% 1,000 ML IV SCH ×2 (08:01)
[2016-09-20] MEDS: ALLOPURINOL 300 MG TAB PO SCH (08:01)
[2016-09-20] MEDS: DULoxetine HCL 60 MG CAPSULE.DR PO SCH (08:01)
[2016-09-20] MEDS: FAMOTIDINE 20 MG TAB PO SCH (08:01)
[2016-09-20] MEDS: METOPROLOL TARTRATE 25 MG TAB PO SCH ×2 (08:02→23:16)
[2016-09-20] MEDS: metFORMIN 500 MG TAB PO SCH ×2 (08:02→17:16)
[2016-09-20] MEDS: CHOLECALCIFEROL 1,000 UNIT TAB PO SCH (08:03)
[2016-09-20] MEDS: INSULIN LISPRO (humaLOG) 300 UNIT/3 ML VIAL SQ SCH ×4 (08:03→23:16)
[2016-09-20] MEDS: FLUCONAZOLE 100 MG TAB PO SCH (08:03)
[2016-09-20] MEDS: FLUTICASONE 50MCG/SPRAY NASAL 16GM EA NOSTRIL SCH ×2 (08:03→23:14)
[2016-09-20] MEDS: POTASSIUM CHLORIDE ER 20 MEQ TAB.ER PO SCH ×2 (08:04→23:15)
[2016-09-20] MEDS: SENNOSIDES-DOCUSATE SODIUM 1 EACH TAB PO SCH (08:04)
[2016-09-20 08:09] LABS: Glucose,Whole Blood 89 mg/dL (75-99)
[2016-09-20] MEDS: ALBUTEROL NEBULIZED 2.5 MG/3 ML INHALATION PRN ×3 (08:28→15:33)
[2016-09-20] MEDS: ISOSORBIDE MONONITRATE ER 15 MG TAB PO SCH (09:26)
[2016-09-20] MEDS: FUROSEMIDE 10 MG/ML 4 ML VIAL IV SCH ×2 (09:26→23:14)
[2016-09-20] MEDS: NYSTATIN 100,000 UNIT/GM POWD 15 GM TOPICAL SCH ×3 (09:28→23:15)
[2016-09-20] MEDS: LIDOCAINE 5% PATCH TOPICAL SCH (10:34)
[2016-09-20 12:02] LABS: Glucose,Whole Blood 104 mg/dL (75-99)
[2016-09-20] MEDS: MULTIVITAMINS, THERA 1 EACH TAB PO SCH (13:02)
--- NOTE | 2016-09-20 14:03 | XR ---
EXAMINATION TYPE: XR chest 2V DATE OF EXAM: 09/20/2016 1:53 PM HISTORY: Difficulty breathing. REFERENCE: Previous study dated 09/18/2016. FINDINGS: The lungs are overinflated. The heart is enlarged. There is vascular congestion. There is n o marian edema. I suspect small effusions. IMPRESSION: 1. COPD. 2. CARDIOMEGALY. 3. VASCULAR CONGESTION. 4. I SUSPECT SMALL, BILATERAL EFFUSIONS.
--- NOTE | 2016-09-20 16:29 | P.PN ---
Subjective This is a pleasant 76-year-old lady patient of Dr. Marquis and Dr. Arce. She has underlying history off from at the COPD hyperlipidemia vascular disorder and obstructive sleep apnea neuralgia atrial fibrillation, chronic COPD diabetes mellitus type 2, chronic immunosuppression CHF admitted through the emergency room secondary to left thoracic pain. She was diagnosed recently to have T6 dermatome herpes zoster this past Sunday 3 days prior to admission for which valacyclovir was given by Dr. Marquis. Patient had left flank pain was subsequently seen in the emergency room secondary to the pain. Patient denies any fever however she has some chills. Patient has hydrocodone which doesn't seem to take care of the pain she was seen in emergency room with evaluation to include noticeable left vesicular eruption involving the T6 area, redness in the left leg, known history off chronic venous stasis dermatitis. Known also on the right metatarsal region lateral region from a previous biopsy for osteotomyelitis by Dr. Kim. She is currently on IV Rocephin prior to her admission as recommended by Dr. Marquis. 09/04: Patient has been seen in consultation by Dr. Rojo from infectious disease covering for Dr. Marquis. He has recommended continuing Rocephin, silver dressing for the ulceration of the foot, check protein status and supplement, multivitamin added. Sed rate 24, C-reactive protein 27.2, hemoglobin A1c 6.7 TSH 2.570. Albumin is 3.3. INR 3.4. Chest x-ray is pending a Chin is requesting something for her nasal congestion and Flonase added. She continues to have issues with pain for which Percocet is scheduled plus as needed. 09/05: Patient continues to be very fatigued. She is on CPAP from home. Vesicles are drying up. Dr. Marquis has changed her antibiotics to Ceftaroline. Anticipate possible discharge to [facility] tomorrow. INR is 2.9. Patient will be resumed back on Coumadin home dosing. 09/06: Pain control continues to be an issue the patient is more groggy today. Percocet changed to fentanyl patch. Anticipate possible discharge to [facility] tomorrow. 09/07: Patient became hypotensive with temperature of 100.4 last evening had lactic acid 3.5 and patient was transferred to [facility] care and placed on CPAP. She received fluid bolus of 500 mL. She was also tachycardic and pulse ox running 91-95%. Blood culture obtained. Urine and urine culture ordered. White count is 12, INR 3.5. Repeat lactic acid is 1.5. Patient is not ready for discharge today. Fentanyl patch was removed last evening. Patient does not seem to complain and pain while resting. 09/08: De La Paz catheter was placed yesterday his family was concerned that she had no urine output. Urine output has been 40 mL for the past 12 hours. Temperature max 100.0. Dr. Marquis has recommended continuing Ceftaroline. WBC is 9.6. Potassium 3.3 will be replaced. INR is 3.2. Coumadin remains on hold. Repeat chest x-ray shows persistent right lower lobe density which may reflect atelectasis or infiltrate. 09/11: Patient's blood pressure was low and tachycardic with fever this morning. Noted the patient has not been resumed on her chronic prednisone and Solu- Cortef has been ordered. Patient transferred to ICU. Patient's family is contemplating transferring the patient to other facility but at this time, patient remains in intensive care unit as she seems to be improving. She has been seen by Dr. Burnham. She is status post IV Tylenol, IV fluid bolus with improvement. IV hydrocortisone drip started. IV antibiotics changed to Zosyn and vancomycin by Dr. Marquis. 09/12: Patient is much more awake and alert today. She remains in the intensive care unit. Hydrocortisone drip and IV Lasix ordered. Family continue to contemplate [facility] but at this point have decided to keep the patient and Meggan Martino per patient's wishes. 09/13: Patient is continued on IV cortisone and to switch over to oral. Repeat chest x-ray shows increasing basilar infiltrates and small right-sided effusion. Patient to stay in ICU for another day. Repeat urine culture from September 11 is finalized with no growth. All blood cultures have been negative. 09/14:Patient states she is feeling much better today. SHe still has some shortness of breath. Shingles pain is better. Patient will be transferred [facility]. INR 2.4. Patient was resumed back on coumadin last night. 09/15: Patient remains in the intensive care unit [facility]. Dr. Burnham has downgraded her to [facility]. She is awake and alert and denies any shortness of breath or cough. She has remained hemodynamically stable. PT to start working with the patient with anticipation she'll be ready for discharge to [facility] middle of next week. 09/16: [facility] Her heart rate was elevated this morning for which metoprolol was increased to 75 mg twice daily. Patient denies any new complaints. She continues to feel improvement in her overall status. She does need help with meals. She was able to work with physical therapy yesterday and was sitting at the edge of the bed for 5 minutes. 09/18: Patient is stating that she wants to be discharged from the hospital. Her plan is for [facility]. She is known to have a small wound to the right leg for which nursing is to put a dressing on. Repeat chest x-ray shows CHF. Patient was given additional dose of Lasix during the shift supervisor rn and repeat dosing will be given at this time followed by Lasix 40 mg twice daily IV. Anticipate possible discharge in the next 24-48 hours. De La Paz catheter does remain in place. 09/19: is complaining of extreme tiredness and back pain. Family is upset and feels that she sat up in a chair to long yesterday. Lungs are little improved today. De La Paz is clear with good output. Herpes zoster rash is improving. Temperature max 100.6.urine culture showing yeast and Dr. Marquis has started Diflucan. Vancomycin discontinued. Potassium will be replaced. INR is at 3.3. 09/20:Patient's daughters are requesting that Dr. Velez take over her care in the hospital but he will not agree. Patient states that she wants Dr. Johnson to continue care. Patient is lethargic and complaining of shortness of breath today. Consult with Dr. Mann added. Objective - Vital Signs Vital signs: Vital Signs Temp 99.1 F 09/20/16 10:41 Pulse 100 09/20/16 11:59 Resp 18 09/20/16 07:00 BP 126/85 09/20/16 07:00 Pulse Ox 93 L 09/20/16 07:00 Intake & Output 09/19/16 09/20/16 09/20/16 18:59 06:59 18:59 Intake Total 340 810 Output Total 650 1300 Balance -310 -490 Weight 127.2 kg Intake: IV 90 260 Piperacillin-Tazobactam 3 50 100 .375 gm In Dextrose/Water 1 50ml.bag @ 12.5 mls/hr IVPB Q8H LUIS Rx#: [id number] Sodium Chloride 0.9% 1, 40 160 000 ml @ 20 mls/hr IV . Q24H LUIS Rx#:[id number] Intake, IV Titration 250 300 Amount Potassium Chloride 20 meq 300 Lidocaine 2% Inj 20 mg In Sodium Chloride 0.9% 100 ml @ 55.5 mls/hr IVPB Q2HR LUIS Rx#:[id number] Vancomycin 1,500 mg In 250 Sodium Chloride 0.9% 250 ml @ 125 mls/hr IVPB Q18H LUIS Rx#:[id number] Oral 250 Output: Urine 650 1300 Uretheral (De La Paz) 650 Other: Voiding Method Indwelling Catheter Indwelling Catheter Indwelling Catheter # Voids 1 - Exam General appearance: cooperative, no acute distress, - EENT Eyes: anicteric sclerae, EOMI, PERRLA, dentition normal, normal appearance ENT: NA/AT, normal oropharynx - Neck Neck: no lymphadenopathy, normal ROM, no other, no rigidity, no stridor, no thyromegaly - Respiratory Respiratory: bilateral: CTA, negative: diminished, dullness, rales, rhonchi - Cardiovascular Rhythm: regular Heart sounds: normal: S1, S2 Abnormal Heart Sounds: no systolic murmur, no diastolic murmur, no rub, no S3 Gallop, no S4 Gallop, no click, no other - Gastrointestinal General gastrointestinal: normal bowel sounds, soft - Integumentary Integumentary: rash (left t 6 dermatome), ulcer (right lateral metatarsal 2 cm x2 cm x1 cm approx) - Musculoskeletal Musculoskeletal: generalized weakness, strength equal bilaterally - Labs CBC & Chem 7: 09/20/16 06:20 09/20/16 06:20 Labs: Abnormal Lab Results - Last 24 Hours (Table) 09/19/16 09/19/16 09/20/16 Range/Units 17:23 20:45 06:20 RBC 3.43 L (3.80-5.40) m/uL Hgb 11.0 L (11.4-16.0) gm/dL MCV 105.3 H (80.0-100.0) fL MCHC 30.5 L (31.0-37.0) g/dL RDW 19.4 H (11.5-15.5) % Plt Count 467 H (150-450) k/uL Carbon Dioxide (22-30) mmol/L POC Glucose (mg/dL) 122 H 116 H (75-99) mg/dL 09/20/16 09/20/16 Range/Units 06:20 12:00 RBC (3.80-5.40) m/uL Hgb (11.4-16.0) gm/dL MCV (80.0-100.0) fL MCHC (31.0-37.0) g/dL RDW (11.5-15.5) % Plt Count (150-450) k/uL Carbon Dioxide 37 H (22-30) mmol/L POC Glucose (mg/dL) 104 H (75-99) mg/dL Microbiology - Last 24 Hours (Table) 09/18/16 22:11 Blood Culture - Preliminary Blood No Growth after 24 hours 09/19/16 12:05 Urine Culture - Preliminary Urine,Catheterized Assessment and Plan Plan: 1. Left thoracic T5-T6 herpes zoster vesicular eruptions with possible secondary bacterial infection currently on Valtrex uncontrolled pain. No patch with Percocet as needed for pain control. Zosyn, vancomycin. 2. Sepsis with fever, tachycardia and elevated lactic acid and coagulopathy possible lower lobe pneumonia or atelectasis, possible gram-negative pneumonia. Dr. Marquis is on consult. Monitor I&O. Coumadin resumed. 3. 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 Kim and Dr. Marquis currently improving. On Zosyn and vancomycin 4. Adrenal insufficiency. Currently on Cortef 20 mg in the morning and 10 mg at bedtime. 5. Chronic venous stasis dermatitis bilateral lower extremity, there is no significant worsening of the left ankle as mentioned by the emergency room physician, patient continued to have her IV Rocephin. No diuretics are needed at this time 6. Ongoing immunosuppression using methotrexate which would be held. Should there be any flareup of her RA, this will be replaced by Plaquenil until her wounds would heal 7. Chronic atrial fibrillation on chronic anticoagulation with Coumadin, therapeutic levels will be maintained, metoprolol 50 mg twice a day, Coumadin resumed. 8. CAD currently asymptomatic, on Imdur maintenance 50 mg daily metoprolol 50 mg twice a day, aspirin 81 mg daily Lipitor 80 mg daily 9. COPD on maintenance Pulmicort 10. Hyperlipidemia on Lipitor 80 11. Hyperuricemia without any exacerbation of gout, on Zyloprim 300 mg daily 12. Diabetes mellitus type 2 on metformin 500 mg twice a day hemoglobin A1c will be obtained on NovoLog correctional scale coverage 13. DVT prophylaxis on maintenance Coumadin 14. GI prophylaxis Pepcid 20 15. Impaired balance and increasing debility splinting of thoracic area during ambulation which puts her at risk for further falls, physical therapy and the Initial therapy would be seeing her with the anticipated evaluation for skilled ECF Discharge plan: Subacute rehab at [facility] under Dr. Velez Impression and plan of care have been directed as dictated by the signing physician. Susi Raymundo nurse practitioner acting as scribe for signing physician. Time with Patient: Greater than 30
[2016-09-20] MEDS: CYANOCOBALAMIN 500 MCG TAB PO SCH (17:15)
[2016-09-20] MEDS: CALCIUM CARB-VIT D 500MG-200UN 1 EACH TAB PO SCH (17:15)
[2016-09-20] MEDS: ASPIRIN 81 MG CHEW PO SCH (17:15)
[2016-09-20 17:24] LABS: Glucose,Whole Blood 109 mg/dL (75-99)
[2016-09-20] MEDS: WARFARIN 2.5 MG TAB PO SCH (17:24)
--- NOTE | 2016-09-20 17:53 | P.PN ---
Subjective This is a very pleasant 76-year-old female patient who was admitted here to the intensive care unit a couple of days ago after developing hypotension and altered mental status. She was found to be in the secondary adrenal insufficiency as the patient was steroid dependent in the outpatient setting. She was initially seen and evaluated by Dr. Burnham who placed the patient on IV hydrocortisone drip which has subsequently been discontinued. She is now on Cortef 20 mg in the a.m. and 10 mg in the PM. She is seen again today 09/20/2016 in follow-up. She is seen on the regular medical floor. She is awake and alert in no acute distress. She has been maintained on Cortef 20 mg in the a.m. and 10 mg in the PM. She continues with a loose nonproductive cough. She remains on antibiotics in the form of Zosyn. He is also receiving IV Lasix 40 mg every 12 hours. Today's chest x-ray does reveal some improvement in the lung volumes. There is evidence of COPD, cardiomegaly and some vascular congestion. There is bilateral pleural effusions , small. She has been mainly in bed. She needs increased encouragement regarding the use of the cough incentive spirometer and cough and deep breathing exercises. Objective - Vital Signs Vital signs: Vital Signs Temp 99.1 F 09/20/16 10:41 Pulse 100 09/20/16 15:43 Resp 18 09/20/16 07:00 BP 126/85 09/20/16 07:00 Pulse Ox 93 L 09/20/16 07:00 Intake & Output 09/19/16 09/20/16 09/20/16 18:59 06:59 18:59 Intake Total 340 810 140 Output Total 650 1300 Balance -310 -490 140 Weight 127.2 kg Intake: IV 90 260 140 Piperacillin-Tazobactam 3 50 100 100 .375 gm In Dextrose/Water 1 50ml.bag @ 12.5 mls/hr IVPB Q8H LUIS Rx#: [id number] Sodium Chloride 0.9% 1, 40 160 40 000 ml @ 20 mls/hr IV . Q24H LUIS Rx#:[id number] Intake, IV Titration 250 300 Amount Potassium Chloride 20 meq 300 Lidocaine 2% Inj 20 mg In Sodium Chloride 0.9% 100 ml @ 55.5 mls/hr IVPB Q2HR LUIS Rx#:[id number] Vancomycin 1,500 mg In 250 Sodium Chloride 0.9% 250 ml @ 125 mls/hr IVPB Q18H LUIS Rx#:[id number] Oral 250 Output: Urine 650 1300 Uretheral (De La Paz) 650 Other: Voiding Method Indwelling Catheter Indwelling Catheter Indwelling Catheter # Voids 1 - Exam GENERAL EXAM: Morbidly obese. Alert, comfortable in no apparent distress. HEAD: Normocephalic. EYES: Normal reaction of pupils, equal size. NOSE: Clear with pink turbinates. THROAT: There is crowding of the posterior pharynx. No erythema or exudates. NECK: Short. No masses, no JVD. CHEST: No chest wall deformity. LUNGS: Equal air entry with few scattered rhonchi. Crackles in posterior bases.. CVS: S1 and S2 normal with no audible murmur, regular rhythm. ABDOMEN: Soft, normal bowel sounds, no guarding or rigidity. SKIN: Multiple lesions being treated. Extremities: There is 1-2+ lower extremity peripheral edema. Changes of chronic venous stasis. Peripheral pulses are intact. - Labs CBC & Chem 7: 09/20/16 06:20 09/20/16 06:20 Labs: Abnormal Lab Results - Last 24 Hours (Table) 09/19/16 09/20/16 09/20/16 Range/Units 20:45 06:20 06:20 RBC 3.43 L (3.80-5.40) m/uL Hgb 11.0 L (11.4-16.0) gm/dL MCV 105.3 H (80.0-100.0) fL MCHC 30.5 L (31.0-37.0) g/dL RDW 19.4 H (11.5-15.5) % Plt Count 467 H (150-450) k/uL Carbon Dioxide 37 H (22-30) mmol/L POC Glucose (mg/dL) 116 H (75-99) mg/dL 09/20/16 09/20/16 Range/Units 12:00 17:19 RBC (3.80-5.40) m/uL Hgb (11.4-16.0) gm/dL MCV (80.0-100.0) fL MCHC (31.0-37.0) g/dL RDW (11.5-15.5) % Plt Count (150-450) k/uL Carbon Dioxide (22-30) mmol/L POC Glucose (mg/dL) 104 H 109 H (75-99) mg/dL Microbiology - Last 24 Hours (Table) 09/18/16 22:11 Blood Culture - Preliminary Blood No Growth after 24 hours 09/19/16 12:05 Urine Culture - Preliminary Urine,Catheterized Assessment and Plan Plan: Impression: #1 Acute secondary adrenal insufficiency, recovered. Currently on Cortef 20 mg in the a.m. 10 mg in the PM. #2 Acute shingles. #3 Rheumatoid arthritis. #4 Atrial fibrillation, anticoagulated with warfarin, therapeutic. #5 Right foot osteomyelitis. #6 Right lower lobe pneumonia, improved both clinically and radiographically. Plan: The patient was seen and evaluated by Dr. Mann. Chest x-ray and labs were reviewed. We'll continue with her current medications. The patient requires increased encouragement regarding the use of the incentive spirometer and cough and deep breathing exercises. She has been mainly bedridden and treated here for 18 days now in the hospital and could possibly benefit from a transfer to [facility] for continued inpatient rehabilitation. She is much too weak and unable to participate in any local inpatient rehabilitation. Discharge planning is in place. In the interim, we'll continue to follow make further recommendations based on her clinical status.
[2016-09-20 20:51] LABS: Glucose,Whole Blood 134 mg/dL (75-99)
[2016-09-20] MEDS: ATORVASTATIN 80 MG TAB PO SCH (23:13)
[2016-09-20] MEDS: HYDROCORTISONE 10 MG TAB PO SCH (23:14)
[2016-09-20] MEDS: MELATONIN 5 MG TABLET PO SCH (23:14)
[2016-09-21] MEDS: PIPERACILLIN-TAZOBACTAM 3.375 GM in DEXTROSE/WATER 1 50ML.BAG IVPB SCH ×3 (05:39→19:48)
[2016-09-21] MEDS: oxyCODONE-APAP 7.5-325MG 1 EACH TAB PO PRN ×4 (05:43→17:21)
[2016-09-21 07:30] LABS: Glucose,Whole Blood 77 mg/dL (75-99)
--- NOTE | 2016-09-21 07:49 | PN ---
DATE OF SERVICE: 09/20/2016 REASON FOR FOLLOWUP: 1. Pneumonia and possible catheter-associated urinary tract infection. 2. Left lower chest wall wound. 3. Right foot osteomyelitis. INTERVAL HISTORY: The patient seemed to have problem off and on mental status changes and keeping her awake. She has been complaining of pain in her left shoulder area. No nausea or vomiting has been noticed. No abdominal pain or any diarrhea. On examination, blood pressure is 126/75 with pulse of 86, temperature 99.2. She is 92% on 2 L nasal cannula. General description is an elderly female lying in bed in no distress. RESPIRATORY SYSTEM: Unlabored breathing with decreased breath sounds at the base. HEART: S1, S2, regular rate and rhythm. ABDOMEN: Soft, no tenderness. LABS: Hemoglobin is 11, white count 10.3. BUN of 13, creatinine 0.88. Urine is showing Nini albicans. DIAGNOSTIC IMPRESSION AND PLAN: 1. Patient with left T6 dermatome zoster that has been adequately treated, underlying wound is healing up well, continue with Aquacel Silver dressing. 2. Patient with possible pneumonia for which the patient is currently on Zosyn, that will be continued. Sputum negative for resistnt pathogen, but patient with yeast in urine and question of urinary tract infection vs colonization. Will recommend to change in her De La Paz catheter and continue with Diflucan as her fever is resolved and white count normalized. 3. Right foot osteomyelitis. Continue with Aquacel Silver dressing and being covered with the Zosyn. Family present at beside. Their questions were answered. JOSE LUIS
[2016-09-21] MEDS: INSULIN LISPRO (humaLOG) 300 UNIT/3 ML VIAL SQ SCH ×4 (08:35→20:46)
[2016-09-21] MEDS: METOPROLOL TARTRATE 25 MG TAB PO SCH ×2 (08:46→20:45)
[2016-09-21] MEDS: LIDOCAINE 5% PATCH TOPICAL SCH (08:47)
[2016-09-21] MEDS: FAMOTIDINE 20 MG TAB PO SCH (08:47)
[2016-09-21] MEDS: FLUCONAZOLE 100 MG TAB PO SCH (08:47)
[2016-09-21] MEDS: DULoxetine HCL 60 MG CAPSULE.DR PO SCH (08:47)
[2016-09-21] MEDS: metFORMIN 500 MG TAB PO SCH ×2 (08:48→17:20)
[2016-09-21] MEDS: NYSTATIN 100,000 UNIT/ML SUSP 500,000 UNIT/5 ML CUP PO SCH ×4 (08:48→20:45)
[2016-09-21] MEDS: HYDROCORTISONE 20 MG TAB PO SCH (08:48)
[2016-09-21] MEDS: ALLOPURINOL 300 MG TAB PO SCH (08:49)
[2016-09-21] MEDS: FLUTICASONE 50MCG/SPRAY NASAL 16GM EA NOSTRIL SCH ×2 (08:49→20:44)
[2016-09-21] MEDS: CHOLECALCIFEROL 1,000 UNIT TAB PO SCH (08:49)
[2016-09-21] MEDS: ISOSORBIDE MONONITRATE ER 15 MG TAB PO SCH (08:49)
[2016-09-21] MEDS: FUROSEMIDE 10 MG/ML 4 ML VIAL IV SCH ×2 (08:49→20:44)
[2016-09-21] MEDS: SENNOSIDES-DOCUSATE SODIUM 1 EACH TAB PO SCH (08:50)
[2016-09-21] MEDS: POTASSIUM CHLORIDE ER 20 MEQ TAB.ER PO SCH ×2 (08:50→20:45)
[2016-09-21] MEDS: NYSTATIN 100,000 UNIT/GM POWD 15 GM TOPICAL SCH ×3 (08:51→20:47)
[2016-09-21] MEDS: ALBUTEROL NEBULIZED 2.5 MG/3 ML INHALATION PRN (09:38)
[2016-09-21 11:16] LABS: Glucose,Whole Blood 122 mg/dL (75-99)
[2016-09-21] MEDS: MULTIVITAMINS, THERA 1 EACH TAB PO SCH (12:32)
[2016-09-21 13:20] LABS: Anion Gap 10 mmol/L; Anisocytosis Slight; Blood Urea Nitrogen 16 mg/dL (7-17); CH 32.2; CHCM 30.7; Calcium 8.8 mg/dL (8.4-10.2); Carbon Dioxide 37 mmol/L (22-30); Chloride 95 mmol/L (98-107); Glucose 111 mg/dL (74-99); HCT 36.3 % (34.0-46.0); HDW 3.62; Hypochromasia Marked; MCH 31.9 pg (25.0-35.0); MCHC 30.2 g/dL (31.0-37.0); MCV 105.8 fL (80.0-100.0); Macrocytosis Marked; Mean Platelet Volume 7.1; Non-African American GFR(MDRD) >60 (>60 ml/min/1.73 sqM); Poikilocytosis Slight; Potassium 3.9 mmol/L (3.5-5.1); RBC 3.44 m/uL (3.80-5.40); RDW 19.3 % (11.5-15.5); Sodium 142 mmol/L (137-145); WBC 13.8 k/uL (3.8-10.6)
[2016-09-21 13:21] LABS: INR 2.2 (<1.1); Prothrombin Time 21.2 sec (9.0-12.0)
--- NOTE | 2016-09-21 15:40 | P.PN ---
<Susi Raymundo A - Last Filed: 09/21/16 15:38> Subjective This is a pleasant 76-year-old lady patient of Dr. Marquis and Dr. Arce. She has underlying history off from at the COPD hyperlipidemia vascular disorder and obstructive sleep apnea neuralgia atrial fibrillation, chronic COPD diabetes mellitus type 2, chronic immunosuppression CHF admitted through the emergency room secondary to left thoracic pain. She was diagnosed recently to have T6 dermatome herpes zoster this past Sunday 3 days prior to admission for which valacyclovir was given by Dr. Marquis. Patient had left flank pain was subsequently seen in the emergency room secondary to the pain. Patient denies any fever however she has some chills. Patient has hydrocodone which doesn't seem to take care of the pain she was seen in emergency room with evaluation to include noticeable left vesicular eruption involving the T6 area, redness in the left leg, known history off chronic venous stasis dermatitis. Known also on the right metatarsal region lateral region from a previous biopsy for osteotomyelitis by Dr. Kim. She is currently on IV Rocephin prior to her admission as recommended by Dr. Marquis. 09/04: Patient has been seen in consultation by Dr. Rojo from infectious disease covering for Dr. Marquis. He has recommended continuing Rocephin, silver dressing for the ulceration of the foot, check protein status and supplement, multivitamin added. Sed rate 24, C-reactive protein 27.2, hemoglobin A1c 6.7 TSH 2.570. Albumin is 3.3. INR 3.4. Chest x-ray is pending a Chin is requesting something for her nasal congestion and Flonase added. She continues to have issues with pain for which Percocet is scheduled plus as needed. 09/05: Patient continues to be very fatigued. She is on CPAP from home. Vesicles are drying up. Dr. Marquis has changed her antibiotics to Ceftaroline. Anticipate possible discharge to [facility] tomorrow. INR is 2.9. Patient will be resumed back on Coumadin home dosing. 09/06: Pain control continues to be an issue the patient is more groggy today. Percocet changed to fentanyl patch. Anticipate possible discharge to [facility] tomorrow. 09/07: Patient became hypotensive with temperature of 100.4 last evening had lactic acid 3.5 and patient [facility] and placed on [facility]AP. She received fluid bolus of 500 mL. She was also tachycardic and pulse ox running 91-95%. Blood culture obtained. Urine and urine culture ordered. White count is 12, INR 3.5. Repeat lactic acid is 1.5. Patient is not ready for discharge today. Fentanyl patch was removed last evening. Patient does not seem to complain and pain while resting. 09/08: De La Paz catheter was placed yesterday his family was concerned that she had no urine output. Urine output has been 40 mL for the past 12 hours. Temperature max 100.0. Dr. Marquis has recommended continuing Ceftaroline. WBC is 9.6. Potassium 3.3 will be replaced. INR is 3.2. Coumadin remains on hold. Repeat chest x-ray shows persistent right lower lobe density which may reflect atelectasis or infiltrate. 09/11: Patient's blood pressure was low and tachycardic with fever this morning. Noted the patient has not been resumed on her chronic prednisone and Solu- Cortef has been ordered. Patient transferred to ICU. Patient's family is contemplating transferring the patient to other facility but at this time, patient remains in intensive care unit as she seems to be improving. She has been seen by Dr. Burnham. She is status post IV Tylenol, IV fluid bolus with improvement. IV hydrocortisone drip started. IV antibiotics changed to Zosyn and vancomycin by Dr. Marquis. 09/12: Patient is much more awake and alert today. She remains in the intensive care unit. Hydrocortisone drip and IV Lasix ordered. Family continue to contemplate [facility] but at this point have decided to keep the patient and Meggan Martino per patient's wishes. 09/13: Patient is continued on IV cortisone and to switch over to oral. Repeat chest x-ray shows increasing basilar infiltrates and small right-sided effusion. Patient to stay in ICU for another day. Repeat urine culture from September 11 is finalized with no growth. All blood cultures have been negative. 09/14:Patient states she is feeling much better today. SHe still has some shortness of breath. Shingles pain is better. Patient will be transferred [facility]. INR 2.4. Patient was resumed back on coumadin last night. 09/15: Patient remains in the intensive care unit waiting for [facility]. Dr. Burnham has downgraded her to [facility]. She is awake and alert and denies any shortness of breath or cough. She has remained hemodynamically stable. PT to start working with the patient with anticipation she'll be ready for discharge to [facility] of next week. 09/16: Patient is now on the [facility] floor. Her heart rate was elevated this morning for which metoprolol was increased to 75 mg twice daily. Patient denies any new complaints. She continues to feel improvement in her overall status. She does need help with meals. She was able to work with physical therapy yesterday and was sitting at the edge of the bed for 5 minutes. 09/18: Patient is stating that she wants to be discharged from the hospital. Her plan is for [facility]. She is known to have a small wound to the right leg for which nursing is to put a dressing on. Repeat chest x-ray shows CHF. Patient was given additional dose of Lasix during the awake overnight monitor and repeat dosing will be given at this time followed by Lasix 40 mg twice daily IV. Anticipate possible discharge in the next 24-48 hours. De La Paz catheter does remain in place. 09/19: is complaining of extreme tiredness and back pain. Family is upset and feels that she sat up in a chair to long yesterday. Lungs are little improved today. De La Paz is clear with good output. Herpes zoster rash is improving. Temperature max 100.6.urine culture showing yeast and Dr. Marquis has started Diflucan. Vancomycin discontinued. Potassium will be replaced. INR is at 3.3. 09/20:Patient's daughters are requesting that Dr. Velez take over her care in the hospital but he will not agree. Patient states that she wants Dr. Johnson to continue care. Patient is lethargic and complaining of shortness of breath today. Consult with Dr. Mann added. 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 Currently awaiting response from [facility]. Patient states she is feeling much better today. Objective - Vital Signs Vital signs: Vital Signs Temp 97.0 F L 09/21/16 07:00 Pulse 98 09/21/16 09:49 Resp 18 09/21/16 08:00 BP 129/85 09/21/16 07:00 Pulse Ox 94 L 09/21/16 09:40 Intake & Output 09/20/16 09/21/16 09/21/16 18:59 06:59 18:59 Intake Total 140 320 Output Total 1652 702 Balance 140 -1332 -702 Intake: IV 140 320 Piperacillin-Tazobactam 3 100 .375 gm In Dextrose/Water 1 50ml.bag @ 12.5 mls/hr IVPB Q8H [facility] Rx#: [id number] Sodium Chloride 0.9% 1, 40 320 000 ml @ 20 mls/hr IV . Q24H [facility] Rx#:[id number] Output: Urine 1650 700 Uretheral (De La Paz) 700 700 Stool 2 2 Other: Voiding Method Indwelling Catheter Indwelling Catheter Indwelling Catheter - Exam General appearance: cooperative, no acute distress, - EENT Eyes: anicteric sclerae, EOMI, PERRLA, dentition normal, normal appearance ENT: NA/AT, normal oropharynx - Neck Neck: no lymphadenopathy, normal ROM, no other, no rigidity, no stridor, no thyromegaly - Respiratory Respiratory: bilateral: CTA, negative: diminished, dullness, rales, rhonchi - Cardiovascular Rhythm: regular Heart sounds: normal: S1, S2 Abnormal Heart Sounds: no systolic murmur, no diastolic murmur, no rub, no S3 Gallop, no S4 Gallop, no click, no other - Gastrointestinal General gastrointestinal: normal bowel sounds, soft - Integumentary Integumentary: rash (left t 6 dermatome), ulcer (right lateral metatarsal 2 cm x2 cm x1 cm approx) - Musculoskeletal Musculoskeletal: generalized weakness, strength equal bilaterally - Labs CBC & Chem 7: 09/21/16 12:58 09/21/16 12:58 Labs: Abnormal Lab Results - Last 24 Hours (Table) 09/20/16 09/20/16 09/21/16 Range/Units 17:19 20:49 11:12 POC Glucose (mg/dL) 109 H 134 H 122 H (75-99) mg/dL Microbiology - Last 24 Hours (Table) 09/18/16 22:11 Blood Culture - Preliminary Blood No Growth after 48 hours 09/19/16 12:05 Urine Culture - Preliminary Urine,Catheterized Nini albicans Assessment and Plan Plan: 1. Left thoracic T5-T6 herpes zoster vesicular eruptions with possible secondary bacterial infection currently on Valtrex uncontrolled pain. No patch with Percocet as needed for pain control. Zosyn, vancomycin. 2. Sepsis with fever, tachycardia and elevated lactic acid and coagulopathy possible lower lobe pneumonia or atelectasis, possible gram-negative pneumonia. Dr. Marquis is on consult. Monitor I&O. Coumadin resumed. 3. 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 Kim and Dr. Marquis currently improving. On Zosyn and vancomycin 4. Adrenal insufficiency. Currently on Cortef 20 mg in the morning and 10 mg at bedtime. 5. Chronic venous stasis dermatitis bilateral lower extremity, there is no significant worsening of the left ankle as mentioned by the emergency room physician, patient continued to have her IV Rocephin. No diuretics are needed at this time 6. Ongoing immunosuppression using methotrexate which would be held. Should there be any flareup of her RA, this will be replaced by Plaquenil until her wounds would heal 7. Chronic atrial fibrillation on chronic anticoagulation with Coumadin, therapeutic levels will be maintained, metoprolol 50 mg twice a day, Coumadin resumed. 8. CAD currently asymptomatic, on Imdur maintenance 50 mg daily metoprolol 50 mg twice a day, aspirin 81 mg daily Lipitor 80 mg daily 9. COPD on maintenance Pulmicort 10. Hyperlipidemia on Lipitor 80 11. Hyperuricemia without any exacerbation of gout, on Zyloprim 300 mg daily 12. Diabetes mellitus type 2 on metformin 500 mg twice a day hemoglobin A1c will be obtained on [facility] correctional scale coverage 13. DVT prophylaxis on maintenance Coumadin 14. GI prophylaxis Pepcid 20 15. Impaired balance and increasing debility splinting of thoracic area during ambulation which puts her at risk for further falls, physical therapy and the Initial therapy would be seeing her with the anticipated evaluation for skilled ECF Discharge plan: Subacute rehab at [facility] under Dr. Velez or [facility] Impression and plan of care have been directed as dictated by the signing physician. Susi Raymundo nurse practitioner acting as scribe for signing physician. Time with Patient: Greater than 30 <Valdo Johnson - Last Filed: 09/23/16 16:15> Objective - Vital Signs Vital signs: Vital Signs Temp 97.3 F L 09/23/16 15:00 Pulse 95 09/23/16 15:00 Resp 16 09/23/16 15:00 BP 136/67 09/23/16 15:00 Pulse Ox 93 L 09/23/16 15:00 Intake & Output 09/22/16 09/23/16 09/23/16 18:59 06:59 18:59 Intake Total 720 Output Total 2003 08 Balance -2003 720 Weight 127.2 kg Intake: IV 130 Piperacillin-Tazobactam 3 50 .375 gm In Dextrose/Water 1 50ml.bag @ 12.5 mls/hr IVPB Q8H [facility] Rx#: [id number] Sodium Chloride 0.9% 1, 80 000 ml @ 20 mls/hr IV . Q24H [facility] Rx#:[id number] Oral 590 Output: Urine 1999 1 Uretheral (De La Paz) 1999 Stool 4 Other: Voiding Method Indwelling Catheter Incontinent Incontinent # Voids 2 3 # Bowel Movements 2 1 3 - Labs CBC & Chem 7: 09/23/16 06:30 09/23/16 06:30 Labs: Abnormal Lab Results - Last 24 Hours (Table) 09/22/16 09/22/16 09/23/16 Range/Units 16:41 20:41 06:30 WBC 12.5 H (3.8-10.6) k/uL RBC 3.41 L (3.80-5.40) m/uL Hgb 10.9 L (11.4-16.0) gm/dL MCV 104.9 H (80.0-100.0) fL MCHC 30.4 L (31.0-37.0) g/dL RDW 19.1 H (11.5-15.5) % Plt Count 457 H (150-450) k/uL PT (9.0-12.0) sec Chloride (98-107) mmol/L Carbon Dioxide (22-30) mmol/L BUN (7-17) mg/dL POC Glucose (mg/dL) 116 H 123 H (75-99) mg/dL Troponin I (0.000-0.034) ng/mL 09/23/16 09/23/16 09/23/16 Range/Units 06:30 06:30 15:00 WBC (3.8-10.6) k/uL RBC (3.80-5.40) m/uL Hgb (11.4-16.0) gm/dL MCV (80.0-100.0) fL MCHC (31.0-37.0) g/dL RDW (11.5-15.5) % Plt Count (150-450) k/uL PT 24.3 H (9.0-12.0) sec Chloride 93 L (98-107) mmol/L Carbon Dioxide 40 H* (22-30) mmol/L BUN 18 H (7-17) mg/dL POC Glucose (mg/dL) (75-99) mg/dL Troponin I 0.042 H* (0.000-0.034) ng/mL Microbiology - Last 24 Hours (Table) 09/18/16 22:11 Blood Culture - Preliminary Blood No Growth after 96 hours
--- NOTE | 2016-09-21 15:59 | P.PN ---
Subjective Principal diagnosis: Secondary adrenal insufficiency This is a very pleasant 76-year-old female patient who was admitted here to the intensive care unit a couple of days ago after developing hypotension and altered mental status. She was found to be in the secondary adrenal insufficiency as the patient was steroid dependent in the outpatient setting. She was initially seen and evaluated by Dr. Burnham who placed the patient on IV hydrocortisone drip which has subsequently been discontinued. She is now on Cortef 20 mg in the a.m. and 10 mg in the PM. She is seen again today 09/20/2016 in follow-up. She is seen on the regular medical floor. She is awake and alert in no acute distress. She has been maintained on Cortef 20 mg in the a.m. and 10 mg in the PM. She continues with a loose nonproductive cough. She remains on antibiotics in the form of Zosyn. He is also receiving IV Lasix 40 mg every 12 hours. Today's chest x-ray does reveal some improvement in the lung volumes. There is evidence of COPD, cardiomegaly and some vascular congestion. There is bilateral pleural effusions , small. She has been mainly in bed. She needs increased encouragement regarding the use of the cough incentive spirometer and cough and deep breathing exercises. She is seen again today 09/21/2016 in follow-up. She remains on the regular medical floor. She is resting comfortably in bed. She denies any worsening shortness of breath, cough or congestion. She is more alert today as compared to yesterday. She is maintained on Cortef. She does remain quite debilitated and weak. She is currently afebrile. She is maintaining O2 saturations on the low 90s on room air. Her most recent chest x-ray revealed small bilateral pleural effusions. She remains on IV Lasix. Objective - Vital Signs Vital signs: Vital Signs Temp 96.8 F L 09/21/16 15:00 Pulse 95 09/21/16 15:00 Resp 18 09/21/16 15:00 BP 126/80 09/21/16 15:00 Pulse Ox 91 L 09/21/16 15:00 Intake & Output 09/20/16 09/21/16 09/21/16 18:59 06:59 18:59 Intake Total 140 320 Output Total 1652 702 Balance 140 -1332 -702 Intake: IV 140 320 Piperacillin-Tazobactam 3 100 .375 gm In Dextrose/Water 1 50ml.bag @ 12.5 mls/hr IVPB Q8H [facility] Rx#: [id number] Sodium Chloride 0.9% 1, 40 320 000 ml @ 20 mls/hr IV . Q24H [facility] Rx#:[id number] Output: Urine 1650 700 Uretheral (De La Paz) 700 700 Stool 2 2 Other: Voiding Method Indwelling Catheter Indwelling Catheter Indwelling Catheter # Voids 1 # Bowel Movements 1 - Exam GENERAL EXAM: Morbidly obese. Alert, comfortable in no apparent distress. HEAD: Normocephalic. EYES: Normal reaction of pupils, equal size. NOSE: Clear with pink turbinates. THROAT: There is crowding of the posterior pharynx. No erythema or exudates. NECK: Short. No masses, no JVD. CHEST: No chest wall deformity. LUNGS: Equal air entry with few scattered rhonchi. Crackles in posterior bases.. CVS: S1 and S2 normal with no audible murmur, regular rhythm. ABDOMEN: Soft, normal bowel sounds, no guarding or rigidity. SKIN: Multiple lesions being treated. Extremities: There is 1-2+ lower extremity peripheral edema. Changes of chronic venous stasis. Peripheral pulses are intact. - Labs CBC & Chem 7: 09/21/16 12:58 09/21/16 12:58 Labs: Abnormal Lab Results - Last 24 Hours (Table) 09/20/16 09/20/16 09/21/16 Range/Units 17:19 20:49 11:12 WBC (3.8-10.6) k/uL RBC (3.80-5.40) m/uL Hgb (11.4-16.0) gm/dL MCV (80.0-100.0) fL MCHC (31.0-37.0) g/dL RDW (11.5-15.5) % Plt Count (150-450) k/uL PT (9.0-12.0) sec Chloride (98-107) mmol/L Carbon Dioxide (22-30) mmol/L Glucose (74-99) mg/dL POC Glucose (mg/dL) 109 H 134 H 122 H (75-99) mg/dL 09/21/16 09/21/16 09/21/16 Range/Units 12:58 12:58 12:58 WBC 13.8 H (3.8-10.6) k/uL RBC 3.44 L (3.80-5.40) m/uL Hgb 11.0 L (11.4-16.0) gm/dL MCV 105.8 H (80.0-100.0) fL MCHC 30.2 L (31.0-37.0) g/dL RDW 19.3 H (11.5-15.5) % Plt Count 478 H (150-450) k/uL PT 21.2 H (9.0-12.0) sec Chloride 95 L (98-107) mmol/L Carbon Dioxide 37 H (22-30) mmol/L Glucose 111 H (74-99) mg/dL POC Glucose (mg/dL) (75-99) mg/dL Microbiology - Last 24 Hours (Table) 09/18/16 22:11 Blood Culture - Preliminary Blood No Growth after 48 hours 09/19/16 12:05 Urine Culture - Preliminary Urine,Catheterized Nini albicans Assessment and Plan Plan: Impression: #1 Acute secondary adrenal insufficiency, recovered. Currently on Cortef 20 mg in the a.m. 10 mg in the PM. #2 Acute shingles. #3 Rheumatoid arthritis. #4 Atrial fibrillation, anticoagulated with warfarin, therapeutic. #5 Right foot osteomyelitis. #6 Right lower lobe pneumonia, improved both clinically and radiographically. Plan: The patient was seen and evaluated by Dr. Mann. Chest x-ray and labs were reviewed. We'll continue with her current medications. The patient requires increased encouragement regarding the use of the incentive spirometer and cough and deep breathing exercises. She has been mainly bedridden and treated here for 19 days now in the hospital and could possibly benefit from a transfer to [facility] for continued inpatient rehabilitation. Dr. Mann had further conversation with the patient's 2 daughters at the bedside who are in agreement. We'll put [facility] a consult for [facility]. The interim, we'll continue to follow make further recommendations based on her clinical status.
[2016-09-21 17:19] LABS: Glucose,Whole Blood 109 mg/dL (75-99)
[2016-09-21] MEDS: ASPIRIN 81 MG CHEW PO SCH (17:19)
[2016-09-21] MEDS: CALCIUM CARB-VIT D 500MG-200UN 1 EACH TAB PO SCH (17:20)
[2016-09-21] MEDS: CYANOCOBALAMIN 500 MCG TAB PO SCH (17:20)
[2016-09-21] MEDS: WARFARIN 2.5 MG TAB PO SCH (17:20)
[2016-09-21] MEDS: SODIUM CHLORIDE 0.9% 1,000 ML IV SCH (19:48)
[2016-09-21 20:06] LABS: Glucose,Whole Blood 168 mg/dL (75-99)
--- NOTE | 2016-09-21 20:16 | PN ---
DATE OF SERVICE: 09/21/2016 REASON FOR FOLLOW UP: Pneumonia, catheter-associated UTI with yeast, left chest wall wound, right foot osteomyelitis. INTERVAL HISTORY: The patient seems to be back to her baseline. She was awake and alert this morning. Denies having any chest pain. Occasional cough. No abdominal pain. No nausea, vomiting or any diarrhea. On examination, blood pressure is 126/80 with a pulse of 95, temperature 96.7, saturating 96% on room air. GENERAL DESCRIPTION: An elderly female, lying in bed in no distress. RESPIRATORY SYSTEM: Unlabored. Coarse breath sounds at the bases. No wheeze. HEART: S1, S2. Regular rate and rhythm. ABDOMEN: Soft. No tenderness. EXTREMITIES: No edema of feet. Right foot dressed. No obvious drainage. LABS: Hemoglobin is 11, WBC 13.8, BUN of 15, creatinine 0.90. DIAGNOSTIC IMPRESSION AND PLAN: 1. Patient with a pulse possible pneumonia. The patient has overall clinical improvement. Sputum has been negative for any resistant pathogen. 2. Left chest wall wound. Continue with Aquacel Silver dressing. 3. Patient with catheter associated urinary tract infection vs gordon colonization ,with urine showing yeast. Discontinue Gordon catheter. Continue with Diflucan. 4. Right foot osteomyelitis, currently being treated with Zosyn. Local wound care with Aquacel Silver. MTDD
[2016-09-21] MEDS: ATORVASTATIN 80 MG TAB PO SCH (20:44)
[2016-09-21] MEDS: MELATONIN 5 MG TABLET PO SCH (20:44)
[2016-09-21] MEDS: HYDROCORTISONE 10 MG TAB PO SCH (20:45)
[2016-09-22] MEDS: PIPERACILLIN-TAZOBACTAM 3.375 GM in DEXTROSE/WATER 1 50ML.BAG IVPB SCH ×3 (04:09→21:11)
[2016-09-22] MEDS: oxyCODONE-APAP 7.5-325MG 1 EACH TAB PO PRN ×4 (06:08→18:10)
[2016-09-22 06:28] LABS: INR 2.5 (<1.1); Prothrombin Time 24.1 sec (9.0-12.0)
[2016-09-22 06:31] LABS: Anisocytosis Slight; CH 32.3; CHCM 31.3; HCT 36.7 % (34.0-46.0); HGB 11.2 gm/dL (11.4-16.0); Hypochromasia Moderate; MCH 31.7 pg (25.0-35.0); MCHC 30.6 g/dL (31.0-37.0); MCV 103.8 fL (80.0-100.0); Macrocytosis Marked; Mean Platelet Volume 7.8; Poikilocytosis Slight; RBC 3.54 m/uL (3.80-5.40); RDW 19.4 % (11.5-15.5); WBC 13.4 k/uL (3.8-10.6)
[2016-09-22 06:38] LABS: Anion Gap 8 mmol/L; Blood Urea Nitrogen 16 mg/dL (7-17); Calcium 8.8 mg/dL (8.4-10.2); Carbon Dioxide 39 mmol/L (22-30); Chloride 95 mmol/L (98-107); Glucose 88 mg/dL (74-99); Non-African American GFR(MDRD) 59 (>60 ml/min/1.73 sqM); Potassium 3.5 mmol/L (3.5-5.1); Sodium 142 mmol/L (137-145)
[2016-09-22 07:30] LABS: Glucose,Whole Blood 70 mg/dL (75-99)
[2016-09-22] MEDS: INSULIN LISPRO (humaLOG) 300 UNIT/3 ML VIAL SQ SCH ×4 (08:09→21:33)
[2016-09-22] MEDS: CHOLECALCIFEROL 1,000 UNIT TAB PO SCH (08:09)
[2016-09-22] MEDS: HYDROCORTISONE 20 MG TAB PO SCH (08:10)
[2016-09-22] MEDS: ALLOPURINOL 300 MG TAB PO SCH (08:10)
[2016-09-22] MEDS: FLUCONAZOLE 100 MG TAB PO SCH (08:10)
[2016-09-22] MEDS: DULoxetine HCL 60 MG CAPSULE.DR PO SCH (08:10)
[2016-09-22] MEDS: METOPROLOL TARTRATE 25 MG TAB PO SCH ×2 (08:10→21:14)
[2016-09-22] MEDS: ISOSORBIDE MONONITRATE ER 15 MG TAB PO SCH (08:10)
[2016-09-22] MEDS: LIDOCAINE 5% PATCH TOPICAL SCH (08:11)
[2016-09-22] MEDS: NYSTATIN 100,000 UNIT/ML SUSP 500,000 UNIT/5 ML CUP PO SCH ×4 (08:11→21:14)
[2016-09-22] MEDS: NYSTATIN 100,000 UNIT/GM POWD 15 GM TOPICAL SCH (08:11)
[2016-09-22] MEDS: POTASSIUM CHLORIDE ER 20 MEQ TAB.ER PO SCH ×2 (08:11→21:14)
[2016-09-22] MEDS: SENNOSIDES-DOCUSATE SODIUM 1 EACH TAB PO SCH (08:12)
[2016-09-22] MEDS: FAMOTIDINE 20 MG TAB PO SCH (08:12)
[2016-09-22] MEDS: metFORMIN 500 MG TAB PO SCH ×2 (08:12→18:07)
[2016-09-22] MEDS: FUROSEMIDE 10 MG/ML 4 ML VIAL IV SCH ×2 (08:13→21:13)
[2016-09-22] MEDS: FLUTICASONE 50MCG/SPRAY NASAL 16GM EA NOSTRIL SCH ×2 (08:13→21:13)
[2016-09-22] MEDS: ALBUTEROL NEBULIZED 2.5 MG/3 ML INHALATION PRN (09:25)
--- NOTE | 2016-09-22 10:56 | P.DS ---
Providers Date of admission: 09/02/16 18:48 Expected date of discharge: 09/22/16 Attending physician: Miriam Aceves Consults: 09/11/16 10:49 Consult Physician Routine Consulting Provider: Stone Burnham Consult Reason/Comments: shock Do you want consulting provider notified?: Yes 09/20/16 15:51 Consult Physician Routine Consulting Provider: Ivania Mann Consult Reason/Comments: CHF Do you want consulting provider notified?: Yes Primary care physician: Naresh Hall [facility] Course: This is a pleasant 76-year-old lady patient of Dr. Marquis and Dr. Arce. She has underlying history off from at the COPD hyperlipidemia vascular disorder and obstructive sleep apnea neuralgia atrial fibrillation, chronic COPD diabetes mellitus type 2, chronic immunosuppression CHF admitted through the emergency room secondary to left thoracic pain. She was diagnosed recently to have T6 dermatome herpes zoster this past Sunday 3 days prior to admission for which valacyclovir was given by Dr. Marquis. Patient had left flank pain was subsequently seen in the emergency room secondary to the pain. Patient denies any fever however she has some chills. Patient has hydrocodone which doesn't seem to take care of the pain she was seen in emergency room with evaluation to include noticeable left vesicular eruption involving the T6 area, redness in the left leg, known history off chronic venous stasis dermatitis. Known also on the right metatarsal region lateral region from a previous biopsy for osteotomyelitis by Dr. Kim. She is currently on IV Rocephin prior to her admission as recommended by Dr. Marquis. 09/04: Patient has been seen in consultation by Dr. Rojo from infectious disease covering for Dr. Marquis. He has recommended continuing Rocephin, silver dressing for the ulceration of the foot, check protein status and supplement, multivitamin added. Sed rate 24, C-reactive protein 27.2, hemoglobin A1c 6.7 TSH 2.570. Albumin is 3.3. INR 3.4. Chest x-ray is pending a Chin is requesting something for her nasal congestion and Flonase added. She continues to have issues with pain for which Percocet is scheduled plus as needed. 09/05: Patient continues to be very fatigued. She is on CPAP from home. Vesicles are drying up. Dr. Marquis has changed her antibiotics to Ceftaroline. Anticipate possible discharge to [facility] tomorrow. INR is 2.9. Patient will be resumed back on Coumadin home dosing. 09/06: Pain control continues to be an issue the patient is more groggy today. Percocet changed to fentanyl patch. Anticipate possible discharge to [facility] tomorrow. 09/07: Patient became hypotensive with temperature of 100.4 last evening had lactic acid 3.5 and patient was transferred to [facility] and placed on CPAP. She received fluid bolus of 500 mL. She was also tachycardic and pulse ox running 91-95%. Blood culture obtained. Urine and urine culture ordered. White count is 12, INR 3.5. Repeat lactic acid is 1.5. Patient is not ready for discharge today. Fentanyl patch was removed last evening. Patient does not seem to complain and pain while resting. 09/08: De La Paz catheter was placed yesterday his family was concerned that she had no urine output. Urine output has been 40 mL for the past 12 hours. Temperature max 100.0. Dr. Marquis has recommended continuing Ceftaroline. WBC is 9.6. Potassium 3.3 will be replaced. INR is 3.2. Coumadin remains on hold. Repeat chest x-ray shows persistent right lower lobe density which may reflect atelectasis or infiltrate. 09/11: Patient's blood pressure was low and tachycardic with fever this morning. Noted the patient has not been resumed on her chronic prednisone and Solu- Cortef has been ordered. Patient transferred to ICU. Patient's family is contemplating transferring the patient to other facility but at this time, patient remains in intensive care unit as she seems to be improving. She has been seen by Dr. Burnham. She is status post IV Tylenol, IV fluid bolus with improvement. IV hydrocortisone drip started. IV antibiotics changed to Zosyn and vancomycin by Dr. Marquis. 09/12: Patient is much more awake and alert today. She remains in the intensive care unit. Hydrocortisone drip and IV Lasix ordered. Family continue to contemplate [facility] but at this point have decided to keep the patient and Meggan Martino per patient's wishes. 09/13: Patient is continued on IV cortisone and to switch over to oral. Repeat chest x-ray shows increasing basilar infiltrates and small right-sided effusion. Patient to stay in ICU for another day. Repeat urine culture from September 11 is finalized with no growth. All blood cultures have been negative. 09/14:Patient states she is feeling much better today. SHe still has some shortness of breath. Shingles pain is better. Patient will be transferred to [facility]. INR 2.4. Patient was resumed back on coumadin last night. 09/15: Patient remains in the intensive care unit waiting for [facility] bed. Dr. Burnham has downgraded her to [facility]. She is awake and alert and denies any shortness of breath or cough. She has remained hemodynamically stable. PT to start working with the patient with anticipation she'll be ready for discharge to [facility] middle of next week. 09/16: Patient is now on the [facility] floor. Her heart rate was elevated this morning for which metoprolol was increased to 75 mg twice daily. Patient denies any new complaints. She continues to feel improvement in her overall status. She does need help with meals. She was able to work with physical therapy yesterday and was sitting at the edge of the bed for 5 minutes. 09/18: Patient is stating that she wants to be discharged from the hospital. Her plan is for [facility]. She is known to have a small wound to the right leg for which nursing is to put a dressing on. Repeat chest x-ray shows CHF. Patient was given additional dose of Lasix during the machinist 2nd shift and repeat dosing will be given at this time followed by Lasix 40 mg twice daily IV. Anticipate possible discharge in the next 24-48 hours. De La Paz catheter does remain in place. 09/19: is complaining of extreme tiredness and back pain. Family is upset and feels that she sat up in a chair to long yesterday. Lungs are little improved today. De La Paz is clear with good output. Herpes zoster rash is improving. Temperature max 100.6.urine culture showing yeast and Dr. Marquis has started Diflucan. Vancomycin discontinued. Potassium will be replaced. INR is at 3.3. 09/20:Patient's daughters are requesting that Dr. Velez take over her care in the hospital but he will not agree. Patient states that she wants Dr. Johnson to continue care. Patient is lethargic and complaining of shortness of breath today. Consult with Dr. Mann added. 09/21: conditioning room worker to discuss with family benefit of transfer to [facility] for rehab. Currently awaiting response from [facility]. Patient states she is feeling much better today. 09/22: Repeat lab studies show white count 13.4, hemoglobin 11.2. BUN 16 creatinine 0.93. B blood glucose running between 70 and 168. Discharge diagnoses: 1. Left thoracic T5-T6 herpes zoster vesicular eruptions with possible secondary bacterial infection 2. Sepsis with fever, tachycardia and elevated lactic acid and coagulopathy possible lower lobe pneumonia or atelectasis, possible gram-negative pneumonia not entirely ruled out. 3. 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 Kim and Dr. Marquis 4. Adrenal insufficiency. 5. Chronic venous stasis dermatitis bilateral lower extremity 6. Ongoing immunosuppression using methotrexate which would be held. 7. Chronic atrial fibrillation on chronic anticoagulation with Coumadin 8. CAD currently asymptomatic 9. COPD 10. Hyperlipidemia 11. Hyperuricemia without any exacerbation of gout 12. Diabetes mellitus type 2 Discharge plan: Inpatient rehab at [facility] Impression and plan of care have been directed as dictated by the signing physician. Susi Raymundo nurse practitioner acting as scribe for signing physician. Patient Condition at Discharge: Good Plan - Discharge Summary Discharge Medication List Calcium Carbonate/Vitamin D3 [Calcium 600-Vit D3 400 Tablet] 1 tab PO AC-SUPPER 09/07/14 [History] Cholecalciferol [Vitamin D3] 2,000 units PO QAM 09/07/14 [History] Cyanocobalamin [Vitamin B-12] 1,000 mcg PO AC-SUPPER 05/21/15 [History] Methotrexate Sodium [Methotrexate] 20 mg PO TU 09/06/15 [History] predniSONE 5 mg PO QID 09/06/15 [History] Nitroglycerin Sl Tabs [Nitrostat] 0.4 mg SUBLINGUAL Q5M PRN #0 tab 09/10/15 [Rx] Metoprolol Tartrate [Lopressor] 50 mg PO BID #60 tab 10/03/15 [Rx] Warfarin [Coumadin] 2.5 mg PO TUWETHFR 01/15/16 [History] Warfarin [Coumadin] 5 mg PO SUMOSA 01/15/16 [History] Atorvastatin Calcium [Lipitor] 80 mg PO HS 06/01/16 [History] Lidocaine 5% Patch [Lidoderm 5% Patch] 1 patch TOPICAL DAILY 04/27/16 [History] metFORMIN HCL [Glucophage] 500 mg PO BID 04/27/16 [History] ALPRAZolam [Xanax] 0.25 mg PO BID PRN #60 tab 05/01/16 [Rx] Allopurinol [Zyloprim] 300 mg PO DAILY tab 05/01/16 [Rx] Budesonide [Pulmicort] 0.5 mg INHALATION RT-BID nebu 05/01/16 [Rx] Furosemide [Lasix] 40 mg PO DAILY #0 05/01/16 [Rx] Isosorbide Mononitrate ER [Imdur] 15 mg PO DAILY dose 05/01/16 [Rx] Sennosides/Docusate Sodium [Eloisa-Colace Tablet] 1 tab PO DAILY #30 tab 05/01/16 [Rx] guaiFENesin [Mucinex] 600 mg PO Q12HR tablet.er 05/01/16 [Rx] Albuterol Nebulized [Ventolin Nebulized] 2.5 mg INHALATION RT-Q6H PRN 09/02/16 [ History] Aspirin 81 mg PO AC-SUPPER 09/02/16 [History] DULoxetine HCL [Cymbalta] 60 mg PO DAILY 09/02/16 [History] Famotidine [Pepcid] 20 mg PO DAILY 09/02/16 [History] HYDROcodone/APAP 10-325MG [[place] 10-325] 1 tab PO Q4HR PRN 09/02/16 [History] Melatonin 5 mg PO HS 09/02/16 [History] cefTRIAXone [Rocephin] 2,000 mg IVPB Q24HR 09/02/16 [History] Follow up Appointment(s)/Referral(s): Naresh Arce MD [Primary Care Provider] - 1-2 days Activity/Diet/Wound Care/Special Instructions: wants flu vaccine before discharge
[2016-09-22 11:42] LABS: Glucose,Whole Blood 65 mg/dL (75-99)
[2016-09-22] MEDS: MULTIVITAMINS, THERA 1 EACH TAB PO SCH (11:49)
[2016-09-22 11:55] LABS: Glucose,Whole Blood 94 mg/dL (75-99)
[2016-09-22 16:42] LABS: Glucose,Whole Blood 116 mg/dL (75-99)
--- NOTE | 2016-09-22 17:34 | P.PN ---
Subjective Principal diagnosis: Secondary adrenal insufficiency This is a very pleasant 76-year-old female patient who was admitted here to the intensive care unit a couple of days ago after developing hypotension and altered mental status. She was found to be in the secondary adrenal insufficiency as the patient was steroid dependent in the outpatient setting. She was initially seen and evaluated by Dr. Burnham who placed the patient on IV hydrocortisone drip which has subsequently been discontinued. She is now on Cortef 20 mg in the a.m. and 10 mg in the PM. She is seen again today 09/20/2016 in follow-up. She is seen on the regular medical floor. She is awake and alert in no acute distress. She has been maintained on Cortef 20 mg in the a.m. and 10 mg in the PM. She continues with a loose nonproductive cough. She remains on antibiotics in the form of Zosyn. He is also receiving IV Lasix 40 mg every 12 hours. Today's chest x-ray does reveal some improvement in the lung volumes. There is evidence of COPD, cardiomegaly and some vascular congestion. There is bilateral pleural effusions , small. She has been mainly in bed. She needs increased encouragement regarding the use of the cough incentive spirometer and cough and deep breathing exercises. She is seen again today 09/21/2016 in follow-up. She remains on the regular medical floor. She is resting comfortably in bed. She denies any worsening shortness of breath, cough or congestion. She is more alert today as compared to yesterday. She is maintained on Cortef. She does remain quite debilitated and weak. She is currently afebrile. She is maintaining O2 saturations on the low 90s on room air. Her most recent chest x-ray revealed small bilateral pleural effusions. She remains on IV Lasix. She is seen again today on 09/22/2016 in follow-up on the regular medical floor. She is awake and alert in no acute distress. She did have some issues with diarrhea this morning. She denies any significant abdominal discomfort. She denies any worsening shortness of breath, cough or congestion. She does remain quite weak and debilitated. The plan [facility]. Objective - Vital Signs Vital signs: Vital Signs Temp 97.7 F 09/22/16 15:00 Pulse 90 02/03/17 16:00 Resp 18 09/22/16 16:00 BP 126/71 09/22/16 15:00 Pulse Ox 92 L 09/22/16 15:00 Intake & Output 09/21/16 09/22/16 09/22/16 18:59 06:59 18:59 Intake Total 460 Output Total 2654 1700 2003 Balance -2654 -1240 Weight 127.2 kg Intake: IV 160 Piperacillin-Tazobactam 3 100 .375 gm In Dextrose/Water 1 50ml.bag @ 12.5 mls/hr IVPB Q8H LUIS Rx#: [id number] Sodium Chloride 0.9% 1, 60 000 ml @ 20 mls/hr IV . Q24H LUIS Rx#:[id number] Oral 300 Output: Urine 2650 1700 2000 Uretheral (De La Paz) 1400 1700 2000 Stool 4 4 Other: Voiding Method Indwelling Catheter Indwelling Catheter Indwelling Catheter # Voids 1 # Bowel Movements 1 2 - Exam GENERAL EXAM: Morbidly obese. Alert, comfortable in no apparent distress. HEAD: Normocephalic. EYES: Normal reaction of pupils, equal size. NOSE: Clear with pink turbinates. THROAT: There is crowding of the posterior pharynx. No erythema or exudates. NECK: Short. No masses, no JVD. CHEST: No chest wall deformity. LUNGS: Equal air entry with few scattered rhonchi. Crackles in posterior bases.. CVS: S1 and S2 normal with no audible murmur, regular rhythm. ABDOMEN: Soft, normal bowel sounds, no guarding or rigidity. SKIN: Multiple lesions being treated. Extremities: There is 1-2+ lower extremity peripheral edema. Changes of chronic venous stasis. Peripheral pulses are intact. - Labs CBC & Chem 7: 09/22/16 06:05 09/22/16 06:05 Labs: Abnormal Lab Results - Last 24 Hours (Table) 09/21/16 09/22/16 09/22/16 Range/Units 20:04 06:05 06:05 WBC 13.4 H (3.8-10.6) k/uL RBC 3.54 L (3.80-5.40) m/uL Hgb 11.2 L (11.4-16.0) gm/dL MCV 103.8 H (80.0-100.0) fL MCHC 30.6 L (31.0-37.0) g/dL RDW 19.4 H (11.5-15.5) % Plt Count 465 H (150-450) k/uL PT 24.1 H (9.0-12.0) sec Chloride (98-107) mmol/L Carbon Dioxide (22-30) mmol/L POC Glucose (mg/dL) 168 H (75-99) mg/dL 09/22/16 09/22/16 09/22/16 Range/Units 06:05 07:28 11:40 WBC (3.8-10.6) k/uL RBC (3.80-5.40) m/uL Hgb (11.4-16.0) gm/dL MCV (80.0-100.0) fL MCHC (31.0-37.0) g/dL RDW (11.5-15.5) % Plt Count (150-450) k/uL PT (9.0-12.0) sec Chloride 95 L (98-107) mmol/L Carbon Dioxide 39 H (22-30) mmol/L POC Glucose (mg/dL) 70 L 65 L (75-99) mg/dL 09/22/16 Range/Units 16:41 WBC (3.8-10.6) k/uL RBC (3.80-5.40) m/uL Hgb (11.4-16.0) gm/dL MCV (80.0-100.0) fL MCHC (31.0-37.0) g/dL RDW (11.5-15.5) % Plt Count (150-450) k/uL PT (9.0-12.0) sec Chloride (98-107) mmol/L Carbon Dioxide (22-30) mmol/L POC Glucose (mg/dL) 116 H (75-99) mg/dL Microbiology - Last 24 Hours (Table) 09/18/16 22:11 Blood Culture - Preliminary Blood No Growth after 72 hours 09/19/16 12:05 Urine Culture - Final Urine,Catheterized Nini albicans Assessment and Plan Plan: Impression: #1 Acute secondary adrenal insufficiency, recovered. Currently on Cortef 20 mg in the a.m. 10 mg in the PM. #2 Acute shingles. #3 Rheumatoid arthritis. #4 Atrial fibrillation, anticoagulated with warfarin, therapeutic. #5 Right foot osteomyelitis. #6 Right lower lobe pneumonia, improved both clinically and radiographically. Plan: The patient was seen and evaluated by Dr. Mann. Most recent chest x-ray and labs were reviewed. We'll continue with her current medications. The patient requires increased encouragement regarding the use of the incentive spirometer and cough and deep breathing exercises. She has been mainly bedridden and treated here for 20 days now in the hospital and would definitely benefit from a transfer to [facility] for continued inpatient rehabilitation. If transfer today she'll continue with her current pulmonary medications. She'll remain on her home BiPAP equipment.
[2016-09-22] MEDS: WARFARIN 2.5 MG TAB PO SCH (18:07)
[2016-09-22] MEDS: CYANOCOBALAMIN 500 MCG TAB PO SCH (18:08)
[2016-09-22] MEDS: CALCIUM CARB-VIT D 500MG-200UN 1 EACH TAB PO SCH (18:08)
[2016-09-22] MEDS: ASPIRIN 81 MG CHEW PO SCH (18:08)
--- NOTE | 2016-09-22 20:29 | PN ---
DATE OF SERVICE: 09/22/2016 Reason for follow-up: 1. Pneumonia. 2. Urinary tract infection. 3. Right foot osteomyelitis. 4. Right foot wound. INTERVAL HISTORY: The patient is afebrile. She continues to be breathing comfortably. Denies any chest pain or shortness of breath. Occasional cough. No abdominal pain. On examination, blood pressure is 126/71 with a pulse of 90, temperature is 97.7, she is 92% on 2 liters nasal cannula. GENERAL DESCRIPTION: Elderly female lying in bed in no distress. RESPIRATORY SYSTEM: Unlabored breathing. Some decreased breath sounds at the base. HEART: S1, S2 regular rate and rhythm. ABDOMEN: Soft, no tenderness. EXTREMITIES: Right foot is currently dressed. No obvious drainage on the dressing. The left chest wall wound significantly improved. LABS: Hemoglobin 11.1, white count 13.4 and BUN of 15, creatinine 0.93. DIAGNOSTIC IMPRESSION AND PLAN: 1. Patient with right foot osteomyelitis for which antibiotic will be switched over to Rocephin 2 grams daily which will continue for about four more weeks. 2. Urinary tract infection vs colonization, Urine showing yeast. De La Paz discontinued. Continue Diflucan for another 5 days. 3. Patient with underlying pneumonia. Continue the patient on antibiotic was switched over to Avelox 400 daily for 7 days. 4. Left chest wall wound, continue with Aquacel Silver dressing and outpatient follow-up. Continue supportive care. MTDD
[2016-09-22 20:47] LABS: Glucose,Whole Blood 123 mg/dL (75-99)
[2016-09-22] MEDS: ATORVASTATIN 80 MG TAB PO SCH (21:13)
[2016-09-22] MEDS: MELATONIN 5 MG TABLET PO SCH (21:14)
[2016-09-22] MEDS: HYDROCORTISONE 10 MG TAB PO SCH (21:14)
[2016-09-23] MEDS: oxyCODONE-APAP 7.5-325MG 1 EACH TAB PO PRN ×3 (02:09→13:44)
[2016-09-23] MEDS: PIPERACILLIN-TAZOBACTAM 3.375 GM in DEXTROSE/WATER 1 50ML.BAG IVPB SCH ×3 (03:47→19:49)
[2016-09-23 06:49] LABS: Glucose,Whole Blood 82 mg/dL (75-99)
[2016-09-23 07:01] LABS: INR 2.5 (<1.1); Prothrombin Time 24.3 sec (9.0-12.0)
[2016-09-23 07:08] LABS: Anisocytosis Slight; CH 32.1; CHCM 30.8; HCT 35.8 % (34.0-46.0); HGB 10.9 gm/dL (11.4-16.0); Hypochromasia Marked; MCH 31.9 pg (25.0-35.0); MCHC 30.4 g/dL (31.0-37.0); MCV 104.9 fL (80.0-100.0); Macrocytosis Marked; Mean Platelet Volume 7.2; Poikilocytosis Slight; RBC 3.41 m/uL (3.80-5.40); RDW 19.1 % (11.5-15.5); WBC 12.5 k/uL (3.8-10.6)
[2016-09-23] MEDS: SODIUM CHLORIDE 0.9% 1,000 ML IV SCH ×2 (07:35→07:37)
[2016-09-23] MEDS: INSULIN LISPRO (humaLOG) 300 UNIT/3 ML VIAL SQ SCH ×4 (07:44→22:53)
[2016-09-23] MEDS: LIDOCAINE 5% PATCH TOPICAL SCH (08:25)
[2016-09-23] MEDS: SENNOSIDES-DOCUSATE SODIUM 1 EACH TAB PO SCH (08:26)
[2016-09-23] MEDS: NYSTATIN 100,000 UNIT/ML SUSP 500,000 UNIT/5 ML CUP PO SCH ×4 (08:27→22:53)
[2016-09-23] MEDS: FUROSEMIDE 10 MG/ML 4 ML VIAL IV SCH ×2 (08:28→22:52)
[2016-09-23] MEDS: FLUCONAZOLE 100 MG TAB PO SCH (08:28)
[2016-09-23] MEDS: HYDROCORTISONE 20 MG TAB PO SCH (08:28)
[2016-09-23] MEDS: ALLOPURINOL 300 MG TAB PO SCH (08:29)
[2016-09-23] MEDS: CHOLECALCIFEROL 1,000 UNIT TAB PO SCH (08:30)
[2016-09-23] MEDS: METOPROLOL TARTRATE 25 MG TAB PO SCH ×2 (08:30→22:52)
[2016-09-23] MEDS: DULoxetine HCL 60 MG CAPSULE.DR PO SCH (08:30)
[2016-09-23] MEDS: metFORMIN 500 MG TAB PO SCH ×2 (08:31→17:34)
[2016-09-23] MEDS: FAMOTIDINE 20 MG TAB PO SCH (08:31)
[2016-09-23] MEDS: ISOSORBIDE MONONITRATE ER 15 MG TAB PO SCH (08:31)
[2016-09-23] MEDS: FLUTICASONE 50MCG/SPRAY NASAL 16GM EA NOSTRIL SCH ×2 (08:31→22:52)
[2016-09-23] MEDS: POTASSIUM CHLORIDE ER 20 MEQ TAB.ER PO SCH ×2 (08:32→22:52)
[2016-09-23 10:11] LABS: Blood Urea Nitrogen 18 mg/dL (7-17); Calcium 8.6 mg/dL (8.4-10.2); Chloride 93 mmol/L (98-107); Glucose 87 mg/dL (74-99); Non-African American GFR(MDRD) 58 (>60 ml/min/1.73 sqM); Potassium 3.5 mmol/L (3.5-5.1); Sodium 142 mmol/L (137-145)
[2016-09-23 10:17] LABS: Anion Gap 9 mmol/L
[2016-09-23 10:21] LABS: Carbon Dioxide 40 mmol/L (22-30)
[2016-09-23 11:43] LABS: Glucose,Whole Blood 96 mg/dL (75-99)
--- NOTE | 2016-09-23 13:06 | P.PN ---
Subjective This is a very pleasant 76-year-old female patient who was admitted here to the intensive care unit a couple of days ago after developing hypotension and altered mental status. She was found to be in the secondary adrenal insufficiency as the patient was steroid dependent in the outpatient setting. She was initially seen and evaluated by Dr. Burnham who placed the patient on IV hydrocortisone drip which has subsequently been discontinued. She is now on Cortef 20 mg in the a.m. and 10 mg in the PM. She is seen again today 09/20/2016 in follow-up. She is seen on the regular medical floor. She is awake and alert in no acute distress. She has been maintained on Cortef 20 mg in the a.m. and 10 mg in the PM. She continues with a loose nonproductive cough. She remains on antibiotics in the form of Zosyn. He is also receiving IV Lasix 40 mg every 12 hours. Today's chest x-ray does reveal some improvement in the lung volumes. There is evidence of COPD, cardiomegaly and some vascular congestion. There is bilateral pleural effusions , small. She has been mainly in bed. She needs increased encouragement regarding the use of the cough incentive spirometer and cough and deep breathing exercises. She is seen again today 09/21/2016 in follow-up. She remains on the regular medical floor. She is resting comfortably in bed. She denies any worsening shortness of breath, cough or congestion. She is more alert today as compared to yesterday. She is maintained on Cortef. She does remain quite debilitated and weak. She is currently afebrile. She is maintaining O2 saturations on the low 90s on room air. Her most recent chest x-ray revealed small bilateral pleural effusions. She remains on IV Lasix. She is seen again today on 09/22/2016 in follow-up on the regular medical floor. She is awake and alert in no acute distress. She did have some issues with diarrhea this morning. She denies any significant abdominal discomfort. She denies any worsening shortness of breath, cough or congestion. She does remain quite weak and debilitated. The [facility]. The patient is seen again on 09/23/2016 in follow-up on the regular medical floor. She remains awake and alert in no acute distress. The [facility] once a bed becomes available. Her daughter is currently at the bedside. The patient has no specific complaints today. No worsening shortness of breath, cough or congestion. Objective - Vital Signs Vital signs: Vital Signs Temp 97.1 F L 09/23/16 07:00 Pulse 90 09/23/16 07:00 Resp 16 09/23/16 07:00 BP 155/77 09/23/16 07:00 Pulse Ox 96 09/23/16 09:40 Intake & Output 09/22/16 09/23/16 09/23/16 18:59 06:59 18:59 Output Total 2003 1 Balance -2003 Weight 127.2 kg Output: Urine 1999 1 Uretheral (De La Paz) 1999 Stool 4 Other: Voiding Method Indwelling Catheter Incontinent Incontinent # Voids 2 # Bowel Movements 2 1 - Exam GENERAL EXAM: Morbidly obese. Alert, comfortable in no apparent distress. HEAD: Normocephalic. EYES: Normal reaction of pupils, equal size. NOSE: Clear with pink turbinates. THROAT: There is crowding of the posterior pharynx. No erythema or exudates. NECK: Short. No masses, no JVD. CHEST: No chest wall deformity. LUNGS: Equal air entry with few scattered rhonchi. Crackles in posterior bases.. CVS: S1 and S2 normal with no audible murmur, regular rhythm. ABDOMEN: Soft, normal bowel sounds, no guarding or rigidity. SKIN: Multiple lesions being treated. Extremities: There is 1-2+ lower extremity peripheral edema. Changes of chronic venous stasis. Peripheral pulses are intact. - Labs CBC & Chem 7: 09/23/16 06:30 09/23/16 06:30 Labs: Abnormal Lab Results - Last 24 Hours (Table) 09/22/16 09/22/16 09/23/16 Range/Units 16:41 20:41 06:30 WBC 12.5 H (3.8-10.6) k/uL RBC 3.41 L (3.80-5.40) m/uL Hgb 10.9 L (11.4-16.0) gm/dL MCV 104.9 H (80.0-100.0) fL MCHC 30.4 L (31.0-37.0) g/dL RDW 19.1 H (11.5-15.5) % Plt Count 457 H (150-450) k/uL PT (9.0-12.0) sec Chloride (98-107) mmol/L Carbon Dioxide (22-30) mmol/L BUN (7-17) mg/dL POC Glucose (mg/dL) 116 H 123 H (75-99) mg/dL 09/23/16 09/23/16 Range/Units 06:30 06:30 WBC (3.8-10.6) k/uL RBC (3.80-5.40) m/uL Hgb (11.4-16.0) gm/dL MCV (80.0-100.0) fL MCHC (31.0-37.0) g/dL RDW (11.5-15.5) % Plt Count (150-450) k/uL PT 24.3 H (9.0-12.0) sec Chloride 93 L (98-107) mmol/L Carbon Dioxide 40 H* (22-30) mmol/L BUN 18 H (7-17) mg/dL POC Glucose (mg/dL) (75-99) mg/dL Microbiology - Last 24 Hours (Table) 09/18/16 22:11 Blood Culture - Preliminary Blood No Growth after 96 hours Assessment and Plan Plan: Impression: #1 Acute secondary adrenal insufficiency, recovered. Currently on Cortef 20 mg in the a.m. 10 mg in the PM. #2 Acute shingles. #3 Rheumatoid arthritis. #4 Atrial fibrillation, anticoagulated with warfarin, therapeutic. #5 Right foot osteomyelitis. #6 Right lower lobe pneumonia, improved both clinically and radiographically. Plan: The patient was seen and evaluated by Dr. Mann. She is stable from the pulmonary standpoint and could be discharged once a bed is available. In the interim, we'll continue with her current medications. The patient requires increased encouragement regarding the use of the incentive spirometer and cough and deep breathing exercises. We'll see the patient on as-needed basis.
[2016-09-23] MEDS: MULTIVITAMINS, THERA 1 EACH TAB PO SCH (13:29)
--- NOTE | 2016-09-23 16:15 | P.PN ---
Subjective This is a pleasant 76-year-old lady patient of Dr. Marquis and Dr. Arce. She has underlying history off from at the COPD hyperlipidemia vascular disorder and obstructive sleep apnea neuralgia atrial fibrillation, chronic COPD diabetes mellitus type 2, chronic immunosuppression CHF admitted through the emergency room secondary to left thoracic pain. She was diagnosed recently to have T6 dermatome herpes zoster this past Sunday 3 days prior to admission for which valacyclovir was given by Dr. Marquis. Patient had left flank pain was subsequently seen in the emergency room secondary to the pain. Patient denies any fever however she has some chills. Patient has hydrocodone which doesn't seem to take care of the pain she was seen in emergency room with evaluation to include noticeable left vesicular eruption involving the T6 area, redness in the left leg, known history off chronic venous stasis dermatitis. Known also on the right metatarsal region lateral region from a previous biopsy for osteotomyelitis by Dr. Kim. She is currently on IV Rocephin prior to her admission as recommended by Dr. Marquis. 09/04: Patient has been seen in consultation by Dr. Rojo from infectious disease covering for Dr. Marquis. He has recommended continuing Rocephin, silver dressing for the ulceration of the foot, check protein status and supplement, multivitamin added. Sed rate 24, C-reactive protein 27.2, hemoglobin A1c 6.7 TSH 2.570. Albumin is 3.3. INR 3.4. Chest x-ray is pending a Chin is requesting something for her nasal congestion and Flonase added. She continues to have issues with pain for which Percocet is scheduled plus as needed. 09/05: Patient continues to be very fatigued. She is on CPAP from home. Vesicles are drying up. Dr. Marquis has changed her antibiotics to Ceftaroline. Anticipate possible discharge to [facility] tomorrow. INR is 2.9. Patient will be resumed back on Coumadin home dosing. 09/06: Pain control continues to be an issue the patient is more groggy today. Percocet changed to fentanyl patch. Anticipate possible discharge to [facility] tomorrow. 09/07: Patient became hypotensive with temperature of 100.4 last evening had lactic acid 3.5 and patient was transferred to [facility] care and placed on CPAP. She received fluid bolus of 500 mL. She was also tachycardic and pulse ox running 91-95%. Blood culture obtained. Urine and urine culture ordered. White count is 12, INR 3.5. Repeat lactic acid is 1.5. Patient is not ready for discharge today. Fentanyl patch was removed last evening. Patient does not seem to complain and pain while resting. 09/08: De La Paz catheter was placed yesterday his family was concerned that she had no urine output. Urine output has been 40 mL for the past 12 hours. Temperature max 100.0. Dr. Marquis has recommended continuing Ceftaroline. WBC is 9.6. Potassium 3.3 will be replaced. INR is 3.2. Coumadin remains on hold. Repeat chest x-ray shows persistent right lower lobe density which may reflect atelectasis or infiltrate. 09/11: Patient's blood pressure was low and tachycardic with fever this morning. Noted the patient has not been resumed on her chronic prednisone and Solu- Cortef has been ordered. Patient transferred to ICU. Patient's family is contemplating transferring the patient to other facility but at this time, patient remains in intensive care unit as she seems to be improving. She has been seen by Dr. Burnham. She is status post IV Tylenol, IV fluid bolus with improvement. IV hydrocortisone drip started. IV antibiotics changed to Zosyn and vancomycin by Dr. Marquis. 09/12: Patient is much more awake and alert today. She remains in the intensive care unit. Hydrocortisone drip and IV Lasix ordered. Family continue to contemplate [facility] but at this point have decided to keep the patient and Meggan Martino per patient's wishes. 09/13: Patient is continued on IV cortisone and to switch over to oral. Repeat chest x-ray shows increasing basilar infiltrates and small right-sided effusion. Patient to stay in ICU for another day. Repeat urine culture from September 11 is finalized with no growth. All blood cultures have been negative. 09/14:Patient states she is feeling much better today. SHe still has some shortness of breath. Shingles pain is better. Patient will be transferred to [facility]. INR 2.4. Patient was resumed back on coumadin last night. 09/15: Patient remains in the intensive care unit waiting [facility] bed. Dr. Burnham has downgraded her to [facility]. She is awake and alert and denies any shortness of breath or cough. She has remained hemodynamically stable. PT to start working with the patient with anticipation she'll be ready for discharge to [facility] middle of next week. 09/16: [facility]. Her heart rate was elevated this morning for which metoprolol was increased to 75 mg twice daily. Patient denies any new complaints. She continues to feel improvement in her overall status. She does need help with meals. She was able to work with physical therapy yesterday and was sitting at the edge of the bed for 5 minutes. 09/18: Patient is stating that she wants to be discharged from the hospital. Her plan is for [facility]. She is known to have a small wound to the right leg for which nursing is to put a dressing on. Repeat chest x-ray shows CHF. Patient was given additional dose of Lasix during the shift supervisor melting and repeat dosing will be given at this time followed by Lasix 40 mg twice daily IV. Anticipate possible discharge in the next 24-48 hours. De La Paz catheter does remain in place. 09/19: is complaining of extreme tiredness and back pain. Family is upset and feels that she sat up in a chair to long yesterday. Lungs are little improved today. De La Paz is clear with good output. Herpes zoster rash is improving. Temperature max 100.6.urine culture showing yeast and Dr. Marquis has started Diflucan. Vancomycin discontinued. Potassium will be replaced. INR is at 3.3. 09/20:Patient's daughters are requesting that Dr. Velez take over her care in the hospital but he will not agree. Patient states that she wants Dr. Johnson to continue care. Patient is lethargic and complaining of shortness of breath today. Consult with Dr. Mann added. 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 Currently awaiting response from [facility]. Patient states she is feeling much better today. 2/4: Patient did not get the prior authorization measures coming to be transferred to 12-lead EKG was done, cardiac enzymes 2, cardiology consultation. Objective - Vital Signs Vital signs: Vital Signs Temp 97.3 F L 09/23/16 15:00 Pulse 95 09/23/16 15:00 Resp 16 09/23/16 15:00 BP 136/67 09/23/16 15:00 Pulse Ox 93 L 09/23/16 15:00 Intake & Output 09/22/16 09/23/16 09/23/16 18:59 06:59 18:59 Intake Total 720 Output Total 2003 08 Balance -2003 720 Weight 127.2 kg Intake: IV 130 Piperacillin-Tazobactam 3 50 .375 gm In Dextrose/Water 1 50ml.bag @ 12.5 mls/hr IVPB Q8H LUIS Rx#: [id number] Sodium Chloride 0.9% 1, 80 000 ml @ 20 mls/hr IV . Q24H LUIS Rx#:[id number] Oral 590 Output: Urine 1999 1 Uretheral (De La Paz) 1999 Stool 4 Other: Voiding Method Indwelling Catheter Incontinent Incontinent # Voids 2 # Bowel Movements 2 1 - Exam - Exam General appearance: cooperative, no acute distress, - EENT Eyes: anicteric sclerae, EOMI, PERRLA, dentition normal, normal appearance ENT: NA/AT, normal oropharynx - Neck Neck: no lymphadenopathy, normal ROM, no other, no rigidity, no stridor, no thyromegaly - Respiratory Respiratory: bilateral: CTA, negative: diminished, dullness, rales, rhonchi - Cardiovascular Rhythm: regular Heart sounds: normal: S1, S2 Abnormal Heart Sounds: no systolic murmur, no diastolic murmur, no rub, no S3 Gallop, no S4 Gallop, no click, no other - Gastrointestinal General gastrointestinal: normal bowel sounds, soft - Integumentary Integumentary: rash (left t 6 dermatome), ulcer (right lateral metatarsal 2 cm x2 cm x1 cm approx) - Musculoskeletal Musculoskeletal: generalized weakness, strength equal bilaterally - Labs CBC & Chem 7: 09/23/16 06:30 09/23/16 06:30 Labs: Abnormal Lab Results - Last 24 Hours (Table) 09/22/16 09/22/16 09/23/16 Range/Units 16:41 20:41 06:30 WBC 12.5 H (3.8-10.6) k/uL RBC 3.41 L (3.80-5.40) m/uL Hgb 10.9 L (11.4-16.0) gm/dL MCV 104.9 H (80.0-100.0) fL MCHC 30.4 L (31.0-37.0) g/dL RDW 19.1 H (11.5-15.5) % Plt Count 457 H (150-450) k/uL PT (9.0-12.0) sec Chloride (98-107) mmol/L Carbon Dioxide (22-30) mmol/L BUN (7-17) mg/dL POC Glucose (mg/dL) 116 H 123 H (75-99) mg/dL 09/23/16 09/23/16 Range/Units 06:30 06:30 WBC (3.8-10.6) k/uL RBC (3.80-5.40) m/uL Hgb (11.4-16.0) gm/dL MCV (80.0-100.0) fL MCHC (31.0-37.0) g/dL RDW (11.5-15.5) % Plt Count (150-450) k/uL PT 24.3 H (9.0-12.0) sec Chloride 93 L (98-107) mmol/L Carbon Dioxide 40 H* (22-30) mmol/L BUN 18 H (7-17) mg/dL POC Glucose (mg/dL) (75-99) mg/dL Microbiology - Last 24 Hours (Table) 09/18/16 22:11 Blood Culture - Preliminary Blood No Growth after 96 hours Assessment and Plan Plan: Assessment and Plan Plan: 1. Left thoracic T5-T6 herpes zoster vesicular eruptions with possible secondary bacterial infection currently on Valtrex uncontrolled pain. No patch with Percocet as needed for pain control. Zosyn, vancomycin. 2. Sepsis with fever, tachycardia and elevated lactic acid and coagulopathy possible lower lobe pneumonia or atelectasis, possible gram-negative pneumonia. Dr. Marquis is on consult. Monitor I&O. Coumadin resumed. 3. 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 Kim and Dr. Marquis currently improving. On Zosyn and vancomycin 4. Adrenal insufficiency. Currently on Cortef 20 mg in the morning and 10 mg at bedtime. 5. Chronic venous stasis dermatitis bilateral lower extremity, there is no significant worsening of the left ankle as mentioned by the emergency room physician, patient continued to have her IV Rocephin. No diuretics are needed at this time 6. Ongoing immunosuppression using methotrexate which would be held. Should there be any flareup of her RA, this will be replaced by Plaquenil until her wounds would heal 7. Chronic atrial fibrillation on chronic anticoagulation with Coumadin, therapeutic levels will be maintained, metoprolol 50 mg twice a day, Coumadin resumed. 8. CAD currently asymptomatic, on Imdur maintenance 50 mg daily metoprolol 50 mg twice a day, aspirin 81 mg daily Lipitor 80 mg daily 9. COPD on maintenance Pulmicort 10. Hyperlipidemia on Lipitor 80 11. Hyperuricemia without any exacerbation of gout, on Zyloprim 300 mg daily 12. Diabetes mellitus type 2 on metformin 500 mg twice a day hemoglobin A1c will be obtained on [facility] correctional scale coverage 13. DVT prophylaxis on maintenance Coumadin 14. GI prophylaxis Pepcid 20 15. Impaired balance and increasing debility splinting of thoracic area during ambulation which puts her at risk for further falls, physical therapy and the Initial therapy would be seeing her with the anticipated evaluation for skilled ECF. 16. Chest pain. Likely noncardiac however we will check troponin 2, 12-lead EKG, cardiology consultation. Discharge plan: Subacute rehab at [facility] under Dr. Velez or [facility] when insurance prior Auth is available.
[2016-09-23 16:24] LABS: Glucose,Whole Blood 155 mg/dL (75-99)
[2016-09-23] MEDS: CALCIUM CARB-VIT D 500MG-200UN 1 EACH TAB PO SCH (17:33)
[2016-09-23] MEDS: CYANOCOBALAMIN 500 MCG TAB PO SCH (17:33)
[2016-09-23] MEDS: ASPIRIN 81 MG CHEW PO SCH (17:33)
[2016-09-23] MEDS: WARFARIN 2.5 MG TAB PO SCH (17:34)
[2016-09-23 20:33] LABS: Glucose,Whole Blood 108 mg/dL (75-99)
[2016-09-23] MEDS: MELATONIN 5 MG TABLET PO SCH (22:52)
[2016-09-23] MEDS: HYDROCORTISONE 10 MG TAB PO SCH (22:52)
[2016-09-23] MEDS: ATORVASTATIN 80 MG TAB PO SCH (22:52)
[2016-09-24] MEDS: PIPERACILLIN-TAZOBACTAM 3.375 GM in DEXTROSE/WATER 1 50ML.BAG IVPB SCH ×3 (04:04→19:56)
[2016-09-24] MEDS: oxyCODONE-APAP 7.5-325MG 1 EACH TAB PO PRN ×3 (06:21→19:55)
[2016-09-24 06:40] LABS: Anisocytosis Slight; CH 32.2; CHCM 30.9; HCT 37.2 % (34.0-46.0); HDW 3.61; HGB 11.4 gm/dL (11.4-16.0); Hypochromasia Marked; MCHC 30.5 g/dL (31.0-37.0); MCV 104.8 fL (80.0-100.0); Macrocytosis Marked; Mean Platelet Volume 7.1; Poikilocytosis Slight; RBC 3.55 m/uL (3.80-5.40); RDW 19.1 % (11.5-15.5); WBC 13.1 k/uL (3.8-10.6)
[2016-09-24 06:46] LABS: INR 2.9 (<1.1)
[2016-09-24 06:54] LABS: Glucose,Whole Blood 63 mg/dL (75-99)
[2016-09-24] MEDS: INSULIN LISPRO (humaLOG) 300 UNIT/3 ML VIAL SQ SCH ×4 (07:24→22:10)
[2016-09-24 07:30] LABS: Glucose,Whole Blood 84 mg/dL (75-99)
[2016-09-24 07:35] LABS: Anion Gap 11 mmol/L; Blood Urea Nitrogen 17 mg/dL (7-17); Calcium 8.8 mg/dL (8.4-10.2); Carbon Dioxide 38 mmol/L (22-30); Chloride 94 mmol/L (98-107); Glucose 84 mg/dL (74-99); Non-African American GFR(MDRD) 55 (>60 ml/min/1.73 sqM); Potassium 3.8 mmol/L (3.5-5.1); Sodium 143 mmol/L (137-145)
--- NOTE | 2016-09-24 09:00 | PN ---
DATE OF SERVICE: 09/23/2016 Reason for follow-up is pneumonia and urinary tract infection and osteomyelitis. INTERVAL HISTORY: The patient is afebrile. Has been breathing comfortably. Denies any chest pain. Occasional cough. No abdominal pain. Diarrhea has resolved. On examination, blood pressure is 136/57, pulse of 95, temperature 97.3. She is 93% on 3 liters nasal cannula. General description is an elderly female lying in bed in no distress. RESPIRATORY SYSTEM: Unlabored breathing. Clear to auscultation anteriorly. HEART: S1, S2 regular rate and rhythm. ABDOMEN: Soft, no tenderness. LABS: Hemoglobin is 10.9, white count 12.5, BUN of 18, creatinine 0.94. DIAGNOSTIC IMPRESSION AND PLAN: 1. Patient with pneumonia. Currently covered with Zosyn. Plan to finish therapy with Avelox. Sputum has been negative for any resistant pathogen. 2. Patient with right foot osteomyelitis, currently covered with Zosyn. Plan to finish therapy with Rocephin. Continue local wound care with Aquacel Silver. 3. Urinary tract infection and ? colonization. Continue the patient on oral Diflucan. De La Paz already discontinued. 4. Left chest wall wound. Continue with Aquacel Silver dressing. Family present at beside. Their questions were answered. BETTINAD
[2016-09-24] MEDS: LIDOCAINE 5% PATCH TOPICAL SCH (09:31)
[2016-09-24] MEDS: FLUTICASONE 50MCG/SPRAY NASAL 16GM EA NOSTRIL SCH ×2 (09:31→22:04)
[2016-09-24] MEDS: NYSTATIN 100,000 UNIT/ML SUSP 500,000 UNIT/5 ML CUP PO SCH ×3 (09:33→17:00)
[2016-09-24] MEDS: POTASSIUM CHLORIDE ER 20 MEQ TAB.ER PO SCH ×2 (09:34→22:05)
[2016-09-24] MEDS: FAMOTIDINE 20 MG TAB PO SCH (09:34)
[2016-09-24] MEDS: MULTIVITAMINS, THERA 1 EACH TAB PO SCH (09:34)
[2016-09-24] MEDS: METOPROLOL TARTRATE 25 MG TAB PO SCH ×2 (09:34→22:08)
[2016-09-24] MEDS: HYDROCORTISONE 20 MG TAB PO SCH (09:34)
[2016-09-24] MEDS: FUROSEMIDE 10 MG/ML 4 ML VIAL IV SCH ×2 (09:34→22:04)
[2016-09-24] MEDS: metFORMIN 500 MG TAB PO SCH ×2 (09:35→16:57)
[2016-09-24] MEDS: CHOLECALCIFEROL 1,000 UNIT TAB PO SCH (09:35)
[2016-09-24] MEDS: ISOSORBIDE MONONITRATE ER 15 MG TAB PO SCH (09:35)
[2016-09-24] MEDS: FLUCONAZOLE 100 MG TAB PO SCH (09:35)
[2016-09-24] MEDS: ALLOPURINOL 300 MG TAB PO SCH (09:35)
[2016-09-24] MEDS: DULoxetine HCL 60 MG CAPSULE.DR PO SCH (09:35)
[2016-09-24] MEDS: SENNOSIDES-DOCUSATE SODIUM 1 EACH TAB PO SCH (09:36)
--- NOTE | 2016-09-24 10:26 | P.PN ---
Subjective This is a pleasant 76-year-old lady patient of Dr. Marquis and Dr. Arce. She has underlying history off from at the COPD hyperlipidemia vascular disorder and obstructive sleep apnea neuralgia atrial fibrillation, chronic COPD diabetes mellitus type 2, chronic immunosuppression CHF admitted through the emergency room secondary to left thoracic pain. She was diagnosed recently to have T6 dermatome herpes zoster this past Sunday 3 days prior to admission for which valacyclovir was given by Dr. Marquis. Patient had left flank pain was subsequently seen in the emergency room secondary to the pain. Patient denies any fever however she has some chills. Patient has hydrocodone which doesn't seem to take care of the pain she was seen in emergency room with evaluation to include noticeable left vesicular eruption involving the T6 area, redness in the left leg, known history off chronic venous stasis dermatitis. Known also on the right metatarsal region lateral region from a previous biopsy for osteotomyelitis by Dr. Kim. She is currently on IV Rocephin prior to her admission as recommended by Dr. Marquis. 09/04: Patient has been seen in consultation by Dr. Rojo from infectious disease covering for Dr. Marquis. He has recommended continuing Rocephin, silver dressing for the ulceration of the foot, check protein status and supplement, multivitamin added. Sed rate 24, C-reactive protein 27.2, hemoglobin A1c 6.7 TSH 2.570. Albumin is 3.3. INR 3.4. Chest x-ray is pending a Chin is requesting something for her nasal congestion and Flonase added. She continues to have issues with pain for which Percocet is scheduled plus as needed. 09/05: Patient continues to be very fatigued. She is on CPAP from home. Vesicles are drying up. Dr. Marquis has changed her antibiotics to Ceftaroline. Anticipate possible discharge to [facility] tomorrow. INR is 2.9. Patient will be resumed back on Coumadin home dosing. 09/06: Pain control continues to be an issue the patient is more groggy today. Percocet changed to fentanyl patch. Anticipate possible discharge to [facility] tomorrow. 09/07: Patient became hypotensive with temperature of 100.4 last evening had lactic acid 3.5 and patient was transferred to [facility] care and placed on CPAP. She received fluid bolus of 500 mL. She was also tachycardic and pulse ox running 91-95%. Blood culture obtained. Urine and urine culture ordered. White count is 12, INR 3.5. Repeat lactic acid is 1.5. Patient is not ready for discharge today. Fentanyl patch was removed last evening. Patient does not seem to complain and pain while resting. 09/08: De La Paz catheter was placed yesterday his family was concerned that she had no urine output. Urine output has been 40 mL for the past 12 hours. Temperature max 100.0. Dr. Marquis has recommended continuing Ceftaroline. WBC is 9.6. Potassium 3.3 will be replaced. INR is 3.2. Coumadin remains on hold. Repeat chest x-ray shows persistent right lower lobe density which may reflect atelectasis or infiltrate. 09/11: Patient's blood pressure was low and tachycardic with fever this morning. Noted the patient has not been resumed on her chronic prednisone and Solu- Cortef has been ordered. Patient transferred to ICU. Patient's family is contemplating transferring the patient to other facility but at this time, patient remains in intensive care unit as she seems to be improving. She has been seen by Dr. Burnham. She is status post IV Tylenol, IV fluid bolus with improvement. IV hydrocortisone drip started. IV antibiotics changed to Zosyn and vancomycin by Dr. Marquis. 09/12: Patient is much more awake and alert today. She remains in the intensive care unit. Hydrocortisone drip and IV Lasix ordered. Family continue to contemplate [facility] but at this point have decided to keep the patient and Meggan Martino per patient's wishes. 09/13: Patient is continued on IV cortisone and to switch over to oral. Repeat chest x-ray shows increasing basilar infiltrates and small right-sided effusion. Patient to stay in ICU for another day. Repeat urine culture from September 11 is finalized with no growth. All blood cultures have been negative. 09/14:Patient states she is feeling much better today. SHe still has some shortness of breath. Shingles pain is better. Patient will be transferred [facility]. INR 2.4. Patient was resumed back on coumadin last night. 09/15: Patient remains in the intensive care unit waiting [facility] bed. Dr. Burnham has downgraded her to [facility]. She is awake and alert and denies any shortness of breath or cough. She has remained hemodynamically stable. PT to start working with the patient with anticipation she'll be ready for discharge to [facility] middle of next week. 09/16: Patient is now on the [facility] floor. Her heart rate was elevated this morning for which metoprolol was increased to 75 mg twice daily. Patient denies any new complaints. She continues to feel improvement in her overall status. She does need help with meals. She was able to work with physical therapy yesterday and was sitting at the edge of the bed for 5 minutes. 09/18: Patient is stating that she wants to be discharged from the hospital. Her plan is for [facility]. She is known to have a small wound to the right leg for which nursing is to put a dressing on. Repeat chest x-ray shows CHF. Patient was given additional dose of Lasix during the shift superintendent and repeat dosing will be given at this time followed by Lasix 40 mg twice daily IV. Anticipate possible discharge in the next 24-48 hours. De La Paz catheter does remain in place. 09/19: is complaining of extreme tiredness and back pain. Family is upset and feels that she sat up in a chair to long yesterday. Lungs are little improved today. De La Paz is clear with good output. Herpes zoster rash is improving. Temperature max 100.6.urine culture showing yeast and Dr. Marquis has started Diflucan. Vancomycin discontinued. Potassium will be replaced. INR is at 3.3. 09/20:Patient's daughters are requesting that Dr. Velez take over her care in the hospital but he will not agree. Patient states that she wants Dr. Johnson to continue care. Patient is lethargic and complaining of shortness of breath today. Consult with Dr. Mann added. 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 Currently awaiting response from [facility]. Patient states she is feeling much better today. 2/4: Patient did not get the prior authorization measures coming to be transferred to 12-lead EKG was done, cardiac enzymes 2, cardiology consultation. 09/24: Patient is feeling okay today she continues to have some pressure in her chest, however her troponin is stable without evidence of acute coronary syndrome, this is could be just troponin leak secondary to her general medical problems. Prior authorization for the [facility] to [facility] on Sunday hopefully. Objective - Vital Signs Vital signs: Vital Signs Temp 99.0 F 09/24/16 07:00 Pulse 102 H 09/24/16 07:00 Resp 16 09/24/16 07:00 BP 103/55 09/24/16 07:00 Pulse Ox 93 L 09/24/16 07:00 Intake & Output 09/23/16 09/24/16 09/24/16 18:59 06:59 18:59 Intake Total 720 Output Total 2 Balance 718 Intake: IV 130 Piperacillin-Tazobactam 3 50 .375 gm In Dextrose/Water 1 50ml.bag @ 12.5 mls/hr IVPB Q8H LUIS Rx#: [id number] Sodium Chloride 0.9% 1, 80 000 ml @ 20 mls/hr IV . Q24H LUIS Rx#:[id number] Oral 590 Output: Stool 2 Other: Voiding Method Incontinent Incontinent # Voids 3 1 # Bowel Movements 3 1 - Exam - Exam General appearance: cooperative, no acute distress, - EENT Eyes: anicteric sclerae, EOMI, PERRLA, dentition normal, normal appearance ENT: NA/AT, normal oropharynx - Neck Neck: no lymphadenopathy, normal ROM, no other, no rigidity, no stridor, no thyromegaly - Respiratory Respiratory: bilateral: CTA, negative: diminished, dullness, rales, rhonchi - Cardiovascular Rhythm: regular Heart sounds: normal: S1, S2 Abnormal Heart Sounds: no systolic murmur, no diastolic murmur, no rub, no S3 Gallop, no S4 Gallop, no click, no other - Gastrointestinal General gastrointestinal: normal bowel sounds, soft - Integumentary Integumentary: rash (left t 6 dermatome), ulcer (right lateral metatarsal 2 cm x2 cm x1 cm approx) - Musculoskeletal Musculoskeletal: generalized weakness, strength equal bilaterally - Labs CBC & Chem 7: 09/24/16 06:27 09/24/16 06:27 Labs: Abnormal Lab Results - Last 24 Hours (Table) 09/23/16 09/23/16 09/23/16 Range/Units 06:30 15:00 16:20 WBC (3.8-10.6) k/uL RBC (3.80-5.40) m/uL MCV (80.0-100.0) fL MCHC (31.0-37.0) g/dL RDW (11.5-15.5) % Plt Count (150-450) k/uL PT (9.0-12.0) sec Chloride 93 L (98-107) mmol/L Carbon Dioxide 40 H* (22-30) mmol/L BUN 18 H (7-17) mg/dL POC Glucose (mg/dL) 155 H (75-99) mg/dL Troponin I 0.042 H* (0.000-0.034) ng/mL 09/23/16 09/23/16 09/24/16 Range/Units 20:32 22:39 06:27 WBC 13.1 H (3.8-10.6) k/uL RBC 3.55 L (3.80-5.40) m/uL MCV 104.8 H (80.0-100.0) fL MCHC 30.5 L (31.0-37.0) g/dL RDW 19.1 H (11.5-15.5) % Plt Count 481 H (150-450) k/uL PT (9.0-12.0) sec Chloride (98-107) mmol/L Carbon Dioxide (22-30) mmol/L BUN (7-17) mg/dL POC Glucose (mg/dL) 108 H (75-99) mg/dL Troponin I 0.044 H* (0.000-0.034) ng/mL 09/24/16 09/24/16 09/24/16 Range/Units 06:27 06:27 06:27 WBC (3.8-10.6) k/uL RBC (3.80-5.40) m/uL MCV (80.0-100.0) fL MCHC (31.0-37.0) g/dL RDW (11.5-15.5) % Plt Count (150-450) k/uL PT 28.0 H (9.0-12.0) sec Chloride 94 L (98-107) mmol/L Carbon Dioxide 38 H (22-30) mmol/L BUN (7-17) mg/dL POC Glucose (mg/dL) (75-99) mg/dL Troponin I 0.048 H* (0.000-0.034) ng/mL 09/24/16 Range/Units 06:53 WBC (3.8-10.6) k/uL RBC (3.80-5.40) m/uL MCV (80.0-100.0) fL MCHC (31.0-37.0) g/dL RDW (11.5-15.5) % Plt Count (150-450) k/uL PT (9.0-12.0) sec Chloride (98-107) mmol/L Carbon Dioxide (22-30) mmol/L BUN (7-17) mg/dL POC Glucose (mg/dL) 63 L (75-99) mg/dL Troponin I (0.000-0.034) ng/mL Microbiology - Last 24 Hours (Table) 09/18/16 22:11 Blood Culture - Preliminary Blood No Growth after 120 hours Assessment and Plan Plan: Assessment and Plan Plan: 1. Left thoracic T5-T6 herpes zoster vesicular eruptions with possible secondary bacterial infection currently on Valtrex uncontrolled pain. No patch with Percocet as needed for pain control. Zosyn, vancomycin. 2. Sepsis with fever, tachycardia and elevated lactic acid and coagulopathy possible lower lobe pneumonia or atelectasis, possible gram-negative pneumonia. Dr. Marquis is on consult. Monitor I&O. Coumadin resumed. 3. 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 Kim and Dr. Marquis currently improving. On Zosyn and vancomycin 4. Adrenal insufficiency. Currently on Cortef 20 mg in the morning and 10 mg at bedtime. 5. Chronic venous stasis dermatitis bilateral lower extremity, there is no significant worsening of the left ankle as mentioned by the emergency room physician, patient continued to have her IV Rocephin. No diuretics are needed at this time 6. Ongoing immunosuppression using methotrexate which would be held. Should there be any flareup of her RA, this will be replaced by Plaquenil until her wounds would heal 7. Chronic atrial fibrillation on chronic anticoagulation with Coumadin, therapeutic levels will be maintained, metoprolol 50 mg twice a day, Coumadin resumed. 8. CAD currently asymptomatic, on Imdur maintenance 50 mg daily metoprolol 50 mg twice a day, aspirin 81 mg daily Lipitor 80 mg daily 9. COPD on maintenance Pulmicort 10. Hyperlipidemia on Lipitor 80 11. Hyperuricemia without any exacerbation of gout, on Zyloprim 300 mg daily 12. Diabetes mellitus type 2 on metformin 500 mg twice a day hemoglobin A1c will be obtained on NovoLog correctional scale coverage 13. DVT prophylaxis on maintenance Coumadin 14. GI prophylaxis Pepcid 20 15. Impaired balance and increasing debility splinting of thoracic area during ambulation which puts her at risk for further falls, physical therapy and the Initial therapy would be seeing her with the anticipated evaluation for skilled ECF. 16. Chest pain. Likely noncardiac however we will check troponin 2, 12-lead EKG, cardiology consultation. Discharge plan: Subacute rehab at [facility] under Dr. Velez or [facility] when insurance prior Auth is available.
[2016-09-24 11:04] LABS: Glucose,Whole Blood 64 mg/dL (75-99)
[2016-09-24] MEDS: ALBUTEROL NEBULIZED 2.5 MG/3 ML INHALATION PRN ×2 (11:25→11:26)
[2016-09-24 11:42] LABS: Glucose,Whole Blood 199 mg/dL (75-99)
--- NOTE | 2016-09-24 13:17 | CONS ---
DATE OF CONSULTATION: CHIEF COMPLAINT: Chest pain. Jessica Scherer is a 76-year-old lady with complex and multiple medical problems that has been in the hospital for several weeks now, that cardiology has been consulted because of an episode of chest pain. She describes it as a sharp precordial pain without definite radiation to neck, arm or back. The patient has been admitted primarily with her increased weakness and a rash, thought to be secondary to shingles. She was treated with oral Valtrex. Patient also has osteomyelitis of the right foot for which she was receiving antibiotics and she has known chronic atrial fibrillation and is on Coumadin and is adequately anticoagulated. There is no history of documented coronary artery disease that we know of. Patient's chest discomfort is sharp and atypical. EKG does not reveal acute ischemic changes. She has had 3 troponins, that are all at the same level at 0.4, 0.04 and 0.04 inconsistent with a diagnosis of acute myocardial ischemia. Past medical history is significant for COPD, dyslipidemia, sleep apnea, diabetes, heart failure and atrial fibrillation. Past surgical history is significant for appendectomy, back surgery, cholecystectomy, joint replacement, orthopedic surgery, right foot osteomyelitis. Medications prior to admission included methotrexate, prednisone, Coumadin, Lipitor, Glucophage, Ventolin, aspirin, melatonin and ceftriaxone. Allergic to IMURAN. Family history and social history, I am not able to obtain from the patient. Review of systems is significant for the chest discomfort that I talked about. Patient appears somewhat sleepy, but is answering questions. On exam, heart rate is 94 beats per minute, blood pressure is 103/55, respiratory rate is 18. Chest exam reveals good air entry bilaterally. Heart exam reveals first and second heart sounds. No gallop. Abdomen is soft. Exam of the extremities reveals that the dorsalis pedis pulse is palpable. Right foot is in a dressing. Labs show a hemoglobin of 11.4, INR is 2.9, creatinine is 0.9, troponins are in the rodgers zone as described above. EKG shows atrial fibrillation with nonspecific ST-T wave changes. ASSESSMENT: 1. Precordial chest pain, atypical and probably nonanginal. Myocardial infarction is ruled out. 2. Complex and multiple medical problems, currently being managed by primary care physician and multiple consultants on the case. PLAN: From my standpoint, I am going to obtain a 2-D echo on her to assess her LV function and wall motion. If this is benign, then we should continue with her current medical therapy and whenever the other noncardiac problems resolve, she will need an outpatient stress test. Thank you for giving me the privilege to participate in the care of this pleasant lady.
[2016-09-24 15:15] LABS: Glucose,Whole Blood 106 mg/dL (75-99)
[2016-09-24] MEDS: CYANOCOBALAMIN 500 MCG TAB PO SCH (16:59)
[2016-09-24] MEDS: CALCIUM CARB-VIT D 500MG-200UN 1 EACH TAB PO SCH (16:59)
[2016-09-24] MEDS: WARFARIN 2.5 MG TAB PO SCH (17:00)
[2016-09-24] MEDS: ASPIRIN 81 MG CHEW PO SCH (17:00)
[2016-09-24] MEDS: SODIUM CHLORIDE 0.9% 1,000 ML IV SCH (17:15)
[2016-09-24 21:16] LABS: Glucose,Whole Blood 124 mg/dL (75-99)
[2016-09-24] MEDS: ATORVASTATIN 80 MG TAB PO SCH (22:03)
[2016-09-24] MEDS: MELATONIN 5 MG TABLET PO SCH (22:04)
[2016-09-24] MEDS: HYDROCORTISONE 10 MG TAB PO SCH (22:04)
[2016-09-25] MEDS: PIPERACILLIN-TAZOBACTAM 3.375 GM in DEXTROSE/WATER 1 50ML.BAG IVPB SCH ×3 (03:55→19:41)
[2016-09-25 06:38] LABS: Anisocytosis Slight; Basophils # (A) 0.1 k/uL (0-0.2); Basophils % (A) 1 %; CH 32.2; CHCM 30.8; Eosinophils # (A) 0.3 k/uL (0-0.7); Eosinophils % (A) 2 %; HCT 36.2 % (34.0-46.0); HDW 3.51; HGB 10.8 gm/dL (11.4-16.0); Hypochromasia Marked; Luc # (Auto) 0.51; Luc % (Auto) 4; Lymphocytes # (A) 2.5 k/uL (1.0-4.8); Lymphocytes % (A) 21 %; MCH 31.4 pg (25.0-35.0); MCHC 29.9 g/dL (31.0-37.0); MCV 104.9 fL (80.0-100.0); Macrocytosis Marked; Monocytes # (A) 0.6 k/uL (0-1.0); Monocytes % (A) 5 %; Neutrophils # (A) 7.7 k/uL (1.3-7.7); Neutrophils % (A) 67 %; Poikilocytosis Slight; RBC 3.45 m/uL (3.80-5.40); WBC 11.6 k/uL (3.8-10.6)
[2016-09-25 06:46] LABS: INR 2.7 (<1.1); Prothrombin Time 26.2 sec (9.0-12.0)
[2016-09-25 06:57] LABS: ALT 33 U/L (9-52); AST 39 U/L (14-36); Alkaline Phosphatase 71 U/L (38-126); Anion Gap 9 mmol/L; Blood Urea Nitrogen 18 mg/dL (7-17); Calcium 8.6 mg/dL (8.4-10.2); Carbon Dioxide 39 mmol/L (22-30); Chloride 93 mmol/L (98-107); Glucose 102 mg/dL (74-99); Non-African American GFR(MDRD) 54 (>60 ml/min/1.73 sqM); Potassium 3.5 mmol/L (3.5-5.1); Sodium 141 mmol/L (137-145); Total Bilirubin 0.6 mg/dL (0.2-1.3); Total Protein 5.4 g/dL (6.3-8.2)
[2016-09-25 07:06] LABS: Manual Review Performed; Polychromasia Present
[2016-09-25 07:13] LABS: Glucose,Whole Blood 82 mg/dL (75-99)
[2016-09-25] MEDS: INSULIN LISPRO (humaLOG) 300 UNIT/3 ML VIAL SQ SCH ×4 (07:34→22:07)
[2016-09-25] MEDS: DULoxetine HCL 60 MG CAPSULE.DR PO SCH (09:23)
[2016-09-25] MEDS: metFORMIN 500 MG TAB PO SCH ×2 (09:23→17:57)
[2016-09-25] MEDS: FAMOTIDINE 20 MG TAB PO SCH (09:23)
[2016-09-25] MEDS: ALLOPURINOL 300 MG TAB PO SCH (09:23)
[2016-09-25] MEDS: FLUCONAZOLE 100 MG TAB PO SCH (09:23)
[2016-09-25] MEDS: CHOLECALCIFEROL 1,000 UNIT TAB PO SCH (09:23)
[2016-09-25] MEDS: METOPROLOL TARTRATE 25 MG TAB PO SCH ×2 (09:24→22:03)
[2016-09-25] MEDS: ISOSORBIDE MONONITRATE ER 15 MG TAB PO SCH (09:24)
[2016-09-25] MEDS: POTASSIUM CHLORIDE ER 20 MEQ TAB.ER PO SCH ×2 (09:24→22:04)
[2016-09-25] MEDS: HYDROCORTISONE 20 MG TAB PO SCH (09:24)
[2016-09-25] MEDS: SENNOSIDES-DOCUSATE SODIUM 1 EACH TAB PO SCH (09:24)
[2016-09-25] MEDS: FUROSEMIDE 10 MG/ML 4 ML VIAL IV SCH ×2 (09:24→22:03)
[2016-09-25] MEDS: LIDOCAINE 5% PATCH TOPICAL SCH (09:25)
[2016-09-25] MEDS: FLUTICASONE 50MCG/SPRAY NASAL 16GM EA NOSTRIL SCH ×2 (09:25→22:02)
[2016-09-25] MEDS: oxyCODONE-APAP 7.5-325MG 1 EACH TAB PO PRN ×2 (11:28→17:56)
[2016-09-25 12:13] LABS: Glucose,Whole Blood 123 mg/dL (75-99)
--- NOTE | 2016-09-25 12:52 | P.PN ---
Subjective This is a pleasant 76-year-old lady patient of Dr. Marquis and Dr. Arce. She has underlying history off from at the COPD hyperlipidemia vascular disorder and obstructive sleep apnea neuralgia atrial fibrillation, chronic COPD diabetes mellitus type 2, chronic immunosuppression CHF admitted through the emergency room secondary to left thoracic pain. She was diagnosed recently to have T6 dermatome herpes zoster this past Sunday 3 days prior to admission for which valacyclovir was given by Dr. Marquis. Patient had left flank pain was subsequently seen in the emergency room secondary to the pain. Patient denies any fever however she has some chills. Patient has hydrocodone which doesn't seem to take care of the pain she was seen in emergency room with evaluation to include noticeable left vesicular eruption involving the T6 area, redness in the left leg, known history off chronic venous stasis dermatitis. Known also on the right metatarsal region lateral region from a previous biopsy for osteotomyelitis by Dr. Kmi. She is currently on IV Rocephin prior to her admission as recommended by Dr. Marquis. 09/04: Patient has been seen in consultation by Dr. Rojo from infectious disease covering for Dr. Marquis. He has recommended continuing Rocephin, silver dressing for the ulceration of the foot, check protein status and supplement, multivitamin added. Sed rate 24, C-reactive protein 27.2, hemoglobin A1c 6.7 TSH 2.570. Albumin is 3.3. INR 3.4. Chest x-ray is pending a Chin is requesting something for her nasal congestion and Flonase added. She continues to have issues with pain for which Percocet is scheduled plus as needed. 09/05: Patient continues to be very fatigued. She is on CPAP from home. Vesicles are drying up. Dr. Marquis has changed her antibiotics to Ceftaroline. Anticipate possible discharge to [facility] tomorrow. INR is 2.9. Patient will be resumed back on Coumadin home dosing. 09/06: Pain control continues to be an issue the patient is more groggy today. Percocet changed to fentanyl patch. Anticipate possible discharge to [facility] tomorrow. 09/07: Patient became hypotensive with temperature of 100.4 last evening had lactic acid 3.5 and patient was transferred to [facility] and placed on CPAP. She received fluid bolus of 500 mL. She was also tachycardic and pulse ox running 91-95%. Blood culture obtained. Urine and urine culture ordered. White count is 12, INR 3.5. Repeat lactic acid is 1.5. Patient is not ready for discharge today. Fentanyl patch was removed last evening. Patient does not seem to complain and pain while resting. 09/08: De La Paz catheter was placed yesterday his family was concerned that she had no urine output. Urine output has been 40 mL for the past 12 hours. Temperature max 100.0. Dr. Marquis has recommended continuing Ceftaroline. WBC is 9.6. Potassium 3.3 will be replaced. INR is 3.2. Coumadin remains on hold. Repeat chest x-ray shows persistent right lower lobe density which may reflect atelectasis or infiltrate. 09/11: Patient's blood pressure was low and tachycardic with fever this morning. Noted the patient has not been resumed on her chronic prednisone and Solu- Cortef has been ordered. Patient transferred to ICU. Patient's family is contemplating transferring the patient to other facility but at this time, patient remains in intensive care unit as she seems to be improving. She has been seen by Dr. Burnham. She is status post IV Tylenol, IV fluid bolus with improvement. IV hydrocortisone drip started. IV antibiotics changed to Zosyn and vancomycin by Dr. Marquis. 09/12: Patient is much more awake and alert today. She remains in the intensive care unit. Hydrocortisone drip and IV Lasix ordered. Family continue to contemplate [facility] but at this point have decided to keep the patient and Meggan Martino per patient's wishes. 09/13: Patient is continued on IV cortisone and to switch over to oral. Repeat chest x-ray shows increasing basilar infiltrates and small right-sided effusion. Patient to stay in ICU for another day. Repeat urine culture from September 11 is finalized with no growth. All blood cultures have been negative. 09/14:Patient states she is feeling much better today. SHe still has some shortness of breath. Shingles pain is better. Patient will be transferred [facility]. INR 2.4. Patient was resumed back on coumadin last night. 09/15: Patient remains in the intensive care unit [facility]. Burnham has downgraded her to [facility]. She is awake and alert and denies any shortness of breath or cough. She has remained hemodynamically stable. PT to start working with the patient with anticipation she'll be ready for discharge to [facility] middle of next week. 09/16: [facility] Her heart rate was elevated this morning for which metoprolol was increased to 75 mg twice daily. Patient denies any new complaints. She continues to feel improvement in her overall status. She does need help with meals. She was able to work with physical therapy yesterday and was sitting at the edge of the bed for 5 minutes. 09/18: Patient is stating that she wants to be discharged from the hospital. Her plan is for [facility]. She is known to have a small wound to the right leg for which nursing is to put a dressing on. Repeat chest x-ray shows CHF. Patient was given additional dose of Lasix during the hotel dining room cashier and repeat dosing will be given at this time followed by Lasix 40 mg twice daily IV. Anticipate possible discharge in the next 24-48 hours. De La Paz catheter does remain in place. 09/19: is complaining of extreme tiredness and back pain. Family is upset and feels that she sat up in a chair to long yesterday. Lungs are little improved today. De La Paz is clear with good output. Herpes zoster rash is improving. Temperature max 100.6.urine culture showing yeast and Dr. Marquis has started Diflucan. Vancomycin discontinued. Potassium will be replaced. INR is at 3.3. 09/20:Patient's daughters are requesting that Dr. Velez take over her care in the hospital but he will not agree. Patient states that she wants Dr. Johnson to continue care. Patient is lethargic and complaining of shortness of breath today. Consult with Dr. Mann added. 2/2: organic lab worker to discuss with family benefit of [facility]. Currently awaiting response from [facility]. Patient states she is feeling much better today. 2/3: Arrangements are being made for patient to be transferred to [facility] pending authorization from her insurance. Medication reconciliation has been completed in anticipation that she will be leaving later today or tomorrow morning. Objective - Vital Signs Vital signs: Vital Signs Temp 98.3 F 09/25/16 07:00 Pulse 103 H 09/25/16 07:00 Resp 18 09/25/16 07:00 BP 136/73 09/25/16 07:00 Pulse Ox 91 L 09/25/16 07:00 Intake & Output 09/24/16 09/25/16 09/25/16 18:59 06:59 18:59 Intake Total 130 255 Balance 130 255 Intake: IV 130 180 Piperacillin-Tazobactam 3 50 100 .375 gm In Dextrose/Water 1 50ml.bag @ 12.5 mls/hr IVPB Q8H LUIS Rx#: [id number] Sodium Chloride 0.9% 1, 80 80 000 ml @ 20 mls/hr IV . Q24H LUIS Rx#:[id number] Oral 75 Other: Voiding Method Incontinent Incontinent # Voids 3 - Exam General appearance: cooperative, no acute distress, - EENT Eyes: anicteric sclerae, EOMI, PERRLA, dentition normal, normal appearance ENT: NA/AT, normal oropharynx - Neck Neck: no lymphadenopathy, normal ROM, no other, no rigidity, no stridor, no thyromegaly - Respiratory Respiratory: bilateral: CTA, negative: diminished, dullness, rales, rhonchi - Cardiovascular Rhythm: regular Heart sounds: normal: S1, S2 Abnormal Heart Sounds: no systolic murmur, no diastolic murmur, no rub, no S3 Gallop, no S4 Gallop, no click, no other - Gastrointestinal General gastrointestinal: normal bowel sounds, soft - Integumentary Integumentary: rash (left t 6 dermatome), ulcer (right lateral metatarsal 2 cm x2 cm x1 cm approx) - Musculoskeletal Musculoskeletal: generalized weakness, strength equal bilaterally - Labs CBC & Chem 7: 09/25/16 06:25 09/25/16 06:25 Labs: Abnormal Lab Results - Last 24 Hours (Table) 09/24/16 09/24/16 09/25/16 Range/Units 15:05 21:15 06:25 WBC 11.6 H (3.8-10.6) k/uL RBC 3.45 L (3.80-5.40) m/uL Hgb 10.8 L (11.4-16.0) gm/dL MCV 104.9 H (80.0-100.0) fL MCHC 29.9 L (31.0-37.0) g/dL RDW 19.0 H (11.5-15.5) % PT (9.0-12.0) sec Chloride (98-107) mmol/L Carbon Dioxide (22-30) mmol/L BUN (7-17) mg/dL Glucose (74-99) mg/dL POC Glucose (mg/dL) 106 H 124 H (75-99) mg/dL AST (14-36) U/L Total Protein (6.3-8.2) g/dL Albumin (3.5-5.0) g/dL 09/25/16 09/25/16 09/25/16 Range/Units 06:25 06:25 12:11 WBC (3.8-10.6) k/uL RBC (3.80-5.40) m/uL Hgb (11.4-16.0) gm/dL MCV (80.0-100.0) fL MCHC (31.0-37.0) g/dL RDW (11.5-15.5) % PT 26.2 H (9.0-12.0) sec Chloride 93 L (98-107) mmol/L Carbon Dioxide 39 H (22-30) mmol/L BUN 18 H (7-17) mg/dL Glucose 102 H (74-99) mg/dL POC Glucose (mg/dL) 123 H (75-99) mg/dL AST 39 H (14-36) U/L Total Protein 5.4 L (6.3-8.2) g/dL Albumin 2.6 L (3.5-5.0) g/dL Microbiology - Last 24 Hours (Table) 09/18/16 22:11 Blood Culture - Final Blood No Growth after 144 hours Assessment and Plan Plan: 1. Left thoracic T5-T6 herpes zoster vesicular eruptions with possible secondary bacterial infection currently on Valtrex uncontrolled pain. No patch with Percocet as needed for pain control. Zosyn, vancomycin. 2. Sepsis with fever, tachycardia and elevated lactic acid and coagulopathy possible lower lobe pneumonia or atelectasis, possible gram-negative pneumonia. Dr. Marquis is on consult. Monitor I&O. Coumadin resumed. 3. 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 Kim and Dr. Marquis currently improving. On Zosyn and vancomycin 4. Adrenal insufficiency. Currently on Cortef 20 mg in the morning and 10 mg at bedtime. 5. Chronic venous stasis dermatitis bilateral lower extremity, there is no significant worsening of the left ankle as mentioned by the emergency room physician, patient continued to have her IV Rocephin. No diuretics are needed at this time 6. Ongoing immunosuppression using methotrexate which would be held. Should there be any flareup of her RA, this will be replaced by Plaquenil until her wounds would heal 7. Chronic atrial fibrillation on chronic anticoagulation with Coumadin, therapeutic levels will be maintained, metoprolol 50 mg twice a day, Coumadin resumed. 8. CAD currently asymptomatic, on Imdur maintenance 50 mg daily metoprolol 50 mg twice a day, aspirin 81 mg daily Lipitor 80 mg daily 9. COPD on maintenance Pulmicort 10. Hyperlipidemia on Lipitor 80 11. Hyperuricemia without any exacerbation of gout, on Zyloprim 300 mg daily 12. Diabetes mellitus type 2 on metformin 500 mg twice a day hemoglobin A1c will be obtained on [facility] correctional scale coverage 13. DVT prophylaxis on maintenance Coumadin 14. GI prophylaxis Pepcid 20 15. Impaired balance and increasing debility splinting of thoracic area during ambulation which puts her at risk for further falls, physical therapy and the Initial therapy would be seeing her with the anticipated evaluation for skilled ECF Discharge plan: Subacute rehab at [facility] under Dr. Velez or [facility] Impression and plan of care have been directed as dictated by the signing physician. Susi Raymundo nurse practitioner acting as scribe for signing physician. Time with Patient: Greater than 30
--- NOTE | 2016-09-25 13:06 | PN ---
DATE OF SERVICE: 09/24/2016 Reason for followup is: 1. Pneumonia. 2. Urinary tract infection. 3. Right foot osteomyelitis. 4. Left chest wall wound. INTERVAL HISTORY: The patient is afebrile. She has been breathing comfortably. Denies significant chest pain. No cough or abdominal pain, no nausea, vomiting or any diarrhea. On examination, blood pressure 117/66 with a pulse of 79, temperature of 97. She is 93% on room air. General description is an elderly female, lying in bed in no distress. RESPIRATORY SYSTEM: Unlabored breathing, some decreased breath sounds in the bases. No wheeze. HEART: S1, S2. Regular rate and rhythm. ABDOMEN: Soft, no tenderness. LABS: Hemoglobin is 11.4, white count 13.1, BUN of 17, creatinine 0.98, troponin is slightly elevated. DIAGNOSTIC IMPRESSION AND PLAN: 1. Patient with possible component of pneumonia. Sputum has been negative for any resistant pathogen. She is currently on Zosyn. This is covering the right foot osteo. Plan to finish therapy with NovoLog and Rocephin. 2. Yeast urinary tract infection, continue with oral Diflucan for another 2 to 3 days. 3. Left chest wall wound. Continue with Aquacel Silver. Family present at beside. Their questions were answered. JOSE LUIS
[2016-09-25] MEDS: MULTIVITAMINS, THERA 1 EACH TAB PO SCH (13:24)
--- NOTE | 2016-09-25 14:54 | P.PN ---
Subjective This is a pleasant 76-year-old lady patient of Dr. Marquis and Dr. Arce. She has underlying history off from at the COPD hyperlipidemia vascular disorder and obstructive sleep apnea neuralgia atrial fibrillation, chronic COPD diabetes mellitus type 2, chronic immunosuppression CHF admitted through the emergency room secondary to left thoracic pain. She was diagnosed recently to have T6 dermatome herpes zoster this past Sunday 3 days prior to admission for which valacyclovir was given by Dr. Marquis. Patient had left flank pain was subsequently seen in the emergency room secondary to the pain. Patient denies any fever however she has some chills. Patient has hydrocodone which doesn't seem to take care of the pain she was seen in emergency room with evaluation to include noticeable left vesicular eruption involving the T6 area, redness in the left leg, known history off chronic venous stasis dermatitis. Known also on the right metatarsal region lateral region from a previous biopsy for osteotomyelitis by Dr. Kim. She is currently on IV Rocephin prior to her admission as recommended by Dr. Marquis. 09/04: Patient has been seen in consultation by Dr. Rojo from infectious disease covering for Dr. Marquis. He has recommended continuing Rocephin, silver dressing for the ulceration of the foot, check protein status and supplement, multivitamin added. Sed rate 24, C-reactive protein 27.2, hemoglobin A1c 6.7 TSH 2.570. Albumin is 3.3. INR 3.4. Chest x-ray is pending a Chin is requesting something for her nasal congestion and Flonase added. She continues to have issues with pain for which Percocet is scheduled plus as needed. 09/05: Patient continues to be very fatigued. She is on CPAP from home. Vesicles are drying up. Dr. Marquis has changed her antibiotics to Ceftaroline. Anticipate possible discharge to [facility] tomorrow. INR is 2.9. Patient will be resumed back on Coumadin home dosing. 09/06: Pain control continues to be an issue the patient is more groggy today. Percocet changed to fentanyl patch. Anticipate possible discharge to [facility] tomorrow. 09/07: Patient became hypotensive with temperature of 100.4 last evening had lactic acid 3.5 and patient was transferred to [facility] care and placed on CPAP. She received fluid bolus of 500 mL. She was also tachycardic and pulse ox running 91-95%. Blood culture obtained. Urine and urine culture ordered. White count is 12, INR 3.5. Repeat lactic acid is 1.5. Patient is not ready for discharge today. Fentanyl patch was removed last evening. Patient does not seem to complain and pain while resting. 09/08: De La Paz catheter was placed yesterday his family was concerned that she had no urine output. Urine output has been 40 mL for the past 12 hours. Temperature max 100.0. Dr. Marquis has recommended continuing Ceftaroline. WBC is 9.6. Potassium 3.3 will be replaced. INR is 3.2. Coumadin remains on hold. Repeat chest x-ray shows persistent right lower lobe density which may reflect atelectasis or infiltrate. 09/11: Patient's blood pressure was low and tachycardic with fever this morning. Noted the patient has not been resumed on her chronic prednisone and Solu- Cortef has been ordered. Patient transferred to ICU. Patient's family is contemplating transferring the patient to other facility but at this time, patient remains in intensive care unit as she seems to be improving. She has been seen by Dr. Burnham. She is status post IV Tylenol, IV fluid bolus with improvement. IV hydrocortisone drip started. IV antibiotics changed to Zosyn and vancomycin by Dr. Marquis. 09/12: Patient is much more awake and alert today. She remains in the intensive care unit. Hydrocortisone drip and IV Lasix ordered. Family continue to contemplate [facility] but at this point have decided to keep the patient and Meggan Martino per patient's wishes. 09/13: Patient is continued on IV cortisone and to switch over to oral. Repeat chest x-ray shows increasing basilar infiltrates and small right-sided effusion. Patient to stay in ICU for another day. Repeat urine culture from September 11 is finalized with no growth. All blood cultures have been negative. 09/14:Patient states she is feeling much better today. SHe still has some shortness of breath. Shingles pain is better. Patient will be transferred to [facility]. INR 2.4. Patient was resumed back on coumadin last night. 09/15: Patient remains in the intensive care unit [facility]. Burnham has downgraded her to [facility]. She is awake and alert and denies any shortness of breath or cough. She has remained hemodynamically stable. PT to start working with the patient with anticipation she'll be ready for discharge to [facility] middle of next week. 09/16: Patient is now on the [facility] floor. Her heart rate was elevated this morning for which metoprolol was increased to 75 mg twice daily. Patient denies any new complaints. She continues to feel improvement in her overall status. She does need help with meals. She was able to work with physical therapy yesterday and was sitting at the edge of the bed for 5 minutes. 09/18: Patient is stating that she wants to be discharged from the hospital. Her plan is for [facility]. She is known to have a small wound to the right leg for which nursing is to put a dressing on. Repeat chest x-ray shows CHF. Patient was given additional dose of Lasix during the fast food shift lead and repeat dosing will be given at this time followed by Lasix 40 mg twice daily IV. Anticipate possible discharge in the next 24-48 hours. De La Paz catheter does remain in place. 09/19: is complaining of extreme tiredness and back pain. Family is upset and feels that she sat up in a chair to long yesterday. Lungs are little improved today. De La Paz is clear with good output. Herpes zoster rash is improving. Temperature max 100.6.urine culture showing yeast and Dr. Marquis has started Diflucan. Vancomycin discontinued. Potassium will be replaced. INR is at 3.3. 09/20:Patient's daughters are requesting that Dr. Velez take over her care in the hospital but he will not agree. Patient states that she wants Dr. Johnson to continue care. Patient is lethargic and complaining of shortness of breath today. Consult with Dr. Mann added. 2/2: calender worker helper to discuss with family benefit of [facility]. Currently awaiting response from [facility]. Patient states she is feeling much better today. 2/4: Patient did not get the prior authorization measures coming to be transferred to 12-lead EKG was done, cardiac enzymes 2, cardiology consultation. 09/24: Patient is feeling okay today she continues to have some pressure in her chest, however her troponin is stable without evidence of acute coronary syndrome, this is could be just troponin leak secondary to her general medical problems. Prior authorization for the patient to go [facility] on Sunday hopefully. 09/25: Patient is still waiting for authorization from her insurance. No new compliants. Objective - Vital Signs Vital signs: Vital Signs Temp 98.3 F 09/25/16 07:00 Pulse 103 H 09/25/16 07:00 Resp 18 09/25/16 07:00 BP 136/73 09/25/16 07:00 Pulse Ox 91 L 09/25/16 07:00 Intake & Output 09/24/16 09/25/16 09/25/16 18:59 06:59 18:59 Intake Total 130 255 Balance 130 255 Intake: IV 130 180 Piperacillin-Tazobactam 3 50 100 .375 gm In Dextrose/Water 1 50ml.bag @ 12.5 mls/hr IVPB Q8H LUIS Rx#: [id number] Sodium Chloride 0.9% 1, 80 80 000 ml @ 20 mls/hr IV . Q24H LUIS Rx#:[id number] Oral 75 Other: Voiding Method Incontinent Incontinent # Voids 3 - Exam General appearance: cooperative, no acute distress, - EENT Eyes: anicteric sclerae, EOMI, PERRLA, dentition normal, normal appearance ENT: NA/AT, normal oropharynx - Neck Neck: no lymphadenopathy, normal ROM, no other, no rigidity, no stridor, no thyromegaly - Respiratory Respiratory: bilateral: CTA, negative: diminished, dullness, rales, rhonchi - Cardiovascular Rhythm: regular Heart sounds: normal: S1, S2 Abnormal Heart Sounds: no systolic murmur, no diastolic murmur, no rub, no S3 Gallop, no S4 Gallop, no click, no other - Gastrointestinal General gastrointestinal: normal bowel sounds, soft - Integumentary Integumentary: rash (left t 6 dermatome), ulcer (right lateral metatarsal 2 cm x2 cm x1 cm approx) - Musculoskeletal Musculoskeletal: generalized weakness, strength equal bilaterally - Labs CBC & Chem 7: 09/25/16 06:25 09/25/16 06:25 Labs: Abnormal Lab Results - Last 24 Hours (Table) 09/24/16 09/24/16 09/24/16 Range/Units 11:03 11:30 15:05 WBC (3.8-10.6) k/uL RBC (3.80-5.40) m/uL Hgb (11.4-16.0) gm/dL MCV (80.0-100.0) fL MCHC (31.0-37.0) g/dL RDW (11.5-15.5) % PT (9.0-12.0) sec Chloride (98-107) mmol/L Carbon Dioxide (22-30) mmol/L BUN (7-17) mg/dL Glucose (74-99) mg/dL POC Glucose (mg/dL) 64 L 199 H 106 H (75-99) mg/dL AST (14-36) U/L Total Protein (6.3-8.2) g/dL Albumin (3.5-5.0) g/dL 09/24/16 09/25/16 09/25/16 Range/Units 21:15 06:25 06:25 WBC 11.6 H (3.8-10.6) k/uL RBC 3.45 L (3.80-5.40) m/uL Hgb 10.8 L (11.4-16.0) gm/dL MCV 104.9 H (80.0-100.0) fL MCHC 29.9 L (31.0-37.0) g/dL RDW 19.0 H (11.5-15.5) % PT 26.2 H (9.0-12.0) sec Chloride (98-107) mmol/L Carbon Dioxide (22-30) mmol/L BUN (7-17) mg/dL Glucose (74-99) mg/dL POC Glucose (mg/dL) 124 H (75-99) mg/dL AST (14-36) U/L Total Protein (6.3-8.2) g/dL Albumin (3.5-5.0) g/dL 09/25/16 Range/Units 06:25 WBC (3.8-10.6) k/uL RBC (3.80-5.40) m/uL Hgb (11.4-16.0) gm/dL MCV (80.0-100.0) fL MCHC (31.0-37.0) g/dL RDW (11.5-15.5) % PT (9.0-12.0) sec Chloride 93 L (98-107) mmol/L Carbon Dioxide 39 H (22-30) mmol/L BUN 18 H (7-17) mg/dL Glucose 102 H (74-99) mg/dL POC Glucose (mg/dL) (75-99) mg/dL AST 39 H (14-36) U/L Total Protein 5.4 L (6.3-8.2) g/dL Albumin 2.6 L (3.5-5.0) g/dL Microbiology - Last 24 Hours (Table) 09/18/16 22:11 Blood Culture - Final Blood No Growth after 144 hours Assessment and Plan Plan: 1. Left thoracic T5-T6 herpes zoster vesicular eruptions with possible secondary bacterial infection currently on Valtrex uncontrolled pain. No patch with Percocet as needed for pain control. Zosyn, vancomycin. 2. Sepsis with fever, tachycardia and elevated lactic acid and coagulopathy possible lower lobe pneumonia or atelectasis, possible gram-negative pneumonia. Dr. Marquis is on consult. Monitor I&O. Coumadin resumed. 3. 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 Kim and Dr. Marquis currently improving. On Zosyn and vancomycin 4. Adrenal insufficiency. Currently on Cortef 20 mg in the morning and 10 mg at bedtime. 5. Chronic venous stasis dermatitis bilateral lower extremity, there is no significant worsening of the left ankle as mentioned by the emergency room physician, patient continued to have her IV Rocephin. No diuretics are needed at this time 6. Ongoing immunosuppression using methotrexate which would be held. Should there be any flareup of her RA, this will be replaced by Plaquenil until her wounds would heal 7. Chronic atrial fibrillation on chronic anticoagulation with Coumadin, therapeutic levels will be maintained, metoprolol 50 mg twice a day, Coumadin resumed. 8. CAD currently asymptomatic, on Imdur maintenance 50 mg daily metoprolol 50 mg twice a day, aspirin 81 mg daily Lipitor 80 mg daily 9. COPD on maintenance Pulmicort 10. Hyperlipidemia on Lipitor 80 11. Hyperuricemia without any exacerbation of gout, on Zyloprim 300 mg daily 12. Diabetes mellitus type 2 on metformin 500 mg twice a day hemoglobin A1c will be [facility] 13. DVT prophylaxis on maintenance Coumadin 14. GI prophylaxis Pepcid 20 15. Impaired balance and increasing debility splinting of thoracic area during ambulation which puts her at risk for further falls, physical therapy and the Initial therapy would be seeing her with the anticipated evaluation for skilled ECF Discharge plan: Subacute rehab at [facility] under Dr. Velez or [facility] Impression and plan of care have been directed as dictated by the signing physician. Susi Raymundo nurse practitioner acting as scribe for signing physician. Time with Patient: Greater than 30
[2016-09-25 17:33] LABS: Glucose,Whole Blood 144 mg/dL (75-99)
[2016-09-25] MEDS: CYANOCOBALAMIN 500 MCG TAB PO SCH (17:56)
[2016-09-25] MEDS: ASPIRIN 81 MG CHEW PO SCH (17:57)
[2016-09-25] MEDS: CALCIUM CARB-VIT D 500MG-200UN 1 EACH TAB PO SCH (17:57)
[2016-09-25] MEDS: WARFARIN 2.5 MG TAB PO SCH (17:58)
[2016-09-25] MEDS: ALBUTEROL NEBULIZED 2.5 MG/3 ML INHALATION PRN (19:13)
--- NOTE | 2016-09-25 20:06 | PN ---
DATE OF SERVICE: 09/25/2016 BRIEF HISTORY: This is a pleasant 76-year-old female patient with a past medical history significant for chronic atrial fibrillation, chronic respiratory failure, diabetes, hypertension, and dyslipidemia, who was admitted to the hospital with what seems to be shingles. During her hospitalization she was experiencing atypical chest discomfort and she was actually pointing toward the epigastric area. The EKG showed A. fib with diffuse nonspecific ST and T wave abnormalities. The cardiac enzymes were checked and came in to be slightly abnormal but they are not consistent with acute non-ST infarction. The patient was seen and evaluated by Dr. Choudhary yesterday who recommended only conservative medical approach and medical treatment only for this lady at this point of time. On follow up with her today, overall she is feeling better. She denies having any chest discomfort, but she is pointing to discomfort in the epigastric area. The patient underwent an echocardiogram and I will follow up with that. I would recommend continuing the current medical treatment. The patient is in A. fib with controlled heart rate she is on Coumadin for anticoagulation.
[2016-09-25 20:51] LABS: Glucose,Whole Blood 136 mg/dL (75-99)
--- NOTE | 2016-09-25 21:47 | PN ---
DATE OF SERVICE: 09/25/2016 Reason for follow-up is: 1. Pneumonia. 2. Urinary tract infection. 3. Right foot osteomyelitis. INTERVAL HISTORY: The patient is afebrile. She has been breathing comfortably. Denies any pain. Did have some cough, but not bringing up any sputum. No nausea and no diarrhea. On examination, blood pressure 114/54 with a pulse of 90, temperature 98%. She is 93% on 2 L nasal cannula. General description is an elderly female lying in bed in no distress. RESPIRATORY SYSTEM: Unlabored breathing. Coarse breath sounds at the bases. HEART: S1, S2. Regular rate and rhythm. ABDOMEN: Soft, no tenderness. The left breast wound did show overall improvement with decrease in size and no slough tissue, no redness. Right foot wound currently dressed. LABS: Hemoglobin 10.2, white count of 11.6 with a BUN of 18, creatinine 1.0. DIAGNOSTIC IMPRESSION AND PLAN: 1. Patient with pneumonia showed overall improvement. Currently on Zosyn to finish therapy with p.o. Avelox for another 5 days. 2. yeast + Urine culture ? colonization, diflucan can be discontinued. 3. Right foot osteo for which the patient's antibiotics were switched to Rocephin 2 gm daily for another 3 to 4 weeks. Left breast wound Aquacel dressing and keep the area dry. MTDD
[2016-09-25] MEDS: ATORVASTATIN 80 MG TAB PO SCH (22:02)
[2016-09-25] MEDS: HYDROCORTISONE 10 MG TAB PO SCH (22:03)
[2016-09-25] MEDS: MELATONIN 5 MG TABLET PO SCH (22:03)
[2016-09-26] MEDS: SODIUM CHLORIDE 0.9% 1,000 ML IV SCH ×2 (03:41→21:33)
[2016-09-26] MEDS: PIPERACILLIN-TAZOBACTAM 3.375 GM in DEXTROSE/WATER 1 50ML.BAG IVPB SCH ×3 (04:02→21:32)
[2016-09-26 06:31] LABS: Anisocytosis Slight; CH 32.1; CHCM 30.7; HCT 34.4 % (34.0-46.0); HDW 3.53; HGB 10.5 gm/dL (11.4-16.0); Hypochromasia Marked; MCHC 30.4 g/dL (31.0-37.0); MCV 105.2 fL (80.0-100.0); Macrocytosis Marked; Poikilocytosis Slight; RBC 3.27 m/uL (3.80-5.40); RDW 19.3 % (11.5-15.5); WBC 11.6 k/uL (3.8-10.6)
[2016-09-26 06:38] LABS: INR 2.4 (<1.1); Prothrombin Time 22.9 sec (9.0-12.0)
[2016-09-26 06:43] LABS: Anion Gap 8 mmol/L; Blood Urea Nitrogen 18 mg/dL (7-17); Calcium 8.7 mg/dL (8.4-10.2); Carbon Dioxide 39 mmol/L (22-30); Chloride 95 mmol/L (98-107); Glucose 96 mg/dL (74-99); Non-African American GFR(MDRD) 50 (>60 ml/min/1.73 sqM); Potassium 3.5 mmol/L (3.5-5.1); Sodium 142 mmol/L (137-145)
[2016-09-26 07:34] LABS: Glucose,Whole Blood 94 mg/dL (75-99)
[2016-09-26] MEDS: ALBUTEROL NEBULIZED 2.5 MG/3 ML INHALATION PRN (07:46)
[2016-09-26] MEDS: INSULIN LISPRO (humaLOG) 300 UNIT/3 ML VIAL SQ SCH ×4 (08:40→21:35)
[2016-09-26] MEDS: DULoxetine HCL 60 MG CAPSULE.DR PO SCH (08:45)
[2016-09-26] MEDS: POTASSIUM CHLORIDE ER 20 MEQ TAB.ER PO SCH ×2 (08:45→21:35)
[2016-09-26] MEDS: ISOSORBIDE MONONITRATE ER 15 MG TAB PO SCH (08:45)
[2016-09-26] MEDS: FLUCONAZOLE 100 MG TAB PO SCH (08:45)
[2016-09-26] MEDS: FAMOTIDINE 20 MG TAB PO SCH (08:45)
[2016-09-26] MEDS: FLUTICASONE 50MCG/SPRAY NASAL 16GM EA NOSTRIL SCH ×2 (08:46→21:33)
[2016-09-26] MEDS: metFORMIN 500 MG TAB PO SCH ×2 (08:46→17:05)
[2016-09-26] MEDS: CHOLECALCIFEROL 1,000 UNIT TAB PO SCH (08:47)
[2016-09-26] MEDS: FUROSEMIDE 10 MG/ML 4 ML VIAL IV SCH ×2 (08:47→21:33)
[2016-09-26] MEDS: ALLOPURINOL 300 MG TAB PO SCH (08:47)
[2016-09-26] MEDS: HYDROCORTISONE 20 MG TAB PO SCH (08:48)
[2016-09-26] MEDS: LIDOCAINE 5% PATCH TOPICAL SCH (08:48)
[2016-09-26] MEDS: METOPROLOL TARTRATE 25 MG TAB PO SCH ×2 (08:49→21:36)
--- NOTE | 2016-09-26 09:57 | ECHOF ---
Referral Reason:cp MEASUREMENTS -------- HEIGHT: 162.6 cm WEIGHT: 127.0 kg BP: 119/59 RVIDd: 2.6 cm (< 3.3) IVSd: 1.4 cm (0.6 - 1.1) LVIDd: 3.9 cm (3.9 - 5.3) LVPWd: 1.5 cm (0.6 - 1.1) IVSs: 1.9 cm LVIDs: 3.7 cm LVPWs: 2.0 cm LA Diam: 4.1 cm (2.7 - 3.8) RAP: 5.00 mmHg RVSP: 36.22 mmHg FINDINGS -------- Undetermined rhythm. This was a technically difficult study with suboptimal views. There is moderate concentric left ventricular hypertrophy. Overall left ventricular systolic function is normal with, an EF between 55 - 60 %. The right ventricle is normal in size. The left atrium is mildly dilated. The right atrium is normal in size. 1.5mg of Definity was utilized for enhancement of images The aortic valve is trileaflet and appears structurally normal. Mild mitral annular calcification present. Mild mitral regurgitation is present. Mild tricuspid regurgitation present. There is mild pulmonary hypertension. The right ventricular systolic pressure, as measured by Doppler, is 36.22mmHg. The pulmonic valve was not well visualized. The aortic root size is normal. Echo free space may represent effusion or a pericardial fat pad. CONCLUSIONS -------- 1. Undetermined rhythm. 2. Mild mitral annular calcification present. 3. Mild mitral regurgitation is present. 4. Mild tricuspid regurgitation present. 5. There is mild pulmonary hypertension. 6. The right ventricular systolic pressure, as measured by Doppler, is 36.22mmHg. 7. The pulmonic valve was not well visualized. 8. The aortic root size is normal. 9. Echo free space may represent effusion or a pericardial fat pad. 10. This was a technically difficult study with suboptimal views. 11. There is moderate concentric left ventricular hypertrophy. 12. Overall left ventricular systolic function is normal with, an EF between 55 - 60 %. 13. The right ventricle is normal in size. 14. The left atrium is mildly dilated. 15. The right atrium is normal in size. 16. 1.5mg of Definity was utilized for enhancement of images 17. The aortic valve is trileaflet and appears structurally normal. INSURANCE AGENCY MANAGER: Rm Galloway RDCS
[2016-09-26] MEDS: SENNOSIDES-DOCUSATE SODIUM 1 EACH TAB PO SCH (10:24)
[2016-09-26] MEDS: oxyCODONE-APAP 7.5-325MG 1 EACH TAB PO PRN ×2 (11:06→17:03)
[2016-09-26 11:32] LABS: Glucose,Whole Blood 110 mg/dL (75-99)
[2016-09-26] MEDS: MULTIVITAMINS, THERA 1 EACH TAB PO SCH (12:36)
[2016-09-26] MEDS: CALCIUM CARB-VIT D 500MG-200UN 1 EACH TAB PO SCH (17:04)
[2016-09-26] MEDS: CYANOCOBALAMIN 500 MCG TAB PO SCH (17:05)
[2016-09-26] MEDS: WARFARIN 2.5 MG TAB PO SCH (17:05)
[2016-09-26 17:25] LABS: Glucose,Whole Blood 118 mg/dL (75-99)
[2016-09-26] MEDS: ASPIRIN 81 MG CHEW PO SCH (18:25)
--- NOTE | 2016-09-26 18:33 | PN ---
DATE OF SERVICE: 09/26/2016 REASON FOR FOLLOWUP: 1. Pneumonia. 2. Urinary tract infection. 3. Osteomyelitis in left small wound. INTERVAL HISTORY: The patient is afebrile. She has been breathing comfortably. Hemodynamically stable No nausea, vomiting or any diarrhea. On examination, blood pressure is 119/76 with a pulse of 90, temperature 98. She is 91% on 2 L nasal cannula. General description is an elderly female lying in bed in no distress. RESPIRATORY SYSTEM: Unlabored breathing. Clear to auscultation anteriorly. HEART: S1, S2. Regular rate and rhythm. ABDOMEN: Soft. No tenderness. RIGHT FOOT: Wound is currently dressed. No obvious drainage. LABS: Hemoglobin is 10.5, white count 11.6 with a BUN of 18, creatinine 1.08. DIAGNOSTIC IMPRESSION AND PLAN: 1. Patient with pneumonia. Sputum has been negative for any resistant pathogen. She is currently on Zosyn. Plan to finish therapy with p.o. Avelox for another 5 days. 2. Right foot osteomyelitis. Antibiotic will be switched to Rocephin 2 grams daily for another 4 weeks along with Aquacel Silver dressing to the wound. 3. Urinary culture with yeast, ? colonization The Diflucan can be discontinued at discharge. 4. Left chest wall wound. Aquacel Silver dressing. Keep it dry. Follow up in the office. Continue supportive care. MTDD
[2016-09-26 20:33] LABS: Glucose,Whole Blood 129 mg/dL (75-99)
[2016-09-26] MEDS: ATORVASTATIN 80 MG TAB PO SCH (21:33)
[2016-09-26] MEDS: MELATONIN 5 MG TABLET PO SCH (21:34)
[2016-09-26] MEDS: HYDROCORTISONE 10 MG TAB PO SCH (23:22)
[2016-09-27] MEDS: oxyCODONE-APAP 7.5-325MG 1 EACH TAB PO PRN ×2 (03:08→09:10)
[2016-09-27] MEDS: PIPERACILLIN-TAZOBACTAM 3.375 GM in DEXTROSE/WATER 1 50ML.BAG IVPB SCH (04:14)
[2016-09-27 07:59] LABS: Glucose,Whole Blood 82 mg/dL (75-99)
[2016-09-27] MEDS: ALBUTEROL NEBULIZED 2.5 MG/3 ML INHALATION PRN (08:37)
[2016-09-27 08:40] VITALS: BP 116/67; PULSE 117; RESP 18; TEMP 98.3
[2016-09-27] MEDS ORDERED: HYDROXYCHLOROQUINE SULFATE 200 MG TAB PO SCH (09:00)
[2016-09-27] MEDS: INSULIN LISPRO (humaLOG) 300 UNIT/3 ML VIAL SQ SCH (09:04)
[2016-09-27] MEDS: FLUCONAZOLE 100 MG TAB PO SCH (09:10)
[2016-09-27] MEDS: ISOSORBIDE MONONITRATE ER 15 MG TAB PO SCH (09:10)
[2016-09-27] MEDS: SENNOSIDES-DOCUSATE SODIUM 1 EACH TAB PO SCH (09:10)
[2016-09-27] MEDS: METOPROLOL TARTRATE 25 MG TAB PO SCH (09:10)
[2016-09-27] MEDS: FLUTICASONE 50MCG/SPRAY NASAL 16GM EA NOSTRIL SCH (09:11)
[2016-09-27] MEDS: FUROSEMIDE 10 MG/ML 4 ML VIAL IV SCH (09:11)
[2016-09-27] MEDS: FAMOTIDINE 20 MG TAB PO SCH (09:11)
[2016-09-27] MEDS: ALLOPURINOL 300 MG TAB PO SCH (09:11)
[2016-09-27] MEDS: metFORMIN 500 MG TAB PO SCH (09:11)
[2016-09-27] MEDS: CHOLECALCIFEROL 1,000 UNIT TAB PO SCH (09:12)
[2016-09-27] MEDS: DULoxetine HCL 60 MG CAPSULE.DR PO SCH (09:12)
[2016-09-27] MEDS: HYDROCORTISONE 20 MG TAB PO SCH (09:12)
[2016-09-27] MEDS: POTASSIUM CHLORIDE ER 20 MEQ TAB.ER PO SCH (09:13)
[2016-09-27] MEDS: LIDOCAINE 5% PATCH TOPICAL SCH (09:13)
--- NOTE | 2016-09-27 09:52 | P.PN ---
Subjective This is a pleasant 76-year-old lady patient of Dr. Marquis and Dr. Arce. She has underlying history off from at the COPD hyperlipidemia vascular disorder and obstructive sleep apnea neuralgia atrial fibrillation, chronic COPD diabetes mellitus type 2, chronic immunosuppression CHF admitted through the emergency room secondary to left thoracic pain. She was diagnosed recently to have T6 dermatome herpes zoster this past Sunday 3 days prior to admission for which valacyclovir was given by Dr. Marquis. Patient had left flank pain was subsequently seen in the emergency room secondary to the pain. Patient denies any fever however she has some chills. Patient has hydrocodone which doesn't seem to take care of the pain she was seen in emergency room with evaluation to include noticeable left vesicular eruption involving the T6 area, redness in the left leg, known history off chronic venous stasis dermatitis. Known also on the right metatarsal region lateral region from a previous biopsy for osteotomyelitis by Dr. Kim. She is currently on IV Rocephin prior to her admission as recommended by Dr. Marquis. 09/04: Patient has been seen in consultation by Dr. Rojo from infectious disease covering for Dr. Marquis. He has recommended continuing Rocephin, silver dressing for the ulceration of the foot, check protein status and supplement, multivitamin added. Sed rate 24, C-reactive protein 27.2, hemoglobin A1c 6.7 TSH 2.570. Albumin is 3.3. INR 3.4. Chest x-ray is pending a Chin is requesting something for her nasal congestion and Flonase added. She continues to have issues with pain for which Percocet is scheduled plus as needed. 09/05: Patient continues to be very fatigued. She is on CPAP from home. Vesicles are drying up. Dr. Marquis has changed her antibiotics to Ceftaroline. Anticipate possible discharge to [facility] tomorrow. INR is 2.9. Patient will be resumed back on Coumadin home dosing. 09/06: Pain control continues to be an issue the patient is more groggy today. Percocet changed to fentanyl patch. Anticipate possible discharge to [facility] tomorrow. 09/07: Patient became hypotensive with temperature of 100.4 last evening had lactic acid 3.5 and patient was transferred to [facility] care and placed on CPAP. She received fluid bolus of 500 mL. She was also tachycardic and pulse ox running 91-95%. Blood culture obtained. Urine and urine culture ordered. White count is 12, INR 3.5. Repeat lactic acid is 1.5. Patient is not ready for discharge today. Fentanyl patch was removed last evening. Patient does not seem to complain and pain while resting. 09/08: De La Paz catheter was placed yesterday his family was concerned that she had no urine output. Urine output has been 40 mL for the past 12 hours. Temperature max 100.0. Dr. Marquis has recommended continuing Ceftaroline. WBC is 9.6. Potassium 3.3 will be replaced. INR is 3.2. Coumadin remains on hold. Repeat chest x-ray shows persistent right lower lobe density which may reflect atelectasis or infiltrate. 09/11: Patient's blood pressure was low and tachycardic with fever this morning. Noted the patient has not been resumed on her chronic prednisone and Solu- Cortef has been ordered. Patient transferred to ICU. Patient's family is contemplating transferring the patient to other facility but at this time, patient remains in intensive care unit as she seems to be improving. She has been seen by Dr. Burnham. She is status post IV Tylenol, IV fluid bolus with improvement. IV hydrocortisone drip started. IV antibiotics changed to Zosyn and vancomycin by Dr. Marquis. 09/12: Patient is much more awake and alert today. She remains in the intensive care unit. Hydrocortisone drip and IV Lasix ordered. Family continue to contemplate [facility] but at this point have decided to keep the patient and Meggan Martino per patient's wishes. 09/13: Patient is continued on IV cortisone and to switch over to oral. Repeat chest x-ray shows increasing basilar infiltrates and small right-sided effusion. Patient to stay in ICU for another day. Repeat urine culture from September 11 is finalized with no growth. All blood cultures have been negative. 09/14:Patient states she is feeling much better today. SHe still has some shortness of breath. Shingles pain is better. Patient will be transferred to [facility]. INR 2.4. Patient was resumed back on coumadin last night. 09/15: Patient remains in the intensive care unit waiting [facility]. Burnham has downgraded her to [facility]. She is awake and alert and denies any shortness of breath or cough. She has remained hemodynamically stable. PT to start working with the patient with anticipation she'll be ready for discharge to [facility] middle of next week. 09/16: Patient is now on the [facility] floor. Her heart rate was elevated this morning for which metoprolol was increased to 75 mg twice daily. Patient denies any new complaints. She continues to feel improvement in her overall status. She does need help with meals. She was able to work with physical therapy yesterday and was sitting at the edge of the bed for 5 minutes. 09/18: Patient is stating that she wants to be discharged from the hospital. Her plan is for [facility]. She is known to have a small wound to the right leg for which nursing is to put a dressing on. Repeat chest x-ray shows CHF. Patient was given additional dose of Lasix during the shift supervisor and repeat dosing will be given at this time followed by Lasix 40 mg twice daily IV. Anticipate possible discharge in the next 24-48 hours. De La Paz catheter does remain in place. 09/19: is complaining of extreme tiredness and back pain. Family is upset and feels that she sat up in a chair to long yesterday. Lungs are little improved today. De La Paz is clear with good output. Herpes zoster rash is improving. Temperature max 100.6.urine culture showing yeast and Dr. Marquis has started Diflucan. Vancomycin discontinued. Potassium will be replaced. INR is at 3.3. 09/20:Patient's daughters are requesting that Dr. Velez take over her care in the hospital but he will not agree. Patient states that she wants Dr. Johnson to continue care. Patient is lethargic and complaining of shortness of breath today. Consult with Dr. Mann added. 2/2: mission worker to discuss with family benefit of transfer to [facility] for rehab. Currently awaiting response from [facility]. Patient states she is feeling much better today. 2/4: Patient did not get the prior authorization measures coming to be transferred to 12-lead EKG was done, cardiac enzymes 2, cardiology consultation. 09/24: Patient is feeling okay today she continues to have some pressure in her chest, however her troponin is stable without evidence of acute coronary syndrome, this is could be just troponin leak secondary to her general medical problems. Prior authorization for the patient to go to [facility] on Sunday hopefully. 09/25: Patient is still waiting for authorization from her insurance. No new compliants. 09/26: Dr. Aceves spoke with physician at insurance company for [id number] review an attempt to get authorization for patient at [facility]. Awaiting to hear that the insurance company's decision. Patient has no new complaints. She is not participating much with physical therapy. She does have chronic pain for which she is on Percocet. Plaquenil has been started to replace methotrexate. Objective - Vital Signs Vital signs: Vital Signs Temp 98.1 F 09/25/16 22:07 Pulse 90 09/26/16 08:05 Resp 18 09/26/16 07:46 BP 119/76 09/26/16 07:00 Pulse Ox 91 L 09/26/16 07:00 Intake & Output 09/25/16 09/26/16 09/26/16 18:59 06:59 18:59 Intake Total 285 Output Total 4 Balance -4 285 Intake: IV 45 Piperacillin-Tazobactam 3 25 .375 gm In Dextrose/Water 1 50ml.bag @ 12.5 mls/hr IVPB Q8H LUIS Rx#: [id number] Sodium Chloride 0.9% 1, 20 000 ml @ 20 mls/hr IV . Q24H LUIS Rx#:[id number] Oral 240 Output: Stool 4 Other: Voiding Method Incontinent Incontinent # Voids 1 2 # Bowel Movements 1 1 - Exam General appearance: cooperative, no acute distress, - EENT Eyes: anicteric sclerae, EOMI, PERRLA, dentition normal, normal appearance ENT: NA/AT, normal oropharynx - Neck Neck: no lymphadenopathy, normal ROM, no other, no rigidity, no stridor, no thyromegaly - Respiratory Respiratory: bilateral: CTA, negative: diminished, dullness, rales, rhonchi - Cardiovascular Rhythm: regular Heart sounds: normal: S1, S2 Abnormal Heart Sounds: no systolic murmur, no diastolic murmur, no rub, no S3 Gallop, no S4 Gallop, no click, no other - Gastrointestinal General gastrointestinal: normal bowel sounds, soft - Integumentary Integumentary: rash (left t 6 dermatome), ulcer (right lateral metatarsal 2 cm x2 cm x1 cm approx) - Musculoskeletal Musculoskeletal: generalized weakness, strength equal bilaterally - Labs CBC & Chem 7: 09/26/16 06:19 09/26/16 06:19 Labs: Abnormal Lab Results - Last 24 Hours (Table) 09/25/16 09/25/16 09/25/16 Range/Units 12:11 17:31 20:49 WBC (3.8-10.6) k/uL RBC (3.80-5.40) m/uL Hgb (11.4-16.0) gm/dL MCV (80.0-100.0) fL MCHC (31.0-37.0) g/dL RDW (11.5-15.5) % PT (9.0-12.0) sec Chloride (98-107) mmol/L Carbon Dioxide (22-30) mmol/L BUN (7-17) mg/dL Creatinine (0.52-1.04) mg/dL POC Glucose (mg/dL) 123 H 144 H 136 H (75-99) mg/dL 09/26/16 09/26/16 09/26/16 Range/Units 06:19 06:19 06:19 WBC 11.6 H (3.8-10.6) k/uL RBC 3.27 L (3.80-5.40) m/uL Hgb 10.5 L (11.4-16.0) gm/dL MCV 105.2 H (80.0-100.0) fL MCHC 30.4 L (31.0-37.0) g/dL RDW 19.3 H (11.5-15.5) % PT 22.9 H (9.0-12.0) sec Chloride 95 L (98-107) mmol/L Carbon Dioxide 39 H (22-30) mmol/L BUN 18 H (7-17) mg/dL Creatinine 1.08 H (0.52-1.04) mg/dL POC Glucose (mg/dL) (75-99) mg/dL Assessment and Plan Plan: 1. Left thoracic T5-T6 herpes zoster vesicular eruptions with possible secondary bacterial infection currently on Valtrex uncontrolled pain. No patch with Percocet as needed for pain control. Zosyn, vancomycin. 2. Sepsis with fever, tachycardia and elevated lactic acid and coagulopathy possible lower lobe pneumonia or atelectasis, possible gram-negative pneumonia. Dr. Marquis is on consult. Monitor I&O. Coumadin resumed. 3. 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 Kim and Dr. Marquis currently improving. On Zosyn and vancomycin 4. Adrenal insufficiency. Currently on Cortef 20 mg in the morning and 10 mg at bedtime. 5. Chronic venous stasis dermatitis bilateral lower extremity, there is no significant worsening of the left ankle as mentioned by the emergency room physician, patient continued to have her IV Rocephin. No diuretics are needed at this time 6. Ongoing immunosuppression using methotrexate which would be held. Should there be any flareup of her RA, this will be replaced by Plaquenil until her wounds would heal 7. Chronic atrial fibrillation on chronic anticoagulation with Coumadin, therapeutic levels will be maintained, metoprolol 50 mg twice a day, Coumadin resumed. 8. CAD currently asymptomatic, on Imdur maintenance 50 mg daily metoprolol 50 mg twice a day, aspirin 81 mg daily Lipitor 80 mg daily 9. COPD on maintenance Pulmicort 10. Hyperlipidemia on Lipitor 80 11. Hyperuricemia without any exacerbation of gout, on Zyloprim 300 mg daily 12. Diabetes mellitus type 2 on metformin 500 mg twice a day hemoglobin A1c will be [facility] 13. DVT prophylaxis on maintenance Coumadin 14. GI prophylaxis Pepcid 20 15. Impaired balance and increasing debility splinting of thoracic area during ambulation which puts her at risk for further falls, physical therapy and the Initial therapy would be seeing her with the anticipated evaluation for skilled ECF Discharge plan: Subacute rehab at [facility] under Dr. Velez or [facility] Impression and plan of care have been directed as dictated by the signing physician. Susi Raymundo nurse practitioner acting as scribe for signing physician. Time with Patient: Greater than 30
--- NOTE | 2016-09-27 09:56 | P.DS ---
Providers Date of admission: 09/02/16 18:48 Expected date of discharge: 09/27/16 Attending physician: Miriam Aceves Consults: 09/11/16 10:49 Consult Physician Routine Consulting Provider: Stone Burnham Consult Reason/Comments: shock Do you want consulting provider notified?: Yes 09/20/16 15:51 Consult Physician Routine Consulting Provider: Ivania Mann Consult Reason/Comments: CHF Do you want consulting provider notified?: Yes 09/23/16 14:32 Consult Physician Routine Consulting Provider: Cyril Choudhary Consult Reason/Comments: chest pain Do you want consulting provider notified?: Yes Primary care physician: [facility] Course: This is a pleasant 76-year-old lady patient of Dr. Marquis and Dr. Arce. She has underlying history off from at the COPD hyperlipidemia vascular disorder and obstructive sleep apnea neuralgia atrial fibrillation, chronic COPD diabetes mellitus type 2, chronic immunosuppression CHF admitted through the emergency room secondary to left thoracic pain. She was diagnosed recently to have T6 dermatome herpes zoster this past Sunday 3 days prior to admission for which valacyclovir was given by Dr. Marquis. Patient had left flank pain was subsequently seen in the emergency room secondary to the pain. Patient denies any fever however she has some chills. Patient has hydrocodone which doesn't seem to take care of the pain she was seen in emergency room with evaluation to include noticeable left vesicular eruption involving the T6 area, redness in the left leg, known history off chronic venous stasis dermatitis. Known also on the right metatarsal region lateral region from a previous biopsy for osteotomyelitis by Dr. Kim. She is currently on IV Rocephin prior to her admission as recommended by Dr. Marquis. 09/04: Patient has been seen in consultation by Dr. Rojo from infectious disease covering for Dr. Marquis. He has recommended continuing Rocephin, silver dressing for the ulceration of the foot, check protein status and supplement, multivitamin added. Sed rate 24, C-reactive protein 27.2, hemoglobin A1c 6.7 TSH 2.570. Albumin is 3.3. INR 3.4. Chest x-ray is pending a Chin is requesting something for her nasal congestion and Flonase added. She continues to have issues with pain for which Percocet is scheduled plus as needed. 09/05: Patient continues to be very fatigued. She is on CPAP from home. Vesicles are drying up. Dr. Marquis has changed her antibiotics to Ceftaroline. Anticipate possible discharge to [facility] tomorrow. INR is 2.9. Patient will be resumed back on Coumadin home dosing. 09/06: Pain control continues to be an issue the patient is more groggy today. Percocet changed to fentanyl patch. Anticipate possible discharge to [facility] tomorrow. 09/07: Patient became hypotensive with temperature of 100.4 last evening had lactic acid 3.5 and patient was transferred to [facility] and placed on CPAP. She received fluid bolus of 500 mL. She was also tachycardic and pulse ox running 91-95%. Blood culture obtained. Urine and urine culture ordered. White count is 12, INR 3.5. Repeat lactic acid is 1.5. Patient is not ready for discharge today. Fentanyl patch was removed last evening. Patient does not seem to complain and pain while resting. 09/08: De La Paz catheter was placed yesterday his family was concerned that she had no urine output. Urine output has been 40 mL for the past 12 hours. Temperature max 100.0. Dr. Marquis has recommended continuing Ceftaroline. WBC is 9.6. Potassium 3.3 will be replaced. INR is 3.2. Coumadin remains on hold. Repeat chest x-ray shows persistent right lower lobe density which may reflect atelectasis or infiltrate. 09/11: Patient's blood pressure was low and tachycardic with fever this morning. Noted the patient has not been resumed on her chronic prednisone and Solu- Cortef has been ordered. Patient transferred to ICU. Patient's family is contemplating transferring the patient to other facility but at this time, patient remains in intensive care unit as she seems to be improving. She has been seen by Dr. Burnham. She is status post IV Tylenol, IV fluid bolus with improvement. IV hydrocortisone drip started. IV antibiotics changed to Zosyn and vancomycin by Dr. Marquis. 09/12: Patient is much more awake and alert today. She remains in the intensive care unit. Hydrocortisone drip and IV Lasix ordered. Family continue to contemplate [facility] but at this point have decided to keep the patient and [facility] per patient's wishes. 09/13: Patient is continued on IV cortisone and to switch over to oral. Repeat chest x-ray shows increasing basilar infiltrates and small right-sided effusion. Patient to stay in ICU for another day. Repeat urine culture from September 11 is finalized with no growth. All blood cultures have been negative. 09/14:Patient states she is feeling much better today. SHe still has some shortness of breath. Shingles pain is better. Patient will be transferred to [facility]. INR 2.4. Patient was resumed back on coumadin last night. 09/15: Patient remains in the intensive care unit waiting for [facility] bed. Dr. Burnham has downgraded her to [facility]. She is awake and alert and denies any shortness of breath or cough. She has remained hemodynamically stable. PT to start working with the patient with anticipation she'll be ready for discharge to [facility] middle of next week. 09/16: [facility] Her heart rate was elevated this morning for which metoprolol was increased to 75 mg twice daily. Patient denies any new complaints. She continues to feel improvement in her overall status. She does need help with meals. She was able to work with physical therapy yesterday and was sitting at the edge of the bed for 5 minutes. 09/18: Patient is stating that she wants to be discharged from the hospital. Her plan is for [facility]. She is known to have a small wound to the right leg for which nursing is to put a dressing on. Repeat chest x-ray shows CHF. Patient was given additional dose of Lasix during the first coat sander and repeat dosing will be given at this time followed by Lasix 40 mg twice daily IV. Anticipate possible discharge in the next 24-48 hours. De La Paz catheter does remain in place. 09/19: is complaining of extreme tiredness and back pain. Family is upset and feels that she sat up in a chair to long yesterday. Lungs are little improved today. De La Paz is clear with good output. Herpes zoster rash is improving. Temperature max 100.6.urine culture showing yeast and Dr. Marquis has started Diflucan. Vancomycin discontinued. Potassium will be replaced. INR is at 3.3. 09/20:Patient's daughters are requesting that Dr. Velez take over her care in the hospital but he will not agree. Patient states that she wants Dr. Johnson to continue care. Patient is lethargic and complaining of shortness of breath today. Consult with Dr. Mann added. 09/21: aircraft layout worker to discuss with family benefit [facility]. Currently awaiting response from [facility]. Patient states she is feeling much better today. 09/23: Patient did not get the prior authorization measures coming to be transferred to 12-lead EKG was done, cardiac enzymes 2, cardiology consultation. 09/24: Patient is feeling okay today she continues to have some pressure in her chest, however her troponin is stable without evidence of acute coronary syndrome, this is could be just troponin leak secondary to her general medical problems. Prior authorization for the [facility] hopefully. 09/25: Patient is still waiting for authorization from her insurance. No new compliants. 09/26: Dr. Aceves spoke with physician at insurance [place] for [id number] review an attempt to get [facility]. Awaiting to hear that the insurance company's decision. Patient has no new complaints. She is not participating much with physical therapy. She does have chronic pain for which she is on Percocet. Plaquenil has been started to replace methotrexate. 09/27: Insurance company has denied [facility] to [facility]. [facility] is now looking at making arrangements. If all arrangements can be completed today, patient will be discharge to [facility] in stable condition. A new medication reconciliation has been done with addition was Plaquenil. Also , Dr. Marquis has recommended only 5 more days of Avelox at this point, continue ceftriaxone for 4 more weeks and Diflucan has been completed. Discharge diagnoses: 1. Left thoracic T5-T6 herpes zoster vesicular eruptions with possible secondary bacterial infection 2. Sepsis with fever, tachycardia and elevated lactic acid and coagulopathy possible lower lobe pneumonia or atelectasis, possible gram-negative pneumonia not entirely ruled out. 3. 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 Kim and Dr. Marquis 4. Adrenal insufficiency. 5. Chronic venous stasis dermatitis bilateral lower extremity 6. Ongoing immunosuppression using methotrexate which would be held. 7. Chronic atrial fibrillation on chronic anticoagulation with Coumadin 8. CAD currently asymptomatic 9. COPD 10. Hyperlipidemia 11. Hyperuricemia without any exacerbation of gout 12. Diabetes mellitus type 2 Discharge plan: Subacute rehab at [facility] Impression and plan of care have been directed as dictated by the signing physician. Susi Raymundo nurse practitioner acting as scribe for signing physician. Patient Condition at Discharge: Good Plan - Discharge Summary New Discharge Prescriptions: ALPRAZolam [Xanax] 0.25 mg PO BID PRN #60 tab PRN Reason: Anxiety Hydroxychloroquine Sulfate [Plaquenil] 100 mg PO DAILY #30 tablet cefTRIAXone [Rocephin] 2,000 mg IVPB Q24HR #28 vial oxyCODONE-APAP 7.5-325MG [Percocet 7.5-325 mg] 1 each PO Q4HR PRN #90 tab PRN Reason: Pain Discharge Medication List Calcium Carbonate/Vitamin D3 [Calcium 600-Vit D3 400 Tablet] 1 tab PO AC-SUPPER 09/07/14 [History] Cholecalciferol [Vitamin D3] 2,000 units PO QAM 09/07/14 [History] Cyanocobalamin [Vitamin B-12] 1,000 mcg PO AC-SUPPER 05/21/15 [History] Nitroglycerin Sl Tabs [Nitrostat] 0.4 mg SUBLINGUAL Q5M PRN #0 tab 09/10/15 [Rx] Atorvastatin Calcium [Lipitor] 80 mg PO HS 01/19/16 [History] Lidocaine 5% Patch [Lidoderm 5% Patch] 1 patch TOPICAL DAILY 04/27/16 [History] metFORMIN HCL [Glucophage] 500 mg PO BID 04/27/16 [History] Allopurinol [Zyloprim] 300 mg PO DAILY tab 05/01/16 [Rx] Budesonide [Pulmicort] 0.5 mg INHALATION RT-BID nebu 05/01/16 [Rx] Furosemide [Lasix] 40 mg PO DAILY #0 05/01/16 [Rx] Isosorbide Mononitrate ER [Imdur] 15 mg PO DAILY dose 05/01/16 [Rx] Sennosides/Docusate Sodium [Eloisa-Colace Tablet] 1 tab PO DAILY #30 tab 05/01/16 [Rx] guaiFENesin [Mucinex] 600 mg PO Q12HR tablet.er 05/01/16 [Rx] Albuterol Nebulized [Ventolin Nebulized] 2.5 mg INHALATION RT-Q6H PRN 09/02/16 [ History] Aspirin 81 mg PO AC-SUPPER 09/02/16 [History] DULoxetine HCL [Cymbalta] 60 mg PO DAILY 09/02/16 [History] Famotidine [Pepcid] 20 mg PO DAILY 09/02/16 [History] Melatonin 5 mg PO HS 09/02/16 [History] cefTRIAXone [Rocephin] 2,000 mg IVPB Q24HR 09/02/16 [History] ALPRAZolam [Xanax] 0.25 mg PO BID PRN #60 tab 09/22/16 [Rx] Acetaminophen Tab [Tylenol] 650 mg PO Q6HR PRN #0 tab 09/22/16 [Rx] Fludrocortisone [Florinef] 0.05 mg PO DAILY PRN #0 tab 09/22/16 [Rx] Fluticasone Nasal [place] [Flonase Nasal [place]] 2 spray EA NOSTRIL BID spr [Rx] Hydrocortisone [Cortef] 10 mg PO HS tab 09/22/16 [Rx] Hydrocortisone [Cortef] 20 mg PO DAILY tab 09/22/16 [Rx] INSULIN LISPRO (humaLOG) [humaLOG (formulary)] 0 unit SQ ACHS vial 09/22/16 [Rx ] Metoprolol Tartrate [Lopressor] 75 mg PO BID tab 09/22/16 [Rx] Multivitamins, Thera [Multivitamin] 1 each PO DAILY@1200 tab 09/22/16 [Rx] Nystatin 100,000 Unit/ml Susp [Mycostatin Oral Susp] 500,000 unit PO QID cup [Rx] Potassium Chloride ER [K-Dur 20] 20 meq PO DAILY tab.er.prt 09/22/16 [Rx] Warfarin [Coumadin] 2.5 mg PO DAILY@1800 tab 09/22/16 [Rx] cefTRIAXone [Rocephin] 2,000 mg IVPB Q24HR #28 vial 09/22/16 [Rx] oxyCODONE-APAP 7.5-325MG [Percocet 7.5-325 mg] 1 each PO Q4HR PRN #90 tab [Rx] Hydroxychloroquine Sulfate [Plaquenil] 100 mg PO DAILY #30 tablet 09/26/16 [Rx] Moxifloxacin HCl [Avelox] 400 mg PO DAILY #5 tablet 09/27/16 [Rx] Follow up Appointment(s)/Referral(s): Naresh Arce MD [Primary Care Provider] - 1 Week (after discharge from rehab) Og Marquis MD [STAFF PHYSICIAN] - 1 Week Ambulatory/Diagnostic Orders: Basic Metabolic Panel [LAB.AMB] Location: Determined By Patient C Reactive Protein [LAB.AMB] Location: Determined By Patient Complete Blood Count w/diff [LAB.AMB] Location: Determined By Patient Erythrocyte Sedimentation Rate [LAB.AMB] Location: Determined By Patient Activity/Diet/Wound Care/Special Instructions: Continue Aquacel Ag dressing to the right foot wound Sunday. wants flu vaccine before discharge Discharge Disposition: OTHER INSTITUTION NOT DEFINED
[2016-09-27 11:54] LABS: Glucose,Whole Blood 106 mg/dL (75-99)
== END 2016-09-27 12:25 | DRG 595 ==
LOC: EC 16:22 → 5MS5E 18:48 → 6SEL 09-06 21:32 → 5MS5E 09-09 18:15 → 6ICU 09-11 13:15 → 5MS5E 09-15 13:51
PROVIDERS: ADMIT Family Medicine; ATTEND Family Medicine
DX: B02.9 Zoster without complications (principal); A41.9 Sepsis, unspecified organism; J18.9 Pneumonia, unspecified organism; J96.11 Chronic respiratory failure with hypoxia; E27.49 Other adrenocortical insufficiency; E87.2 Acidosis; J44.0 Chronic obstructive pulmonary disease with (acute) lower respiratory infection; M86.9 Osteomyelitis, unspecified; L03.116 Cellulitis of left lower limb; L03.313 Cellulitis of chest wall; B37.49 Other urogenital candidiasis; E11.51 Type 2 diabetes mellitus with diabetic peripheral angiopathy without gangrene; E11.621 Type 2 diabetes mellitus with foot ulcer; I50.9 Heart failure, unspecified; I48.2 Chronic atrial fibrillation; B96.89 Other specified bacterial agents as the cause of diseases classified elsewhere; E78.5 Hyperlipidemia, unspecified; F32.9 Major depressive disorder, single episode, unspecified; F41.9 Anxiety disorder, unspecified; G47.33 Obstructive sleep apnea (adult) (pediatric); G89.29 Other chronic pain; I10 Essential (primary) hypertension; I25.10 Atherosclerotic heart disease of native coronary artery without angina pectoris; L97.519 Non-pressure chronic ulcer of other part of right foot with unspecified severity; M06.9 Rheumatoid arthritis, unspecified; R62.7 Adult failure to thrive; L40.9 Psoriasis, unspecified; M19.90 Unspecified osteoarthritis, unspecified site; R32 Unspecified urinary incontinence; E11.69 Type 2 diabetes mellitus with other specified complication; G43.909 Migraine, unspecified, not intractable, without status migrainosus; K44.9 Diaphragmatic hernia without obstruction or gangrene; I87.2 Venous insufficiency (chronic) (peripheral); M10.9 Gout, unspecified; I77.6 Arteritis, unspecified; Z79.01 Long term (current) use of anticoagulants; Z79.52 Long term (current) use of systemic steroids; Z79.82 Long term (current) use of aspirin; Z79.84 Long term (current) use of oral hypoglycemic drugs; Z79.899 Other long term (current) drug therapy; Z87.891 Personal history of nicotine dependence; Z96.642 Presence of left artificial hip joint; Z96.651 Presence of right artificial knee joint; Z88.8 Allergy status to other drugs, medicaments and biological substances; Z82.49 Family history of ischemic heart disease and other diseases of the circulatory system
CPT/HCPCS: 36415; 36600; 71010; 71020; 80048; 80053; 80202; 80299; 81001; 81003; 82805; 83036; 83605; 83735; 84100; 84134; 84443; 84484; 85025; 85027; 85610; 85652; 85730; 86140; 87040; 87070; 87086; 87205; 87324; 93005; 93306; 94640; 94660; 94760; 96361; 96365; 96375; 99284

== ENCOUNTER 2016-10-14 16:07 | Emergency (ER) | payer MEDICARE ==
--- NOTE | 2016-10-14 16:40 | ED ---
General Adult HPI - General Chief complaint: Chest Pain Stated complaint: chest pain Time Seen by Provider: 10/14/16 16:18 Source: patient, EMS Mode of arrival: EMS Limitations: no limitations - History of Present Illness Initial comments: 76-year-old female complains of cough since having a cold last week or so she is poor historian. She has a little chest pain which is worse with coughing no shortness of breath she has a history of insulin-dependent diabetes and is on blood thinner for heart problem. She has no fever or chills. No earache sore throat no nausea no vomiting has some chronic diarrhea. - Related Data Home Medications Medication Instructions Recorded Confirmed Calcium Carbonate/Vitamin D3 1 tab PO AC-SUPPER 09/07/14 10/14/16 [Calcium 600-Vit D3 400 Tablet] Cholecalciferol [Vitamin D3] 2,000 units PO DAILY@1700 09/07/14 10/14/16 Cyanocobalamin [Vitamin B-12] 1,000 mcg PO AC-SUPPER 05/21/15 10/14/16 Atorvastatin Calcium [Lipitor] 80 mg PO HS 01/19/16 10/14/16 Lidocaine 5% Patch [Lidoderm 5% 1 patch TOPICAL DAILY 04/27/16 10/14/16 Patch] metFORMIN HCL [Glucophage] 500 mg PO BID 04/27/16 10/14/16 Albuterol Nebulized [Ventolin 2.5 mg INHALATION RT-Q6H PRN 09/02/16 10/14/16 Nebulized] Aspirin 81 mg PO AC-SUPPER 09/02/16 10/14/16 DULoxetine HCL [Cymbalta] 60 mg PO DAILY 09/02/16 10/14/16 Famotidine [Pepcid] 20 mg PO DAILY 09/02/16 10/14/16 Melatonin 5 mg PO HS 09/02/16 10/14/16 Bisacodyl [Dulcolax] 10 mg RECTAL DAILY PRN 10/14/16 10/14/16 Glucerna Shake 1 can PO TID-W/MEALS 10/14/16 10/14/16 INSULIN LISPRO (humaLOG) [humaLOG See Protocol SQ ACHS 10/14/16 10/14/16 (formulary)] Magnesium Hydroxide [Milk of 2,400 mg PO DAILY PRN 10/14/16 10/14/16 Magnesia] Multivitamins, Thera [Multivitamin] 1 tab PO DAILY@1700 10/14/16 10/14/16 Na Phos,M-B/Na Phos,Di-Ba [Fleet 133 ml RECTAL DAILY PRN 10/14/16 10/14/16 Adult] Potassium Chloride ER [K-Dur 20] 20 meq PO DAILY@1700 10/14/16 10/14/16 oxyCODONE-APAP 7.5-325MG [Percocet 1 tab PO Q4HR PRN 10/14/16 10/14/16 7.5-325 mg] Previous Rx's Medication Instructions Recorded Nitroglycerin Sl Tabs [Nitrostat] 0.4 mg SUBLINGUAL Q5M PRN #0 tab 09/10/15 Allopurinol [Zyloprim] 300 mg PO DAILY tab 05/01/16 Budesonide [Pulmicort] 0.5 mg INHALATION RT-BID nebu 05/01/16 Furosemide [Lasix] 40 mg PO DAILY #0 05/01/16 Isosorbide Mononitrate ER [Imdur] 15 mg PO DAILY dose 05/01/16 Sennosides/Docusate Sodium 1 tab PO DAILY #30 tab 05/01/16 [Eloisa-Colace Tablet] guaiFENesin [Mucinex] 600 mg PO Q12HR tablet.er 05/01/16 ALPRAZolam [Xanax] 0.25 mg PO BID PRN #60 tab 09/22/16 Acetaminophen Tab [Tylenol] 650 mg PO Q6HR PRN #0 tab 09/22/16 Fludrocortisone [Florinef] 0.05 mg PO DAILY PRN #0 tab 09/22/16 Fluticasone Nasal [place] [Flonase 2 spray EA NOSTRIL BID spr 09/22/16 Nasal [place]] Hydrocortisone [Cortef] 10 mg PO HS tab 09/22/16 Hydrocortisone [Cortef] 20 mg PO DAILY tab 09/22/16 Metoprolol Tartrate [Lopressor] 75 mg PO BID tab 09/22/16 cefTRIAXone [Rocephin] 2,000 mg IVPB Q24HR #28 vial 09/22/16 Hydroxychloroquine Sulfate 100 mg PO DAILY #30 tablet 09/26/16 [Plaquenil] Allergies Allergy/AdvReac Type Severity Reaction Status Date / Time azathioprine [From Imuran] Allergy pancreatiti Verified 10/14/16 16:22 s azathioprine sodium Allergy pancreatiti Verified 10/14/16 16:22 [From Imuran] s Review of Systems ROS Statement: Those systems with pertinent positive or pertinent negative responses have been documented in the HPI. ROS Other: All systems not noted in ROS Statement are negative. Constitutional: Reports: weakness. Denies: fever ENT: Denies: ear pain Respiratory: Reports: cough. Denies: wheezes Cardiovascular: Reports: chest pain Gastrointestinal: Reports: diarrhea. Denies: abdominal pain, nausea, vomiting Genitourinary: Reports: urgency, dysuria, frequency Skin: Reports: rash (Under the breasts recent shingles) Psychiatric: Reports: anxiety, depression Hematological/Lymphatic: Denies: swollen glands Past Medical History Past Medical History: Atrial Fibrillation, Heart Failure, COPD, Diabetes Mellitus, Hyperlipidemia, Hypertension, Musculoskeletal Disorder, Osteoarthritis (OA), Rheumatoid Arthritis (RA), Skin Disorder, Sleep Apnea/CPAP/ BIPAP, Vascular Disorder Additional Past Medical History / Comment(s): Recent R ankle fracture and just got released from [facility] rehab. Other HX: Newly diagnosed diabetes and torn R rotator cuff diagnosed recently, psoriasis, PVD, past vascular wound lt foot since healed, uti(e coli), sleep apnea uses cpap machine -not sure of settings, migraines, hiatal hernia, fall in jul 2015 has had pain since rt buttock/leg, numbness tingling to bilateral hands and feet., current shingles History of Any Multi-Drug Resistant Organisms: None Reported Date of last positivie culture/infection: None MDRO Source:: None Past Surgical History: Appendectomy, Back Surgery, Cholecystectomy, Joint Replacement, Orthopedic Surgery, Tubal Ligation Additional Past Surgical History / Comment(s): bilateral cataracts removed,r t ankle fusion, left hip replacement x 2, left knee arthroscopy, arthritic nodule rt heel, right knee replacment, lt carpal tunnel release, colonoscopy was done more than 5 years ago. Past Anesthesia/Blood Transfusion Reactions: Postoperative Nausea & Vomiting ( PONV) Past Psychological History: Anxiety, Depression Additional Psychological History / Comment(s): Pt recently discharged from [facility] rehab after R ankle fracture. Pt has been more depressed since the jul fall and inabilty to move well and deal with the pain she's having. no suicidal ideations or thoughts of harming.at time she feels like a burden to others. currently pt is living in her own home and her daughteris staying with her temporarily. She is ambulating with a walker. She has a CPAP machine and a commode. She has home care thru [facility]. Her imtiaz gets her to appts. Smoking Status: Former smoker Past Alcohol Use History: None Reported Additional Past Alcohol Use History / Comment(s): smoked x 55 years 1.5 ppd, started in 1952 and quit 2007 Past Drug Use History: None Reported - Past Family History Sister(s) History Unknown: Yes Family Medical History: No Reported History Daughter(s) Family Medical History: No Reported History Son(s) Family Medical History: No Reported History Father Family Medical History: Cancer Mother Family Medical History: Coronary Artery Disease (CAD), Myocardial Infarction ([place] ), Rheumatoid Arthritis (RA) General Exam Limitations: no limitations (Although no distinct limitations patient is very vague of the neck confused and no delirium) General appearance: alert Head exam: Present: atraumatic Eye exam: Present: PERRL, EOMI Pupils: Present: normal accommodation ENT exam: Present: normal oropharynx, mucous membranes moist Respiratory exam: Present: normal lung sounds bilaterally Cardiovascular Exam: Present: normal heart sounds GI/Abdominal exam: Present: soft. Absent: tenderness, guarding, rebound Neurological exam: Present: alert, CN II-XII intact Psychiatric exam: Present: normal affect, normal mood Skin exam: Present: warm, dry Course Vital Signs 10/14/16 16:08 Temperature 97 F L Pulse Rate 56 L Respiratory 24 Rate Blood Pressure 122/61 O2 Sat by Pulse 99 Oximetry Medical Decision Making - Medical Decision Making Patient has chronic anemia which is not changed her pro time is somewhat low. She has mild congestive heart failure with mild effusion not symptoms significantly symptomatic from it at this point. Does not appear to have angina at this time although she has had a few episodes about which she's taken nitro at home. We discussed with the family about her chronic illness or whether they would want to interventions after discussing among themselves and with the patient herself they would prefer to not do 24 admit go back to the assisted more toward - Lab Data Result diagrams: 10/14/16 16:35 10/14/16 16:35 Lab Results 10/14/16 10/14/16 10/14/16 Range/Units 16:35 16:35 16:35 WBC 12.1 H (3.8-10.6) k/uL RBC 3.36 L (3.80-5.40) m/uL Hgb 10.7 L (11.4-16.0) gm/dL Hct 34.5 (34.0-46.0) % MCV 102.7 H (80.0-100.0) fL MCH 31.7 (25.0-35.0) pg MCHC 30.9 L (31.0-37.0) g/dL RDW 18.6 H (11.5-15.5) % Plt Count 356 (150-450) k/uL Neutrophils % 73 % Lymphocytes % 15 % Monocytes % 4 % Eosinophils % 4 % Basophils % 1 % Neutrophils # 8.8 H (1.3-7.7) k/uL Lymphocytes # 1.8 (1.0-4.8) k/uL Monocytes # 0.5 (0-1.0) k/uL Eosinophils # 0.5 (0-0.7) k/uL Basophils # 0.1 (0-0.2) k/uL Hypochromasia Marked Poikilocytosis Slight Anisocytosis Slight Macrocytosis Moderate PT (9.0-12.0) sec INR (<1.1) APTT (22.0-30.0) sec Sodium 141 (137-145) mmol/L Potassium 4.4 (3.5-5.1) mmol/L Chloride 101 (98-107) mmol/L Carbon Dioxide 31 H (22-30) mmol/L Anion Gap 9 mmol/L BUN 12 (7-17) mg/dL Creatinine 0.80 (0.52-1.04) mg/dL Est GFR (MDRD) Af Amer >60 (>60 ml/min/1.73 sqM) Est GFR (MDRD) Non-Af >60 (>60 ml/min/1.73 sqM) Glucose 145 H (74-99) mg/dL Calcium 9.0 (8.4-10.2) mg/dL Magnesium 1.6 (1.6-2.3) mg/dL Total Bilirubin 0.3 (0.2-1.3) mg/dL AST 28 (14-36) U/L ALT 25 (9-52) U/L Alkaline Phosphatase 66 (38-126) U/L Total Creatine Kinase <20 L (30-135) U/L CK-MB (CK-2) 0.4 (0.0-2.4) ng/mL CK-MB (CK-2) Rel Index 0.0 Troponin I <0.012 (0.000-0.034) ng/mL Total Protein 5.6 L (6.3-8.2) g/dL Albumin 2.8 L (3.5-5.0) g/dL Urine Color Urine Appearance (Clear) Urine pH (5.0-8.0) Ur Specific [place] (1.001-1.035) Urine Protein (Negative) Urine Glucose (UA) (Negative) Urine Ketones (Negative) Urine Blood (Negative) Urine Nitrate (Negative) Urine Bilirubin (Negative) Urine Urobilinogen (<2.0) mg/dL Ur Leukocyte Esterase (Negative) Urine RBC (0-5) /hpf Urine WBC (0-5) /hpf Ur Squamous Epith Cells (0-4) /hpf Urine Bacteria (None) /hpf Urine Mucus (None) /hpf 10/14/16 10/14/16 Range/Units 16:35 16:44 WBC (3.8-10.6) k/uL RBC (3.80-5.40) m/uL Hgb (11.4-16.0) gm/dL Hct (34.0-46.0) % MCV (80.0-100.0) fL MCH (25.0-35.0) pg MCHC (31.0-37.0) g/dL RDW (11.5-15.5) % Plt Count (150-450) k/uL Neutrophils % % Lymphocytes % % Monocytes % % Eosinophils % % Basophils % % Neutrophils # (1.3-7.7) k/uL Lymphocytes # (1.0-4.8) k/uL Monocytes # (0-1.0) k/uL Eosinophils # (0-0.7) k/uL Basophils # (0-0.2) k/uL Hypochromasia Poikilocytosis Anisocytosis Macrocytosis PT 13.6 H (9.0-12.0) sec INR 1.4 (<1.1) APTT 22.6 (22.0-30.0) sec Sodium (137-145) mmol/L Potassium (3.5-5.1) mmol/L Chloride (98-107) mmol/L Carbon Dioxide (22-30) mmol/L Anion Gap mmol/L BUN (7-17) mg/dL Creatinine (0.52-1.04) mg/dL Est GFR (MDRD) Af Amer (>60 ml/min/1.73 sqM) Est GFR (MDRD) Non-Af (>60 ml/min/1.73 sqM) Glucose (74-99) mg/dL Calcium (8.4-10.2) mg/dL Magnesium (1.6-2.3) mg/dL Total Bilirubin (0.2-1.3) mg/dL AST (14-36) U/L ALT (9-52) U/L Alkaline Phosphatase (38-126) U/L Total Creatine Kinase (30-135) U/L CK-MB (CK-2) (0.0-2.4) ng/mL CK-MB (CK-2) Rel Index Troponin I (0.000-0.034) ng/mL Total Protein (6.3-8.2) g/dL Albumin (3.5-5.0) g/dL Urine Color Yellow Urine Appearance Cloudy H (Clear) Urine pH 5.5 (5.0-8.0) Ur Specific [place] 1.010 (1.001-1.035) Urine Protein Trace H (Negative) Urine Glucose (UA) Negative (Negative) Urine Ketones Negative (Negative) Urine Blood Small H (Negative) Urine Nitrate Negative (Negative) Urine Bilirubin Negative (Negative) Urine Urobilinogen <2.0 (<2.0) mg/dL Ur Leukocyte Esterase Moderate H (Negative) Urine RBC 24 H (0-5) /hpf Urine WBC 41 H (0-5) /hpf Ur Squamous Epith Cells 1 (0-4) /hpf Urine Bacteria Rare H (None) /hpf Urine Mucus Rare H (None) /hpf - EKG Data -: EKG Interpreted by Me (EKG shows a ventricular rate of 97 bpm, QRS duration 62 ms, QT interval 342) Disposition Clinical Impression: Chest wall pain, Chronic CHF (congestive heart failure), Atrial fibrillation with RVR, Gastroesophageal reflux disease Disposition: HOME SELF-CARE Condition: Good Instructions: Chest Pain (ED), Heart Failure (ED) Additional Instructions: Increase furosemide to 40 mg every morning and at 2 PM daily for 3 days, increase her Imdur for from 15 mg daily to 30 mg daily, increase her famotidine from 20 mg once daily 20 mg twice a day. Referrals: Philip Velez MD [Primary Care Provider] - 1-2 days Time of Disposition: 18:38
[2016-10-14 16:48] LABS: Anisocytosis Slight; Basophils # (A) 0.1 k/uL (0-0.2); Basophils % (A) 1 %; CH 31.3; CHCM 30.6; Eosinophils # (A) 0.5 k/uL (0-0.7); Eosinophils % (A) 4 %; HCT 34.5 % (34.0-46.0); HDW 3.44; HGB 10.7 gm/dL (11.4-16.0); Hypochromasia Marked; Luc # (Auto) 0.34; Luc % (Auto) 3; Lymphocytes # (A) 1.8 k/uL (1.0-4.8); Lymphocytes % (A) 15 %; MCH 31.7 pg (25.0-35.0); MCHC 30.9 g/dL (31.0-37.0); MCV 102.7 fL (80.0-100.0); Macrocytosis Moderate; Mean Platelet Volume 7.9; Monocytes # (A) 0.5 k/uL (0-1.0); Monocytes % (A) 4 %; Neutrophils # (A) 8.8 k/uL (1.3-7.7); Neutrophils % (A) 73 %; Poikilocytosis Slight; RBC 3.36 m/uL (3.80-5.40); RDW 18.6 % (11.5-15.5); WBC 12.1 k/uL (3.8-10.6); WBC (Perox) 12.33
[2016-10-14 17:00] LABS: Appearance,Urine Cloudy (Clear); Bacteria,Urine Rare /hpf; Bilirubin,Urine Negative (Negative); Glucose,Urine (UA) Negative (Negative); Ketones,Urine Negative (Negative); Leukocyte Esterase,Urine Moderate (Negative); Mucus,Urine Rare /hpf; Nitrite,Urine Negative (Negative); PH, Urine 5.5 (5.0-8.0); Particle Count 7819; Protein,Urine Trace (Negative); RBC,Urine 24 /hpf (0-5); Squamous Epithelial Cell,Urine 1 /hpf (0-4); UA Billing (MACRO vs. MICRO) MICRO; Urobilinogen,Urine <2.0 mg/dL (<2.0); WBC,Urine 41 /hpf (0-5)
[2016-10-14 17:00] LABS: Creatine Kinase <20 U/L (30-135)
[2016-10-14 17:01] LABS: ALT 25 U/L (9-52); AST 28 U/L (14-36); Alkaline Phosphatase 66 U/L (38-126); Anion Gap 9 mmol/L; Blood Urea Nitrogen 12 mg/dL (7-17); Carbon Dioxide 31 mmol/L (22-30); Chloride 101 mmol/L (98-107); Glucose 145 mg/dL (74-99); Magnesium 1.6 mg/dL (1.6-2.3); Non-African American GFR(MDRD) >60 (>60 ml/min/1.73 sqM); Potassium 4.4 mmol/L (3.5-5.1); Sodium 141 mmol/L (137-145); Total Bilirubin 0.3 mg/dL (0.2-1.3); Total Protein 5.6 g/dL (6.3-8.2)
[2016-10-14 17:05] LABS: INR 1.4 (<1.1); Partial Thromboplastin Time 22.6 sec (22.0-30.0); Prothrombin Time 13.6 sec (9.0-12.0)
[2016-10-14 17:11] LABS: Creatine Kinase MB 0.4 ng/mL (0.0-2.4); Troponin I <0.012 ng/mL (0.000-0.034)
--- NOTE | 2016-10-14 17:22 | XR ---
EXAMINATION TYPE: XR chest 2V DATE OF EXAM: 10/14/2016 5:07 PM COMPARISON: 09/20/2016 HISTORY: 76-year-old female with chest pain and fluid retention TECHNIQUE: AP and lateral views FINDINGS: Exam limited by portable technique and large patient body habitus. There is persistent moderate cardiomegaly with hyperinflation and diffuse interstitial prominence wit h small pleural effusions. Effusions may be increased from prior. Right PICC tip at the lower SVC. IMPRESSION: COPD with moderate cardiomegaly and superimposed pulmonary vascular congestion. Small effusions appea r increased from prior.
[2016-10-14] MEDS ORDERED: HYDROmorphone 1 MG/ML 1 ML SYRINGE IVP STA (17:50)
[2016-10-14 18:51] VITALS: BP 111/65; PULSE 101; RESP 20; TEMP 97.6
== END 2016-10-14 19:30 | disposition home or self-care (01) ==
LOC: EC 16:07
DX: I11.0 Hypertensive heart disease with heart failure (principal); I48.91 Unspecified atrial fibrillation; E78.5 Hyperlipidemia, unspecified; E11.9 Type 2 diabetes mellitus without complications; M06.9 Rheumatoid arthritis, unspecified; J44.9 Chronic obstructive pulmonary disease, unspecified; K21.9 Gastro-esophageal reflux disease without esophagitis; B02.9 Zoster without complications; L40.9 Psoriasis, unspecified; D64.9 Anemia, unspecified; G47.30 Sleep apnea, unspecified; J90 Pleural effusion, not elsewhere classified; M19.90 Unspecified osteoarthritis, unspecified site; F32.9 Major depressive disorder, single episode, unspecified; F41.9 Anxiety disorder, unspecified; Z87.891 Personal history of nicotine dependence; Z82.49 Family history of ischemic heart disease and other diseases of the circulatory system; Z88.8 Allergy status to other drugs, medicaments and biological substances; Z79.51 Long term (current) use of inhaled steroids; Z79.899 Other long term (current) drug therapy; Z79.52 Long term (current) use of systemic steroids; Z79.82 Long term (current) use of aspirin; Z79.84 Long term (current) use of oral hypoglycemic drugs; Z79.4 Long term (current) use of insulin
CPT/HCPCS: 99285; 96374; 36415; 80053; 82550; 82553; 83735; 84484; 85025; 85610; 85730; 81001; 87040; 71020; J1170; 93005